=== PATIENT | male | born 1970 | race Caucasian/White ===

== ENCOUNTER 2021-01-27 06:00 | Emergency (ER) | payer BC, SELFPAY ==
[2021-01-27 06:00] VITALS: BP 197/136; PULSE 122; RESP 20; TEMP 36.8; O2SAT 100; BMI 34.3
--- NOTE | 2021-01-27 06:02 | EKG12_ITS ---
Test Reason : CP Blood Pressure : / mmHG Vent. Rate : 128 BPM Atrial Rate : 128 BPM P-R Int : 136 ms QRS Dur : 084 ms QT Int : 318 ms P-R-T Axes : 026 -06 -01 degrees QTc Int : 464 ms Sinus tachycardia Nonspecific ST abnormality Abnormal ECG Confirmed by JAVID LEAVITT, CHRISTINA ([id number]), editorial assistant CHELSEY LEON ([id number]) on 01/30/2021 8:49:41 AM Referred By: MR Confirmed By:CHRISTINA HUA MD
--- NOTE | 2021-01-27 06:07 | EKG12_ITS ---
Test Reason : Blood Pressure : / mmHG Vent. Rate : 076 BPM Atrial Rate : 076 BPM P-R Int : 142 ms QRS Dur : 088 ms QT Int : 392 ms P-R-T Axes : 036 -03 -10 degrees QTc Int : 441 ms Normal sinus rhythm Nonspecific T wave abnormality Abnormal ECG Confirmed by JAVID LEAVITT, CHRISTINA ([id number]), story editor CHELSEY LEON ([id number]) on 01/30/2021 8:47:27 AM Referred By: TOÑO Confirmed By:CHRISTINA HUA MD
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
[2021-01-27] MEDS: LORazepam 2 MG/ML Syringe 0.5 MG IV (06:13)
[2021-01-27 06:14] LABS: Absolute Lymphocyte Count 2.72 X10^3/uL (0.83-4.51); Absolute Neutrophil Count 3.5 X10^3/uL (2.0-7.7); Basophil# 0.01 X10^3/uL; Basophil% 0.1 % (0-1); Eosinophil# 0.14 X10^3/uL; Hemoglobin 15.4 g/dL (13.0-16.5); Lymphocyte # 2.72 X10^3/ul (0.83-4.51); Lymphocyte % 38.1 % (19-41); Mean Corp Hgb Conc 33.5 g/dL (32-36); Mean Corpuscular Hgb 27.6 pg (27.0-32.0); Mean Corpuscular Volume 82.6 fL (80-94); Mean Platelet Vol. 11.2 fl (6.2-12.0); Monocyte# 0.74 X10^3/uL; Monocyte% 10.4 % (0-10); NRBC Flagged by Analyzer 0 % (0-5); Platelet Count 246 K/mm3 (150-450); RBC Distribution Width CV 11.9 % (11.6-14.6); RBC Distribution Width SD 36.2 fl (35.1-43.9); Red Blood Count 5.57 M/mm3 (4.6-6.2); White Blood Count 7.1 K/mm3 (4.4-11.0)
[2021-01-27 06:24] LABS: D-Dimer Quantitative (DVT/PE) <= 0.27 FEU/ug/m (0.27-0.49)
[2021-01-27 06:29] LABS: Anion Gap 7 (5-15); BUN 11 mg/dL (7-18); BUN/Creat Ratio 12.1 RATIO (10-20); Calcium,Total 9.7 mg/dL (8.5-10.1); Chloride 104 mmol/L (98-107); Creatinine, Serum 0.91 mg/dL (0.70-1.30); EST Glomerular Filtration Rate 93 mL/min (>60); Est Glom Filt Rate - Afr Amer 112 mL/min (>60); Estimated Creatinine Clearance 85.69 ml/min; Glucose 109 mg/dL (74-106); Potassium 3.8 mmol/L (3.5-5.1); Sodium Level 140 mmol/L (136-145); Troponin-I HS 4 pg/mL (3.0-78.0)
[2021-01-27 06:32] VITALS: BP 174/109; PULSE 101
[2021-01-27] MEDS: Nitroglycerin SL (ED/IMG/CATH) 0.4 MG TABLET SL ×3 (06:32→06:42)
--- NOTE | 2021-01-27 06:34 | RAD_ITS ---
STUDY: X-RAY CHEST REASON FOR EXAM: Male, 50 years old. chest pain TECHNIQUE: PA and lateral views of the chest. COMPARISON: None. FINDINGS: The lungs are clear and expanded. There is no demonstrated pleural abnormality. Normal size heart. Normal mediastinum and waqas. Normal visualized pulmonary arteries. Normal visualized aortic arch and descending thoracic aorta. Normal visualized thoracic spine. Normal visualized ribs, clavicles, and shoulders. There is no demonstrated abnormality of the visualized soft tissue structures of the upper abdomen. RAD/Chest PA and Lateral IMPRESSION: Normal x-ray examination of the chest. Electronically Signed: Kel Tinoco MD at 6:47 EDT Tel , Service support ,
[2021-01-27 06:37] VITALS: BP 157/116; PULSE 122
[2021-01-27 06:41] LABS: Alcohol, Blood (Medical)-Serum < 3.0 mg/dL
[2021-01-27 06:42] VITALS: BP 137/103; PULSE 120
[2021-01-27 07:38] VITALS: BP 135/84; PULSE 79; RESP 11; O2SAT 98
[2021-01-27 08:32] LABS: Troponin-I HS 6 pg/mL (3.0-78.0)
[2021-01-27 08:58] VITALS: BP 131/77; PULSE 88; RESP 20; O2SAT 96
[2021-01-27] MEDS: Pantoprazole Sodium 40 MG Tablet PO (08:58)
== END 2021-01-27 09:02 | disposition home or self-care (01) ==
PROVIDERS: Emergency Provider Emergency Medicine; PCP Internal Medicine
DX: R07.9 Chest pain, unspecified (principal); I10 Essential (primary) hypertension; E78.5 Hyperlipidemia, unspecified; K21.9 Gastro-esophageal reflux disease without esophagitis; F41.9 Anxiety disorder, unspecified; Z79.82 Long term (current) use of aspirin; Z79.899 Other long term (current) drug therapy
CPT/HCPCS: 71046; 80048; 82077; 84484; 85025; 85379; 93005; 96374; 99284; A4216

== ENCOUNTER 2021-07-25 14:21 | Outpatient (CLI) | payer BC, SELFPAY ==
[2021-07-25 15:22] LABS: CRP 6.02 mg/L (0.0-3.0)
[2021-07-25 15:29] LABS: Erythrocyte Sedimentation Rate 3 mm/hr (0-20)
[2021-07-25 15:32] LABS: Absolute Lymphocyte Count 1.82 X10^3/uL (0.83-4.51); Absolute Neutrophil Count 4.4 X10^3/uL (2.0-7.7); Basophil# 0.03 X10^3/uL; Basophil% 0.4 % (0-1); Eosinophil# 0.16 X10^3/uL; Eosinophils% 2.2 % (0-5); Hematocrit 43.8 % (40-54); Hemoglobin 14.8 g/dL (13.0-16.5); Lymphocyte # 1.82 X10^3/ul (0.83-4.51); Lymphocyte % 25.4 % (19-41); Mean Corp Hgb Conc 33.8 g/dL (32-36); Monocyte# 0.71 X10^3/uL; Monocyte% 9.9 % (0-10); NRBC Flagged by Analyzer 0 % (0-5); Neutrophil # 4.42 X10^3/uL (2.7-7.7); Neutrophil % 61.8 % (47-70); Platelet Count 249 K/mm3 (150-450); RBC Distribution Width CV 12.1 % (11.6-14.6); RBC Distribution Width SD 36.6 fl (35.1-43.9); Red Blood Count 5.28 M/mm3 (4.6-6.2); White Blood Count 7.2 K/mm3 (4.4-11.0)
== END 2021-07-25 23:59 | disposition home or self-care (01) ==
LOC: LAB 14:22
PROVIDERS: PCP Internal Medicine; Referring Provider Physician Assistant; Visit Provider Physician Assistant
DX: M25.561 Pain in right knee (principal); Z96.651 Presence of right artificial knee joint
CPT/HCPCS: 36415; 85025; 85652; 86140

== ENCOUNTER → 2021-08-02 | Outpatient (CLI) | payer BC, SELFPAY ==
--- NOTE | 2021-08-02 13:06 | CT_ITS ---
INDICATION: PRESENTS OF RT ARTIFICAL KNEE JOINT, increased pain EXAMINATION: CT BONE - CT Lower Extremity W/O Contrast Injection TECHNIQUE: Helically acquired images were obtained of the right knee. 2-D reformats were performed by the technologist. A radiation dose optimization technique was used for this scan. IV Contrast dosage and agent: None. COMPARISON: None. FINDINGS: SOFT TISSUES: No soft tissue swelling or gas. No radiopaque foreign body. BONES/JOINTS: No acute fracture or subluxation. Total knee arthroplasty and patellar resurfacing in anatomic alignment without lucency to suggest loosening. No sclerotic or destructive changes. CT/Extremity Lower without Contra IMPRESSION: No finding of arthroplasty complication. No acute abnormal finding. Electronically Signed: Francisco Oliver MD at 6:47 EDT ,
== END | disposition home or self-care (01) ==
LOC: CT 13:03
PROVIDERS: PCP Internal Medicine; Referring Provider Physician Assistant; Visit Provider Physician Assistant
DX: Z96.651 Presence of right artificial knee joint (principal)
CPT/HCPCS: 73700

== ENCOUNTER 2022-07-25 15:26 | Emergency (ER) | payer BC, SELFPAY ==
[2022-07-25 15:26] VITALS: BP 163/134; PULSE 104; RESP 19; TEMP 36.6; O2SAT 99
[2022-07-25 15:39] VITALS: BMI 32.8
--- NOTE | 2022-07-25 15:53 | EDS_ITS ---
HPI History of Present Illness Chief Complaint: Bite Narrative Narrative: 51-year-old male presenting with dog bite. He states he was at his friend's house and his dogs mastiff bit the tip of his penis. He states he does not know any of the dog's immunization status or information because he did not stick around to find out. Last tetanus unknown. Patient states the bleeding is well controlled. He does not have any testicular injury. [facility] Medical History Anxiety Hypertension Substance abuse Home Medications Ropinirole Hcl [Requip] 1 mg PO DAILY 01/04/13 [History Last Taken Unknown] ascorbic acid (vitamin C) 500 mg tablet (Vitamin C) 500 mg PO DAILY@0800 01/04/13 [History Last Taken Unknown] atorvastatin 20 mg tablet 20 mg PO QHS 01/04/13 [History Last Taken Unknown] fluoxetine 20 mg capsule 40 mg PO DAILY 01/04/13 [History Last Taken Unknown] cyclobenzaprine 10 mg tablet 10 mg PO TID PRN PRN Pain ##30 01/07/13 [Rx Last Taken Unknown] bisoprolol 2.5 mg-hydrochlorothiazide 6.25 mg tablet 1 tab PO DAILY 08/14/15 [History Last Taken Unknown] gabapentin 300 mg capsule 300 mg PO TIDCM 08/14/15 [History Last Taken Unknown] trazodone 150 mg tablet 150 mg PO 08/14/15 [History Last Taken Unknown] aspirin 325 mg tablet 325 mg PO BIDCM ##28 08/24/15 [Rx Last Taken Unknown] buspirone 15 mg tablet 15 mg PO BID 08/24/15 [History Last Taken Unknown] celecoxib 200 mg capsule 200 mg PO BID ##6 08/24/15 [Rx Last Taken Unknown] amoxicillin 875 mg-potassium clavulanate 125 mg tablet 1 tab PO BID #20 tabs 07/25/22 [Rx Last Taken Unknown] Allergy/AdvReac Type Severity Reaction Status Date / Time No Known Allergies Allergy Verified 07/25/22 15:29 Surgical History H/O knee surgery H/O wisdom tooth extraction History of knee replacement Hx of appendectomy Social History Smoking Status: Never smoker ROS ROS ED Constitutional Constitutional ED: Denies chills, fever(s) or sweats Eyes Eyes: Denies blurry vision or change in vision ENT ENT ED: Denies ear pain or sore throat Cardiovascular Cardiovascular: Denies chest pain, palpitations or racing heartbeat Respiratory/Chest Respiratory/Chest: Denies cough, dyspnea or sputum Gastrointestinal Gastrointestinal: Denies abdominal pain, constipation, diarrhea, nausea or vomiting Genitourinary Genitourinary ED: Denies dysuria, hematuria or urinary frequency Musculoskeletal Musculoskeletal: Denies arthralgias, myalgias or neck pain Integumentary Reports Abrasions; Denies abscess Neurologic Neurologic: Denies headache(s), paresthesias or weakness Psychiatric Psychiatric: Denies anxiety, depression, suicidal ideation or suicidal thoughts Endocrine Endocrinology: Denies polydipsia or polyuria EXAM Physical Exam Const Vital Signs: 07/25/22 15:26 07/25/22 16:35 Temperature 98 F Temperature Source Temporal Pulse Rate 104 H Respiratory Rate 19 H 18 Blood Pressure 163/134 H Blood Pressure Mean 143 Pulse Ox 99 Oxygen Delivery Method Room Air Positive well nourished General Appearance ED: NAD HEENT atraumatic Resp normal respiratory effort Cardio regular rhythm Neuro oriented x3 and CN's II-XII intact bilaterally Psych mental status grossly normal Skin Skin Narrative: Superficial abrasion to the dorsal aspect of the tip of the penis just proximal to the urethral opening. No active bleeding. No other noted injury. MDM MDM MDM Narrative Medical decision making narrative: Patient sustained dog bite to the tip of his penis. Is very superficial area of abrasion on the dorsal aspect of the penis. No active bleeding. Tetanus was updated today. Patient states he has addiction issues and does not want anything stronger than antiinflammatories. Patient was able to talk to his friend who is the health and fitness professor of the dog. His immunizations are up-to-date. He did have his rabies vaccine. He was given Toradol. Patient started on Augmentin. Wound care and return precautions were discussed. Impression: 1. Dog bite Discharge Plan Triage Chief Complaint: Bite ED Provider: Mathieu Reyes Dx/Rx/DC Orders Instructions: ED Dog Bite Prescriptions: New amoxicillin-pot clavulanate 875-125 mg tablet 1 tab PO BID Qty: 20 0RF No Action atorvastatin 20 MG tablet 20 mg PO QHS Label Comments: CHOLESTEROL ascorbic acid (vitamin C) [Vitamin C] 500 MG tablet 500 mg PO DAILY@0800 Label Comments: SUPPLEMENT fluoxetine 20 MG capsule 40 mg PO DAILY Label Comments: DEPRESSION Ropinirole Hcl [Requip] 1 MG tablet 1 mg PO DAILY Label Comments: RESTLESS LEGS cyclobenzaprine 10 MG tablet 10 mg PO TID PRN PRN (Reason: Pain) Qty: 30 0RF Label Comments: MUSCLE PAIN bisoprolol-hydrochlorothiazide 1 EACH tablet 1 tab PO DAILY Label Comments: blood pressure trazodone 150 MG tablet 150 mg PO Label Comments: antidepressant gabapentin 300 MG capsule 300 mg PO TIDCM Label Comments: neuropathy buspirone 15 MG tablet 15 mg PO BID Label Comments: TAKE 1 TABLET BY MOUTH TWICE DAILY. anxiety celecoxib 200 MG capsule 200 mg PO BID Qty: 6 0RF Label Comments: pain aspirin 325 MG tablet 325 mg PO BIDCM Qty: 28 0RF Label Comments: blood thinner Primary Care Provider: Lindsay Zhou Referrals: Lindsay Zhou MD [Primary Care Provider] - Disposition Disposition: Home, Self Care Discharge Date/Time: 07/25/22 16:43
[2022-07-25] MEDS: Ketorolac 15 MG/ML Vial IV (16:04)
[2022-07-25] MEDS: Amox/Clavulanate 875 MG Tablet PO (16:04)
[2022-07-25] MEDS: Diphth,Pertuss(Acell),Tet Vac 0.5 ML Vial IM (16:05)
[2022-07-25 16:35] VITALS: RESP 18
== END 2022-07-25 16:43 | disposition home or self-care (01) ==
PROVIDERS: Emergency Provider Student in an Organized Health Care Education/Training Program; PCP Internal Medicine; Visit Provider Student in an Organized Health Care Education/Training Program
DX: S30.812A Abrasion of penis, initial encounter (principal); W54.0XXA Bitten by dog, initial encounter
CPT/HCPCS: 90715; 96374; 99283; A4216

== ENCOUNTER 2023-02-09 23:49 | Emergency (ER) | payer BC, SELFPAY ==
[2023-02-09 23:50] VITALS: BP 134/88; PULSE 73; RESP 16; TEMP 36.2; O2SAT 98; BMI 35.7
--- NOTE | 2023-02-09 23:55 | EDS_ITS ---
HPI History of Present Illness Chief Complaint: Back [facility] Medical History Anxiety Hypertension Substance abuse Home Medications Ropinirole Hcl [Requip] 1 mg PO DAILY 01/04/13 [History Last Taken Unknown] ascorbic acid (vitamin C) 500 mg tablet (Vitamin C) 500 mg PO DAILY@0800 01/04/13 [History Last Taken Unknown] atorvastatin 20 mg tablet 20 mg PO QHS 01/04/13 [History Last Taken Unknown] fluoxetine 20 mg capsule 40 mg PO DAILY 01/04/13 [History Last Taken Unknown] cyclobenzaprine 10 mg tablet 10 mg PO TID PRN PRN Pain ##30 01/07/13 [Rx Last Taken Unknown] bisoprolol 2.5 mg-hydrochlorothiazide 6.25 mg tablet 1 tab PO DAILY 08/14/15 [History Last Taken Unknown] gabapentin 300 mg capsule 300 mg PO TIDCM 08/14/15 [History Last Taken Unknown] trazodone 150 mg tablet 150 mg PO 08/14/15 [History Last Taken Unknown] aspirin 325 mg tablet 325 mg PO BIDCM ##28 08/24/15 [Rx Last Taken Unknown] buspirone 15 mg tablet 15 mg PO BID 08/24/15 [History Last Taken Unknown] celecoxib 200 mg capsule 200 mg PO BID ##6 08/24/15 [Rx Last Taken Unknown] amoxicillin 875 mg-potassium clavulanate 125 mg tablet 1 tab PO BID #20 tabs 07/25/22 [Rx Last Taken Unknown] oxycodone 5 mg capsule 5 mg PO Q6H PRN pain 3 days #12 caps 02/10/23 [Rx Last Taken Unknown] prednisone 20 mg tablet 40 mg (2 x 20 mg) PO DAILY 5 days #10 tabs 02/10/23 [Rx Last Taken Unknown] Allergy/AdvReac Type Severity Reaction Status Date / Time No Known Allergies Allergy Verified 02/09/23 23:50 Surgical History H/O knee surgery H/O wisdom tooth extraction History of knee replacement Hx of appendectomy Social History Smoking Status: Never smoker EXAM Physical Exam Const Vital Signs: 02/09/23 23:50 Temperature 97.1 F L Temperature Source Temporal Pulse Rate 73 Respiratory Rate 16 Blood Pressure 134/88 H Blood Pressure Mean 103 Pulse Ox 98 Oxygen Delivery Method [place] [facility] [place] Medical decision making narrative: HISTORY OF PRESENT ILLNESS: 52-year-old male presents with back pain. The patient states he has a history of bulging disc at the L4/L5 level. Notes no new trauma. No falls. Notes tonight he laid down and noticed severe pain in his lower back that does not radiate. Patient denies any saddle anesthesia, urinary tension, bowel or bladder incontinence, lower extremity weakness, fever or IV drug use, no recent spinal manipulation or surgery, no recent urinary catheterization. REVIEW OF SYSTEMS: All other systems reviewed and are negative except as noted in the history of present illness. At least 10 review of systems reviewed and are negative except as noted in history of present illness. PHYSICAL EXAM: Nursing triage notes reviewed, Vital signs reviewed Constitutional: please see mdm HENT: MMM Eyes: Pupils equal round and reactive to light, Extraocular muscles intact Neck: No stridor, no JVD, full neck ROM Lungs: Clear to auscultation, No wheezing or rales. No increased work of breathing, no conversational dyspnea, no accessory muscle use, no nasal flaring. No respiratory distress noted Heart: Regular rate and rhythm, No murmurs, No rubs and No gallops, 2+ distal pulses (radial, femoral, posterior tibial) in all extremities Abdomen: Soft, there is no tenderness, rigidity, rebound or guarding, no obvious peritoneal signs, no palpable pulsatile abdominal masses, no auscultated abdominal bruit : No CVAT Extremities: No edema Back: No midline step-offs or deformities Neuro: Intact sensation L1-S1 dermatomal distributions. Intact 5/5 strength in hip flexion (T12-L3). Knee extension (L2-L4). Ankle dorsiflexion (L4-L5). Ankle plantar flexion (S1). Great toe extension (L5). 2+ patellar and Achilles DTRs. Skin: No rash or lesions noted MEDICAL DECISION MAKING: Chief Complaint: Back pain External records reviewed: [No recent advanced imaging of the axial skeleton Factors affecting care: Hypertension, substance abuse Social determinants of health: No IV drug use History obtained from others: Patient's Consults: none [facility] Narrative: Patient was hemodynamically stable, afebrile. Exam without focal neurologic deficits. No midline step-offs or deformities. No obvious rashes. I considered the following differential diagnosis: Musculoskeletal back pain, space-occupying lesion of the spinal (epidural abscess, epidural hematoma), cauda equina, conus medullaris, fracture dislocation, AAA, nephrolithiasis, pyelonephritis, aortic dissection The patient presented complaining of back pain. There was no history of recent fall or trauma. There was no evidence to support genitourinary etiology. There is also no evidence to suggest vascular pathology such as AAA dissection. No fevers or other evidence to suspect infectious processes, abscess, osteomyelitis etc. The patient?s neurological exam is normal with normal motor and sensory. There is no saddle paresthesias reported and no bowel or bladder incontinence or retention. I suspect the pain is mechanical in nature. Clinical suspicion, plan of care and management was discussed with the patient. The patient was instructed to follow up with their health care provider. The patient was also instructed to return if the pain worsened, changed, or developed weakness or bowel or bladder trouble. The patient agreed with plan. I completed a structured, evidence-based clinical evaluation to screen for acute non-traumatic spinal emergencies. The patient has a normal detailed neurologic exam and red flag historical factors were negative. The evidence indicates that the patient is very low risk for an acute spinal emergency and this is consistent with my clinical intuition. The risk of further workup is higher than the likelihood of the patient having a spinal epidural abscess or other dangerous emergency spinal condition. It is, therefore, in the patient?s best interest not to do additional emergent testing at this time. Shared Decision-Making I have discussed with the patient my clinical impression and the result of an evidence-based clinical evaluation to screen for spinal epidural abscess and other spinal emergencies, as well as the risk of further testing and hospitalization. The evidence shows that the risk for an acute spinal emergency is less than 1%. Although the risk of an acute spinal emergency has not been completely eliminated, the risks of further testing likely exceed any potential benefit, and the patient agrees with not pursuing further emergent evaluation for causes of back pain at this time. The patient and/or family, caregivers express understanding. The patient and/or family, caregivers agrees with the plan. Total critical care time today provided was at least 0 minutes. This excludes separately billable procedures. Critical care time (if documented) is secondary to the patient having high probability of clinically significant/life threatening deterioration in the patient's condition which required my urgent intervention. Impression: 1. Acute on chronic low back pain 2. History of disc herniation Disposition: Discharge home Anoop Colorado DO Discharge Plan Triage Chief Complaint: Back ED Provider: Anoop Colorado Dx/Rx/DC Orders Clinical Impression: Acute exacerbation of chronic low back pain Instructions: ED Back Pain (Acute or Chronic) Prescriptions: New oxycodone 5 mg capsule 5 mg PO Q6H PRN (Reason: pain) 3 Days Qty: 12 0RF prednisone 20 mg tablet 40 mg PO DAILY 5 Days Qty: 10 0RF No Action atorvastatin 20 MG tablet 20 mg PO QHS Patient Comments: CHOLESTEROL ascorbic acid (vitamin C) [Vitamin C] 500 MG tablet 500 mg PO DAILY@0800 Patient Comments: SUPPLEMENT fluoxetine 20 MG capsule 40 mg PO DAILY Patient Comments: DEPRESSION Ropinirole Hcl [Requip] 1 MG tablet 1 mg PO DAILY Patient Comments: RESTLESS LEGS cyclobenzaprine 10 MG tablet 10 mg PO TID PRN PRN (Reason: Pain) Qty: 30 0RF Patient Comments: MUSCLE PAIN bisoprolol-hydrochlorothiazide 1 EACH tablet 1 tab PO DAILY Patient Comments: blood pressure trazodone 150 MG tablet 150 mg PO Patient Comments: antidepressant gabapentin 300 MG capsule 300 mg PO TIDCM Patient Comments: neuropathy buspirone 15 MG tablet 15 mg PO BID Patient Comments: TAKE 1 TABLET BY MOUTH TWICE DAILY. anxiety celecoxib 200 MG capsule 200 mg PO BID Qty: 6 0RF Patient Comments: pain aspirin 325 MG tablet 325 mg PO BIDCM Qty: 28 0RF Patient Comments: blood thinner amoxicillin-pot clavulanate 875-125 mg tablet 1 tab PO BID Qty: 20 0RF Stand Alone Forms: ED Work / School Excuse Primary Care Provider: Lindsay Zhou Referrals: Saleem Mendez MD [Non-Staff] - Lindsay Zhou MD [Primary Care Provider] - Activity Restrictions/Additional Instructions: Thank you for trusting us with your care today! Please take Tylenol (2 pills, 650 mg), ibuprofen (2 pills, 400 mg) every 6 hours as needed for pain and fever control. Please begin taking your short course of prednisone which last 5 days. If this regimen does not control your pain please take oxycodone as needed for breakthrough pain. Please return to the emergency department if your symptoms change or worsen. Specifically if you develop bowel or bladder trouble, urinary retention, loss of sensation around your private region, loss of movement or sensation in your legs. Please follow with your primary care physician for further outpatient evaluation and management. Disposition Disposition: Home, Self Care
[2023-02-10 00:41] VITALS: BP 134/88; PULSE 73; RESP 16; O2SAT 98
[2023-02-10] MEDS: predniSONE 20 MG Tablet 40 MG PO (00:42)
[2023-02-10] MEDS: Oxycodone/Apap 5/325 Tablet PO (00:42)
[2023-02-10] MEDS: Ibuprofen 200 MG Tablet 400 MG PO (00:42)
== END 2023-02-10 00:44 | disposition home or self-care (01) ==
LOC: ED 02-10 00:19
PROVIDERS: Emergency Provider Emergency Medicine; PCP Internal Medicine; Visit Provider Emergency Medicine
DX: G89.29 Other chronic pain (principal); I10 Essential (primary) hypertension; M54.50 Low back pain, unspecified; F41.9 Anxiety disorder, unspecified; Z79.899 Other long term (current) drug therapy; Z96.659 Presence of unspecified artificial knee joint; Z90.49 Acquired absence of other specified parts of digestive tract
CPT/HCPCS: 99283

== ENCOUNTER 2023-05-08 15:24 | Inpatient (IN) | payer BC, SELFPAY ==
[2023-05-08 15:26] VITALS: BP 143/89; PULSE 83; RESP 18; TEMP 36.6; O2SAT 98; BMI 38.0
[2023-05-08] MEDS: Oxycodone/Apap 5/325 Tablet PO (16:09)
--- NOTE | 2023-05-08 16:09 | EX.ED.DYSGE1 ---
HPI <DOLLY Rinaldi - Last Filed: 05/08/23 17:17> History of Present Illness Chief Complaint: Chest Pain Narrative Narrative: Patient is a 52-year-old male with history of hypertension, hyperlipidemia, neuropathy anxiety, depression who presents to the emergency department for multiple complaints. Patient states that he has been having bilateral feet pain that have been ongoing for the last several weeks. He was supposed to see a zipper setter chainstitch today, however secondary to emergency surgery, the patient was then told to come back and rescheduled for 22 May. Patient states that he also has chest pain and shortness of breath. This is also been going on for several weeks. Since he was here, he thought he come to the emergency department to have it evaluated. He also would like something for pain for his feet [facility] <DOLLY Rinaldi - Last Filed: 05/08/23 17:17> [facility] Medical History (Updated 05/08/23 @ 17:[address] Reema Mcconnell MD) Anxiety Hypertension Substance abuse Home Medications ascorbic acid (vitamin C) 500 mg tablet (Vitamin C) 500 mg PO DAILY@0800 SUPPLEMENT 01/04/13 [History Last Taken Unknown] atorvastatin 20 mg tablet 20 mg PO QHS CHOLESTEROL 01/04/13 [History Last Taken 05/08/23] fluoxetine 20 mg capsule 20 mg PO DAILY DEPRESSION 01/04/13 [History Last Taken Unknown] bisoprolol 2.5 mg-hydrochlorothiazide 6.25 mg tablet 1 tab PO DAILY blood pressure 08/14/15 [History Last Taken 05/08/23] gabapentin 300 mg capsule 300 mg PO TIDCM 08/14/15 [History Last Taken 05/08/23] buspirone 15 mg tablet 15 mg PO BID anxiety 08/24/15 [History Last Taken 05/08/23] cyclobenzaprine 10 mg tablet 10 mg PO TID PRN muscle pain 05/08/23 [History Last Taken Unknown] fluoxetine 40 mg capsule 40 mg PO DAILY DEPRESSION 05/08/23 [History Last Taken 05/08/23] meloxicam 15 mg tablet 15 mg PO DAILY 05/08/23 [History Last Taken 05/08/23] ropinirole 1 mg tablet 1.5 mg PO DAILY RESTLESS LEG SYNDROME 05/08/23 [History Last Taken 05/07/23] Allergy/AdvReac Type Severity Reaction Status Date / Time No Known Allergies Allergy Verified 05/08/23 15:26 Surgical History H/O knee surgery H/O wisdom tooth extraction History of knee replacement Hx of appendectomy Social History Smoking Status: Never smoker ROS <DOLLY Rinaldi - Last Filed: 05/08/23 17:17> ROS ED ROS Narrative Constitutional: Negative for fever, chills, weight loss, weakness Eyes: Negative for vision loss, vision change, double vision ENT: Negative for any sore throat, ear pain, congestion Cardiovascular: Negative for any tightness, palpitations. Positive for chest pain Respiratory: Negative for any cough, sputum production, hemoptysis,dyspnea on exertion, orthopnea. Positive for dyspnea Gastrointestinal: Negative for any abdominal pain, nausea, vomiting, diarrhea, constipation, blood in stool, blood in vomit : Negative for any urinary frequency, dysuria, retention, blood in urine Muscle skeletal: Negative for any myalgias, arthralgias, neck pain, back pain. Positive bilateral leg. Neurological: Negative for any headache, syncope, paresthesias, dizziness Skin: Negative for any rashes, lumps, itching, abrasions, lacerations Psychiatric: Negative for any depression, anxiety, stress, suicidal ideation, homicidal ideation Hematologic: Negative for any easy bruising, excessive bruising, easy bleeding Allergies: Negative for any eczema, hives, rash EXAM <DOLLY Rinaldi - Last Filed: 05/08/23 17:17> Physical Exam Narrative Exam Narrative: Vital signs reviewed. HEET: Head normocephalic atraumatic, TMs clear bilaterally. Posterior pharynx is clear, moist mucous membranes. Nares clear bilaterally. Neck: Supple with no lymphadenopathy or tenderness. No signs of meningismus. Cardiac: Regular rate and rhythm no murmurs gallops or rubs, equal peripheral pulses bilaterally. Respiratory: Lungs clear to auscultation bilaterally. No chest tenderness. Abdomen: Soft, nontender, nondistended. No abdominal bruit or pulsatile masses. No hepatosplenomegaly Extremities: No peripheral edema, no signs of gross trauma or deformity. Active full range of motion of all extremities. Patient has tenderness throughout his feet however there is no color change, no ecchymosis, no edema. +2 pedal pulse. Neuro: Cranial nerves II through XII intact, no focal neurological deficits. Skin: Clean dry and intact with no rash, purpura, petechiae, vesicles or pustules. Backs/flank: No CVA tenderness, no midline spinal tenderness, no deformity. Psych: Normal mood and affect. No SI, HI or acute psychosis. Const Vital Signs: 05/08/23 15:26 05/08/23 15:54 05/08/23 17:24 Temperature 97.8 F Temperature Source Temporal Pulse Rate 83 79 Respiratory Rate 18 27 H Respiratory Effort Normal Non-Labored Blood Pressure 143/89 H 142/82 H Blood Pressure Mean 107 102 Pulse Ox 98 97 Oxygen Delivery Method Room Air Positive well nourished and well developed General Appearance ED: well developed <Dr. Jose Marrero MD - Last Filed: 05/08/23 23:55> Physical Exam Const Vital Signs: 05/08/23 15:26 05/08/23 15:54 05/08/23 17:24 Temperature 97.8 F Temperature Source Temporal Pulse Rate 83 79 Respiratory Rate 18 27 H Respiratory Effort Normal Non-Labored Blood Pressure 143/89 H 142/82 H Blood Pressure Mean 107 102 Pulse Ox 98 97 Oxygen Delivery Method Room Air MDM <DOLLY Rinaldi - Last Filed: 05/08/23 17:17> MDM Lab Data Labs: Laboratory Results - last 24 hr 05/08/23 15:50 WBC 6.2 RBC 4.57 L Hgb 12.6 L Hct 37.8 L MCV 82.7 MCH 27.6 MCHC 33.3 RDW Std Deviation 36.3 RDW Coeff of Zonia 12.1 Plt Count 183 MPV 12.3 H Immature Gran % (Auto) 0.300 Neut % (Auto) 58.3 Lymph % (Auto) 28.4 Gosper % (Auto) 9.6 Eos % (Auto) 2.9 Baso % (Auto) 0.5 Absolute Neuts (auto) 3.6 Absolute Lymphs (auto) 1.77 Nucleated RBC % 0 PT 12.6 INR 0.9 APTT 29.0 D-Dimer Quant (PE/DVT) < 0.27 L Sodium 141 Potassium 3.7 Chloride 110 H Carbon Dioxide 28.0 Anion Gap 3 L BUN 17 Creatinine 0.95 Estim Creat Clear Calc 105.28 Est GFR (MDRD) Af Amer 106 Est GFR (MDRD) Non-Af 88 BUN/Creatinine Ratio 17.9 Glucose 169 H Hemoglobin A1c 6.4 H Calcium 8.9 Troponin I High Sens 2430 H* Radiography Diagnostic Testing: Clinical Impression(s) from Imaging Studies Chest X-Ray 05/08/23 16:15 IMPRESSION: No radiographic evidence of acute cardiopulmonary disease. Electronically Signed: Joe Spann MD at 16:29 EST , EKG Initial EKG: Comments: Normal sinus rhythm, rate of 72 bpm, NJ interval 164 ms, QRS duration 94 ms, no acute ST elevation, no acute infarct noted. Treatment and Re-Evaluation :: Patient appears generally well, patient appears nontoxic, vital signs are stable. Patient is presenting to the emergency department with complaints of bilateral feet pain has been going on for several weeks, as well as chest pain has been going on for several weeks. Differential diagnosis include plantar fasciitis, worsening neuropathy, ACS, NC, muscle skeletal chest pain, pneumonia. Patient will receive basic laboratory values including 1 troponin secondary to this being ongoing for 2 weeks. Patient received a two-view chest x-ray. All radiologic examinations were read, reviewed by the emergency department attending. From these reads, a plan of care will be put in place. Patient be given Percocet for pain. Patient's patient's 2 view chest x-ray shows no radiographic evidence of acute cardiopulmonary process. This was interpreted by the ER physician. EKG shows normal sinus rhythm, some T wave abnormality, rate of [address] elevation. Patient's laboratory eval showed normal CBC, patient slightly anemic with a hemoglobin 12.6. However this appears baseline. Patient's D-dimer was negative. Patient's troponin was greatly elevated at 2430. Second to this I will reach out to cardiology, patient will be admitted as a NSTEMI. Patient be given oral aspirin here. Spoke with hospitalist, patient be admitted. Did speak with cardiology, we will be starting heparin. Patient stable for admission. <Dr. Jose Marrero MD - Last Filed: 05/08/23 23:55> [facility] Lab Data Attestation: I reviewed the patient's lab results. Labs: Laboratory Results - last 24 hr 05/08/23 15:50 WBC 6.2 RBC 4.57 L Hgb 12.6 L Hct 37.8 L MCV 82.7 MCH 27.6 MCHC 33.3 RDW Std Deviation 36.3 RDW Coeff of Zonia 12.1 Plt Count 183 MPV 12.3 H Immature Gran % (Auto) 0.300 Neut % (Auto) 58.3 Lymph % (Auto) 28.4 Gosper % (Auto) 9.6 Eos % (Auto) 2.9 Baso % (Auto) 0.5 Absolute Neuts (auto) 3.6 Absolute Lymphs (auto) 1.77 Nucleated RBC % 0 PT 12.6 INR 0.9 APTT 29.0 D-Dimer Quant (PE/DVT) < 0.27 L Sodium 141 Potassium 3.7 Chloride 110 H Carbon Dioxide 28.0 Anion Gap 3 L BUN 17 Creatinine 0.95 Estim Creat Clear Calc 105.28 Est GFR (MDRD) Af Amer 106 Est GFR (MDRD) Non-Af 88 BUN/Creatinine Ratio 17.9 Glucose 169 H Hemoglobin A1c 6.4 H Calcium 8.9 Troponin I High Sens 2430 H* Radiography Diagnostic Testing: Clinical Impression(s) from Imaging Studies Chest X-Ray 05/08/23 16:15 IMPRESSION: No radiographic evidence of acute cardiopulmonary disease. Electronically Signed: Joe Spann MD at 16:29 EST , Rhythm Strip Rhythm Strip: Sinus Rhythm Rate: 80 Ectopy: None EKG Initial EKG: Attestation: I personally reviewed and interpreted this EKG as follows: Interpretation: Sinus Rhythm and S-T Depression (inf 0.5-1mm w/ T wave inversions; no recip FRED) Prior EKG tracings: available for review Prior: Changed Management Discussion w/another healthcare provider: Hospitalist and Quality Assurance (cardiology Dr. Collado) Treatment and Re-Evaluation Comments:: I have personally performed a face to face assessment of the patient and have reviewed the SOPHIE Note. I performed a substantive portion of the visit including all aspects of the following. My cai findings include: History is ongoing left-sided chest discomfort for 2.5 weeks or more. Denies any acute sudden onset. It was gradual. Mostly nonpleuritic but when the pain is severe it hurts a little more to take deep breaths and has made him short of breath when the pain is severe but otherwise no respiratory symptoms. No leg pain or swelling. No syncopal episodes or near syncope or palpitations. 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 [id number]. Exam is heart regular, no tachycardia, lungs clear to auscultation throughout, no splinting on deep inspiration. The left lateral chest up toward the axilla and pectoralis major tendon are all tender, reproducing his pain to some degree but it is relatively mild and he is in no distress. Equal bilateral radial pulses, no calf tenderness or pedal edema. Medical Decison Making likely musculoskeletal. Given symptoms, and age since we are not able to apply PERC rule, we will obtain a D-dimer given his low Wells score, as well as a chest x-ray to rule out pulmonary etiology, an EKG and troponin to rule out cardiac etiology. EKG shows inferior ischemic abnormalities, and his troponin is elevated, suggesting an atypical presentation of acute coronary syndrome. His D-dimer is within normal limits, this rules out pulmonary embolus as cause for these abnormalities, so we suspect it is coronary thrombosis. There is no STEMI. Discussed with cardiology, desire heparin drip in addition to aspirin which we gave, since inferior process I am given morphine instead of nitroglycerin and we will discuss with hospitalist for admission. Other additions or changes: [None] <Dr. Jose Marrero MD - Last Filed: 05/08/23 23:55> Critical Care Time Critical Care Time: Yes Critical care time (excluding procedures): 30-74 minutes (36 min), Including time spent:, Discussing w/Patient &/or Family/[employer], Discussing w/Consultants, Arranging Admission or Transfer and Performing Direct Patient Care at Bedside Discharge Plan Dx/Rx/DC Orders Clinical Impression: ACS (acute coronary syndrome), Acute dyspnea, Chest pain Disposition Disposition: Acute Care Hospital [facility] Discharge Date/Time: 05/08/23 18:27
[2023-05-08 16:15] LABS: Absolute Lymphocyte Count 1.77 X10^3/uL (0.83-4.51); Absolute Neutrophil Count 3.6 X10^3/uL (2.0-7.7); Basophil# 0.03 X10^3/uL; Basophil% 0.5 % (0-1); Eosinophil# 0.18 X10^3/uL; Eosinophils% 2.9 % (0-5); Hematocrit 37.8 % (40-54); Hemoglobin 12.6 g/dL (13.0-16.5); Lymphocyte # 1.77 X10^3/ul (0.83-4.51); Lymphocyte % 28.4 % (19-41); Mean Corp Hgb Conc 33.3 g/dL (32-36); Mean Corpuscular Hgb 27.6 pg (27.0-32.0); Mean Corpuscular Volume 82.7 fL (80-94); Mean Platelet Vol. 12.3 fl (6.2-12.0); Monocyte% 9.6 % (0-10); NRBC Flagged by Analyzer 0 % (0-5); Neutrophil # 3.64 X10^3/uL (2.7-7.7); Neutrophil % 58.3 % (47-70); Platelet Count 183 K/mm3 (150-450); RBC Distribution Width CV 12.1 % (11.6-14.6); RBC Distribution Width SD 36.3 fl (35.1-43.9); Red Blood Count 4.57 M/mm3 (4.6-6.2); White Blood Count 6.2 K/mm3 (4.4-11.0)
--- NOTE | 2023-05-08 16:15 | RAD_ITS ---
EXAM: XR CHEST, 2 VIEWS CLINICAL INDICATION: Shortness of breath TECHNIQUE: Frontal and lateral views of the chest. COMPARISON: 01/27/2021 FINDINGS: LUNGS AND PLEURAL SPACES: Unremarkable. No consolidation or edema. No pneumothorax. No effusion. HEART: Unremarkable. Cardiac silhouette not enlarged. MEDIASTINUM: Central airways and mediastinal contour are unremarkable. BONES/JOINTS: Unremarkable. No acute fracture. SOFT TISSUES: Unremarkable. RAD/Chest PA and Lateral IMPRESSION: No radiographic evidence of acute cardiopulmonary disease. Electronically Signed: Joe Spann MD at 16:29 EST ,
[2023-05-08 16:41] LABS: Anion Gap 3 (5-15); BUN 17 mg/dL (7-18); BUN/Creat Ratio 17.9 RATIO (10-20); Calcium,Total 8.9 mg/dL (8.5-10.1); Chloride 110 mmol/L (98-107); Creatinine, Serum 0.95 mg/dL (0.70-1.30); EST Glomerular Filtration Rate 88 mL/min (>60); Est Glom Filt Rate - Afr Amer 106 mL/min (>60); Estimated Creatinine Clearance 105.28 ml/min; Glucose 169 mg/dL (74-106); Potassium 3.7 mmol/L (3.5-5.1); Sodium Level 141 mmol/L (136-145); Troponin-I HS 2430 pg/mL (3.0-78.0)
[2023-05-08 16:53] LABS: D-Dimer Quantitative (DVT/PE) < 0.27 FEU/ug/m (0.27-0.49)
[2023-05-08] MEDS: Aspirin 325 MG Tablet PO (17:09)
[2023-05-08] MEDS: Morphine 4 MG/ML Syringe IV (17:11)
[2023-05-08] MEDS: Heparin Injection (Vial) 5,000 UNIT/ML VIAL 4000 UNIT IV (17:16)
[2023-05-08] MEDS: HEPARIN/D5w 25,000 UNITS 25,000 UNITS/250 ML IV.SOLN. 10 UNITS CONT INF (17:20)
[2023-05-08 17:24] VITALS: BP 142/82; PULSE 79; RESP 27; O2SAT 97
[2023-05-08 17:24] LABS: International Normalized Ratio 0.9; Prothrombin Time (Protime)PT. 12.6 SECONDS (11.7-14.9)
--- NOTE | 2023-05-08 17:42 | PCM.HP.STD ---
HPI - General General Date of Admission: 05/08/23 Date of Service: 05/08/23 Chief Complaint: Chest pain HPI Narrative RITU COBOS, is a 52-year-old male with history of hypertension, hyperlipidemia, neuropathy, anxiety, depression who presents to the emergency department for multiple complaints. He endorsed bilateral feet pain for several weeks and was supposed to see podiatry today however secondary to emergency surgery he was rescheduled for May 22. Also endorsing chest pain and shortness of breath for several weeks and he said since he was already here he thought he would come to the emergency department to be evaluated. In the ED blood pressure 143/89 with a heart rate of 83. Lab workup fairly benign, ddimer negative, however patient found to have troponin of 2430 so cardiology contacted who recommended heparin drip. Hospitalist contacted for admission. Patient evaluated with family member at bedside, he reports that he has been having pain in his feet and was diagnosed with plantars fasciitis which is why he was going to see podiatry. In regards to chest pain he reports for 2 to 3 weeks he has been having chest pressure and shortness of breath that are worse on exertion and better when resting but do not really completely go away, also feels some heartburn sensation and will feel some sweats or chills. Possibly some upper abdominal discomfort as well. Denies any swelling, no other focal complaints. [facility] Medical History (Updated 05/08/23 @ 17:[address] Reema Mcconnell MD) Anxiety Hypertension Substance abuse Home Medications ascorbic acid (vitamin C) 500 mg tablet (Vitamin C) 500 mg PO DAILY@0800 SUPPLEMENT 01/04/13 [History Last Taken Unknown] atorvastatin 20 mg tablet 20 mg PO QHS CHOLESTEROL 01/04/13 [History Last Taken 05/08/23] fluoxetine 20 mg capsule 20 mg PO DAILY DEPRESSION 01/04/13 [History Last Taken Unknown] bisoprolol 2.5 mg-hydrochlorothiazide 6.25 mg tablet 1 tab PO DAILY blood pressure 08/14/15 [History Last Taken 05/08/23] gabapentin 300 mg capsule 300 mg PO TIDCM 08/14/15 [History Last Taken 05/08/23] buspirone 15 mg tablet 15 mg PO BID anxiety 08/24/15 [History Last Taken 05/08/23] cyclobenzaprine 10 mg tablet 10 mg PO TID PRN muscle pain 05/08/23 [History Last Taken Unknown] fluoxetine 40 mg capsule 40 mg PO DAILY DEPRESSION 05/08/23 [History Last Taken 05/08/23] meloxicam 15 mg tablet 15 mg PO DAILY 05/08/23 [History Last Taken 05/08/23] ropinirole 1 mg tablet 1.5 mg PO DAILY RESTLESS LEG SYNDROME 05/08/23 [History Last Taken 05/07/23] Allergy/AdvReac Type Severity Reaction Status Date / Time No Known Allergies Allergy Verified 05/08/23 15:26 Surgical History H/O knee surgery H/O wisdom tooth extraction History of knee replacement Hx of appendectomy Social History Smoking Status: Never smoker ROS ROS Narrative General: Feels some sweats or chills occasionally HENT: Denies headache, denies stuffy nose, denies sore throat EYES: Denies changes in vision Resp: Denies cough, has had increased shortness of breath on exertion for 3 weeks Cardiac: Chest pain and burning for 3 weeks GI: Some possible upper abdominal discomfort, denies changes in bowel, denies nausea/vomiting : Denies changes in urination Extremity: Denies swelling MSK: Denies weakness, pain in bilateral feet Neuro: Denies any numbness/tingling Heme: Denies any bleeding or bruising Skin: Denies rashes Psychiatric: No complaints voiced Vital Signs Vital Signs Vital Signs: 05/08/23 15:26 05/08/23 15:54 05/08/23 17:24 Temperature 97.8 F Temperature Source Temporal Pulse Rate 83 79 Respiratory Rate 18 27 H Respiratory Effort Normal Non-Labored Blood Pressure 143/89 H 142/82 H Blood Pressure Mean 107 102 Pulse Ox 98 97 Oxygen Delivery Method Room Air Weight Weight: 110.178 kg Body Mass Index (BMI) 38.0 Physical Exam Narrative General: Alert, oriented, no apparent distress HEENT: Atraumatic, normocephalic Eyes: Anicteric, normal conjunctiva, extraocular movements grossly intact Neck: Supple Respiratory: No significant rhonchi or wheezes, normal respiratory effort Cardiovascular: Regular rate and rhythm GI: Soft, nontender, nondistended Extremities: No edema Musculoskeletal: Moving all extremities Neuro: No overt focal neurological deficits Skin: No rashes appreciated Psych: Cooperative Results Lab / Micro Data 05/08/23 15:50 05/08/23 15:50 Labs: Laboratory Results - last 24 hr 05/08/23 15:50: WBC 6.2, RBC 4.57 L, Hgb 12.6 L, Hct 37.8 L, MCV 82.7, MCH 27.6, MCHC 33.3, RDW Std Deviation 36.3, RDW Coeff of [place] 12.1, Plt Count 183, MPV 12.3 H, Immature Gran % (Auto) 0.300, Neut % (Auto) 58.3, Lymph % (Auto) 28.4, [place] % (Auto) 9.6, Eos % (Auto) 2.9, Baso % (Auto) 0.5, Absolute Neuts (auto) 3.6, Absolute Lymphs (auto) 1.77, Nucleated RBC % 0, PT 12.6, INR 0.9, APTT 29.0, D-Dimer Quant (PE/DVT) < 0.27 L, Sodium 141, Potassium 3.7, Chloride 110 H, Carbon Dioxide 28.0, Anion Gap 3 L, BUN 17, Creatinine 0.95, Estim Creat Clear Calc 105.28, Est GFR (MDRD) Af Amer 106, Est GFR (MDRD) Non-Af 88, BUN/Creatinine Ratio 17.9, Glucose 169 H, Calcium 8.9, Troponin I High Sens 2430 H* Rhythm Strip Rhythm Strip: Sinus Rhythm Rate: 80 Ectopy: None Imaging Radiology Impression Chest X-Ray 05/08/23 16:15 IMPRESSION: No radiographic evidence of acute cardiopulmonary disease. Electronically Signed: Joe Spann MD at 16:29 EST , Assessment & Plan Assessment/Plan (1) Chest pain: (2) Elevated troponin: (3) Hypertension: (4) Anxiety: (5) Leg pain: PLAN: Plan # Elevated troponin -concern for NSTEMI -Initial troponin 2430, trend -Chest x-ray unremarkable -EKG with some ST depressions -Admit to telemetry -Echocardiogram -Cardiology consult -Heparin drip -Loaded w/ aspirin -Cont Aspirin and statin -Check lipid panel in a.m., check TSH -Heart healthy diet with n.p.o. at midnight -On bisoprolol/hctz combo at home for BP, NF, will change to metoprolol # Bilateral foot pain, reports dx of plantar fasciitis -Pain control as needed -Scheduled to follow-up with podiatry in 2 weeks -May need vascular studies in the future if concern for vascular component moving forward -Hold mobic -Continue gabapentin #RLS -Continue ropinirole # Depression and anxiety -Continue home medications # Hyperglycemia -Glucose 167 in ED -Will check A1c -Glucose checks, sliding scale insulin in the interim #DVT ppx: Heparin drip Reema Mcconnell MD Time spent in the patient's overall evaluation,decision-making process, review of diagnostic data, adjustment of management, discussion with other providers, nursing nursing and ancillary staff involved in patient's care documentation, 57 minutes Charges/Coding Visit Charges Inpatient E&M: 91280 Init Hosp L2
--- NOTE | 2023-05-08 17:48 | NURSING ---
PCU ZAMORA ACS, CP, SOB, ELEVATED TROP
[2023-05-08 18:26] LABS: Troponin-I HS 2494 pg/mL (3.0-78.0)
[2023-05-08 18:28] LABS: Hemoglobin A1c 6.4 % (3.8-5.6)
--- NOTE | 2023-05-08 18:39 | ECHOCS_ITS ---
Reason For Study: Chest Pain Procedure This was a 2D Doppler, Color Flow transthoracic echocardiogram. The study was technically difficult. Contrast injection was performed. Exam performed portable in patient room. Left Ventricle Normal LV size. Mild concentric left ventricular hypertrophy. Left ventricular systolic function is normal. The estimated ejection fraction is 60 %. No evidence for diastolic dysfunction. Right Ventricle Normal RV size. Normal systolic function. Atria Normal left atrium. Normal right atrium. Mitral Valve The mitral valve is structurally normal. No prolapse or stenosis seen. Mild (1+) mitral valve insufficiency. Tricuspid Valve Normal tricuspid valve. Trivial tricuspid valve insufficiency. Right ventricular systolic pressure estimated to be 29 mmHg. Aortic Valve Trisinus/trileaflet aortic valve. Mild focal aortic valve thickening. Aortic sclerosis, no stenosis. Trivial aortic valve insufficiency. Pulmonic Valve The pulmonic valve is not well visualized. Pericardium/Pleural No pericardial effusion. Medication Diluted definity 2ml given slow IV push to enhance endocardial definition. MMode/2D Measurements & Calculations LVIDd: 5.1 cm IVSd: 1.2 cm Ao root diam: 3.4 cm LVIDs: 3.7 cm LVPWd: 1.1 cm LA dimension: 3.9 cm RVDd: 3.4 cm FS: 28.5 % LAV(MOD-bp): 59.2 ml LVAd ap4: 41.3 cm2 SV(MOD-sp4): 87.7 ml LAV(MOD-bp) Indexed: 27.0 ml/m2 LVLd ap4: 9.2 cm LAV(MOD-sp2): 64.4 ml EDV(MOD-sp4): 156.4 ml LAV(MOD-sp4): 50.6 ml EDV(sp4-el): 158.2 ml LVAs ap4: 24.9 cm2 LVLs ap4: 7.6 cm ESV(MOD-sp4): 68.6 ml ESV(sp4-el): 69.8 ml EF(MOD-sp4): 56.1 % EF(sp4-el): 55.9 % SV(sp4-el): 88.4 ml LA A4 area: 17.5 cm2 RA A4 area: 15.4 cm2 TAPSE: 1.8 cm Time Measurements MV dec time: 0.16 sec Doppler Measurements & Calculations MV E max dl: 79.0 cm/sec Lat Peak E' Dl: 6.7 cm/sec Med Peak E' Dl: 8.5 cm/sec MV A max dl: 90.1 cm/sec E/E' lat: 11.8 E/E' med: 9.3 MV E/A: 0.88 MV V2 max: 104.1 cm/sec MV P1/2t max dl: 93.9 cm/sec Ao V2 max: 100.2 cm/sec MV max P.3 mmHg MV P1/2t: 51.5 msec Ao max P.0 mmHg MV V2 mean: 55.5 cm/sec MV dec slope: 533.9 cm/sec2 MV mean P.5 mmHg MV V2 VTI: 21.0 cm MVA(P1/2t): 4.3 cm2 LV V1 max: 88.7 cm/sec MR max dl: 467.8 cm/sec PA V2 max: 92.8 cm/sec LV V1 max P.2 mmHg MR max P.5 mmHg PA V2 mean: 68.1 cm/sec TR max dl: 253.1 cm/sec TR max P.6 mmHg ECHO/Echo Complete W/ Contrast Interpretation Summary The estimated ejection fraction is 60 %. No evidence for diastolic dysfunction. Mild concentric left ventricular hypertrophy. Mild (1+) mitral valve insufficiency. Mild inferior hypokinesia Aortic sclerosis, no stenosis. Contrast echo used/Definity No prior study to compare Contrast injection was performed. Ordering Physician: Reema Mcconnell Performed By: Wander Torrez RCS
[2023-05-08 18:50] VITALS: BP 145/75; PULSE 73; RESP 18; TEMP 36.4; O2SAT 100
[2023-05-08 18:52] VITALS: BMI 37.0
[2023-05-08 18:53] VITALS: O2SAT 98
--- OUTSIDE RECORDS SUMMARY | 2023-05-08 19:30 | XMS RPT_ITS | CCD ---
Author Name Unknown Address [address] [place] [address] Organization [facility] Care Team Providers Care Study Manager Name Role Phone Mita Zhou MD Primary Care Provider JEANNE LEAVITT, DR FAN Primary Care Physician DEBO LEAVITT, SHERRILL Mcintosh Attending Unavailable JEANNE CANNON, DR. FAN Primary Care Unavailab NATHAN Sanchez Consulting Unavailable DEBO LEAVITT, SHERRILL Mcintosh Attending Unavailable DEBO LEAVITT, SHERRILL Mcintosh Admitting Unavailable JEANNE CANNON, DR. FAN Primary Care UnavailMita Pringle MD Primary Care Provider TAMANNA VICTOR Referring Unavailable MITA ZHOU Primary Care Unavailable JEANNE MITA Candelaria Primary Care Unavailable GRADY MORTON Attending Unavailable DAVID ZHOUA Candelaria Primary Care Unavailable INDIGO BERNARD Attending Unavailable JEANNE MITA Candelaria Primary Care Unavailable GRADY MORTON Referring Unavailable JEANNE MITA Candelaria Primary Care Unavailable GRADY MORTON Attending Unavailable JEANNE MITA Candelaria Primary Care Unavailable INDIGO BERNARD Referring Unavailable JEANNE MITA Candelaria Primary Care Unavailable INDIGO BERNARD Attending Unavailable DAVID ZHOUA Candelaria Primary Care Unavailable Allergies Allergy Classification Reported Allergen(s) Allergy Type Date of Onset Reaction(s) Facility (5 sources) traZODone; Translations: [TRAZODONE] Drug Allergy 07-01-2022 Intolerance [facility] Work Phone: Medications Current Medications Medication Drug Class(es) Dates Sig (Normalized) Sig (Original) acetaminophen 500 mg oral tablet (1 source) Start: 11-14-2021 End: 11-28-2021 take 1 tablet by mouth once daily acetaminophen 500 mg oral tablet Dose : 1,000 mg = 2 tab(s), Oral, TID, PRN as needed for pain, not to exceed 3000 mg/day, # 100 tab(s), 0 Refill(s), 11/28/21 8:32:00 EDT, Pharmacy: [facility]/pharmacy #[id number], 170.2, cm, 11/13/21 13:54:00 EDT, Height Start Date: 11/14/21 Stop Date: 11/28/21 Status: Ordered aspirin 81 mg delayed release oral tablet (1 source) Platelet Aggregation Inhibitor, Nonsteroidal Anti-inflammatory Drug Start: 11-14-2021 End: 12-14-2021 take 1 tablet by mouth twice daily aspirin 81 mg oral delayed release tablet Dose : 81 mg = 1 tab(s), Oral, BID, Take 81 mg aspirin twice daily with food for 4 weeks postoperatively for DVT prophylaxis, # 60 tab(s), 0 Refill(s), Pharmacy: [facility]/pharmacy #[id number], 170.2, cm, 11/13/21 13:54:00 EDT, Height Start Date: 11/14/21 Stop Date: 12/14/21 Status: Ordered Chondroitin Sulfates / Glucosamine (1 source) Start: 10-26-2021 take 1 capsule by mouth once daily Glucosamine Chondroitin oral capsule 1 cap, Oral, qDay Start Date: 10/26/21 Status: Ordered CoQ10 100 mg oral capsule (1 source) Start: 11-13-2021 CoQ10 100 mg oral capsule Dose : 100 mg = 1 cap(s), Oral, qDay Start Date: 11/13/21 Status: Ordered docusate sodium 50 mg / sennosides, snf 8.6 mg oral tablet (1 source) Start: 11-14-2021 End: 11-16-2021 take 1 tablet by mouth twice daily Senokot S 50 mg-8.6 mg oral tablet Dose = 2 tab(s), Oral, BID, Take until first bowel movement, then as needed, # 30 tab(s), 0 Refill(s), Pharmacy: [facility]/pharmacy #[id number], 170.2, cm, 11/13/21 13:54:00 EDT, Height Start Date: 11/14/21 Stop Date: 11/16/21 Status: Ordered doxycycline hyclate 100 mg oral capsule (1 source) Tetracycline-class Drug Start: 11-14-2021 End: 11-28-2021 doxycycline hyclate 100 mg oral capsule Dose : 100 mg = 1 cap(s), Oral, q12h, X 14 day(s), # 28 cap(s), 0 Refill(s), 11/28/21 8:34:00 EDT, Pharmacy: [facility]/pharmacy #[id number], 170.2, cm, 11/13/21 13:54:00 EDT, Height, 98 Start Date: 11/14/21 Stop Date: 11/28/21 Status: Ordered gabapentin 300 mg oral capsule (11 sources) Anti-epileptic Agent Start: 08-26-2022 End: 02-22-2023 take 1 capsule by mouth three times daily gabapentin (NEURONTIN) 300 mg capsule Take 1 capsule by mouth three times daily for 180 days. 270 capsule 1 08/26/2022 02/22/2023 Active Completed/Discontinued Medications Medication Drug Class(es) Dates Sig (Normalized) Sig (Original) atorvastatin 20 mg oral tablet (11 sources) HMG-CoA Reductase Inhibitor Start: 08-26-2022 take 1 tablet by mouth once daily atorvastatin (LIPITOR) 20 mg tablet Take 1 tablet by mouth once daily. 90 tablet 3 08/26/2022 Active Problems Active Problems Problem Classification Problem Date Documented Da te Episodic/Chronic Adjustment disorders (14 sources) Adjustment disorder with mixed anxiety and depressed mood; Translations: [Adjustment disorder with mixed anxiety and depressed mood] Onset: 1 02-12-2021 Chronic Anxiety disorders (1 source) Anxiety disorder; Translations: [Anxiety disorder, unspecified] Onset: 2 Chronic Disorders of lipid metabolism (11 sources) Mixed hyperlipidemia; Translations: [Mixed hyperlipidemia] Onset: 9 06-10-2008 Chronic Esophageal disorders (1 source) Gastroesophageal reflux disease without esophagitis; Translations: [Gastro-esophageal reflux disease without esophagitis] Onset: 2 Chronic Essential hypertension (15 sources) Hypertensive disorder; Translations: [Essential (primary) hypertension] Onset: 5 05-31-2014 Chronic Miscellaneous mental health disorders (9 sources) Abnormal sexual function; Translations: [Sexual dysfunction, unspecified] 01-11-2009 Episodic Mood disorders (9 sources) Depressive disorder; Translations: [Depression] 01-11-2009 Chronic Nausea and vomiting (1 source) Diarrhea and vomiting; Translations: [Vomiting, unspecified] Episodic Other aftercare (1 source) Encounter for therapeutic drug level monitoring; Translations: [Encounter for therapeutic drug monitoring] Onset: 4 Episodic Other connective tissue disease (1 source) Artificial knee joint present; Translations: [Presence of unspecified artificial knee joint] Onset: 2 Chronic Other gastrointestinal disorders (9 sources) Disorder of gastrointestinal tract; Translations: [Angiodysplasia of colon without hemorrhage] 01-11-2009 Episodic Other hereditary and degenerative nervous system conditions (11 sources) Restless legs; Translations: [Restless legs syndrome] Onset: 9 04-02-2021 Chronic Other inflammatory condition of skin (9 sources) Disorder of integument; Translations: [Other psoriasis] 01-11-2009 Chronic Other male genital disorders (3 sources) Male erectile dysfunction, unspecified; Translations: [Impotence of organic origin] Chronic Other nutritional; endocrine; and metabolic disorders (1 source) Obesity, unspecified; Translations: [Obesity, Class II, BMI 35-39.9] Onset: 4 Chronic Other screening for suspected conditions (not mental disorders or infectious disease) (1 source) Encounter for screening for lipoid disorders; Translations: [Screening for lipid disorders] Onset: 4 Episodic Other skin disorders (1 source) Eruption; Translations: [Rash and other nonspecific skin eruption] 11-30-2022 Episodic Residual codes; unclassified (1 source) Initial insomnia; Translations: [Other insomnia] Chronic Residual codes; unclassified (1 source) Other insomnia; Translations: [Sleep initiation disorder] Onset: 3 Chronic Spondylosis; intervertebral disc disorders; other back problems (20 sources) Lumbosacral spondylosis without myelopathy; Translations: [Spondylosis without myelopathy or radiculopathy, lumbosacral region] Onset: 0 04-02-2021 Chronic Sprains and strains (1 source) Strain of knee; Translations: [Strain of unspecified muscle(s) and tendon(s) at lower leg level, right leg, sequela] Episodic Past or Other Problems Problem Classification Problem Date Documented Da te Episodic/Chronic Conditions associated with dizziness or vertigo (1 source) Dizziness and giddiness; Translations: [Dizziness] Onset: 01-02-2023 Episodic Diabetes mellitus without complication (10 sources) Impaired fasting glycemia; Translations: [Impaired fasting glucose] Onset: 09-30-2014 09-30-2014 Episodic Other skin disorders (1 source) Rash and other nonspecific skin eruption; Translations: [Rash] Onset: 11-30-2022 Episodic Residual codes; unclassified (10 sources) Persistent insomnia; Translations: [Insomnia, unspecified] Onset: 05-31-2014 05-31-2014 Episodic Residual codes; unclassified (1 source) Insomnia, unspecified; Translations: [Persistent insomnia] Onset: 05-31-2014 Episodic Spondylosis; intervertebral disc disorders; other back problems (9 sources) Thoracic and lumbosacral neuritis; Translations: [Thoracic or lumbosacral neuritis or radiculitis, unspecified] Onset: 03-26-2010 03-26-2010 Episodic Results Test Name Value Interpretation Reference Range Facil it Vital Signs Date Time Vital Sign Value Performing Clinician Facility 11-30-2022 10:39-0400 Body temperature 99.61 [degF] Tamanna Victor APRN.[facility]ITH Work Phone: [facility] 11-30-2022 10:39-0400 Body weight 100.7 kg Tamanna Victor APRN.[facility]ITH Work Phone: [facility] 11-30-2022 10:39-0400 Diastolic blood pressure 100 mm[Hg] Tamanna Victor APRN.HEEL MOLDER Work Phone: [facility] 11-30-2022 10:39-0400 Heart rate 90 /min Tamanna Victor APRN.HEEL MOLDER Work Phone: [facility] 11-30-2022 10:39-0400 Respiratory rate 20 /min Tamanna Victor APRN.HEEL MOLDER Work Phone: [facility] 11-30-2022 10:39-0400 SaO2% (BldA) [Mass fraction] 98 % Tamanna Victor APRN.HEEL MOLDER Work Phone: [facility] 11-30-2022 10:39-0400 Systolic blood pressure 160 mm[Hg] Tamanna Victor MANAGER CUSTOMS.HEEL MOLDER Work Phone: [facility] 07-01-2022 10:17-0400 Body weight 97.98 kg Indigo Bernard MANAGER [employer]UST[employer]S.DR[employer] WALL PLASTERER Work Phone: [facility] 07-01-2022 10:17-0400 Diastolic blood pressure 82 mm[Hg] Indigo Bernard MANAGER [employer]S.[employer] P[employer]ERER Work Phone: [facility] 07-01-2022 10:17-0400 Heart rate 97 /min Indigo Bernard MANAGER [employer] P[employer] Work Phone: [facility] 07-01-2022 10:17-0400 Respiratory rate 16 /min Indigo Bernard MANAGER [employer]UST[employer]S.[employer] WALL PLASTERER Work Phone: [facility] 07-01-2022 10:17-0400 SaO2% (BldA) [Mass fraction] 97 % Indigo Bernard MANAGER [employer]UST[employer] W[employer] P[employer]ERER Work Phone: [facility] 07-01-2022 10:17-0400 Systolic blood pressure 138 mm[Hg] Indigo Bernard MANAGER [employer]UST[employer] P[employer] Work Phone: [facility] 11-14-2021 07:36-0400 Diastolic Blood Pressure NBP [address] SHERRILL EDMONDSON MD [facility] 11-14-2021 07:36-0400 Heart rate 82 /min DR SHERRILL EDMONDSON MD [facility] 11-14-2021 07:36-0400 Reason For Taking VItal Signs DR SHERRILL EDMONDSON MD [facility] 11-14-2021 07:36-0400 Respiratory rate 18 /min DR SHERRILL EDMONDSON MD [facility] 11-14-2021 07:36-0400 Systolic Blood Pressure NBP [address] SHERRILL EDMONDSON MD [facility] 11-14-2021 05:49-0400 Body temperature 98.06 [degF] DR SHERRILL EDMONDSON MD [facility] 11-14-2021 05:49-0400 Diastolic Blood Pressure NBP [address] SHERRILL EDMONDSON MD [facility] 11-14-2021 05:49-0400 Heart rate 86 /min DR SHERRILL EDMONDSON MD [facility] 11-14-2021 05:49-0400 Respiratory rate 18 /min DR SHERRILL EDMONDSON MD [facility] 11-14-2021 05:49-0400 Systolic Blood Pressure NBP [address] SHERRILL EDMONDSON MD [facility] 11-14-2021 02:23-0400 Body temperature 97.88 [degF] DR SHERRILL EDMONDSON MD [facility] 11-14-2021 02:23-0400 Diastolic Blood Pressure NBP [address] SHERRILL EDMONDSON MD [facility] 11-14-2021 02:23-0400 Heart rate 85 /min DR SHERRILL EDMONDSON MD [facility] 11-14-2021 02:23-0400 Respiratory rate 18 /min DR SHERRILL EDMONDSON MD [facility] 11-14-2021 02:23-0400 Systolic Blood Pressure NBP [address] SHERRILL EDMONDSON MD [facility] 11-13-2021 22:49-0400 Body temperature 98.06 [degF] DR SHERRILL EDMONDSON MD [facility] 11-13-2021 18:42-0400 Reason For Taking VItal Signs DR SHERRILL EDMONDSON MD [facility] 11-13-2021 17:55-0400 Reason For Taking VItal Signs DR SHERRILL EDMONDSON MD [facility] 11-13-2021 13:54-0400 Body height 170.[address] SHERRILL EDMONDSON MD [facility] 11-13-2021 13:54-0400 Body weight [address] SHERRILL EDMONDSON MD [facility] 11-13-2021 13:54-0400 Body weight 33.83 kg/m2 DR SHERRILL EDMONDSON MD [facility] 11-13-2021 11:35-0400 Body temperature 97.52 [degF] DR SHERRILL EDMONDSON MD [facility] 11-13-2021 09:11-0400 Body height 170.[address] SHERRILL EDMONDSON MD [facility] 11-13-2021 09:11-0400 Body temperature 98.06 [degF] DR SHERRILL EDMONDSON MD [facility] 11-13-2021 09:11-0400 Body weight [address] SHERRILL EDMONDSON MD [facility] 11-13-2021 09:11-0400 Heart rate 106 /min DR SHERRILL EDMONDSON MD [facility] 10-17-2021 16:48-0400 Diastolic blood pressure 78 mm[Hg] Mita Zhou MD Work Phone: [facility] 10-17-2021 16:48-0400 Systolic blood pressure 136 mm[Hg] Mita Zhou MD Work Phone: [facility] 10-17-2021 15:55-0400 Body weight 99.79 kg Mita Zhou MD Work Phone: [facility] 10-17-2021 15:55-0400 Heart rate 73 /min Mita Zhou MD Work Phone: [facility] 10-17-2021 15:55-0400 SaO2% (BldA) [Mass fraction] 98 % Mita Zhou MD Work Phone: [facility] 09-25-2021 17:02-0400 Diastolic blood pressure 100 mm[Hg] Mita Zhou MD Work Phone: [facility] 09-25-2021 17:02-0400 Systolic blood pressure 160 mm[Hg] Mita Zhou MD Work Phone: [facility] 09-25-2021 16:00-0400 Body weight 98.88 kg Mita Zhou MD Work Phone: [facility] 09-25-2021 16:00-0400 Heart rate 94 /min Mita Zhou MD Work Phone: [facility] 09-25-2021 16:00-0400 SaO2% (BldA) [Mass fraction] 100 % Mita Zhou MD Work Phone: [facility] 07-06-2021 15:54-0400 Body height 168.9 cm Carly Greene MD Work Phone: [facility] 07-06-2021 15:54-0400 Body temperature 98.01 [degF] Carly Greene MD Work Phone: [facility] 07-06-2021 15:54-0400 Body weight 102.06 kg Carly Greene MD Work Phone: [facility] 07-06-2021 15:54-0400 Diastolic blood pressure 70 mm[Hg] Carly Greene MD Work Phone: [facility] 07-06-2021 15:54-0400 Heart rate 77 /min Carly Greene MD Work Phone: [facility] 07-06-2021 15:54-0400 Respiratory rate 12 /min Carly Greene MD Work Phone: [facility] 07-06-2021 15:54-0400 SaO2% (BldA) [Mass fraction] 95 % Carly Greene MD Work Phone: [facility] 07-06-2021 15:54-0400 Systolic blood pressure 124 mm[Hg] Carly Greene MD Work Phone: [facility] Encounters Encounter Date Encounter Type Care Provider Facility Start: 04-18-2023 End: 04-19-2023 ambulatory [facility] Facility:[facility] Start: 01-02-2023 End: 01-03-2023 ambulatory INDIGO BERNARD Facility:[facility] Start: 12-01-2022 Telephone encounter Sabrina Becker APRN.[facility] Work Phone: [facility] Care Procedures Date Procedure Procedure Detail Performing Clinician Start: 10-17-2021 Ecg routine ecg w/le ast 12 lds w/i&r [facility] Provider Start: 05-08-2008 Colonoscopy Carly callejas MD Work Phone: Appendectomy DR SHERRILL Hernandez MD Bilateral replacemen t of knee joints DR SHERRILL EDMONDSON MD Decompression of med neeraj nerve DR SHERRILL EDMONDSON MD Plan of Treatment Date Care Activity Detail Author Start: 07-25-2032 Urine microalbumin profile DTA P,TDAP,TD (3 - Td or Tdap) [facility] Start: 01-30-2026 LIPID SCREEN LIPID SCREEN [facility] Start: 11-30-2025 DIABETES SCREEN DIABETES SCREEN [facility] Start: 01-31-2024 DIABETES SCREEN DIABETES SCREEN [facility] Start: 12-29-2023 Urine microalbumin profile DTA P,TDAP,TD (2 - Td or Tdap) [facility] Start: 08-27-2023 ANNUAL PCP TEAM CLIENT SERVICES ACCOUNT MANAGER AMADO DISEASE VISIT ANNUAL PCP TEAM CHRONIC DISEASE VISIT [facility] Start: 08-27-2023 BP CONTROLLED (<130/80) BP CONTROLLE D (<130/80) [facility] Start: 07-02-2023 COVID-19 VACCINE (3 - Booster for Pfizer series) COVID-19 VACCINE (3 - Booster for Pfizer series) [facility] Immunizations Immunization Date Immunization Notes Care Provider Fa cility 07-25-2022 tetanus toxoid, redu oma diphtheria toxoid, and acellular pertussis vaccine, adsorbed Grady Selene MANAGER CUST[employer]S.HEEL MOLDER Work Phone: [facility] Work Phone: 01-30-2021 influenza virus vaccine, unspecified formulation DR SHERRILL EDMONDSON MD [facility] 01-30-2021 influenza, injectabl e, quadrivalent, contains preservative Carly Greene MD Work Phone: [facility] Work Phone: 09-08-2020 SARS-CoV-2 mRNA (tozinameran) vaccine DR SHERRILL EDMONDSON MD [facility] Payers Date Payer Category Payer Unknown [employer] PPO [id number] 2013-Present [phone] [address] [place] [address] PPO [id number] 2013 Unknown [id number] 2013 Unknown [employer] PPO [id number] 2013-Present [phone] [address] [place] [address] PPO [id number] 1968 Unknown [id number] 1970 Unknown [id number] Social History Date Type Detail Facility Start: 05-31-2014 End: 07-01-2022 Tobacco smoking status NHIS Never smoked tobacco [facility] Work Phone: Start: 05-31-2014 End: 07-01-2022 Tobacco use and exposure Former smokeless tobacco user [facility] Work Phone: End: 06-05-2012 History of tobacco use Snuff User [facility] Work Phone: End: 06-05-2012 History of tobacco use Chews Tobacco [facility] Work Phone: Start: 07-06-2021 End: 11-30-2022 Alcohol intake Current non-drinker of alcohol (finding) [facility] Start: 05-31-2014 End: 07-01-2022 Tobacco Comment quit chewing after 10 years. [facility] Start: 1970 Sex Assigned At Not on file C [facility] Start: 06-26-2021 End: 10-17-2021 Exposure to SARS-CoV-2 (event) Not sure [facility] Work Phone: Start: 07-27-2021 End: 08-06-2021 Exposure to SARS-CoV-2 (event) Unable to assess [facility] Work Phone: Sex Assigned At Male [facility] Start: 05-01-2022 End: 08-26-2022 History of Social function [facility] Start: 05-01-2022 End: 08-26-2022 Tobacco use panel [facility] Adult Depression Screening Assessment 2 [facility] Functional Status Date Assessment Result Facility 11-14-2021 Functional Status Room check performed [facility] 11-14-2021 Functional Status [facility] 11-14-2021 Functional Status flight [facility] 11-14-2021 Functional Status Single level home [facility] 11-14-2021 Functional Status Walker [facility] 11-14-2021 Functional Status [facility] 11-13-2021 Functional Status [facility] 11-13-2021 Functional Status ice on [facility] 11-13-2021 [facility] 11-13-[facility]21 [facility] 11-13-2021 Functional Status NPO Status Lucero ntained, More than 8 hours [facility] Mental Status Date Assessment Result Facility 11-14-2021 Mental Status Oriented x 4 [facility] 11-14-2021 Mental Status [facility] 11-13-2021 Mental Status [facility] Clinical Notes 01-16-2015 to 04-18-2023 Telephone Encounter - Alla Mcallister LPN - 12/01/2022 9:44 AM EDTTelephone Encounter - Sabrina Becker APRN.HEEL MOLDER - 12/01/2022 8:58 AM EDTFTamanna aguirre APRN.HEEL MOLDER - 11/30/2022 10:58 AM EDT Note Date & Type Note Facility 04-18-2023 Note HNO ID: [id number] Author: GRADY MORTON APRN.[facility]ITH Service: ? Author Type: Nurse Practitioner Type: Progress Notes Filed: 04/18/2023 09:09 Note Text: SUBJECTIVE Mazin Naidu is a 52 year old male here today for a check up on his medical problems. Chief Complaint Patient presents with: Pain: right knee TK and both feet HPI Mazin Naidu is a 52 year old male. Established patient of Mita Zhou MD. Her today with a few concerns. Issues with bilateral foot pain, feels cramping, worse after work. TO bottom of feet. Also with some right knee pain. Year and a half had a knee replacement replacement. More soreness. Has gained weight recently, trying to get to the gym to lose weight but hard with the pain he is having. Also would like labs done, fasting today, notes that if diabetic he would like to try Mounjaro. Blood pressure up today. His medications were reviewed today and his list is now up to date. Medications Current Outpatient Medications Medication Sig zolpidem (AMBIEN) 5 mg tablet Take 1 tablet by mouth at bedtime as needed for sedation for up to 90 days. meclizine (ANTIVERT) 25 mg tab Take 1 tablet by mouth every 6 hours as needed (dizziness). busPIRone HCl 30 mg tablet Take 1 tablet by mouth twice daily. gabapentin (NEURONTIN) 300 mg capsule Take 1 capsule by mouth three times daily for 180 days. cyclobenzaprine (FLEXERIL) 10 mg tablet Take 1 tablet by mouth at bedtime as needed for muscle spasm. meloxicam (MOBIC) 15 mg tablet Take 1 tablet by mouth once daily. Take with food. rOPINIRole (REQUIP) 1 mg tablet Take 1 tablet by mouth daily at bedtime. rOPINIRole (REQUIP) 0.5 mg tablet Take 1 tablet by mouth daily at bedtime. take in addition to 1 mg ropinirole for a total of 1.5 mg atorvastatin (LIPITOR) 20 mg tablet Take 1 tablet by mouth once daily. omeprazole (PRILOSEC) 40 mg capsule Take 1 capsule by mouth once daily. sildenafil (VIAGRA) 100 mg tablet Take one hour before sex bisoprolol-hydroCHLOROthiazide (ZIAC) 10-6.25 mg per tablet Take 2 tablets by mouth once daily. FLUoxetine (PROZAC) 40 mg capsule Take 1 capsule by mouth once daily. FLUoxetine (PROZAC) 20 mg capsule Take 1 capsule by mouth once daily. Take with 40 mg fluoxetine capsule predniSONE (DELTASONE) 20 mg tablet 1 tablet three times a day for 3 days, then 2 times a day for 3 days, the one daily for 3 days. losartan (COZAAR) 100 mg tablet Take 1 tablet by mouth once daily. triamcinolone acetonide (KENALOG) 0.1 % cream Apply 1 application to affected area three times daily. Apply sparingly to area for rash/itching. (Patient not taking: Reported on 04/18/2023) CPAP Initiate Auto PAP @ 5-20 cm of water with humidification. Mask (per patient preference) optional chin strap (if indicated) , filters, tubing, humidifier and lifetime supplies. No current facility-administered medications for this visit. ALLERGIES Allergen Reactions Trazodone Intolerance Increased weird dreams ACTIVE PROBLEM LIST Obesity, Class II, Bmi 35-39.9 - 04/18/2023 Adjustment Disorder With Mixed Anxiety and Depressed Mood - 02/12/2021 Ifg (Impaired Fasting Glucose) - 09/30/2014 Persistent Insomnia - 05/31/2014 Htn (Hypertension) - 05/31/2014 Lumbosacral Spondylosis Without Myelopathy - 03/26/2010 Comment: OARRS report reviewed June 07, 2011 Lico Boudreaux MD Degeneration of Lumbar Or Lumbosacral Intervertebral Disc - 03/26/2010 Thoracic Or Lumbosacral Neuritis Or Radiculitis, Unspecified - 03/26/2010 Restless Leg Syndrome - 01/11/2009 Comment: PLMS too Sexual Dysfunction Depression Other Psoriasis and Similar Disorders Comment: Psoriasis GI Avm (Gastrointestinal Arteriovenous Vascular Malformation) Mixed Hyperlipidemia - 06/10/2008 Social History Tobacco Use Smoking status: Never Smokeless tobacco: Former Types: Snuff, Chew Quit date: 06/05/2012 Tobacco comments: quit chewing after 10 years. Substance Use Topics Alcohol use: No Drug use: No Review of Systems Respiratory: Negative. Cardiovascular: Negative. Musculoskeletal: Positive for arthralgias and myalgias. OBJECTIVE BP 162/109[BP Andrew average[ Pulse 82 Wt 237 lb (107.5kg) SpO2 98% Physical Exam Vitals and nursing note reviewed. Constitutional: General: He is awake. He is not in acute distress. Appearance: Normal appearance. He is well-developed and well-groomed. He is not ill-appearing, toxic-appearing or diaphoretic. HENT: Head: Normocephalic. Right Ear: External ear normal. Left Ear: External ear normal. Nose: Nose normal. Eyes: General: Vision grossly intact. Conjunctiva/sclera: Conjunctivae normal. Pupils: Pupils are equal, round, and reactive to light. Neck: Vascular: No JVD. Trachea: Trachea normal. Cardiovascular: Rate and Rhythm: Normal rate and regular rhythm. Pulses: Normal pulses. Dorsalis pedis pulses are 2+ on the right side and 2+ on the left side. Posteri (more content not included)... [facility] 01-02-2023 Note HNO ID: [id number] Author: Indigo Bernard APRN.DRY WALL PLASTERER Service: ? Author Type: Nurse Specialist Type: Progress Notes Filed: 01/02/2023 11:30 AM Note Text: SUBJECTIVE: Hepatitis B Vaccine(1 of 3 - 3-dose series) Never done Colorectal Cancer Screening due on 05/08/2018 Shingrix Vaccine(1 of 2) Never done Influenza Vaccine(1) due on 12/06/2022 HPI Mazin Naidu is a 51 year old male. PMH significant for ACTIVE PROBLEM LIST Mixed Hyperlipidemia Sexual Dysfunction Depression Other Psoriasis and Similar Disorders GI Avm (Gastrointestinal Arteriovenous Vascular Malformation) Restless Leg Syndrome Lumbosacral Spondylosis Without Myelopathy Degeneration of Lumbar Or Lumbosacral Intervertebral Disc Thoracic Or Lumbosacral Neuritis Or Radiculitis, Unspecified Persistent Insomnia Htn (Hypertension) Ifg (Impaired Fasting Glucose) Adjustment Disorder With Mixed Anxiety and Depressed Mood HPI excerpted from previous visit: He was seen by PCP October 17, 2021. At that visit his dose of BuSpar was increased from 15 mg twice daily to 30 mg twice daily. Presents today for routine follow-up visit reporting increased stress and anxiety for the last few months. He reports family issues with his that he states has not been responding and he has not been able to see his children recently. He reports trouble falling asleep and staying asleep. Reports awakening at 430 a.m. routinely. Reports currently getting about 4 hours of sleep per day. He notes anxiety is causing him to have increased difficulty with insomnia. Reports increased weird dreams on trazodone. Reports taking all previously prescribed medications BuSpar fluoxetine gabapentin. Takes ropinirole at bedtime. Notes that melatonin has not helped with his sleep. Reports he has called 180 and is awaiting a call back to schedule a counseling appointment. He was seen at the end of November in urgent care for shingles. Treated with valacyclovir. Today he notes some lingering rash on his right side chest wall. Some continued itching in this area, not needing medication for this. He notes for the last 2 days feeling dizzy and lightheaded mostly with turning of his hand or going around a corner when walking. Not typically with rising from a chair. He has been noting fatigue. No reported ear pain. Notes some tinnitus. No decrease in hearing. No facial pain. No neck pain. No change in facial or neck function. No change in taste. No watery eyes. He notes feeling mentally a little foggy. Review of Systems HENT: Positive for tinnitus. Skin: Positive for rash. Neurological: Positive for dizziness and light-headedness. Psychiatric/Behavioral: Positive for sleep disturbance. Objective BP 137/81 Pulse 76 Resp 16 Wt 102.1 kg (225 lb) BMI 35.77 kg/m? Physical Exam Vitals and nursing note reviewed. Constitutional: Appearance: Normal appearance. HENT: Head: Normocephalic and atraumatic. Right Ear: Tympanic membrane and ear canal normal. Left Ear: Tympanic membrane and ear canal normal. Eyes: Conjunctiva/sclera: Conjunctivae normal. Cardiovascular: Rate and Rhythm: Normal rate and regular rhythm. Heart sounds: Normal heart sounds. Pulmonary: Effort: Pulmonary effort is normal. Breath sounds: Normal breath sounds. Abdominal: General: Bowel sounds are normal. Palpations: Abdomen is soft. Musculoskeletal: Right lower leg: No edema. Left lower leg: No edema. Skin: General: Skin is warm and dry. Comments: Resolving erythematous rash right chest wall Neurological: General: No focal deficit present. Mental Status: He is alert. ALLERGIES Allergen Reactions Trazodone Intolerance Increased weird dreams Medicatoin triamcinolone acetonide (KENALOG) 0.1 % cream Apply 1 application to affected area three times daily. Apply sparingly to area for rash/itching. busPIRone HCl 30 mg tablet Take 1 tablet by mouth twice daily. gabapentin (NEURONTIN) 300 mg capsule Take 1 capsule by mouth three times daily for 180 days. cyclobenzaprine (FLEXERIL) 10 mg tablet Take 1 tablet by mouth at bedtime as needed for muscle spasm. meloxicam (MOBIC) 15 mg tablet Take 1 tablet by mouth once daily. Take with food. rOPINIRole (REQUIP) 1 mg tablet Take 1 tablet by mouth daily at bedtime. rOPINIRole (REQUIP) 0.5 mg tablet Take 1 tablet by mouth daily at bedtime. take in addition to 1 mg ropinirole for a total of 1.5 mg atorvastatin (LIPITOR) 20 mg tablet Take 1 tablet by mouth once daily. losartan (COZAAR) 50 mg tablet Take 1 tablet by mouth once daily. omeprazole (PRILOSEC) 40 mg capsule Take 1 capsule by mouth once daily. sildenafil (VIAGRA) 100 mg tablet Take one hour before sex bisoprolol-hydroCHLOROthiazide (ZIAC) 10-6.25 mg per tablet Take 2 tablets by mouth once daily. FLUoxetine (PROZAC) 40 mg capsule Take 1 capsule by mouth once daily. FLUoxetine (PROZAC) 20 mg capsule Take 1 capsule by mo (more content not included)... [facility] 12-01-2022 Miscellaneous Notes Left detailed message on identifiable voicemail. Lab work came back normal. Patient can continue his medication. If symptoms are worsening please follow-up with primary care. documented in this encounter [facility] 11-30-2022 Note HNO ID: [id number] Author: Tamanna Victor APRN.FAITH Service: ? Author Type: Nurse Practitioner Type: Progress Notes Filed: 11/30/2022 11:09 AM Note Text: Subjective The history is provided by the patient. No language arts teacher was used. HPI Mazin Naidu is a 52 year old male who presents today for CC of rash on chest, back, only on right side. Rash is tingling, itchy slightly painful BP 160/100 Pulse 90 Temp 37.6 ?C (99.6 ?F) Resp 20 Wt 100.7 kg (222 lb) SpO2 98% BMI 35.29 kg/m? Social History Tobacco Use Smoking status: Never Smokeless tobacco: Former Types: Snuff, Chew Quit date: 06/05/2012 Tobacco comments: quit chewing after 10 years. Substance Use Topics Alcohol use: No Drug use: No PAST MEDICAL HISTORY Diagnosis Date Cutaneous abscess of neck 01/16/2015 Depression GI AVM (gastrointestinal arteriovenous vascular malformation) Lumbago 11/18/2005 Mixed hyperlipidemia Hyperlipidemia Nonspecific (abnormal) findings on radiological and other examination of gastrointestinal tract CAROL ANN (obstructive sleep apnea) [facility] fx. 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 Musculoskeletal: Negative for joint pain and myalgias. Skin: Positive for rash. Negative for itching. All other systems reviewed and are negative. Objective Physical Exam Vitals and nursing note reviewed. Pulmonary: Effort: Pulmonary effort is normal. Skin: General: Skin is warm and dry. Findings: Rash present. Rash is papular and vesicular. Comments: vesicles on an erythematous base clustered in a dermatomal distribution Neurological: Mental Status: He is alert and oriented to person, place, and time. Psychiatric: Mood and Affect: Affect normal. ASSESSMENT/PLAN: 1. Rash - ICD9: 782.1, ICD10: R21 Appears to be shingles Cultures done Last CMP was in 2020, repeated today, if altered kidney function will need dose adjusted. - HSV1,2/VZV NAAT LESION - COMP METABOLIC PANEL Diagnosis and treatment plan were discussed and questions were answered to the patient's satisfaction. Pt acknowledged understanding of concepts and follow up plan. Specific signs and symptoms that would indicate the need for higher level of care were discussed in detail warranting prompt ER evaluation. Tamanna Victor APRN.[facility] 11-30-2022 History of Presen t illness Narrative Images from the original note were not included. Subjective The history is provided by the patient. No language arts teacher was used. HPI Mazin Naidu is a 52 year old male who presents today for CC of rash on chest, back, only on right side. Rash is tingling, itchy slightly painful BP 160/100 Pulse 90 Temp 37.6 C (99.6 F) Resp 20 Wt 100.7 kg (222 lb) SpO2 98% BMI 35.29 kg/m Social History Tobacco Use Smoking status: Never Smokeless tobacco: Former Types: Snuff, Chew Quit date: 06/05/2012 Tobacco comments: quit chewing after 10 years. Substance Use Topics Alcohol use: No Drug use: No PAST MEDICAL HISTORY Diagnosis Date Cutaneous abscess of neck 01/16/2015 Depression GI AVM (gastrointestinal arteriovenous vascular malformation) Lumbago 11/18/2005 Mixed hyperlipidemia Hyperlipidemia Nonspecific (abnormal) findings on radiological and other examination of gastrointestinal tract CAROL ANN (obstructive sleep apnea) [facility] fx. 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 Musculoskeletal: Negative for joint pain and myalgias. Skin: Positive for rash. Negative for itching. All other systems reviewed and are negative. Objective Physical Exam Vitals and nursing note reviewed. Pulmonary: Effort: Pulmonary effort is normal. Skin: General: Skin is warm and dry. Findings: Rash present. Rash is papular and vesicular. Comments: vesicles on an erythematous base clustered in a dermatomal distribution Neurological: Mental Status: He is alert and oriented to person, place, and time. Psychiatric: Mood and Affect: Affect normal. ASSESSMENT/PLAN: 1. Rash - ICD9: 782.1, ICD10: R21 Appears to be shingles Cultures done Last CMP was in 2020, repeated today, if altered kidney function will need dose adjusted. - HSV1,2/VZV NAAT LESION - COMP METABOLIC PANEL Diagnosis and treatment plan were discussed and questions were answered to the patient's satisfaction. Pt acknowledged understanding of concepts and follow up plan. Specific signs and symptoms that would indicate the need for higher level of care were discussed in detail warranting prompt ER evaluation. Tamanna Victor APRN.FAITH documented in this encounter [facility] 11-30-2022 Instructions Tamanna Victor APRN.CNP - 11/30/2022 10:58 AM EDT [facility] PATIENT INFO SHINGLES Shingles (Herpes Zoster) What is shingles? Shingles is an infection caused by the same virus that causes chickenpox. This virus is called varicella zoster. You cannot develop shingles unless you have had a previous infection of chickenpox (usually as a child). Shingles is also called herpes zoster. This infection is most common in people over 60 years of age, but young people can have it as well. How does it occur? After you recover from chickenpox, the chickenpox virus is not destroyed. It moves back to the roots of your nerve cells (near the spinal cord) and becomes inactive (dormant). Later, if the virus is reactivated, the symptoms are called shingles. What exactly causes the reactivation of the virus is not known. A weakened immune system seems to allow reactivation of the virus. Advancing age and chronic use of cortisone-type drugs may trigger shingles. The virus may also become active again after the skin is injured or sunburned. Emotional stress seems to be a common trigger as well. What are the symptoms? The first sign of shingles is often burning, sharp pain, tingling, or numbness in or under your skin on one side of your body or face. The most common site is the back or upper abdomen. You may have severe itching or aching. You also may feel tired and ill with fever, chills, headache, and upset stomach. After several days, you will notice a rash of small, clear, fluid-filled blisters on reddened skin. Within 3 days after they appear, the blisters will turn yellow, then dry and crust over. Over the next 2 weeks the crusts will drop off, sometimes leaving small, pitted scars. Because they tend to follow nerve paths, the blisters are usually found in a line, often extending from the back or flank around to the abdomen, just on one side. Shingles usually doesn't cross the midline of the body. (The word shingles comes from the Latin word for belt or girdle.) The rash also may appear on one side of your face. Some people have painful eye inflammations and infections. Is shingles contagious? You can't get shingles from someone else, but you may get chickenpox from contact with shingles blisters if you have not had chickenpox before. The shingles virus is in the blister fluid. The virus can spread by direct contact with a blister. It can also be spread by indirect contact, for example, if you use a washcloth that has blister fluid on it. If you have shingles, avoid contact with infants, children, women, and adults who have never had chickenpox or the chickenpox shot until your blisters are completely dry. How is shingles diagnosed? Your health care provider will ask about your symptoms and examine you. Your provider may order lab tests to look for the virus in fluid from a blister. How is it treated? It is best to start treatment within 24 to 48 hours after symptoms start. Your health care provider may prescribe: -an antiviral drug, such as acyclovir, to speed recovery and lessen the chance of prolonged symptoms from nerve inflammation -painkillers for more serious discomfort if nonprescription painkillers are not helping enough -antibacterial salves or lotions to help prevent bacterial infection of the blisters -capsaicin cream for pain How long will the effects last? The rash from shingles will heal in 1 to 2 weeks and the pain or irritation will usually disappear within 3 to 5 weeks. If the virus damages a nerve, you may have pain, numbness, or tingling for months or even years after the rash is healed. This is a condition called postherpetic neuralgia. It is most likely to occur after a shingles outbreaks in people over 50 years old. Antiviral medicine prescribed at the time the shingles is diagnosed and taken for 7 days can help prevent this problem. How can I take care of myself? -Take a pain relief medicine such as acetaminophen. Take other medicine as prescribed by your health care provider. -Put a cool compress on the rash (such as a cool, moist washcloth). -Rest in bed during the early stages if you have fever and other symptoms. -Try to avoid having clothing or bed linens rubbing against the rash, which might irritate it. Call your health care provider if: -You develop worsening pain or fever. -The blisters show signs of bacterial infection, such as increasing pain or redness, or milky yellow drainage from the blister sites. -The blisters are close to the eyes. How can I help prevent shingles? -If you have never had chickenpox, you can get a shot to help prevent infection with the chickenpox virus. -You can protect your immune system and lessen your chances of getting shingles by trying to keep your stress under control documented in this encounter [facility] 08-26-2022 Note HNO ID: [id number] Author: Grady Morton APRN.HEEL MOLDER Service: ? Author Type: Nurse Practitioner Type: Progress Notes Filed: 08/26/2022 3:14 PM Note Text: SUBJECTIVE Mazin Naidu is a 52 year old male here today for acute concern. Chief Complaint Patient presents with: Recheck Knee Pain: right knee history of knee replacement and flared due to activity Refill Request: for sleep medication HPI Mazin Naidu is an 52 year old male presents today for knee pain. Issues with right knee, prior replacement, recent surgery. Onset was over the weekend. It is localized to right knee. It does not radiate. It has been improved with steroid use in the past. He is icing the knee. Doing a lot of work outside right now so this aggravates his pain. Flexeril as needed Jas is working well for sleep. Needs a refill. His medications were reviewed today and his list is now up to date. Medications Current Outpatient Medications Medication Sig losartan (COZAAR) 50 mg tablet Take 1 tablet by mouth once daily. omeprazole (PRILOSEC) 40 mg capsule Take 1 capsule by mouth once daily. sildenafil (VIAGRA) 100 mg tablet Take one hour before sex bisoprolol-hydroCHLOROthiazide (ZIAC) 10-6.25 mg per tablet Take 2 tablets by mouth once daily. FLUoxetine (PROZAC) 40 mg capsule Take 1 capsule by mouth once daily. FLUoxetine (PROZAC) 20 mg capsule Take 1 capsule by mouth once daily. Take with 40 mg fluoxetine capsule predniSONE (DELTASONE) 10 mg tablet Take 2 tabs po BID for 2 days then 1 tab po BID for 2 days then 1/2 tab po BID for 2 days then 1/2 tab daily for 2 days then stop zolpidem (AMBIEN) 5 mg tablet Take 1 tablet by mouth at bedtime as needed for sedation for up to 90 days. busPIRone HCl 30 mg tablet Take 1 tablet by mouth twice daily. gabapentin (NEURONTIN) 300 mg capsule Take 1 capsule by mouth three times daily for 180 days. cyclobenzaprine (FLEXERIL) 10 mg tablet Take 1 tablet by mouth at bedtime as needed for muscle spasm. meloxicam (MOBIC) 15 mg tablet Take 1 tablet by mouth once daily. Take with food. rOPINIRole (REQUIP) 1 mg tablet Take 1 tablet by mouth daily at bedtime. rOPINIRole (REQUIP) 0.5 mg tablet Take 1 tablet by mouth daily at bedtime. take in addition to 1 mg ropinirole for a total of 1.5 mg atorvastatin (LIPITOR) 20 mg tablet Take 1 tablet by mouth once daily. CPAP Initiate Auto PAP @ 5-20 cm of water with humidification. Mask (per patient preference) optional chin strap (if indicated) , filters, tubing, humidifier and lifetime supplies. No current facility-administered medications for this visit. ALLERGIES Allergen Reactions Trazodone Intolerance Increased weird dreams ACTIVE PROBLEM LIST Adjustment Disorder With Mixed Anxiety and Depressed Mood - 02/12/2021 Ifg (Impaired Fasting Glucose) - 09/30/2014 Persistent Insomnia - 05/31/2014 Htn (Hypertension) - 05/31/2014 Lumbosacral Spondylosis Without Myelopathy - 03/26/2010 Comment: [facility] report reviewed June 07, 2011 Lico Boudreaux MD Degeneration of Lumbar Or Lumbosacral Intervertebral Disc - 03/26/2010 Thoracic Or Lumbosacral Neuritis Or Radiculitis, Unspecified - 03/26/2010 Restless Leg Syndrome - 01/11/2009 Comment: PLMS too Sexual Dysfunction Depression Other Psoriasis and Similar Disorders Comment: Psoriasis GI Avm (Gastrointestinal Arteriovenous Vascular Malformation) Mixed Hyperlipidemia - 06/10/2008 Social History Tobacco Use Smoking status: Never Smokeless tobacco: Former Types: Snuff, Chew Quit date: 06/05/2012 Tobacco comments: quit chewing after 10 years. Substance Use Topics Alcohol use: No Drug use: No Review of Systems Musculoskeletal: Positive for arthralgias and gait problem. Negative for joint swelling and myalgias. OBJECTIVE BP 126/74 Pulse 93 Wt 218 lb (98.9kg) SpO2 97% Physical Exam Vitals and nursing note reviewed. Constitutional: General: He is awake. He is not in acute distress. Appearance: Normal appearance. He is well-developed and well-groomed. He is not ill-appearing, toxic-appearing or diaphoretic. HENT: Head: Normocephalic. Right Ear: External ear normal. Left Ear: External ear normal. Nose: Nose normal. Eyes: General: Vision grossly intact. Conjunctiva/sclera: Conjunctivae normal. Pupils: Pupils are equal, round, and reactive to light. Neck: Vascular: No JVD. Trachea: Trachea normal. Cardiovascular: Pulses: Normal pulses. Pulmonary: Effort: Pulmonary effort is normal. No accessory muscle usage, prolonged expiration or respiratory distress. Musculoskeletal: Cervical back: Neck supple. Right knee: Bony tenderness (lateral joint line) present. No swelling, deformity, effusion, erythema or crepitus. Decreased range of motion. No LCL laxity, MCL laxity, ACL laxity or PCL laxity. Normal alignment, normal meniscus and normal patellar mobility. Normal pulse. Instability Tests: Anterior drawer te (more content not included)... [facility] 07-01-2022 Note HNO ID: [id number] Author: Indigo Bernard APRN.DRY WALL PLASTERER Service: ? Author Type: Nurse Specialist Type: Progress Notes Filed: 07/01/2022 10:51 AM Note Text: SUBJECTIVE: HEPATITIS B(1 of 3 - 3-dose series) Never done BP CONTROLLED (<130/80) Never done COLORECTAL CANCER SCREENING due on 05/08/2018 HPI Mazin Naidu is a 51 year old male. PMH significant for ACTIVE PROBLEM LIST Mixed Hyperlipidemia Sexual Dysfunction Depression Other Psoriasis and Similar Disorders GI Avm (Gastrointestinal Arteriovenous Vascular Malformation) Restless Leg Syndrome Lumbosacral Spondylosis Without Myelopathy Degeneration of Lumbar Or Lumbosacral Intervertebral Disc Thoracic Or Lumbosacral Neuritis Or Radiculitis, Unspecified Persistent Insomnia Htn (Hypertension) Ifg (Impaired Fasting Glucose) Adjustment Disorder With Mixed Anxiety and Depressed Mood HPI excerpted from previous visit: Presents today for emergency department follow-up visit. He presented to [facility] on January 27, 2021 with complaint of chest pain. He reported chest pain continuously for 3 days prior to arrival. No alleviating or exacerbating symptoms noted. No associated symptoms. No prior history of hypertension hyperlipidemia and no family history of premature CAD. No substance use reported. No prior testing completed. Exam showed anxiety and tearfulness otherwise unremarkable exam. EKG tachycardic without any ischemic changes noted. Noted to be hypertensive. Treated with aspirin Ativan and nitro glycerin in ED with relief of symptoms. Lab tests were negative, troponin and D-dimer. Chest x-ray negative. Today reports CP persists described as tightness or soreness in left side of chest. Exertional: not increased with exertion Constant discomfort. Associated symptoms: fatigue, short of breath on exertion; change in functional capacity x 2 months. Notes increased SOBOE with taking stairs. Alleviating: aspirin and Tums seems to help Aggravating: nothing identified Consistently taking blood pressure medications: missed doses prior to ER visit CPAP: using consistently HB/GERD symptoms: none currently Reports Dad ID age 56 years and Mother had ID 60s, stroke in 90s. Non smoker. Quit in his 20s; no recent. Taking statin. He was seen by PCP October 17, 2021. At that visit his dose of BuSpar was increased from 15 mg twice daily to 30 mg twice daily. Presents today for routine follow-up visit reporting increased stress and anxiety for the last few months. He reports family issues with his that he states has not been responding and he has not been able to see his children recently. He reports trouble falling asleep and staying asleep. Reports awakening at 430 a.m. routinely. Reports currently getting about 4 hours of sleep per day. He notes anxiety is causing him to have increased difficulty with insomnia. Reports increased weird dreams on trazodone. Reports taking all previously prescribed medications BuSpar fluoxetine gabapentin. Takes ropinirole at bedtime. Notes that melatonin has not helped with his sleep. Reports he has called 180 and is awaiting a call back to schedule a counseling appointment. Review of Systems Psychiatric/Behavioral: Positive for sleep disturbance. The patient is nervous/anxious. Objective BP 138/82 Pulse 97 Resp 16 Wt 98 kg (216 lb) SpO2 97% BMI 34.34 kg/m? Physical Exam Vitals and nursing note reviewed. Constitutional: Appearance: Normal appearance. HENT: Head: Normocephalic and atraumatic. Eyes: Conjunctiva/sclera: Conjunctivae normal. Cardiovascular: Rate and Rhythm: Normal rate and regular rhythm. Heart sounds: Normal heart sounds. Pulmonary: Effort: Pulmonary effort is normal. Breath sounds: Normal breath sounds. Abdominal: General: Bowel sounds are normal. Palpations: Abdomen is soft. Musculoskeletal: Right lower leg: No edema. Left lower leg: No edema. Skin: General: Skin is warm and dry. Neurological: General: No focal deficit present. Mental Status: He is alert. ALLERGIES Allergen Reactions Trazodone Intolerance Increased weird dreams Medicatoin sildenafil (VIAGRA) 100 mg tablet Take one hour before sex rOPINIRole (REQUIP) 1 mg tablet Take 1 tablet by mouth daily at bedtime. rOPINIRole (REQUIP) 0.5 mg tablet Take 1 tablet by mouth daily at bedtime. take in addition to 1 mg ropinirole for a total of 1.5 mg meloxicam (MOBIC) 15 mg tablet Take 1 tablet by mouth once daily. Take with food. cyclobenzaprine (FLEXERIL) 10 mg tablet Take 1 tablet by mouth at bedtime as needed for muscle spasm. busPIRone 30 mg tablet Take 1 tablet by mouth twice daily. atorvastatin (LIPITOR) 20 mg tablet Take 1 tablet by mouth once daily. bisoprolol-hydroCHLOROthiazide (ZIAC) 10-6.25 mg per tablet Take 2 tablets by mouth once daily. FLUoxetine (PROZAC) 40 mg capsule Take 1 capsule by mouth once d (more content not included)... [facility] 07-01-2022 Instructions Indigo Bernard APRN.CNS - 07/01/2022 10:40 AM EDT Stop taking trazodone Take Ambien 5 mg at bedtime If you are getting up at 4:30 AM take Ambien at 8 PM. Give yourself at least 8 hours of sleep time after taking. documented in this encounter [facility] 07-01-2022 History of Presen t illness Narrative SUBJECTIVE: HEPATITIS B(1 of 3 - 3-dose series) Never done BP CONTROLLED (<130/80) Never done COLORECTAL CANCER SCREENING due on 05/08/2018 HPI Mazin Naidu is a 51 year old male. PMH significant for ACTIVE PROBLEM LIST Mixed Hyperlipidemia Sexual Dysfunction Depression Other Psoriasis and Similar Disorders GI Avm (Gastrointestinal Arteriovenous Vascular Malformation) Restless Leg Syndrome Lumbosacral Spondylosis Without Myelopathy Degeneration of Lumbar Or Lumbosacral Intervertebral Disc Thoracic Or Lumbosacral Neuritis Or Radiculitis, Unspecified Persistent Insomnia Htn (Hypertension) Ifg (Impaired Fasting Glucose) Adjustment Disorder With Mixed Anxiety and Depressed Mood HPI excerpted from previous visit: Presents today for emergency department follow-up visit. He presented to [facility] on January 27, 2021 with complaint of chest pain. He reported chest pain continuously for 3 days prior to arrival. No alleviating or exacerbating symptoms noted. No associated symptoms. No prior history of hypertension hyperlipidemia and no family history of premature CAD. No substance use reported. No prior testing completed. Exam showed anxiety and tearfulness otherwise unremarkable exam. EKG tachycardic without any ischemic changes noted. Noted to be hypertensive. Treated with aspirin Ativan and nitro glycerin in ED with relief of symptoms. Lab tests were negative, troponin and D-dimer. Chest x-ray negative. Today reports CP persists described as tightness or soreness in left side of chest. Exertional: not increased with exertion Constant discomfort. Associated symptoms: fatigue, short of breath on exertion; change in functional capacity x 2 months. Notes increased SOBOE with taking stairs. Alleviating: aspirin and Tums seems to help Aggravating: nothing identified Consistently taking blood pressure medications: missed doses prior to ER visit CPAP: using consistently HB/GERD symptoms: none currently Reports Dad ID age 56 years and Mother had ID 60s, stroke in 90s. Non smoker. Quit in his 20s; no recent. Taking statin. He was seen by PCP October 17, 2021. At that visit his dose of BuSpar was increased from 15 mg twice daily to 30 mg twice daily. Presents today for routine follow-up visit reporting increased stress and anxiety for the last few months. He reports family issues with his that he states has not been responding and he has not been able to see his children recently. He reports trouble falling asleep and staying asleep. Reports awakening at 430 a.m. routinely. Reports currently getting about 4 hours of sleep per day. He notes anxiety is causing him to have increased difficulty with insomnia. Reports increased weird dreams on trazodone. Reports taking all previously prescribed medications BuSpar fluoxetine gabapentin. Takes ropinirole at bedtime. Notes that melatonin has not helped with his sleep. Reports he has called 180 and is awaiting a call back to schedule a counseling appointment. Review of Systems Psychiatric/Behavioral: Positive for sleep disturbance. The patient is nervous/anxious. Objective BP 138/82 Pulse 97 Resp 16 Wt 98 kg (216 lb) SpO2 97% BMI 34.34 kg/m Physical Exam Vitals and nursing note reviewed. Constitutional: Appearance: Normal appearance. HENT: Head: Normocephalic and atraumatic. Eyes: Conjunctiva/sclera: Conjunctivae normal. Cardiovascular: Rate and Rhythm: Normal rate and regular rhythm. Heart sounds: Normal heart sounds. Pulmonary: Effort: Pulmonary effort is normal. Breath sounds: Normal breath sounds. Abdominal: General: Bowel sounds are normal. Palpations: Abdomen is soft. Musculoskeletal: Right lower leg: No edema. Left lower leg: No edema. Skin: General: Skin is warm and dry. Neurological: General: No focal deficit present. Mental Status: He is alert. ALLERGIES Allergen Reactions Trazodone Intolerance Increased weird dreams Medicatoin sildenafil (VIAGRA) 100 mg tablet Take one hour before sex rOPINIRole (REQUIP) 1 mg tablet Take 1 tablet by mouth daily at bedtime. rOPINIRole (REQUIP) 0.5 mg tablet Take 1 tablet by mouth daily at bedtime. take in addition to 1 mg ropinirole for a total of 1.5 mg meloxicam (MOBIC) 15 mg tablet Take 1 tablet by mouth once daily. Take with food. cyclobenzaprine (FLEXERIL) 10 mg tablet Take 1 tablet by mouth at bedtime as needed for muscle spasm. busPIRone 30 mg tablet Take 1 tablet by mouth twice daily. atorvastatin (LIPITOR) 20 mg tablet Take 1 tablet by mouth once daily. bisoprolol-hydroCHLOROthiazide (ZIAC) 10-6.25 mg per tablet Take 2 tablets by mouth once daily. FLUoxetine (PROZAC) 40 mg capsule Take 1 capsule by mouth once daily. gabapentin (NEURONTIN) 300 mg capsule Take 1 capsule by mouth three times daily for 180 days. FLUoxetine (PROZAC) 20 mg capsule Take 1 capsule by mouth once daily. Take with 40 mg fluoxetine capsule CPAP Initiate Auto PAP @ 5-20 cm of water with humidification. Mask (per patient preference) optional chin strap (if indicated) , filters, tubing, humidifier and lifetime supplies. losartan (COZAAR) 50 mg tablet Take 1 tablet by mouth once daily. omeprazole (PRILOSEC) 40 mg capsule Take 1 capsule by mouth once daily. zolpidem (AMBIEN) 5 mg tablet Take 1 tablet by mouth at bedtime as needed for sedation for up to 90 days. PAST MEDICAL HISTORY Diagnosis Date Cutaneous abscess of neck 01/16/2015 Depression GI AVM (gastrointestinal arteriovenous vascular malformation) Lumbago 11/18/2005 Mixed hyperlipidemia Hyperlipidemia Nonspecific (abnormal) findings on radiological and other examination of gastrointestinal tract CAROL ANN (obstructive sleep apnea) [facility] fx. 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 Substance Use Topics Alcohol use: No Drug use: No ASSESSMENT/PLAN: 1. Persistent insomnia - ICD9: 307.42, ICD10: G47.00 (primary diagnosis) - ZOLPIDEM 5 MG TABLET 2. Hypertension, essential - ICD9: 401.9, ICD10: I10 - LOSARTAN 50 MG TABLET 3. Adjustment disorder with mixed anxiety and depressed mood - ICD9: 309.28, ICD10: F43.23 4. Sleep initiation disorder - ICD9: 780.52, ICD10: G47.09 Trouble falling and staying asleep due to increased anxiety with difficult family situation. Continue with current anxiety medicines unchanged. Trial of zolpidem at bedtime Endorse scheduling counseling appointment - ZOLPIDEM 5 MG TABLET Advised: Stop taking trazodone Take Ambien 5 mg at bedtime If you are getting up at 4:30 AM take Ambien at 8 PM. Give yourself at least 8 hours of sleep time after taking. Indigo Bernard APRN.CNS Medical Decision Making: Problems: Moderate: 1+ chronic illnesses with change Risk: Moderate: Moderate risk from testing/treatment Medical Decision Making Level: 4 - Moderate documented in this encounter [facility] 03-01-2022 Miscellaneous Notes Will give more refills at next appointment and see if that will get RXs to last till the following appointment The following approved medication requests have been transmitted electronically. Requested Prescriptions Signed Prescriptions Disp Refills sildenafil (VIAGRA) 100 mg tablet 12 tablet 5 Sig: Take one hour before sex Authorizing Provider: MITA ZHOU losartan (COZAAR) 50 mg tablet 90 tablet 0 Sig: Take 1 tablet by mouth once daily. Authorizing Provider: MITA ZHOU MD Patient has been identified by name and date of : Yes Patient phones for refill(s): Requested Prescriptions Pending Prescriptions Disp Refills sildenafil (VIAGRA) 100 mg tablet 12 tablet 5 Sig: Take one hour before sex losartan (COZAAR) 50 mg tablet 90 tablet 3 Sig: Take 1 tablet by mouth once daily. Date of last office visit in primary care: 10/17/21 Last 2 Encounter Wt Readings: Date: Wt: 10/17/2021 99.8 kg (220 lb) 09/25/2021 98.9 kg (218 lb) Previous labs/tests for medication: Blood Pressure: BUN (mg/dL) Date Value 01/30/2021 17 Sodium (mmol/L) Date Value 01/30/2021 138 Last 1 Encounter BP Readings: Date: BP: 10/17/2021 136/78 Please advise. Thank you. Noemy Morocho RN documented in this encounter [facility] 01-10-2022 Note . MICRO - Microbiology PROCEDURE: Acid Fast Bacilli Culture w Stain if Ind [*1] SOURCE: Tissue BODY SITE: Knee R COLLECTED DATE/TIME: 11/13/2021 10:30 EDT RECEIVED DATE/TIME: 11/13/2021 20:17 EDT START DATE/TIME: 11/13/2021 20:17 EDT FREE TEXT SOURCE: 2. TIBIAL MEMBRANE FINAL REPORTS Final Report [] Verified Date/Time/Personnel: 01/10/2022 12:43 EDT No growth of Acid Fast Bacilli PRELIMINARY REPORTS Preliminary Report [] Verified Date/Time/Personnel: 12/27/2021 09:50 EDT No growth of Acid Fast Bacilli to date. Final report to follow at 8 weeks. STAINS AFS [] Verified Date/Time/Personnel: 11/14/2021 13:24 EDT Acid Fast Smear from Concentrated Specimen: Negative Performing Locations *1: This test was performed at: [address], [address] , [facility] ([place]) 01-10-2022 Note . MICRO - Microbiology PROCEDURE: Acid Fast Bacilli Culture w Stain if Ind [*1] SOURCE: Tissue BODY SITE: Knee R COLLECTED DATE/TIME: 11/13/2021 10:36 EDT RECEIVED DATE/TIME: 11/13/2021 20:18 EDT START DATE/TIME: 11/13/2021 20:18 EDT FREE TEXT SOURCE: 3. FEMORAL MEMBRANE FINAL REPORTS Final Report [] Verified Date/Time/Personnel: 01/10/2022 12:43 EDT No growth of Acid Fast Bacilli PRELIMINARY REPORTS Preliminary Report [] Verified Date/Time/Personnel: 12/27/2021 09:50 EDT No growth of Acid Fast Bacilli to date. Final report to follow at 8 weeks. STAINS AFS [] Verified Date/Time/Personnel: 11/14/2021 13:24 EDT Acid Fast Smear from Concentrated Specimen: Negative Performing Locations *1: This test was performed at: [address], [id number] , [facility] ([place]) 01-10-2022 Note . MICRO - Microbiology PROCEDURE: Acid Fast Bacilli Culture w Stain if Ind [*1] SOURCE: Tissue BODY SITE: Knee R COLLECTED DATE/TIME: 11/13/2021 10:34 EDT RECEIVED DATE/TIME: 11/13/2021 20:17 EDT START DATE/TIME: 11/13/2021 20:17 EDT FREE TEXT SOURCE: 1. SUPRAPATELLAR POUCH FINAL REPORTS Final Report [] Verified Date/Time/Personnel: 01/10/2022 12:43 EDT No growth of Acid Fast Bacilli PRELIMINARY REPORTS Preliminary Report [] Verified Date/Time/Personnel: 12/27/2021 09:50 EDT No growth of Acid Fast Bacilli to date. Final report to follow at 8 weeks. STAINS AFS [] Verified Date/Time/Personnel: 11/14/2021 13:24 EDT Acid Fast Smear from Concentrated Specimen: Negative Performing Locations *1: This test was performed at: [address], [facility] , [facility] ([place]) 12-18-2021 Note . MICRO - Microbiology PROCEDURE: Fungal Culture with Stain if Ind [*1] SOURCE: Tissue BODY SITE: Knee R COLLECTED DATE/TIME: 11/13/2021 10:34 EDT RECEIVED DATE/TIME: 11/13/2021 20:17 EDT START DATE/TIME: 11/13/2021 20:17 EDT FREE TEXT SOURCE: 1. SUPRAPATELLAR POUCH FINAL REPORTS Final Report [] Verified Date/Time/Personnel: 12/18/2021 10:57 EDT No fungus isolated in 4 weeks. PRELIMINARY REPORTS Preliminary Report [] Verified Date/Time/Personnel: 11/16/2021 09:19 EDT No fungus isolated to date. Final report to follow. STAINS FUNSM [] Verified Date/Time/Personnel: 11/14/2021 13:25 EDT No fungal elements observed by calcofluor white stain. Performing Locations *1: This test was performed at: [address], [facility] , [facility] ([place]) 12-18-2021 Note . MICRO - Microbiology PROCEDURE: Fungal Culture with Stain if Ind [*1] SOURCE: Tissue BODY SITE: Knee R COLLECTED DATE/TIME: 11/13/2021 10:36 EDT RECEIVED DATE/TIME: 11/13/2021 20:17 EDT START DATE/TIME: 11/13/2021 20:17 EDT FREE TEXT SOURCE: 2. TIBIAL MEMBRANE FINAL REPORTS Final Report [] Verified Date/Time/Personnel: 12/18/2021 10:57 EDT No fungus isolated in 4 weeks. PRELIMINARY REPORTS Preliminary Report [] Verified Date/Time/Personnel: 11/16/2021 09:19 EDT No fungus isolated to date. Final report to follow. STAINS FUNSM [] Verified Date/Time/Personnel: 11/14/2021 13:25 EDT No fungal elements observed by calcofluor white stain. Performing Locations *1: This test was performed at: [address], [facility] , [facility] ([place]) 12-18-2021 Note . MICRO - Microbiology PROCEDURE: Fungal Culture with Stain if Ind [*1] SOURCE: Tissue BODY SITE: Knee R COLLECTED DATE/TIME: 11/13/2021 10:30 EDT RECEIVED DATE/TIME: 11/13/2021 20:18 EDT START DATE/TIME: 11/13/2021 20:18 EDT FREE TEXT SOURCE: 3. FEMORAL MEMBRANE FINAL REPORTS Final Report [] Verified Date/Time/Personnel: 12/18/2021 10:57 EDT No fungus isolated in 4 weeks. PRELIMINARY REPORTS Preliminary Report [] Verified Date/Time/Personnel: 11/16/2021 09:19 EDT No fungus isolated to date. Final report to follow. STAINS FUNSM [] Verified Date/Time/Personnel: 11/14/2021 13:26 EDT No fungal elements observed by calcofluor white stain. Performing Locations *1: This test was performed at: [address], [facility]- , [facility] ([place]) 11-20-2021 Note . MICRO - Microbiology PROCEDURE: Culture Tissue [*1] SOURCE: Tissue BODY SITE: Knee R COLLECTED DATE/TIME: 11/13/2021 10:34 EDT RECEIVED DATE/TIME: 11/13/2021 20:18 EDT START DATE/TIME: 11/13/2021 20:18 EDT FREE TEXT SOURCE: 3. FEMORAL MEMBRANE FINAL REPORTS Final Report [] Verified Date/Time/Personnel: 11/20/2021 07:26 EDT No growth at 7 days. PRELIMINARY REPORTS Preliminary Report [] Verified Date/Time/Personnel: 11/14/2021 10:54 EDT No growth to date STAINS GS [] Verified Date/Time/Personnel: 11/13/2021 22:40 EDT Rare Mononuclear cells No organisms seen. Performing Locations *1: This test was performed at: [address], [id number] , [facility] ([place]) 11-20-2021 Note . MICRO - Microbiology PROCEDURE: Culture Tissue [*1] SOURCE: Tissue BODY SITE: Knee R COLLECTED DATE/TIME: 11/13/2021 10:30 EDT RECEIVED DATE/TIME: 11/13/2021 20:17 EDT START DATE/TIME: 11/13/2021 20:17 EDT FREE TEXT SOURCE: 2. TIBIAL MEMBRANE FINAL REPORTS Final Report [] Verified Date/Time/Personnel: 11/20/2021 07:25 EDT No growth at 7 days. PRELIMINARY REPORTS Preliminary Report [] Verified Date/Time/Personnel: 11/14/2021 10:52 EDT No growth to date STAINS GS [] Verified Date/Time/Personnel: 11/13/2021 22:38 EDT Rare Mononuclear cells No organisms seen. Performing Locations *1: This test was performed at: [address], [address]- , [facility] ([facility] 11-20-2021 Note . MICRO - Microbiology PROCEDURE: Culture Tissue [*1] SOURCE: Tissue BODY SITE: Knee R COLLECTED DATE/TIME: 11/13/2021 10:36 EDT RECEIVED DATE/TIME: 11/13/2021 20:17 EDT START DATE/TIME: 11/13/2021 20:17 EDT FREE TEXT SOURCE: 1. SUPRAPATELLAR POUCH FINAL REPORTS Final Report [] Verified Date/Time/Personnel: 11/20/2021 07:23 EDT No growth at 7 days. PRELIMINARY REPORTS Preliminary Report [] Verified Date/Time/Personnel: 11/14/2021 10:50 EDT No growth to date STAINS GS [] Verified Date/Time/Personnel: 11/13/2021 22:34 EDT 3+ Mononuclear cells No organisms seen. Performing Locations *1: This test was performed at: [facility] [address] [place] [address], [id number] , [facility] ([place]) 11-14-2021 Note Discharge Instructions Thank you for allowing [facility] to assist you with your healthcare needs. The following is important discharge information regarding your hospital visit. Your Care Team DR. 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 Follow-up as scheduled. Where: [facility] [address] [place] [id number]- Follow Up with [facility] Physical [facility] When 11/16/2021 10:00 AM EDT Why: This is your first physical therapy appointment. Follow-up as scheduled. Where: [facility] [place] [address] [phone] The Following Activity and Diet Have Been Ordered for You FOLLOW POST OP INSTRUCTIONS Allergies NKA Medications Please ask your primary doctor or pharmacist before taking any other medication not listed, including over the counter drugs, herbal medications, vitamins and or supplements as they may interact with your home medications. What How Much When Why Instructions Last Dose New acetaminophen (acetaminophen 500 mg oral tablet) 2 tab(s) by mouth Three (3) times a day as needed for as needed for pain not to exceed 3000 mg/ day Pickup at [facility]/pharmacy #[id number] 11/14/21 @ 10AM New aspirin (aspirin 81 mg oral delayed release tablet) 1 tab(s) by mouth Two (2) times a day Duration: 30 Days Take 81 mg aspirin twice daily with food for 4 weeks postoperatively for DVT prophylaxis Pickup at [facility]/pharmacy #[id number] 11/14/21 @ 830 AM New docusate-senna (Senokot S 50 mg-8.6 mg oral tablet) 2 tab(s) by mouth Two (2) times a day Take until first bowel movement, then as needed Pickup at [facility]/pharmacy #[id number] 11/14/21 @ 830 AM New doxycycline (doxycycline hyclate 100 mg oral capsule) 1 cap by mouth Every 12 hours Duration: 14 Days Pickup at [facility]/pharmacy #[id number] 11/14/21 @ 830 AM New oxyCODONE (oxyCODONE 5 mg oral tablet ( IMMEDIATE release )) See instructions Status post revision of total replacement of right knee 1-2 tab(s) Oral q4h Pickup at [facility]/pharmacy #[id number] 11/14/21 @ 11AM Changed FLUoxetine (FLUoxetine 40 mg oral capsule) 1 cap by mouth Once a day May take additional 20 mg as needed 11/14/21 @ 830 AM Changed busPIRone (busPIRone 30 mg oral tablet) 1 tab(s) by mouth Two (2) times a day 11/14/21 @ 830 AM Changed cyclobenzaprine (cyclobenzaprine 10 mg oral tablet) 1 tab(s) by mouth Daily at bedtime as needed for for muscle spasm NOT GIVEN Changed meloxicam (meloxicam 15 mg oral tablet) 1 tab(s) by mouth Once a day (in the evening) Take with food/ milk NOT GIVEN Unchanged ascorbic acid/ chondroitin/ glucosa/ rosamaria (Glucosamine Chondroitin oral capsule) 1 cap by mouth Once a day NOT GIVEN Unchanged atorvastatin (atorvastatin 20 mg oral tablet) 1 tab(s) by mouth Every day 11/13/21 @ 930PM Unchanged bisoprolol-hydrochlorothiazide (bisoprolol-hydrochlorothiazide 10 - 6.25 mg oral tablet) 2 tab(s) by mouth Once a day NOT GIVEN Unchanged cholecalciferol (Vitamin D3) 25 Microgram by mouth Every day NOT GIVEN Unchanged gabapentin (gabapentin 300 mg oral capsule) 1 cap by mouth Three (3) times a day 11/14/21 @ 830 AM Unchanged losartan (losartan 50 mg oral tablet) 1 tab(s) by mouth Once a day 11/14/21 @ 830 AM Unchanged omeprazole (omeprazole 40 mg oral delayed release capsule) 1 cap by mouth Once a day 11/14/21 @ 6AM Unchanged rOPINIRole (rOPINIRole 1 mg oral tablet) 1.5 tab by mouth Daily at bedtime NOT GIVEN Unchanged sildenafil (sildenafil 50 mg oral tablet) 1 tab(s) by mouth Once a day as needed for as needed for erectile dysfunction NOT GIVEN Unchanged traZODone (traZODone 100 mg oral tablet) 1 tab(s) by mouth Daily at bedtime as needed for Sleep NOT GIVEN Unchanged ubiquinone (CoQ10 100 mg oral capsule) 1 cap by mouth Once a day NOT GIVEN Pharmacy Information [facility]/pharmacy #[id number]: [address] [place], [place] [id number] [phone] What How Much When Comments Stop Taking traMADol (traMADol 50 mg oral tablet) 1 tab(s) by mouth Every 6 hours as needed for for pain Please take this list to your next doctor s visit. Bring all medications you take, including over the counter medications, herbals and other supplements with you to your doctor s visit. Patients and families are reminded to discard old lists and to update any records with all medication providers or retail pharmacies. Education Materials [facility] Post-operative Instructions PLEASE FOLLOW [facility] POST-OP INSTRUCTIONS GIVEN WATCH FOR SIGNS OF INFECTION: call the office ([phone]) if experencing any of the following: (Usually appears 36-48 hours after surgery) Increased temperature (101 degrees Fahrenheit or higher) Redness or swelling Increased uncontrolled pain Foul odor or drainage Calf discomfort Significant swelling Or if having any chest pain, shortness of breath, or difficulty breathing or swallowing call the office or go the nearest Emergency Room. If you have any questions, please call your doctor at the number listed on your follow up instructions. Form: 338A ([id number]) R: 08/11 Additional Information VACCINATE! IT SAVES LIVES! Members of the community who have not yet received the COVID-19 vaccine and would like to receive it can visit one of [facility] vaccine clinics. There are many vaccine clinic locations within the [facility]. For locations and available times, please visit [email or web address] It is important to note that some COVID mobile vaccine clinics are held outdoors and may be canceled in rainy or stormy conditions. To learn more about pediatric vaccinations (ages 5-11), we invite you to visit the [facility] webpage. [email or web address] To learn more about the COVID-19 vaccine, we invite you to visit the [employer] website for a list of frequently asked questions. [email or web address] [facility] Patient Portal Access Instructions: Stay connected with your healthcare team and access your personal medical information anytime with the [facility] Patient Portal.If you would like a full copy of your medical records, please contact the [facility] Medical Records Department, Friday through Friday between 8a.m. and 4:30p.m. Please follow the directions below to access the portal: 1.Access the email account you provided upon registration to the [facility].2.Look for an invitation email from [facility].3.Open the email and access the invitation link: Accept Invitation to [facility].Fill in the required rodriguez to create your account. Sign into [email or web address] with your username and password that you created in the above steps to stay up to date. You can then view a summary of results, a summary of your visits, and the ability to download your summaries to your computer or send the information securely to a physician. Remember that your healthcare information is confidential, so carefully consider who you will allow to register on the [facility] Patient Portal for access to your information. You can also access the [facility] Patient Portal on the [employer] mikhail. Simply click on Health Records under Health Data and then click on the [employer] logo. HOW TO SAFELY DISPOSE OF PRESCRIPTION MEDICATIONS Please use one of the following methods to safely dispose of your unused medications. 1.Use a drug disposal kit: the drug disposal pouch allows you to safely discard your old and unused drugs. Ask your nurse to give you one when you are discharged.2.Visit a local take-back location: Many local pharmacies and police departments have programs that collect old and unwanted prescription drugs. Call your local pharmacy or go to http://bit.[employer]/8M1Zw5u to find one close to you.3.Make use of household items: Use cat litter or old coffee grounds to dispose medications if other options are not available. Mix your drugs with these household products, seal them in an airtight container and throw it into the garbage. Call [facility]: [phone] to be sure your drugs can be disposed of in this way. Some medicines may require a different approach.4.Never flush your medications down the toilet. IF YOU HAVE BEEN PRESCRIBED AN OPIOID FOR PAIN If you have been prescribed an opioid (such as hydrocodone, oxycodone or morphine), it is critical to understand the possible side effects and risks of opioid pain medications. Even when taken as directed, opioids can have several side effects including: Tolerance, meaning you might need to take more of a medication for the same pain relief. Nausea, vomiting and/or constipation. Sleepiness, dizziness, dry mouth, confusion, depression or itching. Physical dependence, meaning you have withdrawal symptoms when a medication is stopped, can develop within a few days. KNOW YOUR RESPONSIBILITIES It is important to know exactly how much and how often to take the opioid pain medications you are prescribed. Never take opioids in higher amounts or more often than prescribed. Do not combine opioids with alcohol or other drugs that cause drowsiness, such as benzodiazepines, also known as benzos, including diazepam and alprazolam, muscle relaxants or sleep aids. Never sell or share prescription opioids. This is illegal. Store opioids in a secure place and out of reach of others (including children, family, friends and visitors). The last page of this document has been signed and retained as a CHART COPY. Signatures Patient Education Materials [place] [facility] Post-op Instruction 11/2016 (61998) Medication Leaflets My discharge plan and instructions have been reviewed and explained to me and I,MAZIN NAIDU understand my current condition and have read and understand these discharge instructions. I have received a written copy of the plan/instructions. If I have questions, I am aware that I should contact my doctor. 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: Relationship to Patient: Witness Name/Signature: Date/Time: [facility] 11-14-2021 Hospital Discharg e instructions Patient Education 11/14/2021 08:31:30 5 - [facility] Post-op Instruction 11/2016 ([id number]) [facility] Post-operative Instructions PLEASE FOLLOW [facility] POST-OP INSTRUCTIONS GIVEN WATCH FOR SIGNS OF INFECTION: call the office ([phone]) if experencing any of the following: (Usually appears 36-48 hours after surgery) Increased temperature (101 degrees Fahrenheit or higher) Redness or swelling Increased uncontrolled pain Foul odor or drainage Calf discomfort Significant swelling Or if having any chest pain, shortness of breath, or difficulty breathing or swallowing call the office or go the nearest Emergency Room. If you have any questions, please call your doctor at the number listed on your follow up instructions. Form: 338A (98276) R: 08/11 Follow Up Care 09/12/2021 07:51:55 With:[facility] Address: [address] [place] [phone] When:11/16/2021 10:00:00 Comments:This is your first physical therapy appointment. Follow-up as scheduled. With:MEHRDAD PACKER PA-C, Orthopedic Address: [facility] [address] [place] [address] [phone] When:11/26/2021 13:15:00 Comments:This is your post-op appointment. Follow-up as scheduled. [facility] 11-14-2021 Note Date of Service November 14, 2021 Subjective The patient was sitting in bed upon examination. Patient denies any chest pain, shortness of breath, dizziness, lightheadedness, nausea or vomiting, or calf pain. No adverse overnight events. Pain has been controlled on medications. Patient overall is doing very well this morning. Pain is well controlled. He is asking about the polyethylene that he wanted to keep. I explained to him that if he did not receive this by now he will not most likely be able to take this home. I did discuss with him the infection risk. Objective Vitals and Measurements T: 36.7 C (Oral) TMIN: 36.4 C (Oral) TMAX: 36.8 C (Oral) HR: 82(Monitored) RR: 18 BP: 141/86 SpO2: 97% HT: 170.2 cm WT: 98 kg BMI: 33.83 Intake and Output 7AM Yesterday to 7AM Today Intake and Output (Last 24 hours) Intake Intra-Op Crystalloid 1500.00 Oral Intake 920.00 Administration Information 1100.00 Supplement Intake 200.00 Output Urine Voided 2450.00 Intra-Op EBL 25.00 Total Summary Total Intake 3720.00 Total Output 2475.00 Fluid Balance 1245.00 Physical Exam Vital signs stable, afebrile SCDs and RENATO hose are in place bilaterally Patient is able to plantarflex and dorsiflex actively Sensation is intact to saphenous, sural, superficial and deep peroneal, and tibial distribution Dressing is clean dry and intact Negative signs and symptoms of DVT, negative Homans bilaterally Weight Dosing Weight: 98 kg (11/13/21) Dosing Weight: 98 kg (11/13/21) Medications Medications (34) Active Scheduled: (17) acetaminophen 500 mg Tablet 1,000 mg 2 tab(s), Oral, q6h aspirin 81 mg Chewable 81 mg 1 tab(s), Oral, BIDM atorvastatin 10 mg tablet 20 mg 2 tab(s), Oral, Daily bisacodyl 5 mg EC tablet 10 mg 2 tab(s), Oral, Once busPIRone 5 mg Tablet 30 mg 6 tab(s), Oral, qDay docusate sodium 100 mg Capsule 100 mg 1 cap(s), Oral, BID docusate-senna (Senokot S) 50 mg-8.6 mg Tablet 2 tab(s), Oral, BID doxycycline hyclate 100 mg Capsule 100 mg 1 cap(s), Oral, q12h famotidine 20 mg tablet 20 mg 1 tab(s), Oral, qDay fluoxetine 20 mg Capsule 40 mg 2 cap(s), Oral, qDay gabapentin 300 mg Capsule 300 mg 1 cap(s), Oral, TID losartan 50 mg tablet 50 mg 1 tab(s), Oral, qDay magnesium hydroxide 8% Suspension 30 mL UD 30 mL, Oral, Daily meloxicam 7.5 mg tablet 7.5 mg 1 tab(s), Oral, BIDM multivitamin (Myadec) with minerals Therapeutic Multiple Vitamins with Minerals Tablet 1 tab(s), Oral, qDayM ondansetron 2 mg/ 1 mL 2 mL INJ 4 mg 2 mL, IV Push, q8h pantoprazole 20 mg EC tablet 40 mg 2 tab(s), Oral, qDayAC Continuous: (3) Lactated Ringers 1,000 mL 1,000 mL, Intravenous, 100 mL/hr Lactated Ringers 1,000 mL 1,000 mL, Intravenous, 20 mL/hr Lactated Ringers 1000 mL 1,000 mL, Intravenous, 20 mL/hr PRN: (14) acetaminophen 325 mg Tablet 650 mg 2 tab(s), Oral, q4h cyclobenzaprine 10 mg Tablet 10 mg 1 tab(s), Oral, TID diphenhydramine 25 mg tablet 25 mg 1 tab(s), Oral, q6h diphenhyDRAMINE 50 mg/mL (1 mL) INJ 25 mg 0.5 mL, IV Push, q6h meperidine 25 mg/mL 1 mL 25 mg 1 mL, IV Bolus, q3h morphine 4 mg/mL 1mL INJ 2 mg 0.5 mL, IV Push, q1h morphine 4 mg/mL 1mL INJ 2 mg 0.5 mL, IV Push, q5min ondansetron 2 mg/ 1 mL 2 mL INJ 4 mg 2 mL, IV Push, q8h ondansetron 2 mg/ 1 mL 2 mL INJ 4 mg 2 mL, IV Push, AsDirected oxycodone 5 mg tablet (immediate release) 5 mg 1 tab(s), Oral, q4h oxycodone 5 mg tablet (immediate release) 10 mg 2 tab(s), Oral, q4h prochlorperazine 10 mg/2 mL vial 5 mg 1 mL, IV Push, q6h sodium biphosphate-sodium phosphate 19 gm-7 gm Enema 133 mL, Rectal, qDay traZODONE 50 mg Tablet 100 mg 2 tab(s), Oral, qHS Lab Results 11/14 06:07 WBC: 11.1 H Hgb: 11.8 L Hct: 35.4 L Platelet: 145 Neutrophil %: 85.5 H Glucose Level: 139 H Sodium Level: 143 Potassium Level: 4.4 BUN: 18 Creatinine Lvl (s): 0.91 EKG No qualifying data available. Assessment/Plan 1. HTN (hypertension) 2. RLS (restless legs syndrome) 3. Anxiety and depression 4. GERD (gastroesophageal reflux disease) 5. S/P revision of total knee 1. Status post right revision total knee arthroplasty with polyethylene exchange postop day #1 2. Continue pain medications: Tylenol, meloxicam, oxycodone. Do not take any other nonsteroidal anti-inflammatories while on meloxicam/Mobic. I did discuss with the patient that if he has tramadol at home he should not take this medication with the oxycodone postoperatively. He did voice understanding and agreement. 3. DVT prophylaxis: Take 81 mg aspirin twice daily with food for 4 weeks postoperatively for DVT prophylaxis. Patient denies previous history of DVT or pulmonary embolism 4. Physical therapy: Weightbearing as tolerated with walker 5. H & H: 11.8/35.4, asymptomatic. Postoperative anemia secondary to acute blood loss from surgery without intraoperative complications. 6. Reactive leukocytosis: Currently 11.1, afebrile. Patient did receive Decadron intraoperatively 7. Encouraged incentive spirometry 8. Continue postoperative medical management per medicine 9. Continue antibiotics while following cultures: Currently on doxycycline. Cultures have been without any growth. Discussed with the patient while taking the antibiotic he should take probiotic for the 2 weeks. Also discussed side effect of doxycycline which is increase sensitivity to sunlight and should take appropriate precautions. 10. Disposition: Plan will be for discharge home today as long as patient's pain is well controlled, tolerates therapy, and medically cleared. Prescriptions he would like E scribed to Robert WILLIAMSON. Patient will follow-up per postop instructions. He has outpatient physical therapy established. Upon discharge he will contact her office with any concerns or questions. I have reviewed the [place] Automated Rx Reporting System (OARRS) report for this patient for refill pattern and other prescriber involvement as part of the appropriate surveillance for the provision of acute and chronic controlled medications. The report was requested and reviewed on the date of this entry, and was considered in the prescribing process This dictation was created using voice recognition software. Phonetic and/or grammatical errors may exist. Orders: Admit to Inpatient Digitally Signed by MEHRDAD PACKER PA-C on 11/14/2021 08:31 AM [facility] 11-14-2021 Note Date of Service 11/14/2021 Subjective Overnight patient remained afebrile and hemodynamically stable with adequate oxygen saturations on room air. White blood cell count this morning 11,000. H&H 11 and 35% respectively. This is a slight decrease from preoperative labs. Glucose on BMP was 139. Remainder of BMP within normal limits. GFR 87. On exam today, pt denies any fever or chills. No headache or dizziness. Denies chest pain, palpitations. No cough, dyspnea, sputum production. Denies N/V/D/C. No melena/hematochezia. No dysuria or hematuria. No new paresthesias. Pain well controlled. Objective Vitals and Measurements T: 36.7 C (Oral) TMIN: 36.4 C (Oral) TMAX: 36.8 C (Oral) HR: 82(Monitored) RR: 18 BP: 141/86 SpO2: 97% HT: 170.2 cm WT: 98 kg BMI: 33.83 Intake and Output 7AM Yesterday to 7AM Today Intake and Output (Last 24 hours) Intake Intra-Op Crystalloid 1500.00 Oral Intake 920.00 Administration Information 1100.00 Supplement Intake 200.00 Output Urine Voided 2450.00 Intra-Op EBL 25.00 Total Summary Total Intake 3720.00 Total Output 2475.00 Fluid Balance 1245.00 Physical Exam GEN: Appears chronically ill CHEST: Normal S1 and S2. Rhythm is regular. Clear to auscultation, without rales, rhonchi, wheezing. ABD: Hypoactive bowel sounds x 4 quads. Soft, nondistended, nontender. EXT: No significant deformity or joint abnormality. No edema. Peripheral pulses intact. NEURO: Sensation grossly intact SKIN: Surgical dressing in place PSYCH: The mental examination revealed the patient was alert and oriented x 4 Weight Dosing Weight: 98 kg (11/13/21) Dosing Weight: 98 kg (11/13/21) Medications Medications (34) Active Scheduled: (17) acetaminophen 500 mg Tablet 1,000 mg 2 tab(s), Oral, q6h aspirin 81 mg Chewable 81 mg 1 tab(s), Oral, BIDM atorvastatin 10 mg tablet 20 mg 2 tab(s), Oral, Daily bisacodyl 5 mg EC tablet 10 mg 2 tab(s), Oral, Once busPIRone 5 mg Tablet 30 mg 6 tab(s), Oral, qDay docusate sodium 100 mg Capsule 100 mg 1 cap(s), Oral, BID docusate-senna (Senokot S) 50 mg-8.6 mg Tablet 2 tab(s), Oral, BID doxycycline hyclate 100 mg Capsule 100 mg 1 cap(s), Oral, q12h famotidine 20 mg tablet 20 mg 1 tab(s), Oral, qDay fluoxetine 20 mg Capsule 40 mg 2 cap(s), Oral, qDay gabapentin 300 mg Capsule 300 mg 1 cap(s), Oral, TID losartan 50 mg tablet 50 mg 1 tab(s), Oral, qDay magnesium hydroxide 8% Suspension 30 mL UD 30 mL, Oral, Daily meloxicam 7.5 mg tablet 7.5 mg 1 tab(s), Oral, BIDM multivitamin (Myadec) with minerals Therapeutic Multiple Vitamins with Minerals Tablet 1 tab(s), Oral, qDayM ondansetron 2 mg/ 1 mL 2 mL INJ 4 mg 2 mL, IV Push, q8h pantoprazole 20 mg EC tablet 40 mg 2 tab(s), Oral, qDayAC Continuous: (3) Lactated Ringers 1,000 mL 1,000 mL, Intravenous, 100 mL/hr Lactated Ringers 1,000 mL 1,000 mL, Intravenous, 20 mL/hr Lactated Ringers 1000 mL 1,000 mL, Intravenous, 20 mL/hr PRN: (14) acetaminophen 325 mg Tablet 650 mg 2 tab(s), Oral, q4h cyclobenzaprine 10 mg Tablet 10 mg 1 tab(s), Oral, TID diphenhydramine 25 mg tablet 25 mg 1 tab(s), Oral, q6h diphenhyDRAMINE 50 mg/mL (1 mL) INJ 25 mg 0.5 mL, IV Push, q6h meperidine 25 mg/mL 1 mL 25 mg 1 mL, IV Bolus, q3h morphine 4 mg/mL 1mL INJ 2 mg 0.5 mL, IV Push, q1h morphine 4 mg/mL 1mL INJ 2 mg 0.5 mL, IV Push, q5min ondansetron 2 mg/ 1 mL 2 mL INJ 4 mg 2 mL, IV Push, q8h ondansetron 2 mg/ 1 mL 2 mL INJ 4 mg 2 mL, IV Push, AsDirected oxycodone 5 mg tablet (immediate release) 5 mg 1 tab(s), Oral, q4h oxycodone 5 mg tablet (immediate release) 10 mg 2 tab(s), Oral, q4h prochlorperazine 10 mg/2 mL vial 5 mg 1 mL, IV Push, q6h sodium biphosphate-sodium phosphate 19 gm-7 gm Enema 133 mL, Rectal, qDay traZODONE 50 mg Tablet 100 mg 2 tab(s), Oral, qHS Lab Results 11/14 06:07 WBC: 11.1 H Hgb: 11.8 L Hct: 35.4 L Platelet: 145 Neutrophil %: 85.5 H Glucose Level: 139 H Sodium Level: 143 Potassium Level: 4.4 BUN: 18 Creatinine Lvl (s): 0.91 Assessment/Plan 1. HTN (hypertension) 2. RLS (restless legs syndrome) 3. Anxiety and depression 4. GERD (gastroesophageal reflux disease) 5. S/P revision of total knee Hypertension SBP goal 140 or less. Blood pressure is adequately controlled. Anxiety/depression, GERD-continue home medications Status post revision of right total knee. Postoperative day #1. Management per primary team. Pain is well controlled. Patient is medically optimized for discharge. DVT prophylaxis: SCDs Labs, diagnostics, and progress notes reviewed as noted in HPI patient is medically optimized for discharge. Code Status: Full code Plan of care discussed with patient. All questions answered. Patient verbalizes understanding is agreeable to plan of care. Thank you for requesting our participation in the care of your patient. We will continue to follow during their hospitalization. This dictation was performed using voice recognition software and may include grammatical and/or spelling errors. Digitally Signed by NATHAN SPARKS on 11/14/2021 10:36 AM [facility] 11-13-2021 Note ORIGINAL EXAMINATION: TWO XRAY VIEWS OF THE RIGHT KNEE 11/13/2021 11:51 am COMPARISON: None. HISTORY: ORDERING SYSTEM PROVIDED HISTORY: Reason for Exam: Status Post Arthroplasty FINDINGS: Patient is status post right total knee arthroplasty. There is no evidence of hardware complication. Expected postoperative changes are noted of the soft tissues relating to soft tissue swelling, subcutaneous emphysema, air within the knee joint, and overlying skin naima. IMPRESSION: 1. Total knee arthroplasty without evidence of hardware complication. 2. Expected postoperative change of the soft tissues. Interpreted by: Hay Bertrand DO Preliminary Report By: Hay Bertrand DO Electronically signed By Hay Bertrand DO Dictated Date: 11/13/2021 11:57:59 AM Prelim Date: 11/13/2021 11:58:36 AM Sign Date: 11/13/2021 11:58:36 AM Ordering Provider: [facility] 11-13-2021 Note ORIGINAL EXAMINATION: TWO XRAY VIEWS OF THE RIGHT KNEE 11/13/2021 11:51 am COMPARISON: None. HISTORY: ORDERING SYSTEM PROVIDED HISTORY: Reason for Exam: Status Post Arthroplasty FINDINGS: Patient is status post right total knee arthroplasty. There is no evidence of hardware complication. Expected postoperative changes are noted of the soft tissues relating to soft tissue swelling, subcutaneous emphysema, air within the knee joint, and overlying skin naima. IMPRESSION: 1. Total knee arthroplasty without evidence of hardware complication. 2. Expected postoperative change of the soft tissues. Interpreted by: Hay Bertrand DO Preliminary Report By: Hay Bertrand DO Electronically signed By Hay Bertrand DO Dictated Date: 11/13/2021 11:57:59 AM Prelim Date: 11/13/2021 11:58:36 AM Sign Date: 11/13/2021 11:58:36 AM Ordering Provider: [facility] 11-13-2021 Anesthesiology Consult note Patient: MAZIN NAIDU Age: 51 years Sex: Male : 1970 Associated Diagnoses: None Author: BRANDON MEIER Preoperative Information Anesthesia history Patient's history: negative. Family's history: negative. Health Status Allergies: Allergic Reactions (Selected) NKA, Allergies (1) ActiveReaction NKANone Documented Current medications: (Selected) Inpatient Medications Ordered Betadine 10% topical solution: 17.5 mL, mL/hr, Topical (INT), PREOP pharm Bicitra: 30 mL, Oral, PREOP pharm Decadron: 10 mg, 1 mL, IV Push, AsDirected Kefzol: 2 gram(s), 200 mL/hr, IV Piggyback, PREOP pharm LR 1000 mL: 20 mL/hr, Intravenous, Stop: 11/14/21 17:59:00 EDT Naropin 25 mg + Toradol 15 mg + EPINEPHrine 1 mg/mL injectable solution 0.3 mg + morphine 2.5 mg...: 25 mg, 5 mL, mL/hr, Other, PREOP pharm Naropin 25 mg + Toradol 15 mg + EPINEPHrine 1 mg/mL injectable solution 0.3 mg + morphine 2.5 mg...: 25 mg, 5 mL, mL/hr, Other, PREOP pharm tranexamic acid 1 g / 100 mL 0.7% NaCl PMX: 1 gram(s), 100 mL, 300 mL/hr, IV Piggyback, AsDirected tranexamic acid 1 g / 100 mL 0.7% NaCl PMX: 1 gram(s), 100 mL, 300 mL/hr, IV Piggyback, AsDirected Documented Medications Documented FLUoxetine 40 mg oral capsule: 40 mg, 1 cap(s), Oral, qDay, 30 cap(s), 0 Refill(s) Glucosamine Chondroitin oral capsule: 1 cap, Oral, qDay Vitamin D3: 25 mcg, 1 tab(s), Oral, Daily, 0 Refill(s) atorvastatin 20 mg oral tablet: 20 mg, 1 tab(s), Oral, Daily, 0 Refill(s) bisoprolol-hydrochlorothiazide 10 - 6.25 mg oral tablet: 2 tab(s), Oral, qDay, 180 tab(s), 0 Refill(s) busPIRone 30 mg oral tablet: 30 mg, 1 tab(s), Oral, qDay, 0 Refill(s) cyclobenzaprine 10 mg oral tablet: 10 mg, 1 tab(s), Oral, TID, PRN: for muscle spasm, 0 Refill(s) gabapentin 300 mg oral capsule: 300 mg, 1 cap(s), Oral, TID, 90 cap(s), 0 Refill(s) losartan 50 mg oral tablet: 50 mg, 1 tab(s), Oral, qDay, 30 tab(s), 0 Refill(s) meloxicam 15 mg oral tablet: 15 mg, 1 tab(s), Oral, qDay, Take with food/milk, 30 tab(s), 0 Refill(s) omeprazole 40 mg oral delayed release capsule: 40 mg, 1 cap(s), Oral, qDay, 30 cap(s), 0 Refill(s) rOPINIRole 1 mg oral tablet: 1.5 tab, Oral, qHS sildenafil 50 mg oral tablet: 50 mg, 1 tab(s), Oral, qDay, PRN: as needed for erectile dysfunction, 0 Refill(s) traMADol 50 mg oral tablet: 50 mg, 1 tab(s), Oral, q6h, PRN: for pain, 12 tab(s), 0 Refill(s) traZODone 100 mg oral tablet: 100 mg, 1 tab(s), Oral, qHS, PRN: Sleep, 0 Refill(s), Medications (9) Active Scheduled: (8) ceFAZolin 2 gram(s), IV Piggyback, PREOP pharm citric acid-sodium citrate 334 mg-500 mg/5 mL (30 mL) Rissa UD 30 mL, Oral, PREOP pharm dexamethasone 10 mg/mL (1mL) SDV 10 mg 1 mL, IV Push, AsDirected povidone iodine topical 17.5 mL, Topical (INT), PREOP pharm ropivacaine 25 mg + ketorolac 15 mg + epinephrine 0.3 mg + morphine 2.5 mg 25 mg 5 mL, Other, PREOP pharm ropivacaine 25 mg + ketorolac 15 mg + epinephrine 0.3 mg + morphine 2.5 mg 25 mg 5 mL, Other, PREOP pharm tranexamic acid PMX 1 gram(s) 100 mL, IV Piggyback, AsDirected tranexamic acid PMX 1 gram(s) 100 mL, IV Piggyback, AsDirected Continuous: (1) Lactated Ringers 1000 mL 1,000 mL, Intravenous, 20 mL/hr PRN: (0) Problem list: Active Problems (8) Anxiety and depression GERD (gastroesophageal reflux disease) HTN (hypertension) Lumbar pain OA (osteoarthritis) Psoriasis RLS (restless legs syndrome) Sleep apnea Histories Past Medical History: No active or resolved past medical history items have been selected or recorded. Family History: No family history items have been selected or recorded. Procedure history: Bilateral prosthetic arthroplasty of knees ([id number]). Fracture of tibia AND fibula ([id number]). Comments: 10/26/2021 8:27 EDT - Ivonne Philip RN Left Appendectomy ([id number]). Ligation of varicose vein ([id number]). Comments: 10/26/2021 8:28 CAMILLET Ivonne Fuentes RN groin Tonsillectomy ([id number]). CTR - carpal tunnel release ([id number]). 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 Physical Examination Vital Signs 11/13/2021 9:11 EDT Temperature Temporal Artery 36.7 DegC Peripheral Pulse Rate 106 bpm HI Respiratory Rate 19 br/min Systolic Blood Pressure NBP 155 mmHg HI Diastolic Blood Pressure NBP 105 mmHg >HHI Vital Signs(last 24 hrs) Last Charted Resp Rate 19 br/min (NOV 13 09:11) SBPH 155mmHg (NOV 13 09:11) DBPC 105mmHg (NOV 13 09:11) Measurements from flowsheet : Measurements 11/13/2021 9:14 EDT Body Mass Index 33.83 kg/m2 Body Mass Index 33.83 kg/m2 11/13/2021 9:11 EDT Height 170.2 cm Admission Weight 98 kg [place] Body Weight 66.12 kg Admission Body Mass Index 33.83 m2 Pain assessment: Pain Assessment 11/13/2021 9:22 EDT Primary Pain Intensity 7 11/13/2021 9:11 EDT Primary Pain Location Knee Primary Pain Laterality Right Primary Pain Intensity 7 Pain Scale Type 0-10 Pain scale . General: Alert and oriented, Mild distress. Airway: Normal temporomandibular joint mobility. Mallampati classification: II (soft palate, fauces, uvula visible). Dentition Evaluation: Denies loose/chipped teeth. Respiratory: Lungs are clear to auscultation, Respirations are non-labored. Cardiovascular: Normal rate, Regular rhythm. Neurologic: Alert, Oriented. Review / Management Results review: No qualifying data available , Lab results 11/13/2021 9:22 EDT Primary Pain Intensity 7 celecoxib 400 mg mg famotidine 20 mg mg oxyCODONE 10 mg mg vancomycin 1,500 mg mg Lactated Ringers Injection 1,000 mL mL Sodium Chloride 0.9% 250 mL mL 11/13/2021 9:19 EDT Hand Left 11/13/2021 20 gauge Peripheral IV Activity: Insert new site Peripheral IV Dressing Condition: Clean, Dry, Intact Peripheral IV Dressing Activity: Applied, Transparent dressing Peripheral IV Line Status/Patency: Continuous infusion Peripheral IV Line Care: Secured with tape Peripheral IV Site Condition: No complications Peripheral IV Equipment: Extension set, PRN Adaptor Peripheral IV Number of Attempts: 1 Anesthesia Consent Signed Yes 11/13/2021 9:14 EDT Body Mass Index 33.83 kg/m2 Body Mass Index 33.83 kg/m2 Infectious Disease Symptoms Patient states no symptoms SN - Preprocedure Comments Spoke with patient, Verbalizes/Nonverbally indicates understanding (Modified) Safety Brochure Information [facility]ed [facility] No Teaching Evaluation Verbalizes/Nonverbally indicates understanding Admission Note-Nursing Same Day Patient History (Modified) 11/13/2021 9:11 EDT Height 170.2 cm Admission Weight 98 kg [place] Body Weight 66.12 kg Admission Body Mass Index 33.83 m2 Temperature Temporal Artery 36.7 DegC Peripheral Pulse Rate 106 bpm HI Respiratory Rate 19 br/min Systolic Blood Pressure NBP 155 mmHg HI Diastolic Blood Pressure NBP 105 mmHg >HHI Primary Pain Location Knee Primary Pain Laterality Right Primary Pain Intensity 7 Pain Scale Type 0-10 Pain scale Nail Bed Color [place] Capillary Refill < 2 seconds Dorsalis Pedis Pulse, Left 2+ Normal Dorsalis Pedis Pulse, Right 2+ Normal Radial Pulse, Left 2+ Normal Radial Pulse, Right 2+ Normal Edema Generalized None All Lobes Breath Sounds Clear Oxygen Therapy Room air Oxygen Saturation 97 % Abdomen Description Non-distended, Soft Abdomen Palpation Non-Tender Bowel Sounds All Quadrants Present Urinary Elimination Voiding, no difficulties Skin Temperature Warm Skin Description [place], Dry Skin Integrity Intact Neurological Symptoms Patient denies Extremity Movement Equal Characteristics of Speech Clear Level of Consciousness Alert Strength All Extremities Strong Tone All Extremities Normal Sensation All Extremities Intact Affect/Behavior Appropriate, Calm, Cooperative Orientation Oriented x 4 Allergies No Consent Form Signed Yes Patient Dressed In Hospital gown Pre-op Preparation Jewelry removed CHG Preoperative Wash/Wipe Night before procedure, Day of procedure Preop Nasal Swab Povidone-Iodine CHG Skin Prep Completed for Eligible Surgery History & Physical On Chart Yes Activity Status ADL Awake, Resting NPO Status Maintained, More than 8 hours Standard Safety ID band on, Call device within reach, Bed in low position, Wheels locked, Upper/Half-Length side-rails up Patient ID Band on and Verified Yes Implants Verified Yes Pacemaker/AICD Verified Yes Last Fluid Intake 11/12/2021 20:00 Last Food Intake 11/12/2021 20:00 Last Void 11/13/2021 8:30 Patient Cleared for Surgery By MITA ZHOU MD . Assessment and Plan [employer]hesi[employer] (ASA) physical status classification: Class III. Anesthetic Preoperative Plan Anesthetic technique: General. Maintenance airway: Oral endotracheal tube. Postoperative pain management: adductor canal block. Risks discussed: nausea, vomiting, sore throat, dental injury, hypotension, allergic reaction, serious complications. Informed consent: signed by patient. Digitally Signed by BRANDON MEIER on 11/13/2021 09:24 AM [facility] 10-17-2021 History of Presen t illness Narrative This note was created using Stuffleriter. Subjective Mazin Naidu is a 51 year old male. Patient presents with: Follow Up: BP check, EKG surgical clearance, anxiety SUBJECTIVE: Mazin Naidu is a 51 year old year old gentleman here today for follow up appointment for review of medical conditions. Noted at preop evaluation, BP was up off the BP med then. Doing okay back on BP meds. Does not have home cuff. Noted still ongoing issues with pain and sleep issues. Anxiety attacks Reviewed that taking meloxicam routinely. Will see Mehrdad Packer PA-C 10/22/2021 for ortho pre-op appointment. PAST MEDICAL HISTORY Diagnosis Date Cutaneous abscess of neck 01/16/2015 Depression GI AVM (gastrointestinal arteriovenous vascular malformation) Lumbago 11/18/2005 Mixed hyperlipidemia Hyperlipidemia Nonspecific (abnormal) findings on radiological and other examination of gastrointestinal tract CAROL ANN (obstructive sleep apnea) [facility] fx. 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 bisoprolol-hydroCHLOROthiazide (ZIAC) 10-6.25 mg per tablet Take 2 tablets by mouth once daily. busPIRone (BUSPAR) 15 mg tablet Take 1 tablet by mouth twice daily. FLUoxetine (PROZAC) 40 mg capsule Take 1 capsule by mouth once daily. ondansetron orally disintegrating (ZOFRAN ODT) 4 mg disintegrating tablet Take 1 tablet by mouth every 6 hours as needed for nausea/vomiting. sildenafil (VIAGRA) 100 mg tablet Take one hour before sex omeprazole (PRILOSEC) 40 mg capsule Take 1 capsule by mouth once daily. gabapentin (NEURONTIN) 300 mg capsule Take 1 capsule by mouth three times daily for 180 days. losartan (COZAAR) 50 mg tablet Take 1 tablet by mouth once daily. famotidine (PEPCID) 20 mg tablet Take 1 tablet by mouth at bedtime as needed. cyclobenzaprine (FLEXERIL) 10 mg tablet Take 1 tablet by mouth at bedtime as needed for muscle spasm. FLUoxetine (PROZAC) 20 mg capsule Take 1 capsule by mouth once daily. Take with 40 mg fluoxetine capsule meloxicam (MOBIC) 15 mg tablet Take 1 tablet by mouth once daily. Take with food. rOPINIRole (REQUIP) 1 mg tablet Take 1 tablet by mouth daily at bedtime. rOPINIRole (REQUIP) 0.5 mg tablet Take 1 tablet by mouth daily at bedtime. take in addition to 1 mg ropinirole for a total of 1.5 mg traZODone (DESYREL) 100 mg tablet Take 1 tablet by mouth at bedtime as needed. CPAP Initiate Auto PAP @ 5-20 cm of water with humidification. Mask (per patient preference) optional chin strap (if indicated) , filters, tubing, humidifier and lifetime supplies. No current facility-administered medications for this visit. Review of Systems Objective BP 132/84 Pulse 73 Wt 99.8 kg (220 lb) SpO2 98% BMI 34.98 kg/m Last 5 Encounter Wt Readings: Date: Wt: 10/17/2021 99.8 kg (220 lb) 09/25/2021 98.9 kg (218 lb) 07/06/2021 102.1 kg (225 lb) 05/23/2021 99.7 kg (219 lb 12.8 oz) 02/12/2021 95.7 kg (211 lb) No waist measurement recorded Estimated body mass index is 34.98 kg/m as calculated from the following: Height as of 07/06/21: 168.9 cm (5' 6.5 ). Weight as of this encounter: 99.8 kg (220 lb). Last 5 Encounter BP Readings: Date: BP: 10/17/2021 132/84 09/25/2021 160/100 07/06/2021 124/70 05/23/2021 128/80 02/12/2021 124/78 Physical Exam Vitals reviewed. Constitutional: Appearance: Normal appearance. Eyes: Conjunctiva/sclera: Conjunctivae normal. Cardiovascular: Rate and Rhythm: Normal rate and regular rhythm. Heart sounds: Normal heart sounds. Pulmonary: Effort: Pulmonary effort is normal. Breath sounds: Normal breath sounds. Musculoskeletal: Comments: Wearing knee brace Skin: General: Skin is warm and dry. Neurological: General: No focal deficit present. Mental Status: He is alert and oriented to person, place, and time. Psychiatric: Mood and Affect: Mood normal. Behavior: Behavior normal. Thought Content: Thought content normal. Judgment: Judgment normal. ECG--Normal Sinus Rhythm with rate 67. Will forward report and ECG after read by crown ceramist. Assessment and Plan ASSESSMENT/PLAN: 1. Essential hypertension - ICD9: 401.9, ICD10: I10 (primary diagnosis) - good control - Improved with resuming meds - Continue current medication(s) - Recommended regular aerobic exercise. - Recommend home blood pressure monitoring, to bring results in on next visit - Goal of BP <130/80 2. Restless leg syndrome - ICD9: 333.94, ICD10: G25.81 Continue present management. - ROPINIROLE 0.5 MG TABLET 3. Adjustment disorder with mixed anxiety and depressed mood - ICD9: 309.28, ICD10: F43.23 Increased dose given increased anxiety with anticipation of surgery plus financial concerns since will not be able to work for a while. Emotional support given. - BUSPIRONE 30 MG TABLET 4. Lumbosacral spondylosis without myelopathy - ICD9: 721.3, ICD10: M47.817 Continue present management.. Discussed that will be needing to hold med prior to surgery and can discuss with Mehrdad Packer PA-C at his pre-op ortho appointment as scheduled. - MELOXICAM 15 MG TABLET Will forward a copy of this progress note as well as the September Preop consult note that was done in September. He is medically optimized for planned surgical procedure. No new problems have developed. Discussed that if BP were to go up when is seen for pre-op ortho appointment because of patient's anxiety, I can add amlodipine 2.5 mg to take as needed for SBP over 150 or to add daily to keep BP lower before surgery then adjust as needed postop. Will also fax completed [facility]'s Request for Surgery Clearance. Note that I did not order labs since patient stated he will have PAT done. Also noted July CBC done at [facility] which was fine. Our last CMP and CBC done 01/30/21 were within normal limits. Mita Zhou MD documented in this encounter [facility] 09-25-2021 History of Presen t illness Narrative This note was created using Stuffleriter. Subjective Mazin Naidu is a 51 year old male. HISTORY Mazin Naidu is a 51 year old gentleman here for pre-op evaluation as requested by Dr. Edmondson. Mazin Naidu has surgery scheduled on 11/13/2021 for Revision right total knee arthroplasty at [facility]. Noted that still with bad pain--only on tramadol from [facility]. Working with them on this. Doing well clinically otherwise aside from knee pain. No signs of infection, heart or lung problems. PAST MEDICAL HISTORY Diagnosis Date Cutaneous abscess of neck 01/16/2015 Depression GI AVM (gastrointestinal arteriovenous vascular malformation) Lumbago 11/18/2005 Mixed hyperlipidemia Hyperlipidemia Nonspecific (abnormal) findings on radiological and other examination of gastrointestinal tract CAROL ANN (obstructive sleep apnea) [facility] fx. 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 PAST SURGICAL HISTORY OF January tib-fib fracture ORIF left leg (Feb 2015 will have hardwarde removed) PAST SURGICAL HISTORY OF September 2014 Dr. Felder RFA for lumbar radiculopathy left side PAST SURGICAL HISTORY OF 08/23/15 Left knee replacement (Dr. Edmondson) TONSILLECTOMY PRIMARY/SECONDARY <AGE 10 Tonsillectomy ALLERGIES No Known Allergies Current Outpatient Medications Medication Sig atorvastatin (LIPITOR) 20 mg tablet Take 1 tablet by mouth once daily. bisoprolol-hydroCHLOROthiazide (ZIAC) 10-6.25 mg per tablet Take 2 tablets by mouth once daily. busPIRone (BUSPAR) 15 mg tablet Take 1 tablet by mouth twice daily. FLUoxetine (PROZAC) 40 mg capsule Take 1 capsule by mouth once daily. ondansetron orally disintegrating (ZOFRAN ODT) 4 mg disintegrating tablet Take 1 tablet by mouth every 6 hours as needed for nausea/vomiting. sildenafil (VIAGRA) 100 mg tablet Take one hour before sex omeprazole (PRILOSEC) 40 mg capsule Take 1 capsule by mouth once daily. gabapentin (NEURONTIN) 300 mg capsule Take 1 capsule by mouth three times daily for 180 days. losartan (COZAAR) 50 mg tablet Take 1 tablet by mouth once daily. famotidine (PEPCID) 20 mg tablet Take 1 tablet by mouth at bedtime as needed. cyclobenzaprine (FLEXERIL) 10 mg tablet Take 1 tablet by mouth at bedtime as needed for muscle spasm. FLUoxetine (PROZAC) 20 mg capsule Take 1 capsule by mouth once daily. Take with 40 mg fluoxetine capsule meloxicam (MOBIC) 15 mg tablet Take 1 tablet by mouth once daily. Take with food. rOPINIRole (REQUIP) 1 mg tablet Take 1 tablet by mouth daily at bedtime. rOPINIRole (REQUIP) 0.5 mg tablet Take 1 tablet by mouth daily at bedtime. take in addition to 1 mg ropinirole for a total of 1.5 mg traZODone (DESYREL) 100 mg tablet Take 1 tablet by mouth at bedtime as needed. CPAP Initiate Auto PAP @ 5-20 cm of water with humidification. Mask (per patient preference) optional chin strap (if indicated) , filters, tubing, humidifier and lifetime supplies. No current facility-administered medications for this visit. FAMILY HISTORY Problem Relation Age of Onset Coronary Artery Disease Father Osteoporosis Mother Social History Tobacco Use Smoking status: Never Smoker Smokeless tobacco: Former User Types: Snuff, Chew Tobacco comment: quit chewing after 10 years. Substance Use Topics Alcohol use: No Drug use: No Review of Systems Constitutional: Negative. HENT: Negative. Eyes: Negative. Respiratory: Negative. Cardiovascular: Negative. Gastrointestinal: Negative. Reflux controlled with PPI Endocrine: Negative. Genitourinary: Negative. Musculoskeletal: Right knee pain--needs surgery as scheduled Skin: Negative. Allergic/Immunologic: Negative. Hematological: Negative. Psychiatric/Behavioral: Negative. Objective BP 150/100 Pulse 94 Wt 98.9 kg (218 lb) SpO2 100% BMI 34.66 kg/m Last 5 Encounter Wt Readings: Date: Wt: 09/25/2021 98.9 kg (218 lb) 07/06/2021 102.1 kg (225 lb) 05/23/2021 99.7 kg (219 lb 12.8 oz) 02/12/2021 95.7 kg (211 lb) 01/30/2021 94.3 kg (208 lb) No waist measurement recorded Estimated body mass index is 34.66 kg/m as calculated from the following: Height as of 07/06/21: 168.9 cm (5' 6.5 ). Weight as of this encounter: 98.9 kg (218 lb). Last 5 Encounter BP Readings: Date: BP: 09/25/2021 150/100 07/06/2021 124/70 05/23/2021 128/80 02/12/2021 124/78 01/30/2021 143/92[trubp average[ 09/25/21 1600 09/25/21 1702 BP: 150/100 160/100 Pulse: 94 SpO2: 100% Weight: 98.9 kg (218 lb) Physical Exam Vitals reviewed. Constitutional: Appearance: Normal appearance. HENT: Head: Normocephalic. Right Ear: Tympanic membrane, ear canal and external ear normal. Left Ear: Tympanic membrane, ear canal and external ear normal. Mouth/Throat: Mouth: Mucous membranes are moist. Pharynx: Oropharynx is clear. Eyes: Extraocular Movements: Extraocular movements intact. Conjunctiva/sclera: Conjunctivae normal. Cardiovascular: Rate and Rhythm: Normal rate and regular rhythm. Pulses: Normal pulses. Heart sounds: Normal heart sounds. Pulmonary: Effort: Pulmonary effort is normal. Breath sounds: Normal breath sounds. Abdominal: General: Abdomen is flat. There is no distension. Palpations: Abdomen is soft. There is no mass. Musculoskeletal: Cervical back: Normal range of motion. Comments: Right knee in brace. Skin: General: Skin is warm and dry. Neurological: General: No focal deficit present. Mental Status: He is alert and oriented to person, place, and time. Psychiatric: Attention and Perception: Attention normal. Mood and Affect: Mood normal. Speech: Speech normal. Behavior: Behavior normal. Thought Content: Thought content normal. Cognition and Memory: Cognition normal. Judgment: Judgment normal. Baseline labs from last year were fine aside from lipids. Component Latest Ref Rng & Units 01/30/2021 Protein, Total 6.3 - 8.0 g/dL 7.4 Albumin 3.9 - 4.9 g/dL 4.6 Calcium 8.5 - 10.2 mg/dL 9.9 Bilirubin, Total 0.2 - 1.3 mg/dL 0.3 Alkaline Phosphatase 38 - 113 U/L 87 AST 14 - 40 U/L 24 Glucose 74 - 99 mg/dL 89 BUN 9 - 24 mg/dL 17 Creatinine 0.73 - 1.22 mg/dL 0.77 Sodium 136 - 144 mmol/L 138 Potassium 3.7 - 5.1 mmol/L 4.3 Chloride 97 - 105 mmol/L 98 CO2 22 - 30 mmol/L 26 Anion Gap 9 - 18 mmol/L 14 ALT 10 - 54 U/L 38 eGFR- >60 eGFR-All Other Races . >60 WBC 3.70 - 11.00 k/uL 7.33 RBC 4.20 - 6.00 m/uL 5.36 Hemoglobin 13.0 - 17.0 g/dL 14.9 Hematocrit 39.0 - 51.0 % 46.1 MCV 80.0 - 100.0 fL 86.0 MCH 26.0 - 34.0 pG 27.8 MCHC 30.5 - 36.0 g/dL 32.3 RDW-CV 11.5 - 15.0 % 12.2 Platelet Count 150 - 400 k/uL 257 MPV 9.0 - 12.7 fL 12.5 Absolute nRBC <0.01 k/uL <0.01 Cholesterol, Total <200 mg/dL 267 (H) Triglyceride <150 mg/dL 380 (H) HDL Cholesterol >39 mg/dL 47 LDL Cholesterol <100 mg/dL 144 (H) Non HDL Cholesterol <130 mg/dL 220 (H) Fasting Time hrs 12 VLDL Cholesterol <30 mg/dL 76 (H) TC:HDL Ratio <5.10 5.68 (H) LDL:HDL Ratio <2.54 3.06 (H) Hemoglobin A1C 4.3 - 5.6 % 6.2 (H) Estimated Average Glucose mg/dL 131 Magnesium 1.7 - 2.3 mg/dL 2.2 The 10-year ASCVD risk score (Elaine AVERY Jr., et al., 2013) is: 10.8% Values used to calculate the score: Age: 51 years Sex: Male Is Non- : No Diabetic: No Tobacco smoker: No Systolic Blood Pressure: 150 mmHg Is BP treated: Yes HDL Cholesterol: 47 mg/dL Total Cholesterol: 267 mg/dL Assessment and Plan ASSESSMENT/PLAN: 1. Preop examination - ICD9: V72.84, ICD10: Z01.818 (primary diagnosis) Aside from BP, he is medically optimized for planned surgical procedure. Will have him return for BP check. Adjust meds for BP if not improving to be optimzed for surgery. Will communicate results of preop evaluation via fax of this H&P and forms from his orthopedic surgeon. 2. Essential hypertension - ICD9: 401.9, ICD10: I10 - factors affecting control of BP include white coat HTN, being overweight and lack of exercise and pain. - Continue current medication(s) - Recommended regular aerobic exercise. - Recommend home blood pressure monitoring, to bring results in on next visit - Discussed need and benefit for weight loss. - Goal of BP <130/80 - Recommended no refined sugar, low refined starch, healthy oil intake (olive oil), healthy protein (fish) along the lines of the Mediterranean diet. - BISOPROLOL 10 MG-HYDROCHLOROTHIAZIDE 6.25 MG TABLET 3. Mixed hyperlipidemia - ICD9: 272.2, ICD10: E78.2 - suboptimal control - Continue current medication. - Encouraged following a low fat, low cholesterol diet. - Discussed the benefits of regular aerobic exercise and weight loss. - Encouraged following a low carbohydrate, healthy oil intake diet. - ATORVASTATIN 20 MG TABLET 4. Adjustment disorder with mixed anxiety and depressed mood - ICD9: 309.28, ICD10: F43.23 Continue present management. - BUSPIRONE 15 MG TABLET - FLUOXETINE 40 MG CAPSULE 5. Vomiting and diarrhea - ICD9: 787.03, 787.91, ICD10: R11.10, R19.7 Further evaluation and treatment as indicated. - ONDANSETRON 4 MG DISINTEGRATING TABLET 6. Erectile dysfunction, unspecified erectile dysfunction type - ICD9: 607.84, ICD10: N52.9 - SILDENAFIL 100 MG TABLET Mita Zhou MD documented in this encounter [facility] 08-06-2021 Miscellaneous Notes Patient has been identified by name and date of : Yes Last office visit in this department: 07/06/2021 RX INSTRUCTIONS: Patient aware RX will be sent to pharmacy. No need to notify patient. Patient phones requesting refills as follows: Pending Prescriptions Disp Refills OMEPRAZOLE 40 MG CAPSULE,DELAYED RELEASE 90 capsule 1 Sig: Take 1 capsule by mouth once daily. DELANO: No GABAPENTIN 300 MG CAPSULE 270 capsule 1 Sig: Take 1 capsule by mouth three times daily for 180 days. DELANO: No SILDENAFIL 50 MG TABLET 12 tablet 5 Sig: Take one hour before sex DELANO: No Please review and advise. Lori Crowell documented in this encounter [facility] 07-06-2021 History of Presen t illness Narrative Reason for Visit Patient presents with: Same Day Appointment: patient- bilateral knee pain flared upx 3 weeks Mazin Naidu is a 50 year old male who presents here today for Above Complaints.. Health Maintenance BP CONTROLLED (<130/80) COLORECTAL CANCER SCREENING COVID-19 VACCINE(3 - Booster for Pfizer series) HPI Patient is a very pleasant 50-year-old with who has both his knees replaced the left one in 2015, right 1 in 2013. He has been having baseline knee pain for the past few years to 110 pain but every year at this time with weather change his knee started hurting 7 on 10. He is taking Mobic but it does not help usually. During this time only a steroid taper helps him get back to being normal. 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 It hurts for him to stand but there is pain in general No problem-specific Assessment & Plan notes found for this encounter. PAST MEDICAL HISTORY Diagnosis Date Cutaneous abscess of neck 01/16/2015 Depression GI AVM (gastrointestinal arteriovenous vascular malformation) Lumbago 11/18/2005 Mixed hyperlipidemia Hyperlipidemia Nonspecific (abnormal) findings on radiological and other examination of gastrointestinal tract CAROL ANN (obstructive sleep apnea) [facility] fx. 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 PAST SURGICAL HISTORY OF January tib-fib fracture ORIF left leg (Feb 2015 will have hardwarde removed) PAST SURGICAL HISTORY OF September 2014 Dr. Felder RFA for lumbar radiculopathy left side PAST SURGICAL HISTORY OF 08/23/15 Left knee replacement (Dr. Edmondson) TONSILLECTOMY PRIMARY/SECONDARY <AGE 10 Tonsillectomy FAMILY HISTORY Problem Relation Age of Onset Coronary Artery Disease Father Osteoporosis Mother Social History Tobacco Use Smoking status: Never Smoker Smokeless tobacco: Former User Types: Snuff, Chew Tobacco comment: quit chewing after 10 years. Substance Use Topics Alcohol use: No Drug use: No Past medical history, appointments, medications, allergies reviewed. Pertinent Lab/Diagnostic Studies are reviewed and discussed today Current Outpatient Medications: ondansetron orally disintegrating (ZOFRAN ODT) 4 mg disintegrating tablet gabapentin (NEURONTIN) 300 mg capsule busPIRone (BUSPAR) 15 mg tablet predniSONE (DELTASONE) 10 mg tablet losartan (COZAAR) 50 mg tablet famotidine (PEPCID) 20 mg tablet atorvastatin (LIPITOR) 20 mg tablet bisoprolol-hydroCHLOROthiazide (ZIAC) 10-6.25 mg per tablet cyclobenzaprine (FLEXERIL) 10 mg tablet FLUoxetine (PROZAC) 20 mg capsule FLUoxetine HCl (PROZAC) 40 mg capsule meloxicam (MOBIC) 15 mg tablet omeprazole (PRILOSEC) 40 mg capsule sildenafil (VIAGRA) 50 mg tablet rOPINIRole (REQUIP) 1 mg tablet rOPINIRole (REQUIP) 0.5 mg tablet traZODone (DESYREL) 100 mg tablet CPAP Review of Systems CONSTITUTIONAL: No fevers, chills night sweats, unintended weight loss CARDIOVASCULAR: No chest pain, dyspnea, palpitations, orthopnea, PND, ankle edema. PULM: No dyspnea, unexplained cough. GI: No dysphagia/odynophagia, problematic reflux, constipation, diarrhea, changes in stool habits, hematochezia, melena. : No new urinary complaints, including dysuria, gross hematuria or pyuria. NEURO: No new balance problems, peripheral weakness/paresthesias or numbness of concern. Physical Exam BP 124/70 (BP Site: Left Arm, BP Position: Sitting, BP Cuff Size: Large Adult) Pulse 77 Temp 36.7 C (98 F) Resp 12 Ht 168.9 cm (5' 6.5 ) Wt 102.1 kg (225 lb) SpO2 95% BMI 35.77 kg/m General appearance: Well appearing, alert, in no acute distress, well nourished. Skin: Skin color, texture, turgor normal, no suspicious rashes or lesions Head: Normocephalic, no masses, lesions, tenderness or abnormalities Eyes: Anicteric sclera. Pupils are equally round and reactive to light. Extraocular movements are intact. Lungs: Lungs clear to auscultation. No wheezing, rhonchi, rales Heart: RRR without murmur, gallop, or rubs. Knee exam: Along the joint lines of both knees there is pain. He also points to the right lateral next to the patella tendon having a little more pain. He also points to the alvarado on the left side, mid alvarado lateral aspect where he had the fibular fracture and currently states it has been hurting him. No signs of redness or inflammation in any of these areas. ASSESSMENT/PLAN: 1. Strain of both knees, sequela - ICD9: 905.7, ICD10: S86.911S, S86.912S (primary diagnosis) - PREDNISONE 10 MG TABLET - PREDNISONE 10 MG TABLET Went over the side effect profile for the drug with the patient, mentioned every one of it , discussed appropriate concerns , alternatives and benefits of the drug, Carly Greene MD documented in this encounter [facility] documented as of this encounter (statuses as of 07/06/2021) [facility]10-12[facility]2015 History of Past illness Narrative* Problem Noted Date Resolved Date Cutaneous abscess of neck 01/16/20152016 Sprain and strain of unspecified site of knee an d leg 08/21/2007 12/29/2018 Abdominal pain, other specified site 01/31/2005 05/31/2014 documented as of this encounter (statuses as of 08/08/2021) [facility] History of Past illness Narrative* Problem Noted Date Resolved Date Cutaneous abscess of neck 01/16/20152016 Sprain and strain of unspecified site of knee an d leg 08/21/2007 12/29/2018 Abdominal pain, other specified site 01/31/2005 05/31/2014 documented as of this encounter (statuses as of 10/17/2021) [address]12-2015 History of Past illness Narrative* Problem Noted Date Resolved Date Cutaneous abscess of neck 01/16/20152016 Sprain and strain of unspecified site of knee an d leg 08/21/2007 12/29/2018 Abdominal pain, other specified site 01/31/2005 05/31/2014 documented as of this encounter (statuses as of 10/18/2021) [address]12-2015 History of Past illness Narrative* Problem Noted Date Resolved Date Cutaneous abscess of neck 01/16/20152016 Sprain and strain of unspecified site of knee an d leg 08/21/2007 12/29/2018 Abdominal pain, other specified site 01/31/2005 05/31/2014 documented as of this encounter (statuses as of 03/04/2022) [facility] History of Past illness Narrative* Problem Noted Date Resolved Date Cutaneous abscess of neck 01/16/20152016 Sprain and strain of unspecified site of knee an d leg 08/21/2007 12/29/2018 Abdominal pain, other specified site 01/31/2005 05/31/2014 documented as of this encounter (statuses as of 07/01/2022) [facility] History of Past illness Narrative* Problem Noted Date Diagnosed Date Resolved Date Cutaneous abscess of neck 01/16/2015 Sprain and strain of unspeci fied site of knee and leg 08/21/2007 12/29/2018 Abdominal pain, other specified site 01/31/2005 05/31/2014 documented as of this encounter (statuses as of 11/22/2022) [facility] History of Past illness Narrative* Problem Noted Date Diagnosed Date Resolved Date Cutaneous abscess of neck 01/16/2015 Sprain and strain of unspeci fied site of knee and leg 08/21/2007 12/29/2018 Abdominal pain, other specified site 01/31/2005 05/31/2014 documented as of this encounter (statuses as of 11/30/2022) [facility] History of Past illness Narrative* Problem Noted Date Diagnosed Date Resolved Date Cutaneous abscess of neck 01/16/2015 Sprain and strain of unspeci fied site of knee and leg 08/21/2007 12/29/2018 Abdominal pain, other specified site 01/31/2005 05/31/2014 documented as of this encounter (statuses as of 12/01/2022) [facility] [place] + Plan note No data available for this section [facility] Evaluation note* Diagnosis Strain of both knees, sequela- Primary documented in this encounter [facility] note* Diagnosis Lumbosacral spondylosis without myelopathy Degeneration of lumbar or lumbosacral intervertebral disc Erectile dysfunction, unspecified erectile dysfunction type documented in this encounter [facility] note* Diagnosis Preop examination- Primary Preoperative examination, unspecified Essential hypertension Unspecified essential hypertension Mixed hyperlipidemia Adjustment disorder with mixed anxiety and depressed mood Vomiting and diarrhea Vomiting alone Erectile dysfunction, unspecified erectile dysfunction type documented in this encounter [facility] note* Diagnosis Essential hypertension- Primary Unspecified essential hypertension Restless leg syndrome Restless legs syndrome (RLS) Adjustment disorder with mixed anxiety and depressed mood Lumbosacral spondylosis without myelopathy documented in this encounter [facility] note* Diagnosis Adjustment disorder with mixed anxiety and depressed mood Erectile dysfunction, unspecified erectile dysfunction type Hypertension, essential Unspecified essential hypertension documented in this encounter [facility] note* Diagnosis Persistent insomnia- Primary Persistent disorder of initiating or maintaining sleep Hypertension, essential Unspecified essential hypertension Adjustment disorder with mixed anxiety and depressed mood Sleep initiation disorder Insomnia, unspecified documented in this encounter [facility] note* Diagnosis Mixed hyperlipidemia documented in this encounter [facility] note* Diagnosis Rash- Primary Rash and other nonspecific skin eruption documented in this encounter [facility] Summary Purpose Family History No Family History Records FoundNo Family History Records Found Advance Directives No Advanced Directives Records FoundNo Advanced Directives Records Found Additional Source Comments Source Comments (unrecognize d section and content) In the event this informatio n is protected by the Federal Confidentiality of Alcohol and Drug Abuse Patient Records regulations: The Federal rules restrict any use of the information to criminally investigate or prosecute any alcohol or drug abuse patient.[facility] the event this information is protected by the Federal Confidentiality of Alcohol and Drug Abuse Patient Records regulations: The Federal rules restrict any use of the information to criminally investigate or prosecute any alcohol or drug abuse patient.[facility] the event this information is protected by the Federal Confidentiality of Alcohol and Drug Abuse Patient Records regulations: The Federal rules restrict any use of the information to criminally investigate or prosecute any alcohol or drug abuse patient.[facility] the event this information is protected by the Federal Confidentiality of Alcohol and Drug Abuse Patient Records regulations: The Federal rules restrict any use of the information to criminally investigate or prosecute any alcohol or drug abuse patient.[facility] the event this information is protected by the Federal Confidentiality of Alcohol and Drug Abuse Patient Records regulations: The Federal rules restrict any use of the information to criminally investigate or prosecute any alcohol or drug abuse patient.[facility] the event this information is protected by the Federal Confidentiality of Alcohol and Drug Abuse Patient Records regulations: The Federal rules restrict any use of the information to criminally investigate or prosecute any alcohol or drug abuse patient.[facility] the event this information is protected by the Federal Confidentiality of Alcohol and Drug Abuse Patient Records regulations: The Federal rules restrict any use of the information to criminally investigate or prosecute any alcohol or drug abuse patient.[facility] the event this information is protected by the Federal Confidentiality of Alcohol and Drug Abuse Patient Records regulations: The Federal rules restrict any use of the information to criminally investigate or prosecute any alcohol or drug abuse patient.[facility] the event this information is protected by the Federal Confidentiality of Alcohol and Drug Abuse Patient Records regulations: The Federal rules restrict any use of the information to criminally investigate or prosecute any alcohol or drug abuse patient.[facility] Reason for Visit (unrecogniz ed section and content) Reason Comments Refill Request Reason Comments Medical Clearance Reason Comments Follow Up BP check, EKG surgic al clearance, anxiety Reason Onset Date Comments Refill Request 03/01/2022 Reason Comments Anxiety Reason Comments Med Change Request Reason Comments Rash Rash on right side o f chest ans armpit x 2 days Reason Comments Results Care Teams (unrecognized sec tion and content) Study Manager Relationship Specialty Start Date End Date Mita Zhou MD [facility] [place] [address] PCP - General Internal Medicine 10/19/14 Study Manager Relationship Specialty Start Date End Date Mita Zhou MD [address] [place] [id number] PCP - General Internal Medicine 10/19/14 Study Manager Relationship Specialty Start Date End Date Mita Zhou MD [address] [place] [id number] PCP - General Internal Medicine 10/19/14 Study Manager Relationship Specialty Start Date End Date Mita Zhou MD [address] [place] [id number] PCP - General Internal Medicine 10/19/14 Study Manager Relationship Specialty Start Date End Date Mita Zhou MD [address] [place] [id number] PCP - General Internal Medicine 10/19/14 Study Manager Relationship Specialty Start Date End Date Mita Zhou MD [address] [place] [address] PCP - General Internal Medicine 10/19/14 Study Manager Relationship Specialty Start Date End Date Mita Zhou MD [address] [place] [address] PCP - General Internal Medicine 10/19/14 Study Manager Relationship Specialty Start Date End Date Mita Zhou MD [address] [place] [address] PCP - General Internal Medicine 10/19/14 Care Team (unrecognized sect ion and content) Care Team Personnel Name: MITA ZHOU MD Member Role: Primary Care Physician Address: Address: [address] [place] [address]- Care Team Related Persons Name: NONE, PER PT (unrecognized sect ion and content) No Status Records FoundNo Status Records Found INFORMATION SOURCE (unrecogn ized section and content) DATE CREATED AUTHOR AUTHOR'S ORGANIZ ATION 04/19/2023 [facility] FOR RECORDS PERTAINING TO PATIENTS WHO ARE OR HAVE BEEN ENROLLED IN A CHEMICAL DEPENDENCY/SUBSTANCEABUSE PROGRAM, SOME INFORMATION MAY BE OMITTED. This clinical summary was aggregated from multiple sources. Caution should be exercised in using it in the provision of clinical care. This summary normalizes information from multiple sources, and as a consequence, information in this document may materially change the coding, format and clinical context of patient data. In addition, data may be omitted in some cases. CLINICAL DECISIONS SHOULD BE BASED ON THE PRIMARY CLINICAL RECORDS. [employer] provides no warranty or guarantee of the accuracy or completeness of information in this document.
--- OUTSIDE RECORDS SUMMARY | 2023-05-08 19:53 | XMS RPT_ITS | CCD ---
Author Name Unknown Address [address] [place] [address] Organization [facility] Care Team Providers Care Program Rep Name Role Phone Mita Zhou MD Primary [...] traZODone; Translations: [TRAZODONE] Drug Allergy 07-01-2022 [facility] Work Phone: Medications Current Medications [...] tab(s), 0 Refill(s), 11/28/21 8:32:00 EDT, Pharmacy: [facility]/pharmacy #[id number], 170.2, cm, 11/13/21 13:54:00 EDT, Height [...] prophylaxis, # 60 tab(s), 0 Refill(s), Pharmacy: [facility]/pharmacy #[id number], 170.2, cm, 11/13/21 13:54:00 EDT, Height [...] needed, # 30 tab(s), 0 Refill(s), Pharmacy: [facility]/pharmacy #[id number], 170.2, cm, 11/13/21 13:54:00 EDT, Height Start Date: 11/14/21 Stop Date: 11/16/21 Status: Ordered doxycycline hyclate 100 mg oral capsule (1 source) Tetracycline-class Drug Start: 11-14-2021 End: 11-28-2021 doxycycline hyclate 100 mg oral capsule Dose : 100 mg = 1 cap(s), Oral, q12h, X 14 day(s), # 28 cap(s), 0 Refill(s), 11/28/21 8:34:00 EDT, Pharmacy: [facility]/pharmacy #[id number], 170.2, cm, 11/13/21 13:54:00 EDT, Height, [...] 99.61 [degF] Tamanna Victor APRN.FAITH Work Phone: [facility] 11-30-2022 10:39-0400 Body weight 100.7 kg Tamanna Victor APRN.FAITH Work Phone: [facility] 11-30-2022 10:39-0400 Diastolic blood pressure 100 mm[Hg] Tamanna Victor APRN.DIRECTOR MANUFACTURING ENGINEERING Work Phone: [facility] 11-30-2022 10:39-0400 Heart rate 90 /min Tamanna Victor APRN.DIRECTOR MANUFACTURING ENGINEERING Work Phone: [facility] 11-30-2022 10:39-0400 Respiratory rate 20 /min Tamanna Victor APRN.DIRECTOR MANUFACTURING ENGINEERING Work Phone: [facility] 11-30-2022 10:39-0400 SaO2% (BldA) [Mass fraction] 98 % Tamanna Victor APRN.DIRECTOR MANUFACTURING ENGINEERING Work Phone: [facility] 11-30-2022 10:39-0400 Systolic blood pressure 160 mm[Hg] Tamanna Victor GENERAL OPERATIONS MANAGER.DIRECTOR MANUFACTURING ENGINEERING Work Phone: [facility] 07-01-2022 10:17-0400 Body weight 97.98 kg Indigo Bernard GENERAL OPERATIONS MANAGER.SPRING TACKER Work Phone: [facility] 07-01-2022 10:17-0400 Diastolic blood pressure 82 mm[Hg] Indigo Bernard GENERAL OPERATIONS MANAGER.SPRING TACKER Work Phone: [facility] 07-01-2022 10:17-0400 Heart rate 97 /min Indigo Bernard GENERAL OPERATIONS MANAGER.SPRING TACKER Work Phone: [facility] 07-01-2022 10:17-0400 Respiratory rate 16 /min Indigo Bernard GENERAL OPERATIONS MANAGER.SPRING TACKER Work Phone: [facility] 07-01-2022 10:17-0400 SaO2% (BldA) [Mass fraction] 97 % Indigo Bernard GENERAL OPERATIONS MANAGER.SPRING TACKER Work Phone: [facility] 07-01-2022 10:17-0400 Systolic blood pressure 138 mm[Hg] Indigo Bernard GENERAL OPERATIONS MANAGER.SPRING TACKER Work Phone: [facility] 11-14-2021 07:36-0400 Diastolic Blood Pressure NBP [address] SHERRILL EDMONDSON MD [facility] 11-14-2021 07:36-0400 Heart rate 82 /min DR SHERRILL EDMONDSON MD [facility] 11-14-2021 07:36-0400 Reason For Taking VItal Signs DR SHERRILL EDMONDSON MD [facility] 11-14-2021 07:36-0400 Respiratory rate 18 /min DR SHERRILL EDMONDSON MD [facility] 11-14-2021 07:36-0400 Systolic Blood Pressure NBP [address] SHERRILL EDMONDSON MD [facility] 11-14-2021 05:49-0400 Body temperature 98.06 [degF] DR SHERRILL EDMONDSON MD [facility] 11-14-2021 05:49-0400 Diastolic Blood Pressure NBP [address] SHERRILL EDMONDSON MD [facility] 11-14-2021 05:49-0400 Heart rate 86 /min DR SHERRILL EDMONDSON MD [facility] 11-14-2021 05:49-0400 Respiratory rate 18 /min DR SHERRILL EDMONDSON MD [facility] 11-14-2021 05:49-0400 Systolic Blood Pressure NBP [address] SHERRILL EDMONDSON MD [facility] 11-14-2021 02:23-0400 Body temperature 97.88 [degF] DR SHERRILL EDMONDSON MD [facility] 11-14-2021 02:23-0400 Diastolic Blood Pressure NBP [address] SHERRILL EDMONDSON MD [facility] 11-14-2021 02:23-0400 Heart rate 85 /min DR SHERRILL EDMONDSON MD [facility] 11-14-2021 02:23-0400 Respiratory rate 18 /min DR SHERRILL EDMONDSON MD [facility] 11-14-2021 02:23-0400 Systolic Blood Pressure NBP [address] SHERRILL EDMONDSON MD [facility] 11-13-2021 22:49-0400 Body temperature 98.06 [degF] DR SHERRILL EDMONDSON MD [facility] 11-13-2021 18:42-0400 Reason For Taking VItal Signs DR SHERRILL EDMONDSON MD [facility] 11-13-2021 17:55-0400 Reason For Taking VItal Signs DR SHERRILL EDMONDSON MD [facility] 11-13-2021 13:54-0400 Body height 170.[address] SHERRILL EDMONDSON MD [facility] 11-13-2021 13:54-0400 Body weight [address] SHERRILL EDMONDSON MD [facility] 11-13-2021 13:54-0400 Body weight 33.83 kg/m2 DR SHERRILL EDMONDSON MD [facility] 11-13-2021 11:35-0400 Body temperature 97.52 [degF] DR SHERRILL EDMONDSON MD [facility] 11-13-2021 09:11-0400 Body height 170.[address] SHERRILL EDMONDSON MD [facility] 11-13-2021 09:11-0400 Body temperature 98.06 [degF] DR SHERRILL EDMONDSON MD [facility] 11-13-2021 09:11-0400 Body weight [address] SHERRILL EDMONDSON MD [facility] 11-13-2021 09:11-0400 Heart rate 106 /min DR SHERRILL EDMONDSON MD [facility] 10-17-2021 16:48-0400 Diastolic blood pressure 78 mm[Hg] Mita Zhou MD Work Phone: [facility] 10-17-2021 16:48-0400 Systolic blood pressure 136 mm[Hg] Mita Zhou MD Work Phone: [facility] 10-17-2021 15:55-0400 Body weight 99.79 kg Mita Zhou MD Work Phone: [facility] 10-17-2021 15:55-0400 Heart rate 73 /min Mita Zhou MD Work Phone: [facility] 10-17-2021 15:55-0400 SaO2% (BldA) [Mass fraction] 98 % Mita Zhou MD Work Phone: [facility] 09-25-2021 17:02-0400 Diastolic blood pressure 100 mm[Hg] Mita Zhou MD Work Phone: [facility] 09-25-2021 17:02-0400 Systolic blood pressure 160 mm[Hg] Mita Zhou MD Work Phone: [facility] 09-25-2021 16:00-0400 Body weight 98.88 kg Mita Zhou MD Work Phone: [facility] 09-25-2021 16:00-0400 Heart rate 94 /min Mita Zhou MD Work Phone: [facility] 09-25-2021 16:00-0400 SaO2% (BldA) [Mass fraction] 100 % Mita Zhou MD Work Phone: [facility] 07-06-2021 15:54-0400 Body height 168.9 cm Carly Greene MD Work Phone: [facility] 07-06-2021 15:54-0400 Body temperature 98.01 [degF] Carly Greene MD Work Phone: [facility] 07-06-2021 15:54-0400 Body weight 102.06 kg Carly Greene MD Work Phone: [facility] 07-06-2021 15:54-0400 Diastolic blood pressure 70 mm[Hg] Carly Greene MD Work Phone: [facility] 07-06-2021 15:54-0400 Heart rate 77 /min Carly Greene MD Work Phone: [facility] 07-06-2021 15:54-0400 Respiratory rate 12 /min Carly Greene MD Work Phone: [facility] 07-06-2021 15:54-0400 SaO2% (BldA) [Mass fraction] 95 % Carly Greene MD Work Phone: [facility] 07-06-2021 15:54-0400 Systolic blood pressure 124 mm[Hg] Carly Greene MD Work Phone: [facility] Encounters Encounter Date Encounter Type Care Provider Facility Start: 04-18-2023 End: 04-19-2023 ambulatory [facility] Facility:[facility] Start: 01-02-2023 End: 01-03-2023 ambulatory INDIGO BERNARD Facility:[facility] Start: 12-01-2022 Telephone encounter Sabrina Becker APRN.[facility] Work Phone: [facility] Care Procedures Date Procedure Procedure Detail Performing [...] DTA P,TDAP,TD (3 - Td or Tdap) [facility] Start: 01-30-2026 LIPID SCREEN LIPID SCREEN [facility] Start: 11-30-2025 DIABETES SCREEN DIABETES SCREEN [facility] Start: 01-31-2024 DIABETES SCREEN DIABETES SCREEN [facility] Start: 12-29-2023 Urine microalbumin profile DTA P,TDAP,TD (2 - Td or Tdap) [facility] Start: 08-27-2023 ANNUAL PCP TEAM HELMET HAT PUNCHER AMADO DISEASE VISIT ANNUAL PCP TEAM CHRONIC DISEASE VISIT [facility] Start: 08-27-2023 BP CONTROLLED (<130/80) BP CONTROLLE D (<130/80) [facility] Start: 07-02-2023 COVID-19 VACCINE (3 - Booster for Pfizer series) COVID-19 VACCINE (3 - Booster for Pfizer series) [facility] Immunizations Immunization Date Immunization Notes Care Provider Fa cility 07-25-2022 tetanus toxoid, redu oma diphtheria toxoid, and acellular pertussis vaccine, adsorbed Grady Selene GENERAL OPERATIONS MANAGER.DIRECTOR MANUFACTURING ENGINEERING Work Phone: [facility] Work Phone: 01-30-2021 influenza virus vaccine, unspecified formulation DR SHERRILL EDMONDSON MD [facility] 01-30-2021 influenza, injectabl e, quadrivalent, contains preservative Carly Greene MD Work Phone: [facility] Work Phone: 09-08-2020 SARS-CoV-2 mRNA (tozinameran) vaccine DR SHERRILL EDMONDSON MD [facility] Payers Date Payer Category Payer Unknown [employer] PPO [id number] 2013-Present [phone] [address] [place] [address] PPO [id number] 2013 Unknown [id number] 2013 Unknown [employer] PPO [id number] 2013-Present [phone] [address] [place] [address] PPO [id number] 1968 Unknown [id number] 1970 Unknown [id number] Social History Date Type Detail Facility Start: 05-31-2014 End: 07-01-2022 Tobacco smoking status NHIS Never smoked tobacco [facility] Work Phone: Start: 05-31-2014 End: 07-01-2022 Tobacco use and exposure Former smokeless tobacco user [facility] Work Phone: End: 06-05-2012 History of tobacco use Snuff User [facility] Work Phone: End: 06-05-2012 History of tobacco use Chews Tobacco [facility] Work Phone: Start: 07-06-2021 End: 11-30-2022 Alcohol intake Current non-drinker of alcohol (finding) [facility] Start: 05-31-2014 End: 07-01-2022 Tobacco Comment quit chewing after 10 years. [facility] Start: 1970 Sex Assigned At Not on file [facility] Start: 06-26-2021 End: 10-17-2021 Exposure to SARS-CoV-2 (event) Not sure [facility] Work Phone: Start: 07-27-2021 End: 08-06-2021 Exposure to SARS-CoV-2 (event) Unable to assess [facility] Work Phone: Sex Assigned At Male [facility] Start: 05-01-2022 End: 08-26-2022 History of Social function [facility] Start: 05-01-2022 End: 08-26-2022 Tobacco use panel [facility] Adult Depression Screening Assessment 2 [facility] Functional Status Date Assessment Result Facility 11-14-2021 Functional Status Room check performed [facility] 11-14-2021 Functional Status [facility] 11-14-2021 Functional Status flight [facility] 11-14-2021 Functional Status Single level home [facility] 11-14-2021 Functional Status Walker [facility] 11-14-2021 Functional Status [facility] 11-13-2021 Functional Status [facility] 11-13-2021 Functional Status ice on Chirag [facility]13-2021 [facility]-13-[facility]21 Functional Status NPO Status Lucero ntained, More than 8 hours [facility] Mental Status Date Assessment Result Facility 11-14-2021 Mental Status Oriented x 4 [facility] 11-14-2021 Mental Status [facility] 11-13-2021 Mental Status [facility] Clinical Notes 01-16-2015 to 04-18-2023 Telephone Encounter - Alla Mcallister LPN - 12/01/2022 9:44 AM EDTTelephone Encounter - Sabrina Becker APRN.DIRECTOR MANUFACTURING ENGINEERING - 12/01/2022 8:58 AM EDTFTamanna aguirre APRN.DIRECTOR MANUFACTURING ENGINEERING - 11/30/2022 10:58 AM EDT Note Date & Type Note Facility 04-18-2023 Note HNO ID: [id number] Author: GRADY MORTON APRN.FAITH Service: ? Author [...] left side. Posteri (more content not included)... [facility] 01-02-2023 Note HNO ID: [id number] Author: Indigo Bernard APRN.SPRING TACKER Service: ? Author Type: Nurse Specialist Type: [...] capsule by mo (more content not included)... [facility] 12-01-2022 Miscellaneous Notes Left detailed message on identifiable voicemail. Lab work came back normal. Patient can continue his medication. If symptoms are worsening please follow-up with primary care. documented in this encounter [facility] 11-30-2022 Note HNO ID: [id number] Author: Tamanna Victor APRN.FAITH Service: ? Author Type: Nurse Practitioner Type: Progress Notes Filed: 11/30/2022 11:09 AM Note Text: Subjective The history is provided by the patient. No languages and literature instructor was used. HPI Mazin Naidu is a [...] gastrointestinal tract CAROL ANN (obstructive sleep apnea) [facility] [place]. 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 Tamanna Victor APRN.[facility] 11-30-2022 History of Presen t illness Narrative Images from the original note were not included. Subjective The history is provided by the patient. No languages and literature instructor was used. HPI Mazin Naidu is a [...] gastrointestinal tract CAROL ANN (obstructive sleep apnea) [facility] [place]. 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 Author Type: Nurse Practitioner Type: [...] Anterior drawer te (more content not included)... [facility] 07-01-2022 Note HNO ID: [id number] Author: Indigo Bernard APRN.SPRING TACKER Service: ? Author Type: Nurse Specialist Type: [...] emergency department follow-up visit. He presented to [facility] on January 27, 2021 with complaint of [...] consistently HB/GERD symptoms: none currently Reports Dad [place] age 56 years and Mother had [place] 60s, stroke in 90s. Non smoker. Quit [...] mouth once d (more content not included)... [facility] 07-01-2022 Instructions Indigo Bernard APRN.CNS - 07/01/2022 10:40 AM EDT Stop taking trazodone Take Ambien 5 mg at bedtime If you are getting up at 4:30 AM take Ambien at 8 PM. Give yourself at least 8 hours of sleep time after taking. documented in this encounter [facility] 07-01-2022 History of Presen t [...] emergency department follow-up visit. He presented to [facility] on January 27, 2021 with complaint of [...] consistently HB/GERD symptoms: none currently Reports Dad [place] age 56 years and Mother had [place] 60s, stroke in 90s. Non smoker. Quit [...] gastrointestinal tract CAROL ANN (obstructive sleep apnea) [facility] [place]. [phone] Other psoriasis and similar disorders Psoriasis Persistent [...] 4 - Moderate documented in this encounter [facility] 03-01-2022 Miscellaneous Notes Will give more refills at next appointment and see if that will get RXs to last till the following appointment The following approved medication requests have been transmitted electronically. Requested Prescriptions Signed Prescriptions Disp Refills sildenafil (VIAGRA) 100 mg tablet 12 tablet 5 Sig: Take one hour before sex Authorizing Provider: MIAT ZHOU losartan (COZAAR) 50 mg tablet 90 [...] Noemy Morocho RN documented in this encounter [facility] 01-10-2022 Note . MICRO - [...] Locations *1: This test was performed at: [address], [address] , [facility] ([place]) 01-10-2022 Note . MICRO - Microbiology PROCEDURE: [...] Locations *1: This test was performed at: [address], [address] , [facility] ([place]) 01-10-2022 Note . MICRO - Microbiology PROCEDURE: [...] Locations *1: This test was performed at: [address], [facility] , [facility] ([place]) 12-18-2021 Note . MICRO - Microbiology PROCEDURE: [...] Locations *1: This test was performed at: [address], [facility] , [facility] ([place]) 12-18-2021 Note . MICRO - Microbiology PROCEDURE: [...] Locations *1: This test was performed at: [address], [facility] , [facility] ([place]) 12-18-2021 Note . MICRO - Microbiology PROCEDURE: [...] Locations *1: This test was performed at: [address], [facility]- , [facility] ([place]) 11-20-2021 Note . MICRO - Microbiology PROCEDURE: [...] Locations *1: This test was performed at: [address], [address] , [facility] ([place]) 11-20-2021 Note . MICRO - Microbiology PROCEDURE: [...] Locations *1: This test was performed at: [address], [address]- , [facility] ([facility] 11-20-2021 Note . MICRO - Microbiology PROCEDURE: [...] Locations *1: This test was performed at: [facility] [address] [place] [address], [address] , [facility] ([place]) 11-14-2021 Note Discharge Instructions Thank you for allowing [facility] to assist you with your healthcare needs. [...] your post-op appointment. Follow-up as scheduled. Where: [facility] [address] [place] [id number]- Follow Up with [facility] When 11/16/2021 10:00 AM EDT Why: This is your first physical therapy appointment. Follow-up as scheduled. Where: [facility] [place] [address]- [phone] The Following Activity and Diet Have Been [...] to exceed 3000 mg/ day Pickup at [facility] #3321 11/14/21 @ 10AM New aspirin (aspirin 81 mg oral delayed release tablet) 1 tab(s) by mouth Two (2) times a day Duration: 30 Days Take 81 mg aspirin twice daily with food for 4 weeks postoperatively for DVT prophylaxis Pickup at [facility] #3321 11/14/21 @ 830 AM New docusate-senna (Senokot S 50 mg-8.6 mg oral tablet) 2 tab(s) by mouth Two (2) times a day Take until first bowel movement, then as needed Pickup at [facility]3321 11/14/21 @ 830 AM New doxycycline (doxycycline hyclate 100 mg oral capsule) 1 cap by mouth Every 12 hours Duration: 14 Days Pickup at [facility]/pharmacy #[id number] 11/14/21 @ 830 AM New oxyCODONE (oxyCODONE 5 mg oral tablet ( IMMEDIATE release )) See instructions Status post revision of total replacement of right knee 1-2 tab(s) Oral q4h Pickup at [facility]/pharmacy #3321 11/14/21 @ 11AM Changed FLUoxetine (FLUoxetine [...] Once a day NOT GIVEN Pharmacy Information [facility]/pharmacy #[id number]: [id number] [place], [place] [phone] What How Much When Comments Stop Taking [...] medication providers or retail pharmacies. Education Materials [facility] Post-operative Instructions PLEASE FOLLOW [facility] POST-OP INSTRUCTIONS GIVEN WATCH FOR SIGNS OF INFECTION: call the office ([phone]) if experencing any of the following: (Usually [...] on your follow up instructions. Form: 338A (07037) R: 08/11 Additional Information VACCINATE! IT SAVES LIVES! Members of the community who have not yet received the COVID-19 vaccine and would like to receive it can visit one of [facility] vaccine clinics. There are many vaccine clinic locations within the [facility]. For locations and available times, please visit [email or web address] It is important to note that some COVID mobile vaccine clinics are held outdoors and may be canceled in rainy or stormy conditions. To learn more about pediatric vaccinations (ages 5-11), we invite you to visit the [facility] webpage. [email or web address] To learn more about the COVID-19 vaccine, we invite you to visit the [employer] website for a list of frequently asked questions. [email or web address] requently_[email or web address] [facility] Patient Portal Access Instructions: Stay connected with your healthcare team and access your personal medical information anytime with the [employer] Patient Portal.If you would like a full copy of your medical records, please contact the [facility] Medical Records Department, Friday through Friday between 8a.m. and 4:30p.m. Please follow the directions below to access the portal: 1.Access the email account you provided upon registration to the [facility].2.Look for an invitation email from [facility].3.Open the email and access the invitation link: Accept Invitation to [facility].Fill in the required rodriguez to create your account. Sign into [email or web address] with your username and password that you [...] you will allow to register on the [employer] Patient Portal for access to your information. You can also access the [employer] Patient Portal on the [employer] mikhail. Simply click on Health Records under Health Data and then click on the [employer] logo. HOW TO SAFELY DISPOSE OF PRESCRIPTION [...] Call your local pharmacy or go to http://bit.Victor/2W5Ig1f to find one close to you.3.Make use of household items: Use cat litter or old coffee grounds to dispose medications if other options are not available. Mix your drugs with these household products, seal them in an airtight container and throw it into the garbage. Call [facility]: [phone] to be sure your drugs can be [...] [place] - Robert Martínez Post-op Instruction 11/2016 (29120) Medication Leaflets My discharge plan and instructions have been reviewed and explained to me and I,MAZIN NAIDU understand my current condition and have read and understand these discharge instructions. I have received a written copy of the plan/instructions. If I have questions, I am aware that I should contact my doctor. Patient/[place] Consultant Signature: Date/Time: Relationship to Patient: Witness Name/Signature: Date/Time: [facility] 11-14-2021 Hospital Discharg e instructions Patient Education 11/14/2021 08:31:30 5 - [facility] Post-op Instruction 11/2016 (09397) [facility] Post-operative Instructions PLEASE FOLLOW [facility] POST-OP INSTRUCTIONS GIVEN WATCH FOR SIGNS OF INFECTION: call the office ([phone]) if experencing any of the following: (Usually [...] on your follow up instructions. Form: 338A (58652) R: 08/11 Follow Up Care 09/12/2021 07:51:55 With:[facility] Address: [address] [place] [phone] When:11/16/2021 10:00:00 Comments:This is your first physical therapy appointment. Follow-up as scheduled. With:MEHRDAD PACKER PA-C, Orthopedic Address: [facility] [address] [place] [id number]- When:11/26/2021 13:15:00 Comments:This is your post-op appointment. Follow-up as scheduled. [facility] 11-14-2021 Note Date of Service November 14, [...] concerns or questions. I have reviewed the [place] Automated Rx Reporting System (OARRS) report for [...] MEHRDAD PACKER PA-C on 11/14/2021 08:31 AM [facility] 11-14-2021 Note Date of Service 11/14/2021 Subjective [...] by NATHAN SPARKS on 11/14/2021 10:36 AM [facility] 11-13-2021 Note ORIGINAL EXAMINATION: TWO XRAY VIEWS [...] Sign Date: 11/13/2021 11:58:36 AM Ordering Provider: [facility] 11-13-2021 Note ORIGINAL EXAMINATION: TWO XRAY VIEWS [...] Sign Date: 11/13/2021 11:58:36 AM Ordering Provider: [facility] 11-13-2021 Anesthesiology Consult note Patient: MAZIN NAIDU [...] Procedure history: Bilateral prosthetic arthroplasty of knees ([id number]). Fracture of tibia AND fibula ([id number]). Comments: 10/26/2021 8:27 EDT - Ivonne Philip RN Left Appendectomy ([id number]). Ligation of varicose vein ([id number]). Comments: 10/26/2021 8:28 CAMILLET Ivonne Fuentes RN groin Tonsillectomy ([id number]). CTR - carpal tunnel release ([id number]). 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 Mixer: Self Lives In 1st floor bathroom, 1st [...] Height 170.2 cm Admission Weight 98 kg Andrews Body Weight 66.12 kg Admission Body Mass [...] (Modified) Safety Brochure Information Reviewed [facility] View[facility] No Teaching Evaluation Verbalizes/Nonverbally indicates understanding Admission Note-Nursing Same Day Patient History (Modified) 11/13/2021 9:11 EDT Height 170.2 cm Admission Weight 98 kg Andrews Body Weight 66.12 kg Admission Body Mass Index 33.83 m2 Temperature Temporal Artery 36.7 DegC Peripheral Pulse Rate 106 bpm HI Respiratory Rate 19 br/min Systolic Blood Pressure NBP 155 mmHg HI Diastolic Blood Pressure NBP 105 mmHg >HHI Primary Pain Location Knee Primary Pain Laterality Right Primary Pain Intensity 7 Pain Scale Type 0-10 Pain scale Nail Bed Color [place] Capillary Refill < 2 seconds Dorsalis Pedis [...] no difficulties Skin Temperature Warm Skin Description [place], Dry Skin Integrity Intact Neurological Symptoms Patient [...] MITA ZHOU MD . Assessment and Plan [place] [employer] Anesthesiologists (ASA) physical status classification: Class III. Anesthetic Preoperative Plan Anesthetic technique: General. Maintenance airway: Oral endotracheal tube. Postoperative pain management: adductor canal block. Risks discussed: nausea, vomiting, sore throat, dental injury, hypotension, allergic reaction, serious complications. Informed consent: signed by patient. Digitally Signed by BRANDON MEIER on 11/13/2021 09:24 AM [facility] 10-17-2021 History of Presen t illness Narrative This note was created using Cognotionriter. Subjective Mazin Naidu is a 51 year [...] ANN (obstructive sleep apnea) [facility] fx. [phone] Other psoriasis and similar disorders Psoriasis Persistent [...] forward report and ECG after read by patternmaker bench. Assessment and Plan ASSESSMENT/PLAN: 1. Essential hypertension [...] needed postop. Will also fax completed [facility]'s Request for Surgery Clearance. Note that I did not order labs since patient stated he will have PAT done. Also noted July CBC done at [facility] which was fine. Our last CMP and CBC done 01/30/21 were within normal limits. Mita Zhou MD documented in this encounter [facility] 09-25-2021 History of Presen t illness Narrative This note was created using Cognotionriter. Subjective Mazin Naidu is a 51 year old male. HISTORY Mazin Naidu is a 51 year old gentleman here for pre-op evaluation as requested by Dr. Edmondson. Mazin Naidu has surgery scheduled on 11/13/2021 for Revision right total knee arthroplasty at [facility]. Noted that still with bad pain--only on tramadol from [facility]. Working with them on this. Doing well clinically otherwise aside from knee pain. No signs of infection, heart or lung problems. PAST MEDICAL HISTORY Diagnosis Date Cutaneous abscess of neck 01/16/2015 Depression GI AVM (gastrointestinal arteriovenous vascular malformation) Lumbago 11/18/2005 Mixed hyperlipidemia Hyperlipidemia Nonspecific (abnormal) findings on radiological and other examination of gastrointestinal tract CAROL ANN (obstructive sleep apnea) [facility] fx. [phone] Other psoriasis and similar disorders Psoriasis Persistent [...] Mita Zhou MD documented in this encounter [facility] 08-06-2021 Miscellaneous Notes Patient has [...] advise. Lori Crowell documented in this encounter [facility] 07-06-2021 History of Presen t [...] to being normal. 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 [phone] Other psoriasis and similar disorders Psoriasis Persistent [...] Carly Greene MD documented in this encounter [facility] documented as of this encounter (statuses as of 07/06/2021) [facility] History of Past illness Narrative* Problem Noted Date Resolved Date Cutaneous abscess of neck 01/16/20152016 Sprain and strain of unspecified site of knee an d leg 08/21/2007 12/29/2018 Abdominal pain, other specified site 01/31/2005 05/31/2014 documented as of this encounter (statuses as of 08/08/2021) [facility] History of Past illness Narrative* Problem Noted Date Resolved Date Cutaneous abscess of neck 01/16/20152016 Sprain and strain of unspecified site of knee an d leg 08/21/2007 12/29/2018 Abdominal pain, other specified site 01/31/2005 05/31/2014 documented as of this encounter (statuses as of 10/17/2021) [address]12-2015 History of Past illness Narrative* Problem Noted Date Resolved Date Cutaneous abscess of neck 01/16/20152016 Sprain and strain of unspecified site of knee an d leg 08/21/2007 12/29/2018 Abdominal pain, other specified site 01/31/2005 05/31/2014 documented as of this encounter (statuses as of 10/18/2021) [address]12[address]2015 History of Past illness Narrative* Problem Noted Date Resolved Date Cutaneous abscess of neck 01/16/20152016 Sprain and strain of unspecified site of knee an d leg 08/21/2007 12/29/2018 Abdominal pain, other specified site 01/31/2005 05/31/2014 documented as of this encounter (statuses as of 03/04/2022) [facility] History of Past illness Narrative* Problem Noted Date Resolved Date Cutaneous abscess of neck 01/16/20152016 Sprain and strain of unspecified site of knee an d leg 08/21/2007 12/29/2018 Abdominal pain, other specified site 01/31/2005 05/31/2014 documented as of this encounter (statuses as of 07/01/2022) [facility] History of Past illness Narrative* Problem Noted Date Diagnosed Date Resolved Date Cutaneous abscess of neck 01/16/2015 Sprain and strain of unspeci fied site of knee and leg 08/21/2007 12/29/2018 Abdominal pain, other specified site 01/31/2005 05/31/2014 documented as of this encounter (statuses as of 11/22/2022) [facility] History of Past illness Narrative* Problem Noted Date Diagnosed Date Resolved Date Cutaneous abscess of neck 01/16/2015 Sprain and strain of unspeci fied site of knee and leg 08/21/2007 12/29/2018 Abdominal pain, other specified site 01/31/2005 05/31/2014 documented as of this encounter (statuses as of 11/30/2022) [facility] History of Past illness Narrative* Problem Noted Date Diagnosed Date Resolved Date Cutaneous abscess of neck 01/16/2015 Sprain and strain of unspeci fied site of knee and leg 08/21/2007 12/29/2018 Abdominal pain, other specified site 01/31/2005 05/31/2014 documented as of this encounter (statuses as of 12/01/2022) [facility] + Plan note No data available for this section [facility] Karla Evaluation note* Diagnosis Strain of both knees, sequela- Primary documented in this encounter [facility] note* Diagnosis Lumbosacral spondylosis without myelopathy Degeneration of lumbar or lumbosacral intervertebral disc Erectile dysfunction, unspecified erectile dysfunction type documented in this encounter [facility] note* Diagnosis Preop examination- Primary Preoperative examination, unspecified Essential hypertension Unspecified essential hypertension Mixed hyperlipidemia Adjustment disorder with mixed anxiety and depressed mood Vomiting and diarrhea Vomiting alone Erectile dysfunction, unspecified erectile dysfunction type documented in this encounter [facility] note* Diagnosis Essential hypertension- Primary Unspecified essential hypertension Restless leg syndrome Restless legs syndrome (RLS) Adjustment disorder with mixed anxiety and depressed mood Lumbosacral spondylosis without myelopathy documented in this encounter [facility] note* Diagnosis Adjustment disorder with mixed anxiety and depressed mood Erectile dysfunction, unspecified erectile dysfunction type Hypertension, essential Unspecified essential hypertension documented in this encounter [facility] note* Diagnosis Persistent insomnia- Primary Persistent disorder of initiating or maintaining sleep Hypertension, essential Unspecified essential hypertension Adjustment disorder with mixed anxiety and depressed mood Sleep initiation disorder Insomnia, unspecified documented in this encounter [facility] note* Diagnosis Mixed hyperlipidemia documented in this encounter [facility] note* Diagnosis Rash- Primary Rash and other nonspecific skin eruption documented in this encounter [facility] Summary Purpose Family History No [...] or prosecute any alcohol or drug abuse patient.[facility] the event this information is protected by the Federal Confidentiality of Alcohol and Drug Abuse Patient Records regulations: The Federal rules restrict any use of the information to criminally investigate or prosecute any alcohol or drug abuse patient.[facility] the event this information is protected by the Federal Confidentiality of Alcohol and Drug Abuse Patient Records regulations: The Federal rules restrict any use of the information to criminally investigate or prosecute any alcohol or drug abuse patient.[facility] the event this information is protected by the Federal Confidentiality of Alcohol and Drug Abuse Patient Records regulations: The Federal rules restrict any use of the information to criminally investigate or prosecute any alcohol or drug abuse patient.[facility] the event this information is protected by the Federal Confidentiality of Alcohol and Drug Abuse Patient Records regulations: The Federal rules restrict any use of the information to criminally investigate or prosecute any alcohol or drug abuse patient.[facility] the event this information is protected by the Federal Confidentiality of Alcohol and Drug Abuse Patient Records regulations: The Federal rules restrict any use of the information to criminally investigate or prosecute any alcohol or drug abuse patient.[facility] the event this information is protected by the Federal Confidentiality of Alcohol and Drug Abuse Patient Records regulations: The Federal rules restrict any use of the information to criminally investigate or prosecute any alcohol or drug abuse patient.[facility] the event this information is protected by the Federal Confidentiality of Alcohol and Drug Abuse Patient Records regulations: The Federal rules restrict any use of the information to criminally investigate or prosecute any alcohol or drug abuse patient.[facility] the event this information is protected by the Federal Confidentiality of Alcohol and Drug Abuse Patient Records regulations: The Federal rules restrict any use of the information to criminally investigate or prosecute any alcohol or drug abuse patient.[facility] Reason for Visit (unrecogniz ed [...] Care Teams (unrecognized sec tion and content) Program Rep Relationship Specialty Start Date End Date Mita Zhou MD [facility] [place] [address] PCP - General Internal Medicine 10/19/14 Program Rep Relationship Specialty Start Date End Date Mita Zhou MD [address] [place] [id number] PCP - General Internal Medicine 10/19/14 Program Rep Relationship Specialty Start Date End Date Mita Zhou MD [address] [place] [id number] PCP - General Internal Medicine 10/19/14 Program Rep Relationship Specialty Start Date End Date Mita Zhou MD [address] [place] [id number] PCP - General Internal Medicine 10/19/14 Program Rep Relationship Specialty Start Date End Date Mita Zhou MD [address] [place] [id number] PCP - General Internal Medicine 10/19/14 Program Rep Relationship Specialty Start Date End Date Mita Zhou MD [address] [place] [address] PCP - General Internal Medicine 10/19/14 Program Rep Relationship Specialty Start Date End Date Mita Zhou MD [address] [place] [address] PCP - General Internal Medicine 10/19/14 Program Rep Relationship Specialty Start Date End Date Mita Zhou MD [address] [place] [address] PCP - General Internal Medicine 10/19/14 Care Team (unrecognized sect ion and content) Care Team Personnel Name: MITA ZHOU MD Member Role: Primary Care Physician Address: Address: [address] [place] [address]- Care Team Related Persons Name: NONE, PER PT (unrecognized sect ion and content) No Status Records FoundNo Status Records Found INFORMATION SOURCE (unrecogn ized section and content) DATE CREATED AUTHOR AUTHOR'S ORGANIZ ATION 04/19/2023 [facility] FOR RECORDS PERTAINING TO PATIENTS WHO [...] BE BASED ON THE PRIMARY CLINICAL RECORDS. [employer] provides no warranty or guarantee of the accuracy or completeness of information in this document.
[2023-05-08] MEDS: Atorvastatin Calcium 80 MG Tablet PO (21:09)
[2023-05-08] MEDS: Pramipexole Di-HCl 0.25 MG Tablet 0.75 MG PO (21:09)
[2023-05-08] MEDS: busPIRone 15 MG TABLET PO (21:09)
[2023-05-08 21:10] VITALS: PULSE 70
[2023-05-08] MEDS: Metoprolol Tartrate 25 MG Tablet 12.5 MG PO (21:10)
[2023-05-08] MEDS: 0.9% Normal Saline (1000mL) 1,000 ML 75 ML IV (21:16)
[2023-05-08 21:35] LABS: Bedside Glucose 142 mg/dL (74-106)
[2023-05-08 21:43] VITALS: BP 109/61; PULSE 70; RESP 16; TEMP 36.1; O2SAT 99
[2023-05-08 22:36] LABS: Troponin-I HS 2303 pg/mL (3.0-78.0)
[2023-05-08] MEDS: cycloBENZAPRine HCl 10 MG Tablet PO (22:50)
[2023-05-09] VITALS (16 sets, daily range): BP systolic 105–171; BP diastolic 60–95; PULSE 65–81; RESP 16–18; TEMP 36–36.6; O2SAT 95–100; BMI 36.7
[2023-05-09 06:33] LABS: Absolute Lymphocyte Count 1.91 X10^3/uL (0.83-4.51); Absolute Neutrophil Count 2.7 X10^3/uL (2.0-7.7); Basophil# 0.02 X10^3/uL; Basophil% 0.4 % (0-1); Eosinophil# 0.23 X10^3/uL; Eosinophils% 4.3 % (0-5); Hematocrit 36.8 % (40-54); Hemoglobin 12.3 g/dL (13.0-16.5); Lymphocyte # 1.91 X10^3/ul (0.83-4.51); Lymphocyte % 35.9 % (19-41); Mean Corp Hgb Conc 33.4 g/dL (32-36); Mean Corpuscular Volume 83.8 fL (80-94); Mean Platelet Vol. 12.5 fl (6.2-12.0); Monocyte# 0.49 X10^3/uL; Monocyte% 9.2 % (0-10); NRBC Flagged by Analyzer 0 % (0-5); Neutrophil # 2.65 X10^3/uL (2.7-7.7); Neutrophil % 49.8 % (47-70); Platelet Count 164 K/mm3 (150-450); RBC Distribution Width CV 12.1 % (11.6-14.6); RBC Distribution Width SD 36.8 fl (35.1-43.9); Red Blood Count 4.39 M/mm3 (4.6-6.2); White Blood Count 5.3 K/mm3 (4.4-11.0)
[2023-05-09 06:49] LABS: International Normalized Ratio 1.2; Prothrombin Time (Protime)PT. 15.7 SECONDS (11.7-14.9)
[2023-05-09 07:12] LABS: AST(SGOT) 30 U/L (15-37); Alanine Aminotransfer ALT/SGPT 64 U/L (16-61); Albumin, Serum 3.2 g/dL (3.2-5.0); Alkaline Phosphatase 65 U/L (45-117); Anion Gap 4 (5-15); BUN 16 mg/dL (7-18); BUN/Creat Ratio 20.4 RATIO (10-20); Calcium,Total 9.1 mg/dL (8.5-10.1); Chloride 110 mmol/L (98-107); Cholesterol 172 mg/dL (200); Creatinine, Serum 0.78 mg/dL (0.70-1.30); EST Glomerular Filtration Rate 110 mL/min (>60); Est Glom Filt Rate - Afr Amer 132 mL/min (>60); Estimated Creatinine Clearance 125.85 ml/min; Globulin 3.3 g/dL (2.2-4.2); Glucose 132 mg/dL (74-106); High Density Lipoprotein 46 mg/dL; Magnesium 2.4 mg/dL (1.6-2.6); Potassium 4.1 mmol/L (3.5-5.1); Protein, Total 6.5 g/dL (6.4-8.2); Sodium Level 141 mmol/L (136-145); Thyroid Stim Hormone (TSH) 1.02 uIU/mL (0.358-3.74); Triglycerides 283 mg/dL; Very Low Density Lipoprotein 57 mg/dL (5-40)
[2023-05-09 07:47] LABS: BNP,B-Type NATRIURETIC PEPTIDE 28.6 pg/mL (0-100)
--- NOTE | 2023-05-09 07:57 | PCM.CONS.C ---
Documented by User: Shirley JOYCE, MARIA DEL CARMEN 05/09/23 15:01 Assessment & Plan Assessment/Plan (1) Elevated troponin: (2) Chest pain: (3) Hypertension: PLAN: Plan Pt underwent heart cath today 1. Left main is normal angiographically bifurcating into LAD and left circumflex. 2. Left anterior descending is moderate in size and in the mid LAD there is nonobstructive sclerosis of around 20 to 30% involving the diagonal branch which is a pheresed diagonal branch The mid LAD itself had a lesion which is nonobstructive diffuse around 20-30%. 3. Left circumflex large vessel normal angiographically 4. RCA is the culprit which is a large dominant vessel with the ostium of the RCA had nonobstructive sclerosis of around 30% The mid RCA had the culprit lesion which 80% stenosis with a ruptured plaque and successful PCI at the next rated Pt will need to be on ASA lifelong, Brilinta for at least one year, Atorvastatin, Metoprolol. Will start low dose lisinopril. Will refer to cardiac rehab Will f/u with pt in office HPI Consult Data Date of Consult: 05/09/23 HPI Narrative HPI Narrative: RITU COBOS, is a 52 M who presented to [facility] ER on 05/08/23 with CP and SOB. He noted that this was going on for a few weeks. EKG shows normal sinus rhythm, some T wave abnormality, rate of [address] elevation. Troponins trended 2303/2494/2430. Pt was admitted to PCU with a NSTEMI with plans from a heart cath today. He does have a hx of HTN/HL/Neuropathy.. Pt notes that this past weekend he was hunting, had nausea, SOB that was concerning but resolved with rest. COUNT INCLUDES THE [facility] Medical History (Updated 05/09/23 @ 13:41 by Claudia Henriquez) Anxiety CAD (coronary artery disease) Hypertension Substance abuse Home Medications ascorbic acid (vitamin C) 500 mg tablet (Vitamin C) 500 mg PO DAILY@0800 SUPPLEMENT 01/04/13 [History Last Taken Unknown] atorvastatin 20 mg tablet 20 mg PO QHS CHOLESTEROL 01/04/13 [History Last Taken 05/08/23] fluoxetine 20 mg capsule 20 mg PO DAILY DEPRESSION 01/04/13 [History Last Taken Unknown] bisoprolol 2.5 mg-hydrochlorothiazide 6.25 mg tablet 1 tab PO DAILY blood pressure 08/14/15 [History Last Taken 05/08/23] gabapentin 300 mg capsule 300 mg PO TIDCM 08/14/15 [History Last Taken 05/08/23] buspirone 15 mg tablet 15 mg PO BID anxiety 08/24/15 [History Last Taken 05/08/23] cyclobenzaprine 10 mg tablet 10 mg PO TID PRN muscle pain 05/08/23 [History Last Taken Unknown] fluoxetine 40 mg capsule 40 mg PO DAILY DEPRESSION 05/08/23 [History Last Taken 05/08/23] meloxicam 15 mg tablet 15 mg PO DAILY 05/08/23 [History Last Taken 05/08/23] ropinirole 1 mg tablet 1.5 mg PO DAILY RESTLESS LEG SYNDROME 05/08/23 [History Last Taken 05/07/23] Allergy/AdvReac Type Severity Reaction Status Date / Time No Known Allergies Allergy Verified 05/08/23 15:26 Surgical History (Updated 05/09/23 @ 13:41 by Claudia Henriquez) H/O knee surgery H/O wisdom tooth extraction History of knee replacement Hx of appendectomy Hx of cardiac catheterization (~05/09/23) Stented coronary artery (~05/09/23) Social History Smoking Status: Never smoker ROS Constitutional Constitutional: Denies fatigue, frequent falls, headache(s) or lethargy Eyes Eyes: Denies acute decrease in peripheral vision, blurry vision or change in vision ENT HEENT: Denies dizziness, dry mouth, epistaxis, headache(s), tinnitus or vertigo Cardiovascular Cardiovascular: Reports as per HPI Respiratory/Chest Respiratory/Chest: Denies cough, dyspnea, dyspnea on exertion, tachypnea or wheezing Gastrointestinal Gastrointestinal: Reports nausea; Denies abdominal pain, diarrhea or heartburn Musculoskeletal Musculoskeletal: Denies myalgias, numbness or tingling Neurologic Neurologic: Denies abnormal gait, abnormal speech, memory loss, paresthesias or weakness Physical Exam Const alert, oriented x3, no apparent distress and healthy appearing Nutritional Appearance: obese HEENT normocephalic, head/scalp atraumatic, hearing grossly normal bilaterally, external ears normal, external nose normal and moist oral mucous membranes Eyes PERRL, EOMs intact bilaterally, conjunctivae normal and no scleral icterus Neck no lymphadenopathy, supple and no JVD Resp clear to auscultation bilaterally Cardio regular rate, regular rhythm, S1 normal heart sound, S2 normal heart sound, no murmurs, no rub, no gallops, no clicks, no JVD and peripheral pulses 2+ throughout GI normal to inspection, nondistended, normoactive bowel sounds, soft to palpation, non-tender and non-distended Extremity normal to inspection, normal capillary refill, no clubbing, cyanosis or edema and no pedal edema Neuro oriented x3, CN's II-XII intact bilaterally, moves all extremities and no focal motor deficits Psych cooperative and affect normal Risk Stratification Risk Stratification Applicable: Yes Age >/= 65: No >/= 3 CAD Risk Factors (HTN, HLD, DM, family hx of CAD, or current smoker): Yes Aspirin Use in the Past 7 Days: No Severe Angina (>/= episodes in 24 hours): Yes EKG ST Changes >/= 0.5mm: No Positive Cardiac Marker: Yes MARCIE Risk Stratification Score: 3 MARCIE % Risk: 13% Risk Objective Data Vital Signs: Vital Signs Temp Pulse Resp BP Pulse Ox O2 Del Method O2 Flow Rate 96.9 F L 68 16 105/60 98 Nasal Cannula 2 05/09/23 03:00 05/09/23 03:00 05/09/23 03:00 05/09/23 03:00 05/09/23 03:00 05/09/23 07:40 05/09/23 07:40 Oxygen Flow Rate (L/min) 2 Oxygen Delivery Method Nasal Cannula Weight: 234 lb 5.622 oz Body Mass Index (BMI) 36.7 Intake & Output: Intake and Output for Last 24 Hours 05/07/23 05/08/23 05/09/23 23:59 23:59 23:59 Intake Total 300 / 300 87.83 / 87.83 Output Total 300 / 300 300 / 300 Balance 0 / 0 -212.17 / -212.17 Lab / Micro Data 05/09/23 05:30 05/09/23 05:30 Labs: Laboratory Results - last 24 hr 05/08/23 15:50: WBC 6.2, RBC 4.57 L, Hgb 12.6 L, Hct 37.8 L, MCV 82.7, MCH 27.6, MCHC 33.3, RDW Std Deviation 36.3, RDW Coeff of Zonia 12.1, Plt Count 183, MPV 12.3 H, Immature Gran % (Auto) 0.300, Neut % (Auto) 58.3, Lymph % (Auto) 28.4, [place] % (Auto) 9.6, Eos % (Auto) 2.9, Baso % (Auto) 0.5, Absolute Neuts (auto) 3.6, Absolute Lymphs (auto) 1.77, Nucleated RBC % 0, PT 12.6, INR 0.9, APTT 29.0, D-Dimer Quant (PE/DVT) < 0.27 L, Sodium 141, Potassium 3.7, Chloride 110 H, Carbon Dioxide 28.0, Anion Gap 3 L, BUN 17, Creatinine 0.95, Estim Creat Clear Calc 105.28, Est GFR (MDRD) Af Amer 106, Est GFR (MDRD) Non-Af 88, BUN/Creatinine Ratio 17.9, Glucose 169 H, Hemoglobin A1c 6.4 H, Calcium 8.9, Troponin I High Sens 2430 H* 05/08/23 17:55: Troponin I High Sens 2494 H* 05/08/23 21:14: POC Glucose 142 H 05/08/23 21:39: Troponin I High Sens 2303 H* 05/08/23 23:17: APTT 48.0 H 05/09/23 05:30: WBC 5.3, RBC 4.39 L, Hgb 12.3 L, Hct 36.8 L, MCV 83.8, MCH 28.0, MCHC 33.4, RDW Std Deviation 36.8, RDW Coeff of Zonia 12.1, Plt Count 164, MPV 12.5 H, Immature Gran % (Auto) 0.400, Neut % (Auto) 49.8, Lymph % (Auto) 35.9, [place] % (Auto) 9.2, Eos % (Auto) 4.3, Baso % (Auto) 0.4, Absolute Neuts (auto) 2.7, Absolute Lymphs (auto) 1.91, Nucleated RBC % 0, PT 15.7 H, INR 1.2, Sodium 141, Potassium 4.1, Chloride 110 H, Carbon Dioxide 27.0, Anion Gap 4 L, BUN 16, Creatinine 0.78, Estim Creat Clear Calc 125.85, Est GFR (MDRD) Af Amer 132, Est GFR (MDRD) Non-Af 110, BUN/Creatinine Ratio 20.4 H, Glucose 132 H, Calcium 9.1, Magnesium 2.4, Total Bilirubin 0.20, AST 30, ALT 64 H, Alkaline Phosphatase 65, B-Natriuretic Peptide 28.6, Total Protein 6.5, Albumin 3.2, Globulin 3.3, Albumin/Globulin Ratio 1.0, Triglycerides 283 H, Cholesterol 172, LDL Cholesterol 69, VLDL Cholesterol 57 H, HDL Cholesterol 46, TSH 1.02 Rhythm Strip Rhythm Strip: Sinus Rhythm Rate: 80 Ectopy: None Cardiology Labs/Tests 05/08/23 15:50: WBC 6.2, RBC 4.57 L, Hgb 12.6 L, Hct 37.8 L, MCV 82.7, MCH 27.6, MCHC 33.3, Plt Count 183, MPV 12.3 H, Immature Gran % (Auto) 0.300, Neut % (Auto) 58.3, Lymph % (Auto) 28.4, [place] % (Auto) 9.6, Eos % (Auto) 2.9, Baso % (Auto) 0.5, Absolute Neuts (auto) 3.6, Nucleated RBC % 0, PT 12.6, INR 0.9, APTT 29.0, D-Dimer Quant (PE/DVT) < 0.27 L, Sodium 141, Potassium 3.7, Chloride 110 H, Carbon Dioxide 28.0, Anion Gap 3 L, BUN 17, Creatinine 0.95, Est GFR (MDRD) Af Amer 106, Est GFR (MDRD) Non-Af 88, BUN/Creatinine Ratio 17.9, Glucose 169 H, Hemoglobin A1c 6.4 H, Calcium 8.9 05/08/23 23:17: APTT 48.0 H 05/09/23 05:30: WBC 5.3, RBC 4.39 L, Hgb 12.3 L, Hct 36.8 L, MCV 83.8, MCH 28.0, MCHC 33.4, Plt Count 164, MPV 12.5 H, Immature Gran % (Auto) 0.400, Neut % (Auto) 49.8, Lymph % (Auto) 35.9, [place] % (Auto) 9.2, Eos % (Auto) 4.3, Baso % (Auto) 0.4, Absolute Neuts (auto) 2.7, Nucleated RBC % 0, PT 15.7 H, INR 1.2, Sodium 141, Potassium 4.1, Chloride 110 H, Carbon Dioxide 27.0, Anion Gap 4 L, BUN 16, Creatinine 0.78, Est GFR (MDRD) Af Amer 132, Est GFR (MDRD) Non-Af 110, BUN/Creatinine Ratio 20.4 H, Glucose 132 H, Calcium 9.1, Magnesium 2.4, Total Bilirubin 0.20, B-Natriuretic Peptide 28.6, Triglycerides 283 H, Cholesterol 172, LDL Cholesterol 69, VLDL Cholesterol 57 H, HDL Cholesterol 46 Rhythm: NSR Radiography Diagnostic Testing: Radiology Impression Chest X-Ray 05/08/23 16:15 IMPRESSION: No radiographic evidence of acute cardiopulmonary disease. Electronically Signed: Joe Spann MD at 16:29 EST Reading Location ID and State: [address] [place] [address] Tel , Service support , Documented by User: Dr. Roberto Collado MD 05/09/23 17:23 Assessment & Plan Assessment/Plan (1) Elevated troponin: (2) Chest pain: (3) Hypertension: HPI Consult Data Date of Consult: 05/09/23 HPI Narrative HPI Narrative: RITU COBOS, is a 52 M who presented to [facility] ER on 05/08/23 with CP and SOB. He noted that this was going on for a few weeks. EKG shows normal sinus rhythm, some T wave abnormality, rate of [address] elevation. Troponins trended 2303/2494/2430. Pt was admitted to PCU with a NSTEMI with plans from a heart cath today. He does have a hx of HTN/HL/Neuropathy.. Pt notes that this past weekend he was hunting, had nausea, SOB that was concerning but resolved with rest. Patient underwent cardiac catheterization today which revealed ruptured plaque with high-grade stenosis of around 80% in the mid RCA Underwent successful PCI using drug-eluting stent 4 x 26 mm postdilated with 4.5 x 20 mm NC balloon and achieve an excellent result Patient remained stable clinical From cardiac standpoint would recommend to continue on dual antiplatelet therapy with Brilinta 90 mg twice daily in addition to low-dose aspirin In addition to high-dose statin beta-caitlin TIFFANY inhibitor If he remained stable clinically patient can be discharged from cardiac standpoint With a plan to follow-up as an outpatient for continuation of cardiac care. COUNT INCLUDES THE [facility] Medical History (Updated 05/09/23 @ 13:41 by Claudia Henriquez) Anxiety CAD (coronary artery disease) Hypertension Substance abuse Home Medications ascorbic acid (vitamin C) 500 mg tablet (Vitamin C) 500 mg PO DAILY@0800 SUPPLEMENT 01/04/13 [History Last Taken Unknown] atorvastatin 20 mg tablet 20 mg PO QHS CHOLESTEROL 01/04/13 [History Last Taken 05/08/23] fluoxetine 20 mg capsule 20 mg PO DAILY DEPRESSION 01/04/13 [History Last Taken Unknown] bisoprolol 2.5 mg-hydrochlorothiazide 6.25 mg tablet 1 tab PO DAILY blood pressure 08/14/15 [History Last Taken 05/08/23] gabapentin 300 mg capsule 300 mg PO TIDCM 08/14/15 [History Last Taken 05/08/23] buspirone 15 mg tablet 15 mg PO BID anxiety 08/24/15 [History Last Taken 05/08/23] cyclobenzaprine 10 mg tablet 10 mg PO TID PRN muscle pain 05/08/23 [History Last Taken Unknown] fluoxetine 40 mg capsule 40 mg PO DAILY DEPRESSION 05/08/23 [History Last Taken 05/08/23] meloxicam 15 mg tablet 15 mg PO DAILY 05/08/23 [History Last Taken 05/08/23] ropinirole 1 mg tablet 1.5 mg PO DAILY RESTLESS LEG SYNDROME 05/08/23 [History Last Taken 05/07/23] Allergy/AdvReac Type Severity Reaction Status Date / Time No Known Allergies Allergy Verified 05/08/23 15:26 Surgical History (Updated 05/09/23 @ 13:41 by Claudia Henriquez) H/O knee surgery H/O wisdom tooth extraction History of knee replacement Hx of appendectomy Hx of cardiac catheterization (~05/09/23) Stented coronary artery (~05/09/23) Social History Smoking Status: Never smoker Risk Stratification Age >/= 65: No MARCIE Risk Stratification Score: 3 MARCIE % Risk: 13% Risk Lab / Micro Data 05/09/23 05:30 05/09/23 05:30
--- NOTE | 2023-05-09 08:06 | PN.HOSP_ITS ---
Subjective Subjective Feeling well. Objective Data Objective Data Vital Signs: Vital Signs Temp Pulse Resp BP Pulse Ox O2 Del Method O2 Flow Rate 36.1 C L 68 16 105/60 98 Nasal Cannula 2 05/09/23 03:00 05/09/23 03:00 05/09/23 03:00 05/09/23 03:00 05/09/23 03:00 05/09/23 07:40 05/09/23 07:40 Oxygen Flow Rate (L/min) 2 Oxygen Delivery Method Nasal Cannula Weight: 106.3 kg Body Mass Index (BMI) 36.7 Intake & Output: Intake and Output for Last 24 Hours 05/07/23 05/08/23 05/09/23 23:59 23:59 23:59 Intake Total 300 / 300 87.83 / 87.83 Output Total 300 / 300 300 / 300 Balance 0 / 0 -212.17 / -212.17 Lab / Micro Data 05/09/23 05:30 05/09/23 05:30 Labs: Laboratory Results - last 24 hr 05/08/23 15:50: WBC 6.2, RBC 4.57 L, Hgb 12.6 L, Hct 37.8 L, MCV 82.7, MCH 27.6, MCHC 33.3, RDW Std Deviation 36.3, RDW Coeff of Zonia 12.1, Plt Count 183, MPV 12 .3 H, Immature Gran % (Auto) 0.300, Neut % (Auto) 58.3, Lymph % (Auto) 28.4, [place] % (Auto) 9.6, Eos % (Auto) 2.9, Baso % (Auto) 0.5, Absolute Neuts (auto) 3.6, Absolute Lymphs (auto) 1.77, Nucleated RBC % 0, PT 12.6, INR 0.9, APTT 29.0, D-Dimer Quant (PE/DVT) < 0.27 L, Sodium 141, Potassium 3.7, Chloride 110 H , Carbon Dioxide 28.0, Anion Gap 3 L, BUN 17, Creatinine 0.95, Estim Creat Clear Calc 105.28, Est GFR (MDRD) Af Amer 106, Est GFR (MDRD) Non-Af 88, BUN/Creatinine Ratio 17.9, Glucose 169 H, Hemoglobin A1c 6.4 H, Calcium 8.9, Troponin I High Sens 2430 H* 05/08/23 17:55: Troponin I High Sens 2494 H* 05/08/23 21:14: POC Glucose 142 H 05/08/23 21:39: Troponin I High Sens 2303 H* 05/08/23 23:17: APTT 48.0 H 05/09/23 05:30: WBC 5.3, RBC 4.39 L, Hgb 12.3 L, Hct 36.8 L, MCV 83.8, MCH 28.0, MCHC 33.4, RDW Std Deviation 36.8, RDW Coeff of Zonia 12.1, Plt Count 164, MPV 12.5 H, Immature Gran % (Auto) 0.400, Neut % (Auto) 49.8, Lymph % (Auto) 35.9, [place] % (Auto) 9.2, Eos % (Auto) 4.3, Baso % (Auto) 0.4, Absolute Neuts (auto) 2.7, Absolute Lymphs (auto) 1.91, Nucleated RBC % 0, PT 15.7 H, INR 1.2, Sodium 141, Potassium 4.1, Chloride 110 H, Carbon Dioxide 27.0, Anion Gap 4 L, BUN 16, Creatinine 0.78, Estim Creat Clear Calc 125.85, Est GFR (MDRD) Af Amer 132, Est GFR (MDRD) Non-Af 110, BUN/Creatinine Ratio 20.4 H, Glucose 132 H, Calcium 9.1, Magnesium 2.4, Total Bilirubin 0.20, AST 30, ALT 64 H, Alkaline Phosphatase 65, B-Natriuretic Peptide 28.6, Total Protein 6.5, Albumin 3.2, Globulin 3.3, Albumin/Globulin Ratio 1.0, Triglycerides 283 H, Cholesterol 172, LDL Cholesterol 69, VLDL Cholesterol 57 H, HDL Cholesterol 46, TSH 1.02 Radiography Diagnostic Testing: Radiology Impression Chest X-Ray 05/08/23 16:15 IMPRESSION: No radiographic evidence of acute cardiopulmonary disease. Electronically Signed: Joe Spann MD at 16:29 EST , Rhythm Strip Rhythm Strip: Sinus Rhythm Rate: 80 Ectopy: None Physical Exam Const alert and no apparent distress Resp normal respiratory effort, no retractions and no use of accessory muscles Cardio regular rate, regular rhythm, S1 normal heart sound and S2 normal heart sound GI normal to inspection, nondistended, normoactive bowel sounds and soft to palpation Assessment & Plan Assessment/Plan (1) Chest pain: (2) Elevated troponin: PLAN: Plan NSTEMI * Troponins 2430, 2494, 2303 * Echocardiogram * Loaded w/ aspirin. Cont Aspirin and statin. On ticagrelor * PCI to RCA. Bilateral foot pain, reports dx of plantar fasciitis * Pain control as needed * Scheduled to follow-up with podiatry in 2 weeks * May need vascular studies in the future if concern for vascular component moving forward Chronic conditions: * RLS: Continue ropinirole * Depression and anxiety-Continue home medications * Hyperglycemia: Glucose 167 in ED-A1c 6.4-Glucose checks, sliding scale insulin in the interim VTE prophylaxis: not indicated as pt already on anticoagulation. Charges/Coding Visit Charges Inpatient E&M: 43653 Subs Hosp L2
[2023-05-09] MEDS: Acetaminophen 325 MG Tablet 650 MG PO (08:33)
[2023-05-09] MEDS: Aspirin E.C. 81 MG Tablet PO (08:33)
[2023-05-09 08:42] LABS: Partial Thromboplast Time 42.7 Seconds (24.1-36.2)
[2023-05-09] MEDS: Metoprolol Tartrate 25 MG Tablet 12.5 MG PO ×2 (10:33→19:35)
--- NOTE | 2023-05-09 12:48 | PCIREPORT_ITS ---
PCI Cardiac Cath Report PCI Report: PCI cardiac cath report; 1. Moderate sedation 2. Selective left coronary angiography 3. Selective right coronary angiography 4. Measurement of LVEDP/pullback pressure 5. IVUS/intravascular ultrasound of RCA/pre and post PCI 6. Successful PCI of the culprit which is ruptured plaque at the mid with predilatationRCA, large vessel 80% stenosis using 2.5 x 15 mm balloon Followed by placement of drug-eluting stent 4 x 26 [place] frontier JOLIE Followed by postdilatation using 4.5 x 20 mm NC Emerge MR balloon. With reduction of stenosis to 0% preprocedure and postprocedure MARCIE-3 flow maintained 7. Placement of TR band to close the right radial artery arteriotomy site. Consent; Risk and benefit of procedure explained detail patient agreed to proceed informed consent for Preprocedure diagnosis; 52-year-old patient with history of hypertension, hyperlipidemia history of anxiety depression presented to the ER department for multiple complaints evidently patient has bilateral feet pain for several weeks and he was scheduled to see a warp tier however secondary to emergency surgery he was rescheduled He had symptoms of shortness of breath and chest pain for several weeks and symptoms got worse and he came to the ER where he been evaluated by EKG and not ed he had elevated high sensitive troponin Started on treatment for non-ST elevation VA. Based on his clinical presentation and diagnosis of non-ST elevation VA he underwent cardiac catheterization. Diagnostic and interventional equipment used 1. 6 Greek sheath placed in the right radial artery 2. 5 Greek JL 3.5 diagnostic catheter 3. 5 Greek JR4 diagnostic catheter 4. 6 Greek JR4 guide catheter 5. 0.014 180 cm run-through extra floppy straight guidewire 6. 2.5 x 15 mm Euphora balloon 7. Intravascular ultrasound 8. 4 x 26 [place] frontier drug-eluting stent 9. 4.5 x 20 mm NC Emerge balloon. Medication used in the [employer]; 1. Heparin IV with acceptable ACT 2. Brilinta Total of 180 mg was given in the [employer] 3. Patient was given aspirin 81 mg in the PCU. Procedure in detail; Patient brought to [employer] in fasting state Right radial artery area prepped and draped in the usual sterile fashion. We proceed with 6 Greek sheaths placed in the right radial artery then we will proceed with a diagnostic catheter multiple views of the left and right coronary system were obtained Identified the lesion as the high-grade lesion involving the mid RCA And we proceeded with the guide catheter across the lesion with a run-through wire predilated lesion 2.5 x 15 mm Euphora balloon followed by intravascular ultrasound. Procedure followed by placement of drug-eluting stent 4 x 26 mm [place] frontier JOLIE And followed by postdilatation using 4.5 x 20 mm NC Emerge balloon And post procedure used intravascular ultrasound Excellent result of the PCI of the mid RCA which is the culprit for his non-ST elevation VA is a large patent dominant. Postprocedure well-expanded stent with no evidence of dissection proximally or distally and no evidence of underexpansion. Hemodynamics; LVEDP measuring 40 mmHg No systolic gradient across aortic valve. Coronary angiography; 1. Left main is normal angiographically bifurcating into LAD and left circumflex. 2. Left anterior descending is moderate in size and in the mid LAD there is nonobstructive sclerosis of around 20 to 30% involving the diagonal branch which is a pheresed diagonal branch The mid LAD itself had a lesion which is nonobstructive diffuse around 20-30%. 3. Left circumflex large vessel normal angiographically 4. RCA is the culprit which is a large dominant vessel with the ostium of the RCA had nonobstructive sclerosis of around 30% The mid RCA had the culprit lesion which 80% stenosis with a ruptured plaque and successful PCI at the next rated Conclusion recommendation this patient underwent successful PCI of the culprit lesion which is the mid LAD using drug-eluting stent Tolerated the procedure well no complication in the [employer] Patient will continue on Brilinta 90 mg twice daily in addition to low-dose aspirin Other medication will include high-dose statin, low-dose beta-caitlin as tolerated and TIFFANY inhibitor. Patient will be scheduled for cardiac rehab program at the [facility] and to follow-up with the life trainer for continuation of cardiac care. Roberto Collado MD,FACC,[facility]
--- NOTE | 2023-05-09 13:09 | CRPHASE1_ITS ---
Patient Communication Patient Information PHII Cardiac Rehab Discussed with Patient:: Yes Guide to Cardiac Rehab Given to Patient:: Yes Cardiac Rehab Facility Choice List Given to Patient:: Yes Communication to Cardiac Rehab Choice Program [facility] CR PHII:: Communication Given to CR Color Depositing Machine Tender:: Roberto Collado Phase II Cardiac Rehab:: Yes Sessions:: 36 sessions - 3 days/wk, 12 weeks Cardiac Rehabilitation Info Program Information Cardiac Rehabilitation Program Information: Cardiac Rehab The cardiac rehab team at [facility] consists of highly skilled exercise physiologists, nurses, respiratory therapists and physicians working together with you. Our purpose is to help you have a full recovery and achieve the goals you set for yourself. Over the years many of our patients have returned to activities they assumed they would never do again! We can help restore your confidence and motivation to make lifestyle changes that can have a significant impact on your health and quality of life! We can help answer questions and concerns you may have about exercise, lifestyle, medications, diet, stress and anxiety which are common following a hospitalization. WE monitor ECG and vital signs during exercise and discuss your progress with you and report to your physician(s). Cardiac Rehab is proven to help reduce readmissions, improve functional capacity and lower recurrence of problems with your heart. Our Cardiac Rehab program is Certified by the [employer]monary [employer] (AACVPR) and Accredited by the [employer] through our [facility]. You can contact us at . We invite you to call us with your questions or to get started in our program. If you have other questions or concerns be sure to ask your physician/provider during your follow-up visit. WE look forward to seeing you!
--- NOTE | 2023-05-09 13:09 | CRPH1.INSTRU ---
General Education Discussed with Patient CAD and cardiac anatomy and function:: Patient communicates acknowledgment Explanation of diagnoses and procedures:: Patient communicates acknowledgment Sign/Symptoms of MA:: Patient communicates acknowledgment Antiplatelet therapy: Patient communicates acknowledgment Proper use of NTG-SL: Patient communicates acknowledgment Emergency procedures and activation of EMS: Patient communicates acknowledgment Compliance of all prescribed medications: Patient communicates acknowledgment Smoking Risk Factors Patient Nicotine/Smoking Risk Factors Are:: Never smoked Dyslipidemia Risk Factors Patient Dyslipidemia Risk Factors Are:: Total Cholesterol, Triglycerides, HDL and LDL Recommendations Recommendations Include:: Lipid profile provided, Reviewed NCEP/ATP guidelines and Therapeutic Lifestyle Change dietary guidelines Response Code Dyslipidemia Response Code:: Patient communicates acknowledgment Overweight/Obesity Risk Factors Patient Overweight/Obesity Risk Factors Are:: Obesity - > or = 30 Recommendations Recommendations Include:: Weight loss of 5-10%, Reduced calorie diet and Exercise 5-7 times/week Response Code Overweight/Obesity:: Patient communicates acknowledgment Hypertension Recommendations Recommendations Include:: Maintain BP <130/85, DASH dietary guidelines, Decrease/maintain normal body weight and Moderation of ETOH Response Code Hypertension:: Patient communicates acknowledgment Diabetes Risk Factors Patient Diabetes Risk Factors Are:: No documented hx of diabetes Metabolic Syndrome Risk Factors Patient Metabolic Syndrome Risk Factors Are [3 of 5]:: Fasting blood sugar > 100 mg/dL, Waist circumference > 35 [female] or 40 [male], High triglyceride >150, Hypertension and Low HDL <40 [male] or < 50 [female] Recommendations Recommendations Include:: Reinforce compliance to risk factor modifications and Encouraged follow-up with Primary Care Physician Response Code Metabolic Syndrome Response Code:: Patient communicates acknowledgment Sedentary Risk Factors Patient Sedentary Risk Factors Are:: Lack of regular exercise Recommendations Recommendations Include:: Aerobic exercise 5-7 times/week for 20-30 minutes continuously, Benefits of regular exercise, Discussed home walking program and Monitored Outpatient Cardiac Rehab Response Code Sedentary Response Code:: Patient communicates acknowledgment Stress Risk Factors Patient Stress Risk Factors Are:: Patient denies stress as a risk factor Recommendations Recommendations Include:: Identification of stressors, and assessment of coping skills and Stress management techniques Response Code Stress Response Code:: Patient communicates acknowledgment
[2023-05-09] MEDS: 0.9% Normal Saline (1000mL) 1,000 ML 150 ML IV (13:23)
[2023-05-09] MEDS: busPIRone 15 MG TABLET PO ×2 (13:23→19:35)
[2023-05-09] MEDS: Fluoxetine HCl 40 MG CAPSULE PO (13:23)
[2023-05-09] MEDS: Gabapentin 300 MG Capsule PO ×2 (13:23→16:29)
[2023-05-09] MEDS: FLUoxetine 20 MG Capsule PO (13:23)
--- NOTE | 2023-05-09 14:00 | CASEMGMT ---
RN CM Face to Face with patient for initial transition planning/care coordination assessment. RN CM introduced self and role at [facility]. Patient lying in bed, alert and oriented, GF at bedside. Patient willing to participate in assessment and is able to answer all questions appropriately. Care providers, pharmacy, and demographics verified. Patient wishes to discharge home, denies need for home health at this time. Patient states he has no further needs or concerns at this time. CM to follow for discharge planning needs that may arise. PCP: Winnie Specialists: Charlee cushion gum applicator Preferred Pharmacy: [facility] Insurance: [employer] Prescription Benefit: yes Living Will/HPOA: none LNOK: significant other Living Arrangements: Patient lives with significant other in 2 story home with bed and bath on first floor, 2 steps to enter the home. Patient is independent Transportation: self, SO DME/HHC: Patient has shower chair, raised toilet, cane, walker, grab bars, cpap, and pulse ox at home. No previous HHC or SNF Disposition Plan: Patient to discharge home with family support and follow-up plans in place. Inge FARMER, RN, CM
[2023-05-09 16:52] LABS: Bedside Glucose 132 mg/dL (74-106)
[2023-05-09] MEDS: oxyCODONE 5 MG Tablet PO (17:31)
[2023-05-09] MEDS: Pramipexole Di-HCl 0.25 MG Tablet 0.75 MG PO (19:35)
[2023-05-09] MEDS: Atorvastatin Calcium 80 MG Tablet PO (19:35)
[2023-05-09 20:05] LABS: ACT Activated Clotting Time 136 sec (74-137)
[2023-05-09 20:06] LABS: ACT Activated Clotting Time 239 sec (74-137)
--- NOTE | 2023-05-09 23:37 | CPS ---
PIPE TESTER placed patient on Auto Pap 5-20 per patient, he states this is what he wears at home
[2023-05-10] MEDS: oxyCODONE 5 MG Tablet PO ×2 (02:00→08:35)
[2023-05-10 04:18] VITALS: BP 140/87; PULSE 80; RESP 18; TEMP 36.6; O2SAT 97
[2023-05-10 05:56] VITALS: BMI 36.6
[2023-05-10 06:18] LABS: Hematocrit 36.1 % (40-54); Hemoglobin 12.1 g/dL (13.0-16.5); Mean Corp Hgb Conc 33.5 g/dL (32-36); Mean Corpuscular Hgb 27.3 pg (27.0-32.0); Mean Corpuscular Volume 81.5 fL (80-94); Mean Platelet Vol. 11.9 fl (6.2-12.0); Platelet Count 185 K/mm3 (150-450); RBC Distribution Width SD 35.8 fl (35.1-43.9); Red Blood Count 4.43 M/mm3 (4.6-6.2); White Blood Count 6.8 K/mm3 (4.4-11.0)
[2023-05-10 06:45] LABS: AST(SGOT) 29 U/L (15-37); Alanine Aminotransfer ALT/SGPT 71 U/L (16-61); Albumin, Serum 3.4 g/dL (3.2-5.0); Alkaline Phosphatase 72 U/L (45-117); Anion Gap 6 (5-15); BUN 14 mg/dL (7-18); BUN/Creat Ratio 17.7 RATIO (10-20); Calcium,Total 9.5 mg/dL (8.5-10.1); Chloride 109 mmol/L (98-107); Creatinine, Serum 0.79 mg/dL (0.70-1.30); EST Glomerular Filtration Rate 108 mL/min (>60); Est Glom Filt Rate - Afr Amer 131 mL/min (>60); Estimated Creatinine Clearance 124.13 ml/min; Globulin 3.5 g/dL (2.2-4.2); Glucose 125 mg/dL (74-106); Potassium 3.7 mmol/L (3.5-5.1); Protein, Total 6.9 g/dL (6.4-8.2); Sodium Level 139 mmol/L (136-145)
[2023-05-10 07:45] VITALS: O2SAT 98
--- NOTE | 2023-05-10 08:09 | PN.HOSP_ITS ---
Subjective Subjective Feels well. No further chest pain. Objective Data Objective Data Vital Signs: Vital Signs Temp Pulse Resp BP Pulse Ox O2 Del Method O2 Flow Rate 36.6 C 80 18 140/87 H 97 CPAP 2 05/10/23 04:18 05/10/23 04:18 05/10/23 04:18 05/10/23 04:18 05/10/23 04:18 05/10/23 04:18 05/09/23 08:31 Oxygen Flow Rate (L/min) 2 Oxygen Delivery Method CPAP Weight: 106.1 kg Body Mass Index (BMI) 36.6 Intake & Output: Intake and Output for Last 24 Hours 05/08/23 05/09/23 05/10/23 23:59 23:59 23:59 Intake Total 300 / 300 2676.69 / 2916.69 720 / 720 Output Total 300 / 300 300 / 300 400 / 400 Balance 0 / 0 2376.69 / 2616.69 320 / 320 Lab / Micro Data 05/10/23 06:00 05/10/23 06:00 Labs: Laboratory Results - last 24 hr 05/09/23 08:07: APTT 42.7 H 05/09/23 11:35: Activated Clotting Time 136 05/09/23 12:05: Activated Clotting Time 239 H 05/09/23 16:26: POC Glucose 132 H 05/10/23 06:00: WBC 6.8, RBC 4.43 L, Hgb 12.1 L, Hct 36.1 L, MCV 81.5, MCH 27.3, MCHC 33.5, RDW Std Deviation 35.8, RDW Coeff of Zonia 12.0, Plt Count 185, MPV 11.9, Sodium 139, Potassium 3.7, Chloride 109 H, Carbon Dioxide 24.0, Anion Gap 6, BUN 14, Creatinine 0.79, Estim Creat Clear Calc 124.13, Est GFR (MDRD) Af Amer 131, Est GFR (MDRD) Non-Af 108, BUN/Creatinine Ratio 17.7, Glucose 125 H, Calcium 9.5, Total Bilirubin 0.30, AST 29, ALT 71 H, Alkaline Phosphatase 72, Total Protein 6.9, Albumin 3.4, Globulin 3.5, Albumin/Globulin Ratio 1.0 Radiography Diagnostic Testing: Radiology Impression Echocardiogram 05/08/23 18:39 Interpretation Summary The estimated ejection fraction is 60 %. No evidence for diastolic dysfunction. Mild concentric left ventricular hypertrophy. Mild (1+) mitral valve insufficiency. Mild inferior hypokinesia Aortic sclerosis, no stenosis. Contrast echo used/Definity No prior study to compare Contrast injection was performed. Ordering Physician: Reema Mcconnell Performed By: Wander Torrez RCS Rhythm Strip Rhythm Strip: Sinus Rhythm Rate: 80 Ectopy: None Physical Exam Const alert and no apparent distress Resp normal respiratory effort, no retractions, no use of accessory muscles and clear to auscultation bilaterally Cardio regular rate, regular rhythm, S1 normal heart sound and S2 normal heart sound GI normal to inspection, nondistended, normoactive bowel sounds and soft to palpation Extremity Extremity Narrative: right wrist site bandaged, but w/o erythema or bleed through of badage. Assessment & Plan Assessment/Plan (1) Chest pain: (2) Elevated troponin: PLAN: Plan NSTEMI * Troponins 2430, 2494, 2303 * Echocardiogram shows an EF 60%. Mild inferior hypokinesis. * Loaded w/ aspirin. Cont Aspirin and statin. On ticagrelor * PCI to RCA. * Follow up with cardiology. Bilateral foot pain, reports dx of plantar fasciitis * Pain control as needed * Scheduled to follow-up with podiatry in 2 weeks * May need vascular studies in the future if concern for vascular component moving forward Chronic conditions: * RLS: Continue ropinirole * Depression and anxiety-Continue home medications * Hyperglycemia: Glucose 167 in ED-A1c 6.4-Glucose checks, sliding scale insulin in the interim VTE prophylaxis: not indicated as pt already on anticoagulation.
[2023-05-10 08:26] VITALS: BP 140/79; PULSE 77; RESP 16; TEMP 37.1; O2SAT 98
[2023-05-10 08:28] VITALS: BP 140/79; PULSE 77
[2023-05-10] MEDS: Metoprolol Tartrate 25 MG Tablet 12.5 MG PO (08:28)
[2023-05-10] MEDS: Aspirin E.C. 81 MG Tablet PO (08:28)
[2023-05-10] MEDS: TICAGRELOR 90 MG TABLET PO (08:29)
[2023-05-10] MEDS: busPIRone 15 MG TABLET PO (08:29)
[2023-05-10] MEDS: FLUoxetine 20 MG Capsule PO (08:29)
[2023-05-10] MEDS: Fluoxetine HCl 40 MG CAPSULE PO (08:29)
[2023-05-10] MEDS: Gabapentin 300 MG Capsule PO (08:35)
[2023-05-10] MEDS: SimETHICONE 80 MG Chewable Tablet PO (08:35)
[2023-05-10] MEDS: Lisinopril 2.5 MG Tablet PO (09:46)
--- NOTE | 2023-05-10 09:47 | DS.PCM_ITS ---
Providers Date of Admission: 05/08/23 Primary Care Physician: Dr. Lindsay Zhou MD Consultations 05/08/23 18:39 Consult: Cardiology Routine Consulting Provider: Roberto Collado Reason for Consult: Chest Pain, elevated trop EMERGENT Consult: No MD Notified: Yes Date Notified: 05/08/23 Time Notified: 17:48 Method of Notification: ED Physician Initiated Reason For Visit: CHEST PAIN, ELEVATED TROPONIN Diagnosis Discharge Diagnosis (1) Chest pain: Status: Acute Code(s): R07.9 - Chest pain, unspecified (2) Elevated troponin: Status: Acute Code(s): R79.89 - Other specified abnormal findings of blood chemistry Plan NSTEMI * Troponins 2430, 2494, 2303 * Echocardiogram shows an EF 60%. Mild inferior hypokinesis. * Loaded w/ aspirin. Cont Aspirin and statin. On ticagrelor * PCI to RCA. * Follow up with cardiology. Bilateral foot pain, reports dx of plantar fasciitis * Pain control as needed * Scheduled to follow-up with podiatry in 2 weeks * May need vascular studies in the future if concern for vascular component moving forward Chronic conditions: * RLS: Continue ropinirole * Depression and anxiety-Continue home medications * Hyperglycemia: Glucose 167 in ED-A1c 6.4-Glucose checks, sliding scale insulin in the interim VTE prophylaxis: not indicated as pt already on anticoagulation. Medications at Discharge Home Medications ascorbic acid (vitamin C) 500 mg tablet (Vitamin C) 500 mg PO DAILY@0800 SUPPLEMENT 01/04/13 fluoxetine 20 mg capsule 20 mg PO DAILY DEPRESSION 01/04/13 gabapentin 300 mg capsule 300 mg PO TIDCM 08/14/15 buspirone 15 mg tablet 15 mg PO BID anxiety 08/24/15 cyclobenzaprine 10 mg tablet 10 mg PO TID PRN muscle pain 05/08/23 fluoxetine 40 mg capsule 40 mg PO DAILY DEPRESSION 05/08/23 ropinirole 1 mg tablet 1.5 mg PO DAILY RESTLESS LEG SYNDROME 05/08/23 aspirin 81 mg tablet,delayed release 81 mg PO DAILY@0800 #0 tabs 05/10/23 atorvastatin 80 mg tablet 80 mg PO QHS #30 tabs 05/10/23 lisinopril 2.5 mg tablet 2.5 mg PO DAILY #30 tabs 05/10/23 metoprolol tartrate 25 mg tablet 12.5 mg (1/2 x 25 mg) PO BID #60 tabs 05/10/23 nitroglycerin 0.4 mg sublingual tablet 0.4 mg sublingual Q5M PRN Cardiac/Chest Pain #9 tabs 05/10/23 ticagrelor 90 mg tablet (Brilinta) 90 mg PO BID #60 tabs 05/10/23 Hospital Course Operations None Procedures 2-D Echocardiogram and Cardiac catheterization Summary of Care Provided Minutes Spent on Discharge: 32 Hospital Course: Patient presents with a non-STEMI. Patient underwent PCI to the RCA. Patient continue with aspirin, ticagrelor, atorvastatin. Patient follow-up cardiology next month and eventual cardiac rehab. Weight / BMI Weight Weight: 106.1 kg Body Mass Index (BMI) 36.6 ABG / Lab / Microbiology Data 05/10/23 06:00 05/10/23 06:00 Laboratory: Laboratory Results - last 24 hr 05/09/23 11:35: Activated Clotting Time 136 05/09/23 12:05: Activated Clotting Time 239 H 05/09/23 16:26: POC Glucose 132 H 05/10/23 06:00: WBC 6.8, RBC 4.43 L, Hgb 12.1 L, Hct 36.1 L, MCV 81.5, MCH 27.3, MCHC 33.5, RDW Std Deviation 35.8, RDW Coeff of Zonia 12.0, Plt Count 185, MPV 11.9, Sodium 139, Potassium 3.7, Chloride 109 H, Carbon Dioxide 24.0, Anion Gap 6, BUN 14, Creatinine 0.79, Estim Creat Clear Calc 124.13, Est GFR (MDRD) Af Amer 131, Est GFR (MDRD) Non-Af 108, BUN/Creatinine Ratio 17.7, Glucose 125 H, Calcium 9.5, Total Bilirubin 0.30, AST 29, ALT 71 H, Alkaline Phosphatase 72, Total Protein 6.9, Albumin 3.4, Globulin 3.5, Albumin/Globulin Ratio 1.0 Radiography Diagnostic Testing: Radiology Impression Echocardiogram 05/08/23 18:39 Interpretation Summary The estimated ejection fraction is 60 %. No evidence for diastolic dysfunction. Mild concentric left ventricular hypertrophy. Mild (1+) mitral valve insufficiency. Mild inferior hypokinesia Aortic sclerosis, no stenosis. Contrast echo used/Definity No prior study to compare Contrast injection was performed. Ordering Physician: Reema Mcconnell Performed By: Wander Torrez RCS D/C Instructions Discharge Diet: Low fat / Low cholesterol Return to work on: 05/16/23 Meaningful Use Info Meaningful Use Diagnoses (Choose all that apply): AMI AMI/Post PCI/Angioplasty Aspirin given w/in 24hrs of arrival?: Yes ASA at discharge?: Yes Antiplatelet Therapy at Discharge:: Yes Statins at discharge?: Yes Sarwat/ARB at discharge?: Yes Beta Sagrario at discharge?: Yes Done w/ Acute IL measure.: Yes Documented LVEF (%): 65 Discharge Plan Admission Admit Date/Time: 05/08/23 17:42 Primary Reason for Your Visit: Myocardial infarction Attending Provider: Saleem Sylvester Primary Care Provider: Lindsay Zhou Consulting Providers: Roberto Collado; Reema Mcconnell Discharge Orders/Prescriptions Prescriptions: New atorvastatin 80 mg Tablet 80 mg PO QHS Qty: 30 0RF aspirin 81 mg Tablet,Delayed Release (Dr/Ec) 81 mg PO DAILY@0800 Qty: 0 0RF nitroglycerin 0.4 mg Tablet, Sublingual 0.4 mg sublingual Q5M PRN (Reason: Cardiac/Chest Pain) Qty: 9 0RF lisinopril 2.5 mg Tablet 2.5 mg PO DAILY Qty: 30 0RF metoprolol tartrate 25 mg Tablet 12.5 mg PO BID Qty: 60 0RF Brilinta 90 mg Tablet 90 mg PO BID Qty: 60 0RF Continued ascorbic acid (vitamin C) [Vitamin C] 500 MG tablet 500 mg PO DAILY@0800 fluoxetine 20 MG capsule 20 mg PO DAILY Patient Comments: PT STATES HE TAKES 20 MG NEEDED ALONG WITH THE SCHEDULED 40MG CAPSULES DAILY gabapentin 300 MG capsule 300 mg PO TIDCM Patient Comments: PT STATES HE NORMALLY TAKES TWICE DAILY buspirone 15 MG tablet 15 mg PO BID cyclobenzaprine 10 MG tablet 10 mg PO TID PRN (Reason: muscle pain) fluoxetine 40 mg capsule 40 mg PO DAILY Patient Comments: PT STATES HE TAKES 40MG DAILY, AND 20MG CAPSULE NEEDED. ropinirole 1 mg tablet 1.5 mg PO DAILY Discontinued atorvastatin 20 MG tablet 20 mg PO QHS bisoprolol-hydrochlorothiazide 1 EACH tablet 1 tab PO DAILY meloxicam 15 mg tablet 15 mg PO DAILY Patient Comments: PT STATES HE TAKES 1-2 TIMES DAILY Rx Instructions: TAKE WITH FOOD. Referrals / Follow Up: [facility] [Provider Group] - Within 1 Month Lindsay Zhou MD [Primary Care Provider] - Within 2 Weeks Disposition Disposition (needs filled in before D/C Order can be placed): Home, Self Care Charges/Coding Visit Charges Inpatient E&M: 04867 Disch Hosp >30min
[2023-05-10 09:53] VITALS: BP 125/78; PULSE 78; RESP 14; TEMP 36.9; O2SAT 99
--- NOTE | 2023-05-10 10:33 | NURSING ---
PIV removed. Discharge instructions given and reviewed with pt and family. All questions answered. allowing pt to shower before pt leaves.
--- NOTE | 2023-05-10 12:02 | CASEMGMT ---
TC to [facility] pharmacy, pt cost of Brillinta is $25.
== END 2023-05-10 10:44 | disposition home or self-care (01) | DRG 322 ==
LOC: ED 17:17 → PCU 18:07
PROVIDERS: Internal Medicine Interventional Cardiology; Nurse Practitioner; Admitting Provider Internal Medicine; Emergency Provider Emergency Medicine; PCP Internal Medicine
DX: I21.4 Non-ST elevation (NSTEMI) myocardial infarction (principal); E66.9 Obesity, unspecified; I10 Essential (primary) hypertension; G25.81 Restless legs syndrome; F32.A Depression, unspecified; E78.5 Hyperlipidemia, unspecified; I25.10 Atherosclerotic heart disease of native coronary artery without angina pectoris; M72.2 Plantar fascial fibromatosis; F41.9 Anxiety disorder, unspecified; R73.9 Hyperglycemia, unspecified; Z68.36 Body mass index [BMI] 36.0-36.9, adult; Z79.899 Other long term (current) drug therapy
CPT/HCPCS: 36415; 71046; 80048; 80053; 80061; 82962; 83036; 83735; 83880; 84443; 84484; 85025; 85027; 85347; 85379; 85610; 85730; 92928; 92978; 93005; 93306; 93454; 94002; 94660; 99152; 99153; 99285; J7030; J7040; Q9957; Q9967; A4216; C1725; C1753; C1769; C1874; C1887; C1894; C8929; C9600

== ENCOUNTER → 2023-06-04 | Outpatient (CLI) | payer BC, SELFPAY ==
--- NOTE | 2023-06-04 13:40 | RAD_ITS ---
STUDY: X-RAY - LUMBAR SPINE REASON FOR EXAM: Male, 52 years old. Radiculopathy. TECHNIQUE: 2 view(s) of the lumbar spine were obtained. COMPARISON: None FINDINGS: Normal lumbar lordosis. Minimal levoscoliosis. 2 mm of anterolisthesis of L4 on L5. Diffuse lower thoracic and lumbosacral facet sclerosis. Intervertebral disc space narrowing at T10-11, T11-T12 and L5-S1 with small osteophytes. Normal soft tissues. RAD/Lumbar Spine 2 or 3 Views IMPRESSION: Mild lower thoracic and lumbosacral spondylosis as described. Electronically Signed: Levi Cho MD at 15:50 EST ,
== END | disposition home or self-care (01) ==
LOC: RAD 13:38
PROVIDERS: PCP Internal Medicine; Referring Provider Anesthesiology Pain Medicine; Visit Provider Anesthesiology Pain Medicine
DX: M47.816 Spondylosis without myelopathy or radiculopathy, lumbar region (principal); M47.817 Spondylosis without myelopathy or radiculopathy, lumbosacral region
CPT/HCPCS: 72100

== ENCOUNTER → 2023-06-17 | Outpatient (CLI) | payer BC, SELFPAY ==
--- OUTSIDE RECORDS SUMMARY | 2023-06-17 06:22 | XMS RPT_ITS | CCD ---
Author Name Unknown Address [address] [place] [address] Organization [facility] Care Team Providers Care Flight 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 Name Role Phone Mita Zhou MD Primary Care Provider JEANNE LEAVITT, DR FAN Primary Care Physician [phone] DEBO LEAVITT, SHERRILL Mcintosh Attending Unavailable JEANNE CANNON, DR. FAN Primary Care Unavailab NATHAN Sanchez Consulting Unavailable DEBO LEAVITT, SHERRILL Mcintosh Attending Unavailable DEBO LEAVITT, SHERRILL Mcintosh Admitting Unavailable JEANNE CANNON, DR. FAN Primary Care Unavailab Mita Flores MD Primary Care Provider GRADY MORTON Attending Unavailable TALAMPAS, MITA D Primary Care Unavailable BERNARD, FORREST Attending Unavailable TALAMPAS, MITA D Primary Care Unavailable TALAMPAS, MITA D Primary Care Unavailable BERNARD FORREST Attending Unavailable TALAMPAS, MITA D Primary Care Unavailable TALAMPAS, MITA D Primary Care Unavailable HEATHER MURPHY Attending Unavailable TALAMPAS, MITA D Primary Care Unavailable BERNARDOMAI Referring Unavailable ROBERTO CARLOSGRADY Attending Unavailable TALAMPAS, MITA D Primary Care Unavailable ROBERTO CARLOS GRADY Referring Unavailable TALAMPAS, MITA D Primary Care Unavailable ROBERTO CARLOS, GRADY Referring Unavailable TALAMPAS, MITA D Primary Care Unavailable TALAMPAS, MITA D Primary Care Unavailable CASTRO CHEN Attending Unavailable TESTCASTRO HANSON Referring Unavailable TALAMPAS, MITA D Primary Care Unavailable TESTCASTRO HANSON Referring Unavailable ROBERTO CARLOSGRADY Attending Unavailable TALAMPAS, MITA D Primary Care Unavailable BERNARD, FORREST Attending Unavailable TALAMPAS, MITA D Primary Care Unavailable BERNARDFORREST Attending Unavailable TALAMPAS, MITA D Primary Care Unavailable KAYLEIGH, TAMANNA Referring Unavailable MITA ZHOU Primary Care Unavailable Allergies Allergy Classification Reported Allergen(s) Allergy Type Date of Onset Reaction(s) Facility (16 sources) traZODone; Translations: [TRAZODONE] Drug Allergy 07-01-2022 Intolerance [facility] Work Phone: Medications Current Medications [...] tab(s), 0 Refill(s), 11/28/21 8:32:00 EDT, Pharmacy: [facility]/pharmacy #[id number], 170.2, cm, 11/13/21 13:54:00 EDT, Height Start Date: 11/14/21 Stop Date: 11/28/21 Status: Ordered acetaminophen 325 mg / HYDROcodone bitartrate 5 mg oral tablet (2 sources) Opioid Agonist Start: 05-30-2023 End: 06-06-2023 take 1 tablet by mouth every six hours as needed for pain HYDROcodone-acetamin ophen (NORCO) 5-325 mg per tablet Indications: Lumbar pain , Lumbosacral spondylosis without myelopathy , Degeneration of lumbar or lumbosacral intervertebral disc Take 1 tablet by mouth every 6 hours as needed for pain for up to 7 days. 28 tablet 0 05/30/2023 06/06/2023 Active Completed/Discontinued Medications Medication Drug Class(es) Dates Sig (Normalized) Sig (Original) aspirin 81 mg delayed release oral tablet (10 sources) Platelet Aggregation Inhibitor, Nonsteroidal Anti-inflammatory Drug Start: 05-14-2023 take 1 tablet by mouth once daily aspirin, enteric coated (ASPIRIN, ENTERIC COATED) 81 mg EC tablet Take 1 tablet by mouth once daily. 0 05/14/2023 Active Problems Active Problems Problem Classification Problem Date Documented Da te Episodic/Chronic Acute myocardial infarction (11 sources) Myocardial infarction; Translations: [Non-ST elevation (NSTEMI) myocardial infarction] Onset: 4 05-14-2023 Chronic Adjustment disorders (20 sources) Adjustment disorder with mixed anxiety and depressed mood; Translations: [Adjustment disorder with mixed anxiety and depressed mood] Onset: 1 02-12-2021 Chronic Anxiety disorders (1 source) Anxiety disorder; Translations: [Anxiety disorder, unspecified] Onset: 2 Chronic Coronary atherosclerosis and other heart disease (11 sources) Coronary arteriosclerosis; Translations: [Atherosclerotic heart disease of [place] coronary artery without angina pectoris] Onset: 4 05-14-2023 Chronic Disorders of lipid metabolism (20 sources) Mixed hyperlipidemia; Translations: [Mixed hyperlipidemia] Onset: 9 06-10-2008 Chronic Esophageal disorders (1 source) Gastroesophageal reflux disease without esophagitis; Translations: [Gastro-esophageal reflux disease without esophagitis] Onset: 2 Chronic Essential hypertension (20 sources) Hypertensive disorder; Translations: [Essential (primary) hypertension] Onset: 5 05-31-2014 Chronic Miscellaneous mental health disorders (20 sources) Abnormal sexual function; Translations: [Sexual dysfunction, unspecified] 01-11-2009 Episodic Mood disorders (20 sources) Depressive disorder; Translations: [Depression] 01-11-2009 Chronic Nausea and vomiting (1 source) Diarrhea and vomiting; Translations: [Vomiting, unspecified] Episodic Other aftercare (1 source) Encounter for therapeutic drug level monitoring; Translations: [Encounter for therapeutic drug monitoring] Onset: 4 Episodic Other connective tissue disease (1 source) Artificial knee joint present; Translations: [Presence of unspecified artificial knee joint] Onset: 2 Chronic Other connective tissue disease (1 source) Pain in both feet; Translations: [Pain in right foot] 05-22-2023 Episodic Other connective tissue disease (1 source) Plantar fasciitis; Translations: [Plantar fascial fibromatosis] 05-22-2023 Episodic Other connective tissue disease (1 source) Pain in right foot; Translations: [Bilateral foot pain] Onset: 4 Episodic Other connective tissue disease (1 source) Pain in left foot; Translations: [Bilateral foot pain] Onset: 4 Episodic Other gastrointestinal disorders (20 sources) Disorder of gastrointestinal tract; Translations: [Angiodysplasia of colon without hemorrhage] 01-11-2009 Episodic Other hereditary and degenerative nervous system conditions (20 sources) Restless legs; Translations: [Restless legs syndrome] Onset: 9 04-02-2021 Chronic Other inflammatory condition of skin (20 sources) Disorder of integument; Translations: [Other psoriasis] 01-11-2009 Chronic Other male genital disorders (3 sources) Male erectile dysfunction, unspecified; Translations: [Impotence of organic origin] Chronic Other nutritional; endocrine; and metabolic disorders (11 sources) Obese class II; Translations: [Obesity, unspecified] Onset: 4 04-18-2023 Chronic Other nutritional; endocrine; and metabolic disorders [...] Onset: 0 04-02-2021 Chronic Sprains and strains (3 sources) Strain of knee; Translations: [Strain of unspecified muscle(s) and tendon(s) at lower leg level, right leg, sequela] Onset: 4 Episodic Unclassified (1 source) Lumbar pain; Translations: [Lumbar pain] Onset: 4 Past or Other Problems Problem Classification Problem Date Documented Da te Episodic/Chronic Conditions associated with dizziness or vertigo (1 source) Dizziness and giddiness; Translations: [Dizziness] Onset: 01-02-2023 Episodic Diabetes mellitus without complication (20 sources) Impaired fasting glycemia; Translations: [Impaired fasting glucose] Onset: 09-30-2014 09-30-2014 Episodic Other skin disorders (1 source) Rash and other nonspecific skin eruption; Translations: [Rash] Onset: 11-30-2022 Episodic Residual codes; unclassified (20 sources) Persistent insomnia; Translations: [Insomnia, unspecified] Onset: 05-31-2014 05-31-2014 Episodic Residual codes; unclassified (1 source) Insomnia, unspecified; Translations: [Persistent insomnia] Onset: 05-31-2014 Episodic Spondylosis; intervertebral disc disorders; other back problems (20 sources) Thoracic and lumbosacral neuritis; Translations: [Thoracic or lumbosacral neuritis or radiculitis, unspecified] Onset: 03-26-2010 03-26-2010 Episodic Results Test Name Value Interpretation Reference Range Facil ity Vital Signs Date Time Vital Sign Value Performing Clinician Facboris lity 05-30-2023 10:29-0500 Body weight 107.96 kg Grady Roberto Carlos INDUSTRIAL SEWER.ACCOUNTING RECRUITER Work Phone: [facility] 05-30-2023 10:29-0500 Diastolic blood pressure 78 mm[Hg] Grady Roberto Carlos INDUSTRIAL SEWER.ACCOUNTING RECRUITER Work Phone: [facility] 05-30-2023 10:29-0500 Heart rate 96 /min Grady Roberto Carlos INDUSTRIAL SEWER.ACCOUNTING RECRUITER Work Phone: [facility] 05-30-2023 10:29-0500 Respiratory rate 18 /min Grady Roberto Carlos INDUSTRIAL SEWER.ACCOUNTING RECRUITER Work Phone: [facility] 05-30-2023 10:29-0500 Systolic blood pressure 138 mm[Hg] Grady Roberto Carlos INDUSTRIAL SEWER.ACCOUNTING RECRUITER Work Phone: [facility] 05-14-2023 16:35-0500 Body temperature 96.21 [degF] Heather TaoKatherine INDUSTRIAL SEWER.ACCOUNTING RECRUITER Work Phone: [facility] 05-14-2023 16:35-0500 Body weight 105.69 kg Heather Murphy INDUSTRIAL SEWER.ACCOUNTING RECRUITER Work Phone: [facility] 05-14-2023 16:35-0500 Diastolic blood pressure 82 mm[Hg] Heather Katherine INDUSTRIAL SEWER.ACCOUNTING RECRUITER Work Phone: [facility] 05-14-2023 16:35-0500 Heart rate 80 /min Heather TaoKatherine INDUSTRIAL SEWER.ACCOUNTING RECRUITER Work Phone: [facility] 05-14-2023 16:35-0500 Respiratory rate 16 /min Heather Murphy INDUSTRIAL SEWER.ACCOUNTING RECRUITER Work Phone: [facility] 05-14-2023 16:35-0500 Systolic blood pressure 138 mm[Hg] Heather TaoKatherine INDUSTRIAL SEWER.ACCOUNTING RECRUITER Work Phone: [facility] 11-30-2022 10:39-0400 Body temperature 99.61 [degF] Tamanna Kayleigh INDUSTRIAL SEWER.ACCOUNTING RECRUITER Work Phone: [facility] 11-30-2022 10:39-0400 Body weight 100.7 kg Tamanna Jeffriesk INDUSTRIAL SEWER.ACCOUNTING RECRUITER Work Phone: [facility] 11-30-2022 10:39-0400 Diastolic blood pressure 100 mm[Hg] Tamanna Kayleigh INDUSTRIAL SEWER.ACCOUNTING RECRUITER Work Phone: [facility] 11-30-2022 10:39-0400 Heart rate 90 /min Tamanna Kayleigh INDUSTRIAL SEWER.ACCOUNTING RECRUITER Work Phone: [facility] 11-30-2022 10:39-0400 Respiratory rate 20 /min Tamanna Kayleigh INDUSTRIAL SEWER.ACCOUNTING RECRUITER Work Phone: [facility] 11-30-2022 10:39-0400 SaO2% (BldA) [Mass fraction] 98 % Tamanna Kayleigh INDUSTRIAL SEWER.ACCOUNTING RECRUITER Work Phone: [facility] 11-30-2022 10:39-0400 Systolic blood pressure 160 mm[Hg] Tamanna Kayleigh INDUSTRIAL SEWER.ACCOUNTING RECRUITER Work Phone: [facility] 07-01-2022 10:17-0400 Body weight 97.98 kg Forrest Bernard INDUSTRIAL SEWER.FLEXO FOLDER GLUER OPERATOR Work Phone: [facility] 07-01-2022 10:17-0400 Diastolic blood pressure 82 mm[Hg] Forrest Bernard INDUSTRIAL SEWER.FLEXO FOLDER GLUER OPERATOR Work Phone: [facility] 07-01-2022 10:17-0400 Heart rate 97 /min Forrest Bernard INDUSTRIAL SEWER.FLEXO FOLDER GLUER OPERATOR Work Phone: [facility] 07-01-2022 10:17-0400 Respiratory rate 16 /min Forrest Garcias INDUSTRIAL SEWER.FLEXO FOLDER GLUER OPERATOR Work Phone: [facility] 07-01-2022 10:17-0400 SaO2% (BldA) [Mass fraction] 97 % Forrest Garcias INDUSTRIAL SEWER.FLEXO FOLDER GLUER OPERATOR Work Phone: [facility] 07-01-2022 10:17-0400 Systolic blood pressure 138 mm[Hg] Forrest Bernard INDUSTRIAL SEWER.FLEXO FOLDER GLUER OPERATOR Work Phone: [facility] 11-14-2021 07:36-0400 Diastolic Blood Pressure NBP [address] SHERRILL EDMONDSON MD [facility] 11-14-2021 07:36-0400 Heart rate 82 /min DR SHERRILL EDMONDSON MD [facility] 11-14-2021 07:36-0400 Reason For Taking VItal Signs DR SHERRILL EDMONDSON MD [facility] 11-14-2021 07:36-0400 Respiratory rate 18 /min DR SHERRILL EDMONDSON MD [facility] 11-14-2021 07:36-0400 Systolic Blood Pressure NBP [address] SHERRILL EDMONDSON MD [facility] 11-14-2021 05:49-0400 Body temperature 98.06 [degF] DR SHERRILL EDMONDSON MD [facility] 11-14-2021 05:49-0400 Diastolic Blood Pressure NBP [address] SHERRILL EDMONDSON MD [facility] 11-14-2021 05:49-0400 Heart rate 86 /min DR SHERRILL EDMONDSON MD [facility] 11-14-2021 05:49-0400 Respiratory rate 18 /min DR SHERRILL EDMONDSON MD [facility] 11-14-2021 05:49-0400 Systolic Blood Pressure NBP [address] SHERRILL EDMONDSON MD [facility] 11-14-2021 02:23-0400 Body temperature 97.88 [degF] DR SHERRILL EDMONDSON MD [facility] 11-14-2021 02:23-0400 Diastolic Blood Pressure NBP [address] SHERRILL EDMONDSON MD [facility] 11-14-2021 02:23-0400 Heart rate 85 /min DR SHERRILL EDMONDSON MD [facility] 11-14-2021 02:23-0400 Respiratory rate 18 /min DR SHERRILL EDMONDSON MD [facility] 11-14-2021 02:23-0400 Systolic Blood Pressure NBP [address] SHERRILL EDMONDSON MD [facility] 11-13-2021 22:49-0400 Body temperature 98.06 [degF] DR SHERRILL EDMONDSON MD [facility] 11-13-2021 18:42-0400 Reason For Taking VItal Signs DR SHERRILL EDMONDSON MD [facility] 11-13-2021 17:55-0400 Reason For Taking VItal Signs DR SHERRILL EDMONDSON MD [facility] 11-13-2021 13:54-0400 Body height 170.[address] SHERRILL EDMONDSON MD [facility] 11-13-2021 13:54-0400 Body weight [address] SHERRILL EDMONDSON MD [facility] 11-13-2021 13:54-0400 Body weight 33.83 kg/m2 DR SHERRILL EDMONDSON MD [facility] 11-13-2021 11:35-0400 Body temperature 97.52 [degF] DR SHERRILL EDMONDSON MD [facility] 11-13-2021 09:11-0400 Body height 170.[address] SHERRILL EDMONDSON MD [facility] 11-13-2021 09:11-0400 Body temperature 98.06 [degF] DR SHERRILL EDMONDSON MD [facility] 11-13-2021 09:11-0400 Body weight [address] SHERRILL EDMONDSON MD [facility] 11-13-2021 09:11-0400 Heart rate 106 /min DR SHERRILL EDMONDSON MD [facility] 10-17-2021 16:48-0400 Diastolic blood pressure 78 mm[Hg] Mita Zhou MD Work Phone: [facility] 10-17-2021 16:48-0400 Systolic blood pressure 136 mm[Hg] Mita Zhou MD Work Phone: [facility] 10-17-2021 15:55-0400 Body weight 99.79 kg Mita Zhou MD Work Phone: [facility] 10-17-2021 15:55-0400 Heart rate 73 /min Mita Zhou MD Work Phone: [facility] 10-17-2021 15:55-0400 SaO2% (BldA) [Mass fraction] 98 % Mita Zhou MD Work Phone: [facility] 09-25-2021 17:02-0400 Diastolic blood pressure 100 mm[Hg] Mita Zhou MD Work Phone: [facility] 09-25-2021 17:02-0400 Systolic blood pressure 160 mm[Hg] Mita Zhou MD Work Phone: [facility] 09-25-2021 16:00-0400 Body weight 98.88 kg Mita Zhou MD Work Phone: [facility] 09-25-2021 16:00-0400 Heart rate 94 /min Mita Zhou MD Work Phone: [facility] 09-25-2021 16:00-0400 SaO2% (BldA) [Mass fraction] 100 % Mita Zhou MD Work Phone: [facility] 07-06-2021 15:54-0400 Body height 168.9 cm Carly Greene MD Work Phone: [facility] 07-06-2021 15:54-0400 Body temperature 98.01 [degF] Carly Greene MD Work Phone: [facility] 07-06-2021 15:54-0400 Body weight 102.06 kg Carly Greene MD Work Phone: [facility] 07-06-2021 15:54-0400 Diastolic blood pressure 70 mm[Hg] Carly Greene MD Work Phone: [facility] 07-06-2021 15:54-0400 Heart rate 77 /min Carly Greene MD Work Phone: [facility] 07-06-2021 15:54-0400 Respiratory rate 12 /min Carly Greene MD Work Phone: [facility] 07-06-2021 15:54-0400 SaO2% (BldA) [Mass fraction] 95 % Carly Greene MD Work Phone: [facility] 07-06-2021 15:54-0400 Systolic blood pressure 124 mm[Hg] Carly Greene MD Work Phone: [facility] Encounters Encounter Date Encounter Type Care Provider Facility Start: 06-16-2023 [facility]ly [facility] Facility:[facility] Start: 06-12-2023 E-mail encounter fro m caregiver [facility] Provider [facility] Start: 06-12-2023 Patient encounter procedure [facility] Prov ider [facility] [place] Procedures Date Procedure Procedure Detail Performing Clinician Start: 04-18-2023 Lipid 1996 panel - S gerry or Plasma No Pcp INDUSTRIAL SEWER Start: 10-17-2021 Ecg routine ecg w/le ast 12 lds w/i&r [facility] Provider Start: 05-08-2008 Colonoscopy Carly callejas MD Work Phone: Appendectomy DR SHERRILL Hernandez MD Bilateral replacemen t of knee joints DR SHERRILL EDMONDSON MD Decompression of med neeraj nerve DR SHERRILL EDMONDSON MD Plan of Treatment Date Care Activity Detail Author Start: 07-25-2032 Urine microalbumin profile [facility] Start: 04-18-2028 Lipid panel Lipid Screening [facility] Start: 04-18-2026 Diabetes Screening Diabetes Screenin g [facility] Start: 01-30-2026 LIPID SCREEN LIPID SCREEN [facility] Start: 11-30-2025 DIABETES SCREEN DIABETES SCREEN [facility] Start: 05-30-2024 Annual PCP Team [facility] Disease Visit Annual PCP Team Chronic Disease Visit [facility] Start: 05-14-2024 Annual PCP Team [facility] Disease Visit Annual PCP Team Chronic Disease Visit [facility] Start: 05-14-2024 Covid-19 Vaccine ( season) Covid-19 Vaccine ( season) [facility] Immunizations Immunization Date Immunization Notes Care Provider Fa demetriusty 07-25-2022 tetanus toxoid, redu oma diphtheria toxoid, and acellular pertussis vaccine, adsorbed Grady Roberto Carlos INDUSTRIAL SEWER.ACCOUNTING RECRUITER Work Phone: [facility] Work Phone: 01-30-2021 influenza virus vaccine, unspecified formulation DR SHERRILL EDMONDSON MD [facility] 01-30-2021 influenza, injectabl e, quadrivalent, contains preservative Carly Greene MD Work Phone: [facility] Work Phone: 09-08-2020 SARS-CoV-2 mRNA (tozinameran) vaccine DR SHERRILL EDMONDSON MD [facility] Payers Date Payer Category Payer Unknown MAYELA OCASIO PPO [id number] 2013-Present [phone] [id number] [place] [address] PPO [id number] 2013 Unknown [id number] 2013 Unknown [id number] 1968 Unknown [id number] 1970 Unknown [id number] Social History Date Type Detail Facility Start: 05-31-2014 End: 07-01-2022 Tobacco smoking status NHIS Never smoked tobacco [facility] Work Phone: Start: 05-31-2014 End: 07-01-2022 Tobacco use and exposure Former smokeless tobacco user [facility] Work Phone: End: 06-05-2012 History of tobacco use Snuff User [facility] Work Phone: End: 06-05-2012 History of tobacco use Chews Tobacco [facility] Work Phone: Start: 07-06-2021 End: 06-10-2023 Alcohol intake Current non-drinker of alcohol (finding) [facility] Start: 05-31-2014 End: 07-01-2022 Tobacco Comment quit chewing after 10 years. [facility] Start: 1970 Sex Assigned At Not on file [facility] Start: 06-26-2021 End: 10-17-2021 Exposure to SARS-CoV-2 (event) Not sure [facility] Work Phone: Start: 07-27-2021 End: 08-06-2021 Exposure to SARS-CoV-2 (event) Unable to assess [facility] Work Phone: Sex Assigned At Male [facility] Start: 08-26-2022 End: 05-14-2023 History of Social function [facility] Start: 08-26-2022 End: 05-14-2023 Tobacco use panel [facility] Adult Depression Screening Assessment 2 [facility] Functional Status Date Assessment Result Facility 11-14-2021 Functional Status Room check performed [facility] 11-14-2021 Functional Status Miki [facility] 11-14-2021 Functional Status flight Miki [facility] 11-14-2021 Functional Status Single level home [facility] 11-14-2021 Functional Status Walker Miki [facility] 11-14-2021 Functional Status Miki [facility] 11-13-2021 Functional Status Miki [facility] 11-13-2021 Functional Status ice on Miki [facility] 11-13-2021 Functional Status Miki [facility] 11-13-2021 Functional Status Miki [facility] 11-13-2021 Functional Status NPO Status Lucero ntained, More than 8 hours [facility] Mental Status Date Assessment Result Facility 11-14-2021 Mental Status Oriented x 4 [facility] 11-14-2021 Mental Status [facility]-13-2021 [facility] Notes 01-16-2015 to 06-13-2023 Telephone Encounter - Kristie Luciano RN - 06/13/2023 9:31 AM ESTTelephone Encounter - Siomara Valdez LPN - 06/12/2023 9:10 AM ESTPatient InstructionsPatient Instructions Note Date & Type Note [facility] 06-13-2023 Miscellaneous Notes Patient calls in to request an appointment for FMLA paperwork. 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 Patient reports that Dr. George told him that PCP should be filling out FMLA paperwork since his leave is cardiac related. Scheduled per request. Kristie Luciano RN documented in this encounter [facility] 06-12-2023 Miscellaneous Notes Called pt back and reports Dr. George now has agreed to fill out FMLA. Siomara Valdez LPN Received the fax from Dr. George. I can complete FMLA since Dr. George will not complete it, but will need more info from patient for completing FMLA. Can he do a Virtual Visit or come in? If he has the FMLA forms, he will see that we need info like diagnoses, dates when problem started and how long the problem will last. Need to know if this is just FMLA for the dates on the fax for time off ( through 06/09) plus what is meant by light duty if work needs specifics as well as how long light duty needed. Patient calls to ask if provider has got a chance to review request. Patient asking for provider to review and respond to request today as his job is on the line. Patient specifically asking for Dr. Zhou to review. Kristie Luciano RN Pt reports he saw Forrest Bernard in office 06-10-23. Pt needs the following: Pt asking if you can fill out FMLA papers for him. He can not get light duty thru employer so he has to be off work. He has been off work since 06-06-23. Please advise if you will do FMLA papers for him. Dr. George's office not willing to do FMLA papes. Please advise pt dae. Concerned with losing job because he needs paperwork completed. Siomara Valdez LPN documented in this encounter [facility] 06-11-2023 Miscellaneous Notes Pt was notified earlier. Siomara Valdez LPN LM for patient to contact office regarding below. Nathan Villalobos MA I wrote the work note for time off due to hospital admission for [place]. He needs to discuss further work restrictions with his lithographic plate maker apprentice Heather Murphy APRN.ACCOUNTING RECRUITER Patient calling to say he returned to work last week and his company is currently working overtime with 10-12 hour shifts. He says he is unable to do this many hours at this time. He is requesting a letter stating he should limit his work hours to 8 hours a day/6 days a week. He says he saw Heather Murphy NP on 05/14/23 and discussed return to work. Mirta Hills RN documented in this encounter [facility] 06-10-2023 Note HNO ID: [id number] Author: FORREST BERNARD APRN.FLEXO FOLDER GLUER OPERATOR Service: ? Author Type: Nurse Specialist Type: Progress Notes Filed: 06/10/2023 12:20 Note Text: SUBJECTIVE: Hepatitis B Vaccine(1 of 3 - 3-dose series) Never done Colorectal Cancer Screening due on 05/08/2018 Shingrix Vaccine(1 of 2) Never done HPI Ritu Naidu is a 52 year old male. PMH significant for ACTIVE PROBLEM LIST Mixed Hyperlipidemia Sexual Dysfunction Depression Other Psoriasis and Similar Disorders GI Avm (Gastrointestinal Arteriovenous Vascular Malformation) Restless Leg Syndrome Lumbosacral Spondylosis Without Myelopathy Degeneration of Lumbar Or Lumbosacral Intervertebral Disc Thoracic Or Lumbosacral Neuritis Or Radiculitis, Unspecified Persistent Insomnia Htn (Hypertension) Ifg (Impaired Fasting Glucose) Adjustment Disorder With Mixed Anxiety and Depressed Mood Obesity, Class II, Bmi 35-39.9 Coronary artery disease with PCI to RCA 05/09/23 Nstemi (Non-St Elevated Myocardial Infarction) (Hcc) Presents today regarding concern for return to work. He was seen in office May 30, 2023 by Grady Morton CNP for back pain. He reports he was seen by Dr. George pain management earlier today for an injection of his spine. He reports back pain is already better following the injection. States he was advised to return to work light duty by the pain management doctor. Ritu Naidu then called our office stating he needed to be seen for return to work, states there is no light duty at work. States that the pain management doctor does not want to release him for work related to his recent NSTEMI. States that he therefore was written for light duty. Ritu Naidu was previously seen for NSTEMI and released back to work. He reports he worked for period of time and did well with this without chest pain or shortness of breath. He has a cardiology appointment upcoming this week on Friday. Has not yet started cardiac rehab. States he is without chest pain shortness of breath dizziness lightheadedness palpitations or edema. Review of Systems Constitutional: Negative. Respiratory: Negative. Cardiovascular: Negative. Musculoskeletal: Negative for back pain. Objective BP 144/88 Pulse 93 Resp 16 Wt 107 kg (236 lb) SpO2 96% BMI 37.52 kg/m? Physical Exam Vitals and nursing note [...] Reactions Trazodone Intolerance Increased weird dreams Medicatoin ticagrelor (BRILINTA) 90 mg tablet Take 1 tablet by mouth two times a day. lisinopril 2.5 mg tablet Take 1 tablet by mouth every afternoon. gabapentin (NEURONTIN) 300 mg capsule Take 1 capsule by mouth four times daily for 90 days. FLUoxetine (PROZAC) 40 mg capsule Take 1 capsule by mouth once daily. FLUoxetine (PROZAC) 20 mg capsule Take 1 capsule by mouth once daily. Take with 40 mg fluoxetine capsule metoprolol tartrate, short acting, (LOPRESSOR) 25 mg tablet Take 12.5 mg by mouth two times a day. nitroglycerin sublingual (NITROQUICK) 0.4 mg SL tablet 0.4 MG SUBLINGUALLY EVERY 5 MINUTES NEEDED FOR CARDIAC/CHEST PAIN atorvastatin (LIPITOR) 80 mg tablet Take 1 tablet by mouth once daily. aspirin, enteric coated (ASPIRIN, ENTERIC COATED) 81 mg EC tablet Take 1 tablet by mouth once daily. zolpidem (AMBIEN) 5 mg tablet Take 1 tablet by mouth at bedtime as needed for sedation for up to 90 days. busPIRone HCl 30 mg tablet Take 1 tablet by mouth twice daily. cyclobenzaprine (FLEXERIL) 10 mg tablet Take 1 tablet by mouth at bedtime as needed for muscle spasm. rOPINIRole (REQUIP) 1 mg tablet Take 1 tablet by mouth daily at bedtime. rOPINIRole (REQUIP) 0.5 mg tablet Take 1 tablet by mouth daily at bedtime. take in addition to 1 mg ropinirole for a total of 1.5 mg omeprazole (PRILOSEC) 40 mg capsule Take 1 capsule by mouth once daily. sildenafil (VIAGRA) 100 mg tablet Take one hour before sex CPAP Initiate Auto PAP @ 5-20 cm of water with humidification. Mask (per patient preference) optional chin strap (if indicated) , filters, tubing, humidifier and lifetime supplies. meloxicam (MOBIC) 15 mg tablet TAKE 1 TABLET BY MOUTH ONCE DAILY. TAKE WITH FOOD. (Patient not taking: Reported on 05/22/2023) los (more content not included)... [facility] 06-06-2023 Miscellaneous Notes Patient has been identified by name and date of : Patient phones for refill(s): Requested Prescriptions Pending Prescriptions Disp Refills ticagrelor (BRILINTA) 90 mg tablet 180 tablet 1 Sig: Take 1 tablet by mouth two times a day. lisinopril 2.5 mg tablet 90 tablet 1 Sig: Take 1 tablet by mouth every afternoon. Date of last office visit in primary care: 05/30/2023 Date of next office visit in primary care: None Please advise. Thank you. Melanie Taylor RN. documented in this encounter [facility] 05-30-2023 Note HNO ID: [id number] Author: LANI MCCANN RT(R) Service: Radiology Author Type: Technologist Type: Progress Notes Filed: 05/30/2023 11:10 Note Text: Radiology Service Progress Note PATIENT NAME: Ritu Naidu DATE OF SERVICE: May 30, 2023 TIME: 11:00 AM PATIENT IDENTITY VERIFICATION COMPLETED USING TWO (2) IDENTIFIERS: Name and Date of confirmed by patient verbally. FALL SCREENING: Has the patient had 2 falls in the last year or 1 fall with injury or currently using an Ambulatory Assistive Device (Walker, Cane, Wheelchair, Crutches, etc.)? No PATIENT GENDER DATA: Male PATIENT RELEVANT IMPLANT DATA REVIEWED: Yes PATIENT PRESENTS WITH AN IMPLANTABLE OR ATTACHED AIR DUCT MECHANIC: No RADIOLOGY DEPARTMENT: General X-ray: Exam(s) Completed: Spine X-Ray(s): Lumbar AP / LAT / L5-S1 PERIPHERAL IV DATA: Not applicable SIGNED BY: RT Bandar(R) May 30, 2023 11:00 AM [facility] 05-30-2023 Note HNO ID: [id number] Author: GRADY MORTON APRN.ACCOUNTING RECRUITER Service: ? Author Type: Nurse Practitioner Type: Progress Notes Filed: 05/30/2023 12:12 Note Text: SUBJECTIVE Ritu Naidu is a 52 year old male here today for acute concern. Chief Complaint Patient presents with: severe back pain HPI Ritu Naidu is an 52 year old male presents today for back pain. Onset was years ago but worse lately. It is localized to lower back, previously had nerve blocks done with Dr. Webster. It does not radiate. He has tried the chiropractor, helping minimally. It is constant. It is described as aching. It has been alleviated by nothing, tried electric stim, bath soaks, stretches, ice/heat, OTC meds and aggravated by movement. Severity is 8/10. No significant trauma that patient is aware of. Denies numbness, tingling, weakness, saddle paresthesia and bowel or bladder difficulties/leaking/loss of control. Muscle relaxers not super helpful, wants to avoid steroids. His medications were reviewed today and his list is now up to date. Medications Current Outpatient Medications Medication Sig gabapentin (NEURONTIN) 300 mg capsule Take 1 capsule by mouth four times daily for 90 days. HYDROcodone-acetaminophen (NORCO) 5-325 mg per tablet Take 1 tablet by mouth every 6 hours as needed for pain for up to 7 days. FLUoxetine (PROZAC) 40 mg capsule Take 1 capsule by mouth once daily. FLUoxetine (PROZAC) 20 mg capsule Take 1 capsule by mouth once daily. Take with 40 mg fluoxetine capsule metoprolol tartrate, short acting, (LOPRESSOR) 25 mg tablet Take 12.5 mg by mouth two times a day. nitroglycerin sublingual (NITROQUICK) 0.4 mg SL tablet 0.4 MG SUBLINGUALLY EVERY 5 MINUTES NEEDED FOR CARDIAC/CHEST PAIN lisinopril 2.5 mg tablet Take 1 tablet by mouth every afternoon. ticagrelor (BRILINTA) 90 mg tablet Take 1 tablet by mouth two times a day. atorvastatin (LIPITOR) 80 mg tablet Take 1 tablet by mouth once daily. aspirin, enteric coated (ASPIRIN, ENTERIC COATED) 81 mg EC tablet Take 1 tablet by mouth once daily. meloxicam (MOBIC) 15 mg tablet TAKE 1 TABLET BY MOUTH ONCE DAILY. TAKE WITH FOOD. (Patient not taking: Reported on 05/22/2023) losartan (COZAAR) 100 mg tablet Take 1 tablet by mouth once daily. (Patient not taking: Reported on 05/22/2023) zolpidem (AMBIEN) 5 mg tablet Take 1 tablet by mouth at bedtime as needed for sedation for up to 90 days. triamcinolone acetonide (KENALOG) 0.1 % cream Apply 1 application to affected area three times daily. Apply sparingly to area for rash/itching. busPIRone HCl 30 mg tablet Take 1 tablet by mouth twice daily. cyclobenzaprine (FLEXERIL) 10 mg tablet Take 1 tablet by mouth at bedtime as needed for muscle spasm. rOPINIRole (REQUIP) 1 mg tablet Take 1 tablet by mouth daily at bedtime. rOPINIRole (REQUIP) 0.5 mg tablet Take 1 tablet by mouth daily at bedtime. take in addition to 1 mg ropinirole for a total of 1.5 mg omeprazole (PRILOSEC) 40 mg capsule Take 1 capsule by mouth once daily. sildenafil (VIAGRA) 100 mg tablet Take one hour before sex bisoprolol-hydroCHLOROthiazide (ZIAC) 10-6.25 mg per tablet Take 2 tablets by mouth once daily. (Patient not taking: Reported on 05/22/2023) CPAP Initiate Auto PAP @ 5-20 cm of water with humidification. Mask (per patient preference) optional chin strap (if indicated) , filters, tubing, humidifier and lifetime supplies. No current facility-administered medications for this visit. ALLERGIES Allergen Reactions Trazodone Intolerance Increased weird dreams ACTIVE PROBLEM LIST Coronary artery disease with PCI to RCA 05/09/23 - 05/14/2023 Nstemi (Non-St Elevated Myocardial Infarction) (Hcc) - 05/14/2023 Obesity, Class II, Bmi 35-39.9 - 04/18/2023 [...] Respiratory: Negative. Cardiovascular: Negative. Musculoskeletal: Positive for back pain. OBJECTIVE BP 138/78 Pulse 96 Resp 18 Wt 238 lb (108.0kg) Physical Exam Vitals and nursing note reviewed. Constitutional: Gene (more content not included)... [facility] 05-30-2023 Instructions Grady Morton APRN.FAITH - 05/30/2023 10:43 AM EST Pain Management [facility] Address: [address] [place] [address], [address] [place] [address] Specialty: Pain Management documented in this encounter [facility] 05-30-2023 History of Presen t illness Narrative SUBJECTIVE Ritu Naidu is a 52 year old male here today for acute concern. Chief Complaint Patient presents with: severe back pain HPI Ritu Naidu is an 52 year old male presents today for back pain. Onset was years ago but worse lately. It is localized to lower back, previously had nerve blocks done with Dr. Webster. It does not radiate. He has tried the chiropractor, helping minimally. It is constant. It is described as aching. It has been alleviated by nothing, tried electric stim, bath soaks, stretches, ice/heat, OTC meds and aggravated by movement. Severity is 8/10. No significant trauma that patient is aware of. Denies numbness, tingling, weakness, saddle paresthesia and bowel or bladder difficulties/leaking/loss of control. Muscle relaxers not super helpful, wants to avoid steroids. His medications were reviewed today and his list is now up to date. Medications Current Outpatient Medications Medication Sig gabapentin (NEURONTIN) 300 mg capsule Take 1 capsule by mouth four times daily for 90 days. HYDROcodone-acetaminophen (NORCO) 5-325 mg per tablet Take 1 tablet by mouth every 6 hours as needed for pain for up to 7 days. FLUoxetine (PROZAC) 40 mg capsule Take 1 capsule by mouth once daily. FLUoxetine (PROZAC) 20 mg capsule Take 1 capsule by mouth once daily. Take with 40 mg fluoxetine capsule metoprolol tartrate, short acting, (LOPRESSOR) 25 mg tablet Take 12.5 mg by mouth two times a day. nitroglycerin sublingual (NITROQUICK) 0.4 mg SL tablet 0.4 MG SUBLINGUALLY EVERY 5 MINUTES NEEDED FOR CARDIAC/CHEST PAIN lisinopril 2.5 mg tablet Take 1 tablet by mouth every afternoon. ticagrelor (BRILINTA) 90 mg tablet Take 1 tablet by mouth two times a day. atorvastatin (LIPITOR) 80 mg tablet Take 1 tablet by mouth once daily. aspirin, enteric coated (ASPIRIN, ENTERIC COATED) 81 mg EC tablet Take 1 tablet by mouth once daily. meloxicam (MOBIC) 15 mg tablet TAKE 1 TABLET BY MOUTH ONCE DAILY. TAKE WITH FOOD. (Patient not taking: Reported on 05/22/2023) losartan (COZAAR) 100 mg tablet Take 1 tablet by mouth once daily. (Patient not taking: Reported on 05/22/2023) zolpidem (AMBIEN) 5 mg tablet Take 1 tablet by mouth at bedtime as needed for sedation for up to 90 days. triamcinolone acetonide (KENALOG) 0.1 % cream Apply 1 application to affected area three times daily. Apply sparingly to area for rash/itching. busPIRone HCl 30 mg tablet Take 1 tablet by mouth twice daily. cyclobenzaprine (FLEXERIL) 10 mg tablet Take 1 tablet by mouth at bedtime as needed for muscle spasm. rOPINIRole (REQUIP) 1 mg tablet Take 1 tablet by mouth daily at bedtime. rOPINIRole (REQUIP) 0.5 mg tablet Take 1 tablet by mouth daily at bedtime. take in addition to 1 mg ropinirole for a total of 1.5 mg omeprazole (PRILOSEC) 40 mg capsule Take 1 capsule by mouth once daily. sildenafil (VIAGRA) 100 mg tablet Take one hour before sex bisoprolol-hydroCHLOROthiazide (ZIAC) 10-6.25 mg per tablet Take 2 tablets by mouth once daily. (Patient not taking: Reported on 05/22/2023) CPAP Initiate Auto PAP @ 5-20 cm of water with humidification. Mask (per patient preference) optional chin strap (if indicated) , filters, tubing, humidifier and lifetime supplies. No current facility-administered medications for this visit. ALLERGIES Allergen Reactions Trazodone Intolerance Increased weird dreams ACTIVE PROBLEM LIST Coronary artery disease with PCI to RCA 05/09/23 - 05/14/2023 Nstemi (Non-St Elevated Myocardial Infarction) (Hcc) - 05/14/2023 Obesity, Class II, Bmi 35-39.9 - 04/18/2023 [...] Respiratory: Negative. Cardiovascular: Negative. Musculoskeletal: Positive for back pain. OBJECTIVE BP 138/78 Pulse 96 Resp 18 Wt 238 lb (108.0kg) Physical Exam Vitals and nursing note reviewed. [...] Neck: Vascular: No JVD. Trachea: Trachea normal. Pulmonary: Effort: Pulmonary effort is normal. No accessory muscle usage, prolonged expiration or respiratory distress. Musculoskeletal: Cervical back: Normal and neck supple. Thoracic back: Normal. Lumbar back: Tenderness (paraspinal) present. No swelling, edema, deformity, signs of trauma, lacerations, spasms or bony tenderness. Decreased range of motion. Negative right straight leg raise test and negative left straight leg raise test. No scoliosis. Skin: General: Skin is warm and dry. Capillary Refill: Capillary refill takes less than 2 seconds. Neurological: General: No focal deficit present. Mental Status: He is alert and oriented to person, place, and time. Mental status is at baseline. Psychiatric: Attention and Perception: Attention and perception normal. Mood and Affect: Mood and affect normal. Speech: Speech normal. Behavior: Behavior normal. Behavior is cooperative. Thought Content: Thought content normal. Cognition and Memory: Cognition and memory normal. Judgment: Judgment normal. ASSESSMENT/PLAN: 1. Lumbar pain - ICD9: 724.2, ICD10: M54.50 (primary diagnosis) No recent xray, prior injections needed, refer to pain management. May also need spine referral. - XR LUMBAR GENERAL 3V AP/LAT/L5-S1 - GABAPENTIN 300 MG CAPSULE - HYDROCODONE 5 MG-ACETAMINOPHEN 325 MG TABLET - CONSULT TO PAIN MGT 2. Lumbosacral spondylosis without myelopathy - ICD9: 721.3, ICD10: M47.817 - XR LUMBAR GENERAL 3V AP/LAT/L5-S1 - GABAPENTIN 300 MG CAPSULE - HYDROCODONE 5 MG-ACETAMINOPHEN 325 MG TABLET - CONSULT TO PAIN MGT 3. Degeneration of lumbar or lumbosacral intervertebral disc - ICD9: 722.52, ICD10: M51.37 - XR LUMBAR GENERAL 3V AP/LAT/L5-S1 - GABAPENTIN 300 MG CAPSULE - HYDROCODONE 5 MG-ACETAMINOPHEN 325 MG TABLET - CONSULT TO PAIN MGT OARRS reviewed and script is appropriate, non-opioids considered. Patient is aware of risks and benefits of opioid medications and their use, including but not limited to risk for addiction. Advised to take medication as prescribed and adhere to the dosing regimen and to use the least amount necessary for the shortest period of time. Discussed possible side effects including constipation. Advised to use caution when operating heavy machinery and driving and to never share or sell medication. Portions of this note have been entered by ancillary staff. I have reviewed and when necessary edited, so that they are an adequate record of my encounter with this patient Please note that parts of this document were created using voice recognition software and therefore may contain grammatical errors. Patient verbalizes understanding of instructions from today's visit and in agreement with treatment plan. Questions answered. Agrees to call the office if questions, concerns of issues with acute symptoms not improving or if they worsen. See diagnoses and orders for additional plan(s). Allergies and medications were reviewed, list was updated, and refills given if needed. Past medical, surgical, social, and family history reviewed and updated as appropriate. Encouraged proper diet & exercise as well as compliance with taking medications. Age-appropriate health preventative measures were discussed. Return if symptoms worsen or fail to improve, for Keep next scheduled appointment.. Grady Morton APRN-FAITH documented in this encounter [facility] 05-22-2023 Miscellaneous Notes Patient phones for refill(s): Requested Prescriptions Pending Prescriptions Disp Refills FLUoxetine (PROZAC) 40 mg capsule 90 capsule 3 Sig: Take 1 capsule by mouth once daily. FLUoxetine (PROZAC) 20 mg capsule 90 capsule 3 Sig: Take 1 capsule by mouth once daily. Take with 40 mg fluoxetine capsule Date of last office visit in primary care: 05/14/2023 Date of next office visit in primary care: 05/30/2023 Noemy Morocho RN. documented in this encounter [facility] 05-22-2023 Note HNO ID: [id number] Author: CASTRO CHEN, ? Service: ? Author Type: Physician Type: Progress Notes Filed: 05/23/2023 16:08 Note Text: Initial Podiatric Office Visit: Chief Complaint: This 52 year old male who presents with chief complaint:b/l arch pain HPI Patient presents to clinic for evaluation of b/l feet Complains of b/l arch pain Worse being on his foot He states he was scheduled with me two weeks ago but had to cancel because of this office not having provider He ended up having a heart attack. PAIN EVALUATION 05/22/2023 1208 Pain Level: 8 Pain Location: Other: See Comment bilateral feet Description: Burning;Sharp;Dull Duration Amount of Time: 3 Duration Units: Months Frequency: Intermittent Intervention/Comfort measure: Reposition;Relaxation Hemoglobin A1C (%) Date Value 04/18/2023 5.9 01/02/2023 6.3 01/30/2021 6.2 09/20/2019 6.0 05/25/2018 5.5 09/27/2017 5.7 12/07/2016 5.7 PCP: Mita Zhou MD PAST MEDICAL HISTORY Diagnosis Date Cutaneous abscess of neck 01/16/2015 Depression GI AVM (gastrointestinal arteriovenous vascular malformation) Lumbago 11/18/2005 Mixed hyperlipidemia Hyperlipidemia Nonspecific (abnormal) findings on radiological and other examination of gastrointestinal tract CAROL ANN (obstructive sleep apnea) [facility] fx. 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 nitroglycerin sublingual (NITROQUICK) 0.4 mg SL tablet 0.4 MG SUBLINGUALLY EVERY 5 MINUTES NEEDED FOR CARDIAC/CHEST PAIN lisinopril 2.5 mg tablet Take 1 tablet by mouth every afternoon. ticagrelor (BRILINTA) 90 mg tablet Take 1 tablet by mouth two times a day. atorvastatin (LIPITOR) 80 mg tablet Take 1 tablet by mouth once daily. aspirin, enteric coated (ASPIRIN, ENTERIC COATED) 81 mg EC tablet Take 1 tablet by mouth once [...] at bedtime as needed for muscle spasm. rOPINIRole (REQUIP) 1 mg tablet Take 1 tablet by mouth daily at bedtime. rOPINIRole (REQUIP) 0.5 mg tablet Take 1 tablet by mouth daily at bedtime. take in addition to 1 mg ropinirole for a total of 1.5 mg omeprazole (PRILOSEC) 40 mg capsule Take 1 capsule by mouth once daily. sildenafil (VIAGRA) 100 mg tablet Take one hour before sex FLUoxetine (PROZAC) 20 mg capsule Take 1 capsule by mouth once daily. Take with 40 mg fluoxetine capsule CPAP Initiate Auto PAP @ 5-20 cm of water with humidification. Mask (per patient preference) optional chin strap (if indicated) , filters, tubing, humidifier and lifetime supplies. meloxicam (MOBIC) 15 mg tablet TAKE 1 TABLET BY MOUTH ONCE DAILY. TAKE WITH FOOD. (Patient not taking: Reported on 05/22/2023) losartan (COZAAR) 100 mg tablet Take 1 tablet by mouth once daily. (Patient not taking: Reported on 05/22/2023) zolpidem (AMBIEN) 5 mg tablet Take 1 tablet by mouth at bedtime as needed for sedation for up to 90 days. bisoprolol-hydroCHLOROthiazide (ZIAC) 10-6.25 mg per tablet Take 2 tablets by mouth once daily. (Patient not taking: Reported on 05/22/2023) FLUoxetine (PROZAC) 40 mg capsule Take 1 capsule by mouth once daily. (Patient not taking: Reported on 05/22/2023) No current facility-administered medications for this visit. ALLERGIES Allergen Reactions Trazodone Intolerance Increased weird dreams PAST SURGICAL HISTORY Procedure Laterality Date ARTHRP KNE CONDYLEANDPLATU MEDIALANDLAT COMPARTMENTS 2013 Right CARPAL TUNNEL 2010 L COLONOSCOPY FLX DX W/COLLJ SPEC WHEN PFRMD 12/26/08 EXC VARICOCELE/LIGATION SPERMATIC VEINS SPX 2009 PAST SURGICAL HISTORY OF appendectomy PAST SURGICAL HISTORY OF wisdom teeth PAST SURGICAL HISTORY OF meniscus of the right knee. PAST SURGICAL HISTORY OF January tib-fib fracture ORIF left leg (Feb 2015 will have hardwarde removed) PAST SURGICAL HISTORY OF September 2014 Dr. Felder RFA for lumbar radiculopathy left side PAST SURGICAL HISTORY OF 08/23/15 Left knee replacement (Dr. Edmondson) TONSILLECTOMY PRIMARY/SECONDARY Tonsillectomy FAMILY HISTORY Problem Relation Age of Onset Coronary Artery Disease Father Osteoporosis Mother Social History Tobacco Use Smoking status: Never Smokeless tobacco: Former Types: Snuff, Chew Quit date: 06/05/2012 (more content not included)... [facility] 05-22-2023 Note HNO ID: [id number] Author: TANESHA HALL LPN Service: ? Author Type: LICENSED NURSE Type: Progress Notes Filed: 05/23/2023 16:08 Note Text: AMB ROOMING INTAKE FLOWSHEET DATA Pain Pain Level: 8 Pain Location: Other: See Comment (bilateral feet) Description: Burning, Sharp, Dull Duration Amount of Time: 3 Duration Units: Months Frequency: Intermittent Intervention/Comfort measure: Reposition, Relaxation Patient presents with: Left Foot - New, Pain Right Foot - New, Pain Tanesha Hall LPN [facility] 05-22-2023 Note HNO ID: [id number] Author: KIMBERLY SALAS RT(R) Service: Radiology Author Type: Technologist Type: Progress Notes Filed: 05/22/2023 11:49 Note Text: Radiology Service Progress Note PATIENT NAME: Ritu Naidu DATE OF SERVICE: May 22, 2023 TIME: 11:38 AM PATIENT IDENTITY VERIFICATION COMPLETED USING TWO (2) IDENTIFIERS: Name and Date of confirmed by patient verbally. FALL SCREENING: Has the patient had 2 falls in the last year or 1 fall with injury or currently using an Ambulatory Assistive Device (Walker, Cane, Wheelchair, Crutches, etc.)? No PATIENT GENDER DATA: Male PATIENT RELEVANT IMPLANT DATA REVIEWED: Not Applicable PATIENT PRESENTS WITH AN IMPLANTABLE OR ATTACHED AIR DUCT MECHANIC: No RADIOLOGY DEPARTMENT: General X-ray: Exam(s) Completed: Lower Extremity X-Ray(s): Foot, Bilateral and Wt. Bearing PERIPHERAL IV DATA: Not applicable SIGNED BY: RT Juliane(R) May 22, 2023 11:38 AM [facility] 05-22-2023 Instructions Castro Chen - 05/22/2023 12:21 PM EST Images from the original note were not included. What is Plantar Fasciitis? Plantar fasciitis is the most common cause of heel pain. The pain is caused by inflammation of the plantar fascia. If you strain your plantar fascia, it becomes weak, swollen and irritated (inflamed). The resulting pain may be isolated in the heel or may appear at different points on the bottom of the foot, from time to time; it may occur in one foot or both. Some think that plantar fasciitis pain is caused by irritation of nerves from tissue swelling or inflammation, but it is debatable. Plantar fasciitis is common in middle-aged people; it also occurs in younger people who are on their feet a lot, such as athletes or soldiers. The plantar fascia is a strong band of connective tissue that extends from the base of the toes, along the bottom of the foot, to the bottom of the heel (calcaneous bone); it acts like a bowstring to maintain the arch of the foot. What are heel spurs? The inflammatory reaction of the heel bone may produce spike-like projections of new bone, called heel spurs. The spurs sometimes show on X-rays. They neither cause the initial pain nor do they cause the initial problem. However, later, having to walk on spurs may cause sharp pain. What causes plantar fasciitis? Plantar fasciitis is caused by straining the ligament that supports your arch. Repeated strain can cause tiny tears in the ligament. These lead to pain and swelling. During walking, the plantar fascia experiences tension up to twice the body weight with each step. While this is normal, those who spend much time on their feet, such as nurses, paint pourer/waiters, and mail carriers, often experience plantar fasciitis. Athletes involved in tennis or other racquet sports, race walking, jogging or running also show a higher incidence of plantar fasciitis than do those participating in other activities. Thus, it's clear that plantar fasciitis is predominantly an overuse injury. In fact, any activity that results in prolonged tension and stress on the plantar fascia may cause plantar fasciitis. It is possible that changes in footwear may play a role in causing plantar fasciitis, no matter what activity is occurring. Those who are overweight are prone to plantar fasciitis. This is true even for sedentary people who get little physical activity. Abnormalities of the foot and ankle joints may predispose some individuals to development of plantar fasciitis (specifically, over pronation of the subtalar joint). Contributing Factors * Flat feet * Toe running, hill running * Sudden weight increase * High-arched, rigid feet * Soft terrain, e.g. running on sand * Obesity * Pronated feet (rolled inward) * Sudden increase in activity * Family tendency * Poor shoe support * Worn out or poorly fitted shoes * Increasing age * Walking, standing or running for long periods of time, especially on hard surfaces. How is the Injury Treated? Rest Your Feet: Limit, or if possible, stop activities that are causing your heel pain. Try to avoid running or walking on hard surfaces, such as concrete. Use pain as your guide. If your foot is too painful, rest it. Ice: Ice the sore area for 30 to 60 minutes, several times a day, to reduce inflammation and relieve pain. Apply a plastic bag of crushed ice (or a bag of frozen peas) over a towel. Ice the sore area for 15 minutes after activity/exercise. Application of heat is not generally recommended, as heat expands the bone and connective tissue, perhaps exerting greater pressure on nerves and thereby increasing pain. If heat is used, follow it with ice. Medication: If your condition developed recently, anti-inflammatory/analgesic medication, combined with heel pads (see below) may be all that is necessary to relieve pain and to reduce inflammation. If no pain relief has occurred after 2-3 weeks, however, your doctor may inject either cortisone or local anesthetic directly into the tender area. Exercises: Do simple exercises, such as calf stretches and towel stretches (see below) several times a day, especially when you first get up in the morning. These can help your ligament become more flexible and strengthen the muscles that support your arch. Shoes: Poorly fitting shoes can cause plantar fasciitis. The best type of shoe to wear is a good walking or running shoe with good shock absorption and excellent arch support. You should choose the one that fits the best. [place] with your athletic shoes to find a pair that is comfortable and causes fewer symptoms. Put your shoes on as soon as you get out of bed; going barefoot or wearing slippers may make your pain worse. Good brands include (but are not limited to): New Balance, Asics, Saucony, SAS and Merrel s. Taping: Your doctor may tape your foot to maintain the arch. This takes some of the tension off the plantar fascia. Weight Loss: If your weight is putting extra stress on your feet, your doctor may encourage you to try a weight-loss program. Orthotics: An orthotic insole is a molded piece of rubber, plastic, or other material that you insert into your shoe. It corrects the alignment of your foot and cushions your foot from excessive pounding. These may be prescription or non-prescription. Prescription orthotics are custom-fitted and may fit better and control pain better, but are very expensive. Night Splints: A night splint holds the foot with the toes pointed up and the ankle at a 90-degree angle. This position applies a constant, gentle stretch to the plantar fascia. Corticosteroid Shots: Steroids may be injected into the tender area to reduce inflammation. REHAB Exercises to stretch the plantar fascia, the calf muscles, and the Achilles tendon. Tightness of the muscles of the calves may contribute to plantar fasciitis, so stretching the calf muscles is important to rehabilitation, as is stretching of the plantar fascia itself. Plantar fascial stretches Assisted Dorsiflexion/Plantar Fascia Stretch: Sit on the floor or ground, barefoot, with both legs outstretched. Use a towel or elastic band and wrap it around the ball (and not the toes) of the affected foot. Use the towel or elastic band to provide resistance to upward movement of the forefoot. Pull foot upward (toward your body) with the help of the elastic band or towel, and then return to the starting position. Ten repetitions are recommended. Perform the sequence at least three times a day. Alternate Plantar Fascia Stretch: Sit upright in a chair, barefoot. Place the ankle of the affected foot on your opposite knee. Using the same hand as the affected foot, reach across and grab the toes. Flex the ankle toward and pull the toes toward the alvarado. To test the stretch, place the thumb of your hand on the bottom of the foot. You should be able to feel the cord-like plantar fascia, running the length of the foot. Hold the stretch for a count of 10, then relax. Repeat 10 times. Do the sequence at least three times a day. Achilles/Calf Stretches Strengthening the muscles of the calves may contribute to successful rehabilitation of plantar fasciitis, as well as prevent reoccurrence. The exercises below will help strengthen the calf muscles. Calf and Achilles Tendon Stretch (Gastrocnemius Stretch): Face a wall, standing an arm's length away. Place one foot back. Place both hands on the wall. Bend the elbows and knee of your forward leg, keeping the heel of the backward foot on the floor and keeping your body straight (aligned), until your forehead nearly touches the wall, or until significant stretch is felt in the muscles of the calf of the backward leg. Hold this position for 10 to 15 seconds. Extend elbows (straighten your arms and stand upright again) and maintain this position for 10 seconds. Repeat this cycle 15 to 20 times. Switch legs and repeat the exercise. Powerstep Original Full length. Can purchase at [employer] and boots,shoes and more here in [place], [employer] in [place] or [place]. Also can find in [employer] in [facility]. Powersteps can also be purchased online, starting around $45.00 If you have a metatarsal or dancer pad for your feet apply the pad directly to the insole so you can interchange between your shoes. Find a shoe with a removable insole and take this out and replace with your powerstep insole. Always bring powersteps with you when shopping for shoes so that you can make sure that everything fits well together documented in this encounter [facility] 05-22-2023 History of Presen t illness Narrative Images from the original note were not included. Initial Podiatric Office Visit: Chief Complaint: This 52 year old male who presents with chief complaint:b/l arch pain HPI Patient presents to clinic for evaluation of b/l feet Complains of b/l arch pain Worse being on his foot He states he was scheduled with me two weeks ago but had to cancel because of this office not having provider He ended up having a heart attack. PAIN EVALUATION 05/22/2023 1208 Pain Level: 8 Pain Location: Other: See Comment bilateral feet Description: Burning;Sharp;Dull Duration Amount of Time: 3 Duration Units: Months Frequency: Intermittent Intervention/Comfort measure: Reposition;Relaxation Hemoglobin A1C (%) Date Value 04/18/2023 5.9 01/02/2023 6.3 01/30/2021 6.2 09/20/2019 6.0 05/25/2018 5.5 09/27/2017 5.7 12/07/2016 5.7 PCP: Mita Zhou MD PAST MEDICAL HISTORY Diagnosis Date Cutaneous abscess of neck 01/16/2015 Depression GI AVM (gastrointestinal arteriovenous vascular malformation) Lumbago 11/18/2005 Mixed hyperlipidemia Hyperlipidemia Nonspecific (abnormal) findings on radiological and other examination of gastrointestinal tract CAROL ANN (obstructive sleep apnea) [facility] fx. 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 nitroglycerin sublingual (NITROQUICK) 0.4 mg SL tablet 0.4 MG SUBLINGUALLY EVERY 5 MINUTES NEEDED FOR CARDIAC/CHEST PAIN lisinopril 2.5 mg tablet Take 1 tablet by mouth every afternoon. ticagrelor (BRILINTA) 90 mg tablet Take 1 tablet by mouth two times a day. atorvastatin (LIPITOR) 80 mg tablet Take 1 tablet by mouth once daily. aspirin, enteric coated (ASPIRIN, ENTERIC COATED) 81 mg EC tablet Take 1 tablet by mouth once [...] at bedtime as needed for muscle spasm. rOPINIRole (REQUIP) 1 mg tablet Take 1 tablet by mouth daily at bedtime. rOPINIRole (REQUIP) 0.5 mg tablet Take 1 tablet by mouth daily at bedtime. take in addition to 1 mg ropinirole for a total of 1.5 mg omeprazole (PRILOSEC) 40 mg capsule Take 1 capsule by mouth once daily. sildenafil (VIAGRA) 100 mg tablet Take one hour before sex FLUoxetine (PROZAC) 20 mg capsule Take 1 capsule by mouth once daily. Take with 40 mg fluoxetine capsule CPAP Initiate Auto PAP @ 5-20 cm of water with humidification. Mask (per patient preference) optional chin strap (if indicated) , filters, tubing, humidifier and lifetime supplies. meloxicam (MOBIC) 15 mg tablet TAKE 1 TABLET BY MOUTH ONCE DAILY. TAKE WITH FOOD. (Patient not taking: Reported on 05/22/2023) losartan (COZAAR) 100 mg tablet Take 1 tablet by mouth once daily. (Patient not taking: Reported on 05/22/2023) zolpidem (AMBIEN) 5 mg tablet Take 1 tablet by mouth at bedtime as needed for sedation for up to 90 days. bisoprolol-hydroCHLOROthiazide (ZIAC) 10-6.25 mg per tablet Take 2 tablets by mouth once daily. (Patient not taking: Reported on 05/22/2023) FLUoxetine (PROZAC) 40 mg capsule Take 1 capsule by mouth once daily. (Patient not taking: Reported on 05/22/2023) No current facility-administered medications for this visit. ALLERGIES Allergen Reactions Trazodone Intolerance Increased weird dreams PAST SURGICAL HISTORY Procedure Laterality Date ARTHRP KNE CONDYLE&PLATU MEDIAL&LAT COMPARTMENTS 2013 Right CARPAL TUNNEL 2011 L COLONOSCOPY FLX DX W/COLLJ SPEC WHEN PFRMD 12/26/08 EXC VARICOCELE/LIGATION SPERMATIC VEINS SPX 2009 PAST SURGICAL HISTORY OF appendectomy PAST SURGICAL [...] Topics Alcohol use: No Drug use: No REVIEW OF SYSTEMS GENERAL: Negative for Malaise, significant weight loss, fever RESPIRATORY: Negative for cough, wheezing and shortness of breath CARDIOVASCULAR: Negative for chest pain, leg swelling and palpitations GI: Negative for abdominal discomfort, blood in stools or black stools and change in bowel habits : Negative for dysuria, frequency and incontinence MUSCULOSKELETAL: Negative for joint pain or swelling, back pain, and muscle pain. SKIN: Negative for lesions, rash, and itching. HEMATOLOGY/LYMPHOLOGY Negative for prolonged bleeding, bruising easily, and swollen nodes. ENDOCRINE: Negative for cold or heat intolerance, polyuria, polydipsia and goiter. NEURO: negative Physical Exam: Constitutional: Pt is a well developed 52 year old male who is alert, oriented and cooperative Eyes: Following during examination. No redness or drainage. Respiratory: RR normal and nonlabored. Even breathing. No evidence of distress or shortness of breath. Psychology: Patient is engaged during conversation. Normal affect and mood. Does not appear depressed or anxious during encounter. Vascular: Dorsalis pedis and posterior tibial pulses palpable as b/l Capillary Fill time < 5 seconds to digits 1-5 b/l Skin temperature warm to warm proximal to distal b/l Hair growth present to digits Neurological: intact light touch/epicritic sensation - tinel b/l intact protective sensation no significant neurological deficits Dermatological: Nails 1-5 b/l appear normal. Webspaces clean and dry 1-4 b/l. Skin appears well hydrated and supple. good color, texture, turgor. No open lesions present. Callus of b/l hallux. Wart vs benign skin lesion, right forefoot Musculoskeletal/Orthopaedic: Patient has pain to palpation of b/l medial arch Foot type is pronated structurally AJ ROM is full with knee extended and flexed 1st MPJ is full when loaded and no pain or crepitus are noted with ROM. MTJ, STJ are full and free of pain and crepitus. +5/5 muscle strength dorsiflexion, plantarflexion, inversion, eversion b/l Radiographs: 3 views b/l foot ordered May 22, 2023: I have personally reviewed and interpreted these XR myself: no acute fracture ASSESSMENT: (M72.2) Plantar fasciitis (primary encounter diagnosis) PLAN: 1. Initial Office Visit - A thorough review of the patient's PMH and Podiatric physical exam was completed. 2. Patient advised to perform stretching excercises, icing, and to make appropriate shoe gear changes to include wearing athletic-type shoes with supportive insoles. No barefoot walking. Patient also given written instructions on how to correctly perform the stretching of the achilles tendon/calf stretches, and the heel spur/plantar fasciitis regimen. 3. Patient advised to seek wide, deep toe box, accomodative, comfortable, lace-up, athletic/walking type footwear that includes motion control characteristics for support and cushion that need to be worn at all times when weight-bearing. Shoes should be tested for torsional stability as well as proper bending at the toebox rather than at the midfoot. Good quality shoes such as, but not limited to, New Balance or Asics are examples of more proper foot gear. 4. Patient recommended to get powerstep insoles for proper support of the arch in order to alleviate the tension and stress on the plantar fascia associated with normal daily walking. Patient advised that these modalities used in conjunction with stretching and icing are able to alleviate most symptoms from this condition. 5. Discussed callus of b/l hallux. Offered reduction with dremmel. He chose to contineu with pummice stone 6. Discussed possible wart vs skin lesion of right foot. 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 FALL SCREENING: Has the patient had 2 falls in the last year or 1 fall with injury or currently using an Ambulatory Assistive Device (Walker, Cane, Wheelchair, Crutches, etc.)? No PATIENT GENDER DATA: Male PATIENT RELEVANT IMPLANT DATA REVIEWED: Not Applicable PATIENT PRESENTS WITH AN IMPLANTABLE OR ATTACHED AIR DUCT MECHANIC: No RADIOLOGY DEPARTMENT: General X-ray: Exam(s) Completed: Lower Extremity X-Ray(s): Foot, Bilateral and Wt. Bearing PERIPHERAL IV DATA: Not applicable SIGNED BY: RT Juliane(R) May 22, 2023 11:38 AM documented in this encounter [facility] 05-14-2023 Note HNO ID: [id number] Author: HEATHER MURPHY APRN.ACCOUNTING RECRUITER Service: ? Author Type: Nurse Practitioner Type: Progress Notes Filed: 05/14/2023 17:10 Note Text: CC: Patient presents with: Hospital F/U: 1 stent Heart HPI Ritu Naidu is a 52 year old male who presents today for above. Patient was admitted to [facility] 05/08-05/10 for NSTEMI. PCI to RCA on 05/09. Discharged home on Ticagrelor, ASA and statin continued. He has follow-up with cardiology at the end of this month and plan is for cardiac rehab as well. Today patient reports he is doing well. No further episodes of chest pain. Denies SOB, palpitations, PND, orthopnea, cough, wheezing. Taking all medications as prescribed. Denies unusual bleeding. He was released to go back to work this week but does not feel ready to go back, requesting off until the . 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 Pain is worse with lifting arm overhead. Review of Systems See HPI PAST MEDICAL HISTORY Diagnosis Date Cutaneous abscess of neck 01/16/2015 Depression GI AVM (gastrointestinal arteriovenous vascular malformation) Lumbago 11/18/2005 Mixed hyperlipidemia Hyperlipidemia Nonspecific (abnormal) findings on radiological and other examination of gastrointestinal tract CAROL ANN (obstructive sleep apnea) [facility] fx. 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 Edmondson) TONSILLECTOMY PRIMARY/SECONDARY Tonsillectomy ALLERGIES Trazodone MEDICATIONS zolpidem (AMBIEN) 5 mg tablet Take 1 tablet by mouth at bedtime as needed for sedation for up to 90 days. triamcinolone acetonide (KENALOG) 0.1 % cream Apply [...] at bedtime as needed for muscle spasm. rOPINIRole (REQUIP) 1 mg tablet Take 1 tablet by mouth daily at bedtime. rOPINIRole (REQUIP) 0.5 mg tablet Take 1 tablet by mouth daily at bedtime. take in addition to 1 mg ropinirole for a total of 1.5 mg atorvastatin (LIPITOR) 20 mg tablet Take 1 tablet by mouth once daily. omeprazole (PRILOSEC) 40 mg capsule Take 1 capsule by mouth once daily. bisoprolol-hydroCHLOROthiazide (ZIAC) 10-6.25 mg per tablet Take 2 tablets by mouth once daily. FLUoxetine (PROZAC) 40 mg capsule Take 1 capsule by mouth once daily. meloxicam (MOBIC) 15 mg tablet TAKE 1 TABLET BY MOUTH ONCE DAILY. TAKE WITH FOOD. predniSONE (DELTASONE) 20 mg tablet 1 tablet three times a day for 3 days, then 2 times a day for 3 days, the one daily for 3 days. losartan (COZAAR) 100 mg tablet Take 1 tablet by mouth once daily. meclizine (ANTIVERT) 25 mg tab Take 1 tablet by mouth every 6 hours as needed (dizziness). sildenafil (VIAGRA) 100 mg tablet Take one hour before sex FLUoxetine (PROZAC) 20 mg capsule Take 1 capsule by mouth once daily. Take with 40 mg fluoxetine capsule CPAP Initiate Auto PAP @ 5-20 cm of water with humidification. Mask (per patient preference) optional chin strap (if indicated) , filters, tubing, humidifier and lifetime supplies. FAMILY HISTORY Problem Relation Age of Onset Coronary Artery Disease Father Osteoporosis Mother Social History Tobacco Use Smoking status: Never Smokeless tobacco: Former Types: Snuff, Chew Quit date: 06/05/2012 Tobacco comments: quit chewing after 10 years. Substance Use Topics Alcohol use: No Drug use: No BP 138/82 Pulse 80 Temp (!) 35.7 ?C (96.2 ?F) (Left Tympanic) Resp 16 Wt 105.7 kg (233 lb) BMI 37.04 kg/m? Physical Exam Vitals reviewed. Constitutional: Appearance: Normal appearance. Cardiovascular: Rate and Rhythm: Normal rate and regular rhythm. Pulses: Normal pulses. Heart sounds: Normal heart sounds. No murmur heard. Pulmonary: Effort: Pulmonary effort is normal. Breath sounds: Normal breath sounds. (more content not included)... [facility] 05-14-2023 History of Presen t illness Narrative CC: Patient presents with: Hospital F/U: 1 stent Heart HPI Ritu Naidu is a 52 year old male who presents today for above. Patient was admitted to [facility] 05/08-05/10 for NSTEMI. PCI to RCA on 05/09. Discharged home on Ticagrelor, ASA and statin continued. He has follow-up with cardiology at the end of this month and plan is for cardiac rehab as well. Today patient reports he is doing well. No further episodes of chest pain. Denies SOB, palpitations, PND, orthopnea, cough, wheezing. Taking all medications as prescribed. Denies unusual bleeding. He was released to go back to work this week but does not feel ready to go back, requesting off until the . 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 Pain is worse with lifting arm overhead. Review of Systems See HPI PAST MEDICAL HISTORY Diagnosis Date Cutaneous abscess of neck 01/16/2015 Depression GI AVM (gastrointestinal arteriovenous vascular malformation) Lumbago 11/18/2005 Mixed hyperlipidemia Hyperlipidemia Nonspecific (abnormal) findings on radiological and other examination of gastrointestinal tract CAROL ANN (obstructive sleep apnea) [facility] fx. [phone] Other psoriasis and similar disorders Psoriasis Persistent [...] Edmondson) TONSILLECTOMY PRIMARY/SECONDARY <AGE 12 Tonsillectomy ALLERGIES Trazodone MEDICATIONS zolpidem (AMBIEN) 5 mg tablet Take 1 tablet by mouth at bedtime as needed for sedation for up to 90 days. triamcinolone acetonide (KENALOG) 0.1 % cream Apply [...] at bedtime as needed for muscle spasm. rOPINIRole (REQUIP) 1 mg tablet Take 1 tablet by mouth daily at bedtime. rOPINIRole (REQUIP) 0.5 mg tablet Take 1 tablet by mouth daily at bedtime. take in addition to 1 mg ropinirole for a total of 1.5 mg atorvastatin (LIPITOR) 20 mg tablet Take 1 tablet by mouth once daily. omeprazole (PRILOSEC) 40 mg capsule Take 1 capsule by mouth once daily. bisoprolol-hydroCHLOROthiazide (ZIAC) 10-6.25 mg per tablet Take 2 tablets by mouth once daily. FLUoxetine (PROZAC) 40 mg capsule Take 1 capsule by mouth once daily. meloxicam (MOBIC) 15 mg tablet TAKE 1 TABLET BY MOUTH ONCE DAILY. TAKE WITH FOOD. predniSONE (DELTASONE) 20 mg tablet 1 tablet three times a day for 3 days, then 2 times a day for 3 days, the one daily for 3 days. losartan (COZAAR) 100 mg tablet Take 1 tablet by mouth once daily. meclizine (ANTIVERT) 25 mg tab Take 1 tablet by mouth every 6 hours as needed (dizziness). sildenafil (VIAGRA) 100 mg tablet Take one hour before sex FLUoxetine (PROZAC) 20 mg capsule Take 1 capsule by mouth once daily. Take with 40 mg fluoxetine capsule CPAP Initiate Auto PAP @ 5-20 cm of water with humidification. Mask (per patient preference) optional chin strap (if indicated) , filters, tubing, humidifier and lifetime supplies. FAMILY HISTORY Problem Relation Age of Onset Coronary Artery Disease Father Osteoporosis Mother Social History Tobacco Use Smoking status: Never Smokeless tobacco: Former Types: Snuff, Chew Quit date: 06/05/2012 Tobacco comments: quit chewing after 10 years. Substance Use Topics Alcohol use: No Drug use: No BP 138/82 Pulse 80 Temp (!) 35.7 C (96.2 F) (Left Tympanic) Resp 16 Wt 105.7 kg (233 lb) BMI 37.04 kg/m Physical Exam Vitals reviewed. Constitutional: Appearance: Normal appearance. Cardiovascular: Rate and Rhythm: Normal rate and regular rhythm. Pulses: Normal pulses. Heart sounds: Normal heart sounds. No murmur heard. Pulmonary: Effort: Pulmonary effort is normal. Breath sounds: Normal breath sounds. No wheezing, rhonchi or rales. Musculoskeletal: Right lower leg: No edema. Left lower leg: No edema. Skin: General: Skin is warm and dry. Neurological: Mental Status: He is alert. Psychiatric: Mood and Affect: Mood normal. DATA REVIEWED: Outside chart from [facility] admission reviewed. ASSESSMENT/PLAN: 1. Coronary artery disease with PCI to RCA 05/09/23 - ICD9: 414.01, ICD10: I25.10 (primary diagnosis) Patient doing well since discharge. Continue with discharge medications as prescribed. Follow-up with cardiology this month. Will also be starting cardiac rehab 2. Muscle strain of chest wall, subsequent encounter - ICD9: V58.89, 848.8, ICD10: S29.011D Tylenol as needed. Can also try OTC topical medications such as Icy Hot. 3. NSTEMI (non-ST elevated myocardial infarction) (HCC) - ICD9: 410.70, ICD10: I21.4 See #1 Prescription instructions reviewed with patient as applicable. Potential red flag symptoms discussed with the patient. Reviewed appropriate action plan to take if red flag symptoms occur. Patient agreeable to treatment plan. Heather Murphy APRN.ACCOUNTING RECRUITER documented in this encounter [facility] 05-12-2023 Note Patient Outreach (ADRIANNA ECKERT) RITU NAIDU ([id number]) 1970 M Date Time Provider Department 05/12/23 NO PCP NET[facility]V During your visit today, we recorded the following information about you: Kenya Boland 05/12/2023 11:30 AM Signed POPULATION HEALTH NAVIGATION OUTREACH Action/CYRUS LVM Patient Identified by Name and : YES, via phone Outreach Outcome/Action Spoke to patient / parent / legal guardian: Patient scheduled Did you use a PCP flex slot to schedule this appointment? NO Reason for Outreach Care Gap or Scheduling/Wellness visits Payer: Payor: MAYELA / Plan: BLUE CARD PPO OOS / Product Type: PPO / Care Gap Reviewed:: NANCIE Reminder: Reminder note to check Health Maintenance for items below Health Maintenance items due: Hepatitis B Vaccine(1 of 3 - 3-dose series) Never done Colorectal Cancer Screening due on 05/08/2018 Shingrix Vaccine(1 of 2) Never done Covid-19 Vaccine() due on 12/06/2022 Navigation Signature: Kenya Alexander May 12, 2023 11:29 AM Allergies As of Date: 05/12/2023 Noted Allergy Reaction TRAZODONE 07/01/2022 5 - Intolerance Comments: Increased weird dreams Date Reviewed: 04/18/2023 Reviewed by: Amanda Gutiérrez LPN - Fully Assessed Prescriptions as of 05/12/2023 - predniSONE (DELTASONE) 20 mg tablet 1 tablet three times a day for 3 days, then 2 times a day for 3 days, the one daily for 3 days. - losartan (COZAAR) 100 mg tablet Take 1 tablet by mouth once daily. - zolpidem (AMBIEN) 5 mg tablet Take 1 tablet by mouth at bedtime as needed for sedation for up to 90 days. - meclizine (ANTIVERT) 25 mg tab Take 1 tablet by mouth every 6 hours as needed (dizziness). - triamcinolone acetonide (KENALOG) 0.1 % cream Apply 1 application to affected area three times daily. Apply sparingly to area for rash/itching. - busPIRone HCl 30 mg tablet Take 1 tablet by mouth twice daily. - gabapentin (NEURONTIN) 300 mg capsule Take 1 capsule by mouth three times daily for 180 days. - cyclobenzaprine (FLEXERIL) 10 mg tablet Take 1 tablet by mouth at bedtime as needed for muscle spasm. - meloxicam (MOBIC) 15 mg tablet Take 1 tablet by mouth once daily. Take with food. - rOPINIRole (REQUIP) 1 mg tablet Take 1 tablet by mouth daily at bedtime. - rOPINIRole (REQUIP) 0.5 mg tablet Take 1 tablet by mouth daily at bedtime. take in addition to 1 mg ropinirole for a total of 1.5 mg - atorvastatin (LIPITOR) 20 mg tablet Take 1 tablet by mouth once daily. - omeprazole (PRILOSEC) 40 mg capsule Take 1 capsule by mouth once daily. - sildenafil (VIAGRA) 100 mg tablet Take one hour before sex - bisoprolol-hydroCHLOROthiazide (ZIAC) 10-6.25 mg per tablet Take 2 tablets by mouth once daily. - FLUoxetine (PROZAC) 40 mg capsule Take 1 capsule by mouth once daily. - FLUoxetine (PROZAC) 20 mg capsule Take 1 capsule by mouth once daily. Take with 40 mg fluoxetine capsule - CPAP Initiate Auto PAP @ 5-20 cm of water with humidification. Mask (per patient preference) optional chin strap (if indicated) , filters, tubing, humidifier and lifetime supplies. Problem List As Of Date 05/12/2023 Noted Resolved Abdominal pain, other specified site [R10.9] 01/31/2005 05/31/2014 Sprain and strain of unspecified site of knee a*08/21/2007 12/29/2018 MIXED HYPERLIPIDEMIA [E78.2] 06/10/2008 Sexual Dysfunction [R37] Depression [F32.A] Other Psoriasis and Similar Disorders [L40.8] GI AVM (Gastrointestinal Arteriovenous Vascular* Restless leg syndrome [G25.81] 01/11/2009 Lumbosacral spondylosis without myelopathy [M47*03/26/2010 Degeneration of lumbar or lumbosacral intervert*03/26/2010 Thoracic or lumbosacral neuritis or radiculitis*03/26/2010 Persistent insomnia [G47.00] 05/31/2014 HTN (hypertension) [I10] 05/31/2014 IFG (impaired fasting glucose) [R73.01] 09/30/2014 Cutaneous abscess of neck [L02.11] 01/16/2015 11/10/2016 Adjustment disorder with mixed anxiety and depr*02/12/2021 Obesity, Class II, BMI 35-39.9 [E66.9] 04/18/2023 Encounter Status:Closed by KENYA BOLAND on 05/12/23 [facility] 05-12-2023 Note HNO ID: [id number] Author: ?, ?, ? Service: ? Author Type: ? Type: Progress Notes Filed: 05/12/2023 11:30 Note Text: POPULATION HEALTH NAVIGATION OUTREACH Action/FYI LVM Patient Identified by Name and : YES, via phone Outreach Outcome/Action Spoke to patient / parent / legal guardian: Patient scheduled Did you use a PCP flex slot to schedule this appointment? NO Reason for Outreach Care Gap or Scheduling/Wellness visits Payer: Payor: MAYELA / Plan: BLUE CARD PPO OOS / Product Type: PPO / Care Gap Reviewed:: NANCIE Reminder: Reminder note to check Health Maintenance for items below Health Maintenance items due: Hepatitis B Vaccine(1 of 3 - 3-dose series) Never done Colorectal Cancer Screening due on 05/08/2018 Shingrix Vaccine(1 of 2) Never done Covid-19 Vaccine( season) due on 12/06/2022 Navigation Signature: Kenya Alexander May 12, 2023 11:29 AM [facility] 05-12-2023 Miscellaneous Notes Patient has been identified by name and date of : No Patient phones for refill(s): Requested Prescriptions Pending Prescriptions Disp Refills meloxicam (MOBIC) 15 mg tablet [Pharmacy Med Name: MELOXICAM 15 MG TABLET] 30 tablet 5 Sig: TAKE 1 TABLET BY MOUTH ONCE DAILY. TAKE WITH FOOD. Date of last office visit in primary care: 04/18/2023 Date of next office visit in primary care: 05/14/2023 Please advise. Thank you. Angela Melvin LPN. documented in this encounter [facility] 05-12-2023 History of Presen t illness Narrative POPULATION HEALTH NAVIGATION OUTREACH Action/FYI LVM Patient Identified by Name and : YES, via phone Outreach Outcome/Action Spoke to patient / parent / legal guardian: Patient scheduled Did you use a PCP flex slot to schedule this appointment? NO Reason for Outreach Care Gap or Scheduling/Wellness visits Payer: Payor: MAYELA / Plan: BLUE CARD PPO OOS / Product Type: PPO / Care Gap Reviewed:: NANCIE Reminder: Reminder note to check Health Maintenance for items below Health Maintenance items due: Hepatitis B Vaccine(1 of 3 - 3-dose series) Never done Colorectal Cancer Screening due on 05/08/2018 Shingrix Vaccine(1 of 2) Never done Covid-19 Vaccine( season) due on 12/06/2022 Navigation Signature: Kenya Alexander May 12, 2023 11:29 AM documented in this encounter [facility] documented in this encounter [facility]01-12-2024 NoteHNO ID: [id number] Author: GRADY MORTON APRN.ACCOUNTING RECRUITER Service: ? Author Type: Nurse Practitioner Type: Progress Notes Filed: 04/18/2023 09:09 Note Text: SUBJECTIVE Ritu Naidu is a 52 year old male here today for a check up on his medical problems. Chief Complaint Patient presents with: Pain: right knee TK and both feet HPI Ritu Naidu is a 52 year old male. [...] the left side. Posteri (more content not included)...[facility]09-28-2023 Note HNO ID: [id number] Author: Forrest Bernard APRN.FLEXO FOLDER GLUER OPERATOR Service: ? Author Type: Nurse Specialist Type: Progress Notes Filed: 01/02/2023 11:30 AM Note Text: SUBJECTIVE: Hepatitis B Vaccine(1 of 3 - 3-dose series) Never done Colorectal Cancer Screening due on 05/08/2018 Shingrix Vaccine(1 of 2) Never done Influenza Vaccine(1) due on 12/06/2022 NISHANT Naidu is a 51 year old male. [...] 1 capsule by mo (more content not included)...[facility]08-27-2023 Miscellaneous Notes* Telephone Encounter - Alla Mcallister LPN - 12/01/2022 9:44 AM EDT Left detailed message on identifiable voicemail. * Telephone Encounter - Sabrina Becker APRN.CNP - 12/01/2022 8:58 AM EDT Lab work came back normal. Patient can continue his medication. If symptoms are worsening please follow-up with primary care. documented in this encounter[facility]2023 NoteHNO ID: [id number] Author: Tamanna Victor APRN.CNP Service: ? Author Type: Nurse Practitioner Type: Progress Notes Filed: 11/30/2022 11:09 AM Note Text: Subjective The history is provided by the patient. No world language teacher was used. HPI Ritu Naidu is a 52 year old male [...] gastrointestinal tract CAROL ANN (obstructive sleep apnea) [facility] fx. 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 Tamanna Victor APRN.[facility]08-26-2023 History of Present illness Narrative* Tamanna Victor APRN.[facility] - 11/30/2022 10:58 AM EDT Images from the original note were not included. Subjective The history is provided by the patient. No world language teacher was used. HPI Ritu Naidu is a 52 year old male who presents today for CC of rash on chest, back, only onright side. Rash is tingling, itchy slightly painful [...] gastrointestinal tract CAROL ANN (obstructive sleep apnea) [facility] fx. 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 Tamanna Victor APRN.FAITH documented in this encounterUniversity [facility]23 Instructions* Patient Instructions* Tamanna Victor APRN.ACCOUNTING RECRUITER - 11/30/2022 10:58 AM EDT [facility] [...] rash of small, clear, fluid-filled blisters on reddenedskin. Within 3 days after they appear, the blisters will turn yellow, then dry and crust over. Overthe next 2 weeks the crusts will drop off, sometimes leaving small, pitted scars. Because they tendto follow nerve paths, the blisters are usually [...] and examine you. Your provider may order labtests to look for the virus in fluid from a blister. How is it treated? It is best to start treatment within 24 to 48 hours after symptoms start. Your health care providermay prescribe: -an antiviral drug, such as acyclovir, [...] postherpetic neuralgia. It is most likely to occurafter a shingles outbreaks in people over 50 [...] shot to help prevent infection with the chickenpoxvirus. -You can protect your immune system and lessen your chances of getting shingles by trying to keep your stress under control documented in this encounterUniversity [facility]05-22-2023 NoteHNO ID: [id number] Author: Grady Morton APRN.FAITH Service: ? Author Type: Nurse Practitioner Type: Progress Notes Filed: 08/26/2022 3:14 PM Note Text: SUBJECTIVE Ritu Naidu is a 52 year old male here today for acute concern. Chief Complaint Patient presents with: Recheck Knee Pain: right knee history of knee replacement and flared due to activity Refill Request: for sleep medication HPI Ritu Naidu is an 52 year old male [...] Tests: Anterior drawer te (more content not included)...[facility]03-27-2023 NoteHNO ID: [id number] Author: Forrest Bernard APRN.FLEXO FOLDER GLUER OPERATOR Service: ? Author Type: Nurse Specialist Type: Progress Notes Filed: 07/01/2022 10:51 AM Note Text: SUBJECTIVE: HEPATITIS B(1 of 3 - 3-dose series) Never done BP CONTROLLED (<130/80) Never done COLORECTAL CANCER SCREENING due on 05/08/2018 HPI Ritu Naidu is a 51 year old male. [...] emergency department follow-up visit. He presented to [facility] on January 27, 2021 with complaint [...] consistently HB/GERD symptoms: none currently Reports Dad IL age 56 years and Mother had [place] 60s, stroke in 90s. Non smoker. Quit [...] by mouth once d (more content not included)...[facility]03-27-2023 Instructions* Patient Instructions* Forrest Bernard APRN.CNS - 07/01/2022 10:40 AM EDT Stop taking trazodone Take Ambien 5 mg at bedtime If you are getting up at 4:30 AM take Ambien at 8 PM. Give yourself at least 8 hours of sleep time after taking. documented in this encounterUniversity [facility]03-27-2023 History of Present illness Narrative* Forrest Bernard APRN.CNS - 07/01/2022 10:20 AM EDT SUBJECTIVE: HEPATITIS B(1 of 3 - 3-dose series) Never done BP CONTROLLED (<130/80) Never done COLORECTAL CANCER SCREENING due on 05/08/2018 HPI Ritu Naidu is a 51 year old male. [...] emergency department follow-up visit. He presented to [facility] January 27, 2021 with complaint of chest [...] Noted to be hypertensive. Treated with aspirin Ativanand nitro glycerin in ED with relief of symptoms. Lab tests were negative, troponin and D-dimer. Chest x- ray negative. Today reports CP persists described as [...] consistently HB/GERD symptoms: none currently Reports Dad IL age 56 years and Mother had [place] 60s, stroke in 90s. Non smoker. Quit [...] has not been responding and he has notbeen able to see his children recently. He reports trouble falling asleep and staying asleep. Reports awakening at 430 a.m. routinely. Reports currently getting about 4 hours of sleep per day. He notes anxiety is causing him to have increased difficulty with insomnia. Reports increased weird dreams on trazodone. Reports taking all previously prescribed medications BuSpar fluoxetine gabapentin. Takes ropiniroleat bedtime. Notes that melatonin has not helped [...] at bedtime. take in addition to 1 mgropinirole for a total of 1.5 mg meloxicam [...] as needed for sedation for up to 90days. PAST MEDICAL HISTORY Diagnosis Date Cutaneous abscess of neck 01/16/2015 Depression GI AVM (gastrointestinal arteriovenous vascular malformation) Lumbago 11/18/2005 Mixed hyperlipidemia Hyperlipidemia Nonspecific (abnormal) findings on radiological and other examination of gastrointestinal tract CAROL ANN (obstructive sleep apnea) [facility] [place]x. [phone] Other psoriasis and similar disorders Psoriasis Persistent [...] 8 hours of sleep time after taking. Forrest Bernard APRN.CNS Medical Decision Making: Problems: Moderate: 1+ chronic illnesses with change Risk: Moderate: Moderate risk from testing/treatment Medical Decision Making Level: 4 - Moderate documented in this encounterUniversity Hospitals [facility]11-25-2022 Miscellaneous Notes* Telephone Encounter - Mita Zhou MD - 03/01/2022 5:55 PM EST Will give more refills at next appointment [...] once daily. Authorizing Provider: MITA ZHOU MD * Telephone Encounter - Noemy Morocho RN - 03/01/2022 2:30 PM EST Patient has been identified by name and [...] you. Noemy Morocho RN documented in this encounterUniversity Hospitals [facility]10-06-2022 Note. MICRO - Microbiology PROCEDURE: Acid Fast Bacilli [...] Locations *1: This test was performed at: [address], [facility] , Count includes the [facility] ([place])01-10-2022 Note. MICRO - Microbiology PROCEDURE: Acid Fast Bacilli [...] Locations *1: This test was performed at: [address], [facility] , Count includes the [facility] ([place])01-10-2022 Note. MICRO - Microbiology PROCEDURE: Acid Fast Bacilli [...] Locations *1: This test was performed at: [address], [facility] , [facility]12-18-2021 Note. MICRO - Microbiology PROCEDURE: Fungal Culture with [...] Locations *1: This test was performed at: [address], [address] [place] [address] ([facility]12-18-2021 Note. MICRO - Microbiology PROCEDURE: Fungal Culture with [...] Locations *1: This test was performed at: [address], [facility] , Count includes the [facility] ([place])12-18-2021 Note. MICRO - Microbiology PROCEDURE: Fungal Culture with [...] Locations *1: This test was performed at: [address], [address] [place] [address] ([place])11-20-2021 Note. MICRO - Microbiology PROCEDURE: Culture Tissue [*1] [...] Locations *1: This test was performed at: [address], [address] [place], [place] [address]11-20-2021 Note. MICRO - Microbiology PROCEDURE: Culture Tissue [*1] [...] Locations *1: This test was performed at: [address], [address] [place], [place] [address]-20-2021 Note. MICRO - Microbiology PROCEDURE: Culture Tissue [*1] [...] Locations *1: This test was performed at: [facility], [address] [place] [address], [phone]- , Count includes the [facility] ([place])11-14-2021 Note Discharge Instructions Thank you for allowing [facility] to assist you with your healthcare needs. The following is importantdischarge information regarding your hospital visit. Your Care [...] your post-op appointment. Follow-up as scheduled. Where: [facility] [address] [place] [phone]- Follow Up with [facility] When 11/16/2021 10:00 AM EDT Why: This is your first physical therapy appointment. Follow-up as scheduled. Where: [address] [place] [phone] [phone] The Following Activity and Diet Have Been Ordered for You FOLLOW POST OP INSTRUCTIONS Allergies NKA Medications Please ask your primary doctor or pharmacist before taking any other medication not listed, including over the counter drugs, herbal medications, vitamins and or supplements as they may interact withyour home medications. What How Much When Why Instructions Last Dose New acetaminophen (acetaminophen 500 mg oral tablet) 2 tab(s) by mouth Three (3) times a day as needed for as needed for pain not to exceed 3000 mg/ day Pickup at [facility]/pharmacy #[id number] 11/14/21 @ 10AM New aspirin (aspirin 81 mg oral delayed release tablet) 1 tab(s) by mouth Two (2) times a day Duration: 30 Days Take 81 mg aspirin twice daily with food for 4 weeks postoperatively for DVT prophylaxis Pickup at [facility]/pharmacy #[id number] 11/14/21 @ 830 AM New docusate-senna (Senokot S 50 mg-8.6 mg oral tablet) 2 tab(s) by mouth Two (2) times a day Take until first bowel movement, then as needed Pickup at [facility]/pharmacy #[id number] 11/14/21 @ 830 AM New doxycycline (doxycycline hyclate 100 mg oral capsule) 1 cap by mouth Every 12 hours Duration: 14 Days Pickup at [facility]/pharmacy #[id number] 11/14/21 @ 830 AM New oxyCODONE (oxyCODONE 5 mg oral tablet ( IMMEDIATE release )) See instructions Status post revision of total replacement of right knee 1-2 tab(s) Oral q4h Pickup at [facility]/pharmacy #[id number] 11/14/21 @ 11AM Changed [...] Once a day NOT GIVEN Pharmacy Information [facility]/pharmacy #[id number]: [address] [place], [place] [phone] What How Much When Comments Stop Taking [...] medication providers or retail pharmacies. Education Materials [facility] Post-operative Instructions PLEASE FOLLOW [facility] POST-OP INSTRUCTIONS GIVEN WATCH FOR SIGNS OF INFECTION: call the office ([phone]) if experencing any of the following: (Usually [...] on your follow up instructions. Form: 338A ([id number]) R: 08/11 Additional Information VACCINATE! IT SAVES LIVES! Members of the community who have not yet received the COVID-19 vaccine and would like to receive it can visit one of [facility] vaccine clinics. There are many vaccine clinic locations within the [facility]. For locations and available times, please visit [email or web address] It is important to note that some COVID mobile vaccine clinics are held outdoors and may be canceled in rainy or stormy conditions. To learn more about pediatric vaccinations (ages 5-11), we invite you to visit the [facility] webpage. [email or web address] learn more about the COVID-19 vaccine, we invite you to visit the [facility] website for a list of frequently asked questions. [email or web address] [facility] Patient Portal Access Instructions: Stay connected with your healthcare team and access your personal medical information anytime with the [facility] Patient Portal.If you would like a full copy of your medical records, please contact the [facility] Medical Records Department, Friday through Friday between 8a.m. and 4:30p.m. Please follow the directions below to access the portal: 1.Access the email account you provided upon registration to the [facility].2.Look for an invitation email from [facility].3.Open the email and access the invitation link: Accept Invitation to [facility].Fill in the required rodriguez to create your account. Sign into [email or web address] with your username and password that you [...] you will allow to register on the [facility] Patient Portal for access to your information. You can also access the [facility] Patient Portal on the [employer] mikhail. Simply click on Health Records under [employer] and then click on the Miki logo. HOW TO SAFELY DISPOSE OF PRESCRIPTION MEDICATIONS Please use one of the following methods to safely dispose of your unused medications. 1.Use a drug disposal kit: the drug disposal pouch allows you to safely discard your old and unuseddrugs. Ask your nurse to give you one when you are discharged.2.Visit a local take-back location: Many local pharmacies and police departments have programs that collect old and unwanted prescriptiondrugs. Call your local pharmacy or go to http://bit.Collabera/3O7Ae9w to find one close to you.3.Make use of household items: Use cat litter or old coffee grounds to dispose medications if other options arenot available. Mix your drugs with these household products, seal them in an airtight container andthrow it into the garbage. Call [facility]: [phone] to be sure your drugs can be [...] COPY. Signatures Patient Education Materials [place] [facility] Post-op Instruction 11/2016 (28633) Medication Leaflets My discharge plan and instructions have been reviewed and explained to me and I,RITU NAIDU understand my current condition and have read and understand these discharge instructions. I have received a written copy of the plan/instructions. If I have questions, I am aware that I should contact my doctor. Patient/Jackscrew Man Signature: Date/Time: Relationship to Patient: Witness Name/Signature: Date/Time: [facility]08-10-2022 Hospital Discharge instructions Patient Education 11/14/2021 08:31:30 5 - [facility] Post-op Instruction 11/2016 ([id number]) [facility] Post-operative Instructions PLEASE FOLLOW [facility] POST-OP INSTRUCTIONS GIVEN WATCH FOR SIGNS OF INFECTION: call the office ([phone]) if experencing any of the following: (Usually [...] on your follow up instructions. Form: 338A (31592) R: 08/11 Follow Up Care 09/12/2021 07:51:55 With:[facility] Address: [address] [place] [phone] When:11/16/2021 10:00:00 Comments:This is your first physical therapy appointment. Follow-up as scheduled. With:MEHRDAD PACKER PA-C, Orthopedic Address: [facility] [address] [place] [address]- When:11/26/2021 13:15:00 Comments:This is your post-op appointment. Follow-up as scheduled. [facility] 08-10-2022 Note Date of Service November 14, 2021 [...] the patient that if he has tramadol athome he should not take this medication with [...] doxycycline which is increase sensitivity to sunlight andshould take appropriate precautions. 10. Disposition: Plan will be for discharge home today as long as patient's pain is well controlled, tolerates therapy, and medically cleared. [facility] Patient will follow-up per postop instructions. He has outpatient physical therapy established. Upon discharge he will contact her office with any concerns or questions. I have reviewed the [place] Automated Rx Reporting System (OARRS) report for this patient for refill pattern and other prescriber involvement as part of the appropriate surveillance for the provision ofacute and chronic controlled medications. The report was requested and reviewed on the date of thisentry, and was considered in the prescribing process This dictation was created using voice recognition software. Phonetic and/or grammatical errors mayexist. Orders: Admit to Inpatient Digitally Signed by MEHRDAD PACKER PA-C on 11/14/2021 08:31 AM [facility]08-10-2022 Note Date of Service 11/14/2021 Subjective Overnight [...] 10:36 AM [facility]08-09-2022 Note ORIGINAL EXAMINATION: TWO XRAY VIEWS OF [...] Sign Date: 11/13/2021 11:58:36 AM Ordering Provider: [facility]08-09-2022 Note ORIGINAL EXAMINATION: TWO XRAY VIEWS OF [...] Sign Date: 11/13/2021 11:58:36 AM Ordering Provider: [facility]08-09-2022 Anesthesiology Consult note Patient: RITU NAIDU Age: 51 years Sex: Male : [...] Oral, qDay, PRN: as needed for erectile dysfunction,0 Refill(s) traMADol 50 mg oral tablet: 50 [...] 2.5 mg 25 mg 5 mL, Other, [facility] ropivacaine 25 mg + ketorolac 15 mg + epinephrine 0.3 mg + morphine 2.5 mg 25 mg 5 mL, Other, [facility] tranexamic acid PMX 1 gram(s) 100 mL, [...] Procedure history: Bilateral prosthetic arthroplasty of knees ([id number]). Fracture of tibia AND fibula ([id number]). Comments: 10/26/2021 8:27 Ivonne Ohara RN Left Appendectomy ([id number]). Ligation of varicose vein ([id number]). Comments: 10/26/2021 8:28 Ivonne Ohara RN groin Tonsillectomy ([id number]). CTR - carpal tunnel release ([id number]). Comments: 10/26/2021 8:28 Ivonne Ohara RN Left Social History Social & Psychosocial Habits Alcohol 10/26/2021 Use: Current Frequency: 1-2 times per month Substance Abuse 10/26/2021 Use: Current Type: Marijuana Frequency: 3-5 times per week Tobacco 10/26/2021 Tobacco Use: Never (less than 100 in l Home/Environment 10/26/2021 Domestic Concerns None Living situation: Home/Independent Primary Surg Nurse: Self Lives In 1st floor bathroom, 1st [...] Height 170.2 cm Admission Weight 98 kg [place] Body Weight 66.12 kg Admission Body Mass [...] understanding (Modified) Safety Brochure Information Reviewed Yes [facility] Video Viewed No Teaching Evaluation Verbalizes/Nonverbally indicates understanding Admission Note-Nursing Same Day Patient History (Modified) 11/13/2021 9:11 EDT Height 170.2 cm Admission Weight 98 kg [place] Body Weight 66.12 kg Admission Body Mass Index 33.83 m2 Temperature Temporal Artery 36.7 DegC Peripheral Pulse Rate 106 bpm HI Respiratory Rate 19 br/min Systolic Blood Pressure NBP 155 mmHg HI Diastolic Blood Pressure NBP 105 mmHg >HHI Primary Pain Location Knee Primary Pain Laterality Right Primary Pain Intensity 7 Pain Scale Type 0-10 Pain scale Nail Bed Color Loring Capillary Refill < 2 seconds Dorsalis Pedis [...] no difficulties Skin Temperature Warm Skin Description Loring, Dry Skin Integrity Intact Neurological Symptoms Patient [...] MITA ZHOU MD . Assessment and Plan [place] Society of Anesthesiologists (ASA) physical status classification: Class III. Anesthetic Preoperative Plan Anesthetic technique: General. Maintenance airway: Oral endotracheal tube. Postoperative pain management: adductor canal block. Risks discussed: nausea, vomiting, sore throat, dental injury, hypotension, allergic reaction, serious complications. Informed consent: signed by patient. Digitally Signed by BRANDON MEIER on 11/13/2021 09:24 AM [facility]07-13-2022 History of Present illness Narrative * Mita Zhou MD - 10/17/2021 4:20 PM EDT This note was created using Medical Joyworksriter. Subjective Ritu Naidu is a 51 year old male. Patient presents with: Follow Up: BP check, EKG surgical clearance, anxiety SUBJECTIVE: Ritu Naidu is a 51 year old year old gentleman here today for follow up appointment for reviewof medical conditions. Noted at preop evaluation, BP [...] gastrointestinal tract CAROL ANN (obstructive sleep apnea) [facility] fx. [phone] Other psoriasis and similar disorders Psoriasis Persistent [...] at bedtime. take in addition to 1 mgropinirole for a total of 1.5 mg traZODone [...] forward report and ECG after read by lithographic plate maker apprentice. Assessment and Plan ASSESSMENT/PLAN: 1. Essential hypertension [...] prior to surgery and can discuss with MARIA DEL CARMEN Cody-Cat his pre-op ortho appointment as scheduled. - [...] as needed postop. Will also fax completed [facility]'s Request for Surgery Clearance. Note that I did not order labs since patient stated he will have PAT done. Also noted July CBC done at [facility] which was fine. Our last CMP and CBC done 01/30/21 were within normal limits. Mita Zhou MD documented in this encounterUniversity [facility]06-21-2022 History of Present illness Narrative* Mita Zhou MD - 09/25/2021 4:45 PM EDT This note was created using Medical Joyworksriter. Subjective Ritu Naidu is a 51 year old male. HISTORY Ritu Naidu is a 51 year old gentleman here for pre-op evaluation as requested by Dr. Edmondson. Ritu Naidu has surgery scheduled on 11/13/2021 for Revision right total knee arthroplasty at [facility]. Noted that still with bad pain--only on tramadol from [facility]. Working with them on this. Doing well clinically otherwise aside from knee pain. No signs of infection, heart or lung problems. PAST MEDICAL HISTORY Diagnosis Date Cutaneous abscess of neck 01/16/2015 Depression GI AVM (gastrointestinal arteriovenous vascular malformation) Lumbago 11/18/2005 Mixed hyperlipidemia Hyperlipidemia Nonspecific (abnormal) findings on radiological and other examination of gastrointestinal tract CAROL ANN (obstructive sleep apnea) [facility] fx. [phone] Other psoriasis and similar disorders Psoriasis Persistent [...] at bedtime. take in addition to 1 mgropinirole for a total of 1.5 mg traZODone [...] HTN, being overweight and lack of exercise andpain. - Continue current medication(s) - Recommended regular aerobic exercise. - Recommend home blood pressure monitoring, to bring results in on next visit - Discussed need and benefit for weight loss. - Goal of BP <130/80 - Recommended no refined sugar, low refined starch, healthy oil intake (olive oil), healthy protein(fish) along the lines of the Mediterranean diet. [...] TABLET Mita Zhou MD documented in this encounterUniversity Hospitals [facility]05-02-2022 Miscellaneous Notes* Telephone Encounter - Lori Crowell - 08/06/2021 3:47 PM EDT Patient has been identified by name and [...] and advise. Lori Crowell documented in this encounterUniversity Hospitals [facility]04-01-2022 History of Present illness Narrative* Calry Greene MD - 07/06/2021 4:16 PM EDT Reason for Visit Patient presents with: Same Day Appointment: patient- bilateral knee pain flared upx 3 weeks Ritu Naidu is a 50 year old male who presents here today for Above Complaints.. Health Maintenance BP CONTROLLED (<130/80) COLORECTAL CANCER SCREENING COVID-19 VACCINE(3 - Booster for Pfizer series) HPI Patient is a very pleasant 50-year-old with who has both his knees replaced the left one in 2016, right 1 in 2013. He has been having baseline knee pain for the past few years to 110 pain but every year at this time with weather change his knee started hurting 7 on 10. He is taking Mobic but it does not help usually. During this time only a steroid taper helps him get back to being normal. 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 Sexual dysfunction Sprain and strain of unspecified site of knee and leg 08/21/2007 Sterilization 05/28/2007 Varicocele 11/28/2008 PAST SURGICAL HISTORY Procedure Laterality Date ARTHRP KNE CONDYLE&PLATU MEDIAL&LAT COMPARTMENTS 2013 Right CARPAL TUNNEL 2011 L COLONOSCOPY FLX DX W/COLLJ SPEC WHEN PFRMD 12/26/08 EXC VARICOCELE/LIGATION SPERMATIC VEINS SPX 2009 PAST SURGICAL HISTORY OF appendectomy PAST SURGICAL [...] drug, Carly Greene MD documented in this encounterUniversity Hospitals [facility]10-12-2015 History of Past illness Narrative* Problem Noted Date Resolved Date Cutaneous abscess of neck 01/16/20152016 Sprain and strain of unspecified site of knee an d leg 08/21/2007 12/29/2018 Abdominal pain, other specified site 01/31/2005 05/31/2014 documented as of this encounter (statuses as of 07/06/2021) [address]12-2015 History of Past illness Narrative* Problem Noted Date Resolved Date Cutaneous abscess of neck 01/16/20152016 Sprain and strain of unspecified site of knee an d leg 08/21/2007 12/29/2018 Abdominal pain, other specified site 01/31/2005 05/31/2014 documented as of this encounter (statuses as of 08/08/2021) [address]12-2015 History of Past illness Narrative* Problem Noted Date Resolved Date Cutaneous abscess of neck 01/16/20152016 Sprain and strain of unspecified site of knee an d leg 08/21/2007 12/29/2018 Abdominal pain, other specified site 01/31/2005 05/31/2014 documented as of this encounter (statuses as of 10/17/2021) [facility] of [facility] illness Narrative* Problem Noted Date Resolved Date Cutaneous abscess of neck 01/16/20152016 Sprain and strain of unspecified site of knee an d leg 08/21/2007 12/29/2018 Abdominal pain, other specified site 01/31/2005 05/31/2014 documented as of this encounter (statuses as of 10/18/2021) [facility] of Past illness Narrative* Problem Noted Date Resolved Date Cutaneous abscess of neck 01/16/20152016 Sprain and strain of unspecified site of knee an d leg 08/21/2007 12/29/2018 Abdominal pain, other specified site 01/31/2005 05/31/2014 documented as of this encounter (statuses as of 03/04/2022) [facility] of Past illness Narrative* Problem Noted Date Resolved Date Cutaneous abscess of neck 01/16/20152016 Sprain and strain of unspecified site of knee an d leg 08/21/2007 12/29/2018 Abdominal pain, other specified site 01/31/2005 05/31/2014 documented as of this encounter (statuses as of 07/01/2022) [facility] of Past illness Narrative* Problem Noted Date Diagnosed Date Resolved Date Cutaneous abscess of neck 01/16/2015 Sprain and strain of unspeci fied site of knee and leg 08/21/2007 12/29/2018 Abdominal pain, other specified site 01/31/2005 05/31/2014 documented as of this encounter (statuses as of 11/22/2022) [address]12-2015 History of Past illness Narrative* Problem Noted Date Diagnosed Date Resolved Date Cutaneous abscess of neck 01/16/2015 Sprain and strain of unspeci fied site of knee and leg 08/21/2007 12/29/2018 Abdominal pain, other specified site 01/31/2005 05/31/2014 documented as of this encounter (statuses as of 11/30/2022) [facility] of [facility] illness Narrative* Problem Noted Date Diagnosed Date Resolved Date Cutaneous abscess of neck 01/16/2015 Sprain and strain of unspeci fied site of knee and leg 08/21/2007 12/29/2018 Abdominal pain, other specified site 01/31/2005 05/31/2014 documented as of this encounter (statuses as of 12/01/2022) [facility] of Past illness Narrative* Problem Noted Date Diagnosed Date Resolved Date Cutaneous abscess of neck 01/16/2015 Sprain and strain of unspeci fied site of knee and leg 08/21/2007 12/29/2018 Abdominal pain, other specified site 01/31/2005 05/31/2014 documented as of this encounter (statuses as of 05/12/2023) [facility] of [facility] illness Narrative* Problem Noted Date Diagnosed Date Resolved Date Cutaneous abscess of neck 01/16/2015 Sprain and strain of unspeci fied site of knee and leg 08/21/2007 12/29/2018 Abdominal pain, other specified site 01/31/2005 05/31/2014 documented as of this encounter (statuses as of 05/13/2023) [address]12-2015 History of Past illness Narrative* Problem Noted Date Diagnosed Date Resolved Date Cutaneous abscess of neck 01/16/2015 Sprain and strain of unspeci fied site of knee and leg 08/21/2007 12/29/2018 Abdominal pain, other specified site 01/31/2005 05/31/2014 documented as of this encounter (statuses as of 05/15/2023) [facility] Narrative* Problem Noted Date Diagnosed Date Resolved Date Cutaneous abscess of neck 01/16/2015 Sprain and strain of unspeci fied site of knee and leg 08/21/2007 12/29/2018 Abdominal pain, other specified site 01/31/2005 05/31/2014 documented as of this encounter (statuses as of 05/23/2023) [facility] Narrative* Problem Noted Date Diagnosed Date Resolved Date Cutaneous abscess of neck 01/16/2015 Sprain and strain of unspeci fied site of knee and leg 08/21/2007 12/29/2018 Abdominal pain, other specified site 01/31/2005 05/31/2014 documented as of this encounter (statuses as of 05/23/2023) [facility] Narrative* Problem Noted Date Diagnosed Date Resolved Date Cutaneous abscess of neck 01/16/2015 Sprain and strain of unspeci fied site of knee and leg 08/21/2007 12/29/2018 Abdominal pain, other specified site 01/31/2005 05/31/2014 documented as of this encounter (statuses as of 05/23/2023) [facility] Narrative* Problem Noted Date Diagnosed Date Resolved Date Cutaneous abscess of neck 01/16/2015 Sprain and strain of unspeci fied site of knee and leg 08/21/2007 12/29/2018 Abdominal pain, other specified site 01/31/2005 05/31/2014 documented as of this encounter (statuses as of 05/30/2023) [facility] Narrative* Problem Noted Date Diagnosed Date Resolved Date Cutaneous abscess of neck 01/16/2015 Sprain and strain of unspeci fied site of knee and leg 08/21/2007 12/29/2018 Abdominal pain, other specified site 01/31/2005 05/31/2014 documented as of this encounter (statuses as of 06/06/2023) [facility] Narrative* Problem Noted Date Diagnosed Date Resolved Date Cutaneous abscess of neck 01/16/2015 Sprain and strain of unspeci fied site of knee and leg 08/21/2007 12/29/2018 Abdominal pain, other specified site 01/31/2005 05/31/2014 documented as of this encounter (statuses as of 06/11/2023) [facility] Narrative* Problem Noted Date Diagnosed Date Resolved Date Cutaneous abscess of neck 01/16/2015 Sprain and strain of unspeci fied site of knee and leg 08/21/2007 12/29/2018 Abdominal pain, other specified site 01/31/2005 05/31/2014 documented as of this encounter (statuses as of 06/12/2023) [facility] illness Narrative* Problem Noted Date Diagnosed Date Resolved Date Cutaneous abscess of neck 01/16/2015 Sprain and strain of unspeci fied site of knee and leg 08/21/2007 12/29/2018 Abdominal pain, other specified site 01/31/2005 05/31/2014 documented as of this encounter (statuses as of 06/13/2023) [facility] No data available for this section [facility] Evaluation note* Diagnosis Strain of both knees, sequela- Primary documented in this encounter [facility]* Diagnosis Lumbosacral spondylosis without myelopathy Degeneration of lumbar or lumbosacral intervertebral disc Erectile dysfunction, unspecified erectile dysfunction type documented in this encounter [facility] note* Diagnosis Preop examination- Primary Preoperative examination, unspecified Essential hypertension Unspecified essential hypertension Mixed hyperlipidemia Adjustment disorder with mixed anxiety and depressed mood Vomiting and diarrhea Vomiting alone Erectile dysfunction, unspecified erectile dysfunction type documented in this encounter [facility]* Diagnosis Essential hypertension- Primary Unspecified essential hypertension Restless leg syndrome Restless legs syndrome (RLS) Adjustment disorder with mixed anxiety and depressed mood Lumbosacral spondylosis without myelopathy documented [facility] this encounter [facility]* Diagnosis Adjustment disorder with mixed anxiety and depressed mood Erectile dysfunction, unspecified erectile dysfunction type Hypertension, essential Unspecified essential hypertension documented [facility] this encounter [facility]* Diagnosis Persistent insomnia- Primary Persistent disorder of initiating or maintaining sleep Hypertension, essential Unspecified essential hypertension Adjustment disorder with mixed anxiety and depressed mood Sleep initiation disorder Insomnia, unspecified documented [facility] this encounter [facility] Diagnosis Mixed hyperlipidemia [facility]* Diagnosis Rash- Primary Rash and other nonspecific skin eruption documented [facility] this encounter [facility]* Diagnosis Spondylosis without myelopathy or radiculopathy, lumbosacral region documented in this [facility]* Diagnosis Bilateral foot pain Pain in limb [facility] this [facility]* Diagnosis Adjustment disorder with mixed anxiety and depressed mood documented [facility] this [facility]* Diagnosis Plantar fasciitis- Primary Plantar fascial fibromatosis documented [facility] this [facility]* Diagnosis Lumbar pain- Primary Lumbago Lumbosacral spondylosis without myelopathy Degeneration of lumbar or lumbosacral intervertebral disc documented in this encounter [facility] for visit Narrative* Diagnostic Procedure Only (Routine) - Closed Specialty Diagnoses / Procedures Referred By Donaldac t Referred To Contact XR IMAGING Diagnoses Bilateral foot pain Procedures XR FOOT GENERAL 3V AP/LAT/OBL BILATERAL RADEX FOOT COMPLETE MINIMUM 3 VIEWS Castro Chen [address] [place] [address] [place] [address] Referral ID Status Reason Start Date Expiration Date V isits Requested Visits Authorized [id number] Closed Auto-Generate d Referral 05/08/2023 06/06/2024 1 1 [facility] Summary Purpose Family History No Family History Records FoundNo Family History Records Found Advance Directives No Advanced Directives Records FoundNo Advanced Directives Records Found Reason for Referral Specialty Diagnoses / Procedures Referred By Contac t Referred To Contact Pain Management Diagnoses Lumbar pain Lumbosacral spondylosis without myelopathy Degeneration of lumbar or lumbosacral intervertebral disc Procedures CONSULT TO PAIN MGT OFFICE/OUTPATIENT [facility] MDM 60 MINUTES Grady Morton APRN.ACCOUNTING RECRUITER [address] [place] [address] Referral ID Status Reason Start Date Expiration Date Visits Requested Visits Authorized [id number] Authorized PCP Requested Referral 05/30/2023 05/29/2024 1 1 Specialty Diagnoses / Procedures Referred By Contac t Referred To Contact Diagnoses Lumbar pain Lumbosacral spondylosis without myelopathy Degeneration of lumbar or lumbosacral intervertebral disc Grady Morton APRN.ACCOUNTING RECRUITER [address] [place] [address] Referral ID Status Reason Start Date Expiration Date Visits Re quested Visits Authorized [id number] Closed 1 1 Specialty Diagnoses / Procedures Referred By Contac t Referred To Contact XR IMAGING Diagnoses Lumbar pain Lumbosacral spondylosis without myelopathy Degeneration of lumbar or lumbosacral intervertebral disc Procedures XR LUMBAR GENERAL 3V AP/LAT/L5-S1 RADEX SPINE LUMBOSACRAL 2/3 VIEWS Grady Morton APRN.ACCOUNTING RECRUITER [address] [place] [address] [place] [address] Referral ID Status Reason Start Date Expiration Date V isits Requested Visits Authorized [id number] Closed Auto-Generate d Referral 05/30/2023 06/28/2024 1 1 Additional Source Comments Source Comments (unrecognize d section and content) In the event this informatio n is protected by the Federal Confidentiality of Alcohol and Drug Abuse Patient Records regulations: The Federal rules restrict any use of the information to criminally investigate or prosecute any alcohol or drug abuse patient.[facility] Center[facility] the event this information is protected by the Federal Confidentiality of Alcohol and Drug Abuse Patient Records regulations: The Federal rules restrict any use of the information to criminally investigate or prosecute any alcohol or drug abuse patient.[facility] CenterIn the event this information is protected by the Federal Confidentiality of Alcohol and Drug Abuse Patient Records regulations: The Federal rules restrict any use of the information to criminally investigate or prosecute any alcohol or drug abuse patient.[facility] CenterIn the event this information is protected by the Federal Confidentiality of Alcohol and Drug Abuse Patient Records regulations: The Federal rules restrict any use of the information to criminally investigate or prosecute any alcohol or drug abuse patient.[facility] CenterIn the event this information is protected by the Federal Confidentiality of Alcohol and Drug Abuse Patient Records regulations: The Federal rules restrict any use of the information to criminally investigate or prosecute any alcohol or drug abuse patient.[facility] CenterIn the event this information is protected by the Federal Confidentiality of Alcohol and Drug Abuse Patient Records regulations: The Federal rules restrict any use of the information to criminally investigate or prosecute any alcohol or drug abuse patient.[facility] CenterIn the event this information is protected by the Federal Confidentiality of Alcohol and Drug Abuse Patient Records regulations: The Federal rules restrict any use of the information to criminally investigate or prosecute any alcohol or drug abuse patient.[facility] CenterIn the event this information is protected by the Federal Confidentiality of Alcohol and Drug Abuse Patient Records regulations: The Federal rules restrict any use of the information to criminally investigate or prosecute any alcohol or drug abuse patient.[facility] CenterIn the event this information is protected by the Federal Confidentiality of Alcohol and Drug Abuse Patient Records regulations: The Federal rules restrict any use of the information to criminally investigate or prosecute any alcohol or drug abuse patient.[facility] CenterIn the event this information is protected by the Federal Confidentiality of Alcohol and Drug Abuse Patient Records regulations: The Federal rules restrict any use of the information to criminally investigate or prosecute any alcohol or drug abuse patient.[facility] CenterIn the event this information is protected by the Federal Confidentiality of Alcohol and Drug Abuse Patient Records regulations: The Federal rules restrict any use of the information to criminally investigate or prosecute any alcohol or drug abuse patient.[facility] CenterIn the event this information is protected by the Federal Confidentiality of Alcohol and Drug Abuse Patient Records regulations: The Federal rules restrict any use of the information to criminally investigate or prosecute any alcohol or drug abuse patient.[facility] CenterIn the event this information is protected by the Federal Confidentiality of Alcohol and Drug Abuse Patient Records regulations: The Federal rules restrict any use of the information to criminally investigate or prosecute any alcohol or drug abuse patient.[facility] CenterIn the event this information is protected by the Federal Confidentiality of Alcohol and Drug Abuse Patient Records regulations: The Federal rules restrict any use of the information to criminally investigate or prosecute any alcohol or drug abuse patient.[facility] CenterIn the event this information is protected by the Federal Confidentiality of Alcohol and Drug Abuse Patient Records regulations: The Federal rules restrict any use of the information to criminally investigate or prosecute any alcohol or drug abuse patient.[facility] CenterIn the event this information is protected by the Federal Confidentiality of Alcohol and Drug Abuse Patient Records regulations: The Federal rules restrict any use of the information to criminally investigate or prosecute any alcohol or drug abuse patient.[facility] CenterIn the event this information is protected by the Federal Confidentiality of Alcohol and Drug Abuse Patient Records regulations: The Federal rules restrict any use of the information to criminally investigate or prosecute any alcohol or drug abuse patient.[facility] CenterIn the event this information is protected by the Federal Confidentiality of Alcohol and Drug Abuse Patient Records regulations: The Federal rules restrict any use of the information to criminally investigate or prosecute any alcohol or drug abuse patient.[facility] CenterIn the event this information is protected by the Federal Confidentiality of Alcohol and Drug Abuse Patient Records regulations: The Federal rules restrict any use of the information to criminally investigate or prosecute any alcohol or drug abuse patient.[facility] CenterIn the event this information is protected by the Federal Confidentiality of Alcohol and Drug Abuse Patient Records regulations: The Federal rules restrict any use of the information to criminally investigate or prosecute any alcohol or drug abuse patient.[facility] Reason for Visit (unrecogniz ed section and content) Reason Comments Refill Request Reason Comments Medical Clearance Reason Comments Follow Up BP check, EKG surgic al clearance, anxiety Reason Onset Date Comments Refill Request 03/01/2022 Reason Comments Anxiety Reason Comments Med Change Request Reason Comments Rash Rash on right side o f chest ans armpit x 2 days Reason Comments Results Reason Comments Hospital F/U 1 stent Heart Specialty Diagnoses / Procedures Referred By Carolina villegas Referred To Contact Podiatry Diagnoses Plantar fasciitis, bilateral Overgrown toenails Procedures CONSULT TO PODIATRY OFFICE/OUTPATIENT [facility] 60 MINUTES Grady Morton APRN.ACCOUNTING RECRUITER [address] [place] [address] Referral ID Status Reason Start Date Expiration Date V isits Requested Visits Authorized [id number] Closed PCP Requested Referral 04/18/2023 04/17/2024 1 1 Reason Onset Date Comments Refill Request 05/22/2023 Reason Comments New Pain Reason Comments severe back pain Reason Onset Date Comments Refill Request 06/06/2023 Reason Comments Letter Reason Comments FMLA Paperwork Care Teams (unrecognized sec tion and content) Flight 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 Relationship Specialty Start Date End Date Mita Zhou MD [address] [place] [address] PCP - General Internal Medicine 10/19/14 Flight 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 Relationship Specialty Start Date End Date Mita Zhou MD [address] [place] [address] PCP - General Internal Medicine 10/19/14 Flight 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 Relationship Specialty Start Date End Date Mita Zhou MD [address] [place] [address] PCP - General Internal Medicine 10/19/14 Flight 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 Relationship Specialty Start Date End Date Mita Zhou MD [address] [place] [address] PCP - General Internal Medicine 10/19/14 Flight 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 Relationship Specialty Start Date End Date Mita Zhou MD [address] [place] [address] PCP - General Internal Medicine 10/19/14 Flight 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 Relationship Specialty Start Date End Date Mita Zhou MD [address] [place] [address] PCP - General Internal Medicine 10/19/14 Flight 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 Relationship Specialty Start Date End Date Mita Zhou MD [address] [place] [address] PCP - General Internal Medicine 10/19/14 Flight 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 Relationship Specialty Start Date End Date Mita Zhou MD [address] [place] [address] PCP - General Internal Medicine 10/19/14 Flight 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 Relationship Specialty Start Date End Date Mita Zhou MD [address] [place] [address] PCP - General Internal Medicine 10/19/14 Flight 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 Relationship Specialty Start Date End Date Mita Zhou MD [address] [place] [address] PCP - General Internal Medicine 10/19/14 Flight 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 Relationship Specialty Start Date End Date Mita Zhou MD [address] [place] [address] PCP - General Internal Medicine 10/19/14 Flight 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 Relationship Specialty Start Date End Date Mita Zhou MD [address] [place] [address] PCP - General Internal Medicine 10/19/14 Flight 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 Relationship Specialty Start Date End Date Mita Zhou MD [address] [facility] [address] PCP - General Internal Medicine 10/19/14 Flight 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 Relationship Specialty Start Date End Date Mita Zhou MD [address] [place] [address] PCP - General Internal Medicine 10/19/14 Flight 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 Relationship Specialty Start Date End Date Mita Zhou MD [address] [place] [address] PCP - General Internal Medicine 10/19/14 Flight 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 Relationship Specialty Start Date End Date Mita Zhou MD [address] [place] [address] PCP - General Internal Medicine 10/19/14 Care Team (unrecognized sect ion and content) Care Team Personnel Name: MITA ZHOU MD Member Role: Primary Care Physician Address: Address: [address] [place] [address]- Care Team Related Persons Name: NONE, PER PT (unrecognized sect ion and content) No Status Records FoundNo Status Records Found INFORMATION SOURCE (unrecogn ized section and content) DATE CREATED AUTHOR AUTHOR'S ORGANIZ ATION 06/17/2023 [facility] FOR RECORDS PERTAINING TO PATIENTS WHO ARE [...] BE BASED ON THE PRIMARY CLINICAL RECORDS. [facility] [employer] [facility]. provides no warranty or guarantee of the accuracy or completeness of information in this document.
--- NOTE | 2023-06-17 06:32 | MRI_ITS ---
STUDY: MRI LUMBAR SPINE WITHOUT CONTRAST REASON FOR EXAM: Male, 52 years old. RADICULOPATHY TECHNIQUE: Standardized fat and water weighted pulse sequences were obtained in the sagittal and axial planes. COMPARISON: Lumbar spine x-rays June 04, 2023 FINDINGS: T12-L1: Normal endplates. Normal disc height, hydration and morphology. Normal bilateral facet joints. Normal central canal and bilateral lateral recesses. Normal bilateral intervertebral neural foramina. Normal lumbar lordosis. There is no substantial scoliosis. Normal conus medullaris that terminates at T12-L1 L1-2: Normal endplates. Normal disc height, hydration and morphology. Normal bilateral facet joints. Normal central canal and bilateral lateral recesses. Normal bilateral intervertebral neural foramina. L2-3: Normal endplates. Normal disc height, hydration and morphology. Normal bilateral facet joints. Normal central canal and bilateral lateral recesses. Normal bilateral intervertebral neural foramina. L3-4: Normal endplates. Normal disc height, hydration and morphology. Normal bilateral facet joints. Normal central canal and bilateral lateral recesses. Normal bilateral intervertebral neural foramina. L4-5: Normal endplates. Normal disc height, desiccation and minor annular bulge with tiny central disc protrusion. Facet arthropathy and thickening of ligamenta flava. There is also a small synovial cyst on the left measuring approximately 4 x 7 mm. Mild narrowing of the central canal. Moderate left lateral recess stenosis and neural foraminal stenosis. L5-S1: Normal endplates. Normal disc height, desiccation and minor annular bulge with small left paracentral/posterolateral disc protrusion. Mild facet arthropathy. Mild narrowing of central canal. Moderate left lateral recess and neural foraminal stenosis and mild narrowing on the right Normal visualized sacral ala. Fatty infiltrated left paraspinous muscles at the level of L5-S1 and to a lesser extent L4-5 MRI/Spine Lumbar (Routine) IMPRESSION: No evidence for acute fracture or other significant bony pathology.. Spinal stenosis at L4-5 secondary to disc disease and facet arthropathy more severe on the left exaggerated by synovial cyst Spinal stenosis at L5-S1 also more pronounced on the left secondary to disc disease and bony hypertrophy Electronically Signed: Elier Linda MD at 22:44 EDT Reading Location ID and State: [facility] / [place] Tel , Service support ,
== END | disposition home or self-care (01) ==
LOC: MRI 06:19
PROVIDERS: PCP Internal Medicine; Referring Provider Anesthesiology Pain Medicine; Visit Provider Anesthesiology Pain Medicine
DX: M54.16 Radiculopathy, lumbar region (principal)
CPT/HCPCS: 72148

== ENCOUNTER 2023-06-23 14:32 | Outpatient (RCR) | payer BC, SELFPAY ==
--- NOTE | 2023-06-27 08:20 | HP.OTFCE_ITS ---
Task Lift Floor (Occasional 1-33% of Day): 50 Floor (Frequent 34-66% of Day): 25# Floor (Constant 67-100% of Day): NA Floor PDL: Medium Knee (Occasional 1-33% of Day): 60# Knee (Frequent 34-66% of Day): 30# Knee (Constant 67-100% of Day): NA Knee PDL: Medium Waist (Occasional 1-33% of Day): 50# Waist (Frequent 34-66% of Day): 25# Waist (Constant 67-100% of Day): NA Waist PDL: Medium Shoulder (Occasional 1-33% of Day): 50# Shoulder (Frequent 34-66% of Day): 25# Shoulder (Constant 67-100% of Day): NA Shoulder PDL: Medium Overhead (Occasional 1-33% of Day): 35# Overhead (Frequent 34-66% of Day): 18# Overhead (Constant 67-100% of Day): NA Overhead PDL: Light Comments: Medium Physical Demand Level for lifting at floor, knee, waist and shoulder levels. Light Physical demand level for lifting overhead levels. Due to back pain 5/10 pt unable to lift on constant ability. Work Activity/Posture Bending: Frequent Ability (34-66% of day) Comments: with external support Squatting: Occasional Ability (1-33% of day) Comments: with external support Kneeling: No Ablility (0% of day) Comments: kneel x1 with use of external support and increase knee pain Reaching out: Frequent Ability (34-66% of day) Reaching up: Frequent Ability (34-66% of day) Sitting: Frequent Ability (34-66% of day) Walking: Occasional Ability (1-33% of day) Standing: Frequent Ability (34-66% of day) Comments: with shifting body weight Reference Reference: Duration Sedentary Sedentary Light Light Light Medium Medium Medium Heavy Very Heavy Heavy Occasional (0-33% of day) Frequent (34-66% of day) Constant (67-100% of day) 10 # Negligible Negligible 15 # 8 # Negligible 20 # 10# Negli. 35 # 18 # 7 # 50 # 25 # 10 # 75 # 100 # >100 # 38 # 50 # >50 # 15 # 20 # >20 # Patient Information Height: 1.7 m Weight:: 104.326 kg Hand Dominance: right Medical History Medical History Including Restrictions: This 52 year old male states he has always had some back issues. Pt states he had a heart attack in 2022. Pt states he was having foot pain. pt states he went to foot DrMary and he canceled and went to ER. and with blood work the ER took indicated a heart attack- pt states he was taken on his Mobic due to his heart attack. Pt states he is also on [place] (taking for 15 years or better) due to his back pain. pt states he was return to work but he could not perform his job. pt states he did have back injection on June 17, 2023. Pt states the injection has helped with performing his daily tasks but he has not been back to work to see if he can do his job. pt states he has seen pain mtg. and chiropractor to help figure out his back. Pt states he did have MRI completed last week pt states denies wearing back brace pt states he has not had Physical Therapy for his back a long time ago. pt states he was exercising on a regular basis 2x a week at [employer]. since heart attack and back issue he has not returned. Pt does not smoke will use smokeless tobaccos Diagnoses Diagnoses: Back Pain PMH Bilateral TKR Heart stents pre diabetic Symptoms Symptoms: Back pain bilateral hip weakness Pain in bilateral feet Pain Pain: Pt states he is currently pain level is 4/10 - Pt is taking Mobic 1x a day. Pts pain level ranged from 4/10 to 6/10 following assessment. Work History Work History: Pt works for [employer]. pt states he has worked there for 30 years. 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 Pt states his job duties does require him to be on his feet for his 8 hours or more hour shifts. pt states any mattress bigger than a twin bed has to be a two man lift. pt states he needs to lift 50# safety to perform his job duties. Behavioral Behavioral: pt was cooperative throughout assessment. ADLS ADLS: Pt lives in 2 story home with 3 entry steps no hand rails. pt states he stays on the first floor (due to his knee replacements) Pt lives with jamie?e who works from home and can assist pt as needed. Pt states he does have tub shower and has some difficulty getting in and out due to his knees. pt states he does have one safety rail. has shower extended bench and walker if needed. Pt states he will use can around big crowds. pt states his Fianc?e does the Laundry, cleaning, cooking and grocery shopping. Pt states he does drive. pt states he does little garden. pt does have children ages 17/16 lives with mom in [facility]. Pt states will see them on occasions. Pt states he can complete his bathing and dressing without assistance and can put small meal together. Physical Examination Physical Examination: resting heart rate 99 -100 during assessment pts heart rate reached 136 ROM: pt demo ROM WNL increase pain with lumbar extension Strength: Fet2 peak force testing shoulder flexion right 18# left 15# shoulder extension right 24.7# left 21.9# biceps right 25.5# left 25.5# triceps right 19# left 24.1# Hip flexion right 37.3# left 37.7# Quadriceps right 24.3# left 32.4# Hamstrings right 38.4# left 34.9# Right Biometric Fingerprinting Technician Strength Average: 76.66 Right Biometric Fingerprinting Technician Strength Percentile: 4% Left Biometric Fingerprinting Technician Strength Average: 68.33 Left Biometric Fingerprinting Technician Strength Percentile: 3.1% Right Lateral Pinch Average: 19.33 Right Lateral Pinch Percentile: 25% Left Lateral Pinch Average: 20.66 Left Lateral Pinch Percentile: 50% Right Tripod Pinch Average: 18.66 Right Tripod Pinch Percentile: 50% Left Tripod Pinch Average: 15.33 Left Tripod Pinch Percentile: 25% Sensation: monofilament testing right all digits 2.83 left 2.83 interpretation normal sensation Fine Motor: 9hole peg test right 25.47 seconds 10% for age group left 27.83 seconds 10% for age group Balance: pt demo functional reach of 8.5 no loss of balance was noted during assessment. Interpretation: A score of 6 or less indicates a significant increased risk for falls. A score between 6-10 inches indicates a moderate risk for falls. Age related norms for the functional reach test: Men Age (in inches) 20-40yrs 16.7 ? 1.9 41-69yrs 14.9 ? 2.2 70-87yrs 13.2 ? 1.6 References: 1. ARELI Aguilar, Laurent CARRILLO, Bernie Chin, Ruth S. Functional reach: A new clinical measure of balance. J Gerontol. 1990; 45:M192. 2. ARELI Aguilar et al: Functional reach: Predictive validity in a sample of elderly male veterans. J Gerontol. 1992; 47:M93. 3. JONAS Bright, et al: Functional reach and single leg stance in patients with peripheral vestibular disorders. J Vestib Res. 1996; 6:343. 4. GERARDO Mancilla, et al: Does functional reach improve with rehabilitation. Arch Phys Med Rehab. 1993; 74:796. Non Material Handling Activities Bending: pt demo the ability to bend forward 3/3x, 10/10x heart rate 105 and pt demo bending forward 10x heart rate 96 pt demo need external support for balance. pt can bend forward on frequent ability with external support Squatting: pt demo the ability to squat 3/3x in limited plane due to left knee pain 10/10x with external support. pt unable to perform squatting 10x rapidly pt use of external support pts heart rate 120 and dropped to 102 shortly after. pt SOB following Kneeling: pt demo the ability to kneel but due to knee replacements pt avoids kneeling pt use of external support Reaching out/up: pt demo the ability to reach out/up 3/3x, 10/10x and 10/10x rapidly heart rate 113 Walking: pt ambulated for 11 min and 30 sec. with an antalgic gait pattern. pts did c/o left knee pain at 9 min and we completed our distance following. Heart rate 136 with ambulation. pt did rest following. Standing: pt demo the ability to stand for 6 min shifting his body weight. pt can stand on occasional ability with shifting his body weight Sitting: pt demo the ability to sit for 50 min with expressed discomfort and shifting his body weight from side to side. pt states he is uncomfortable sitting for long periods of time Climbing Stairs: pt demo the ability to ascend and descend 10 steps with use of handrails and reciprocal step pattern. Pt did c/o left knee pain with task 6/10 pt does voice he avoids stairs at work and at home. Dynamic Occasional Lifting Capacity Floor Lift: pt demo the ability to lift 50# maximally from floor level with fair lifting mechanics Knee Lift: pt demo the ability to lift 60# maximally from knee level with fair lifting mechanics Waist Lift: pt demo the ability to lift 50# maximally from waist level with fair lifting mechanics Shoulder Lift: pt demo the ability to lift 50# maximally from shoulder level with fair lifting mecahinics Overhead Lift: pt demo the ability to lift 35# overhead with fair lifting mechanics. Carrying: pt demo the ability to carry 40# for 8 feet with fair ability. noted keeping weight against pt's body Comments: pts heart rate ranged from 99-136 based on activity
== END 2023-06-23 19:00 | disposition home or self-care (01) ==
LOC: OT 14:32
PROVIDERS: PCP Internal Medicine; Referring Provider Anesthesiology Pain Medicine; Visit Provider Anesthesiology Pain Medicine
DX: M54.9 Dorsalgia, unspecified (principal); M79.606 Pain in leg, unspecified
CPT/HCPCS: 97750

== ENCOUNTER 2023-06-26 21:46 | Emergency (ER) | payer BC, SELFPAY ==
[2023-06-26 21:46] VITALS: BP 168/105; PULSE 103; RESP 16; TEMP 36.8; O2SAT 97; BMI 36.3
--- NOTE | 2023-06-26 22:48 | RAD_ITS ---
INDICATION: CAD EXAMINATION/TECHNIQUE: X-RAY - XR Chest 1 View COMPARISON: Prior study dated: 05/08/2023 FINDINGS: LINES/DEVICES: None. LUNGS: The lungs are well expanded. No consolidation, edema or effusion. No pneumothorax. MEDIASTINUM AND CARDIOVASCULAR STRUCTURES: Cardiac silhouette not enlarged. Central airways and mediastinal contour are unremarkable. BONES AND SOFT TISSUES: No acute abnormality. RAD/Chest 1 View (Portable) IMPRESSION: No acute pulmonary finding. Electronically Signed: Raji Wagner MD at 0:14 EDT ,
--- NOTE | 2023-06-26 22:48 | EKG12_ITS ---
Test Reason : DYSRHYTHMIA Blood Pressure : / mmHG Vent. Rate : 093 BPM Atrial Rate : 093 BPM P-R Int : 146 ms QRS Dur : 090 ms QT Int : 370 ms P-R-T Axes : 033 -18 -15 degrees QTc Int : 460 ms Normal sinus rhythm Normal ECG Confirmed by Jostin Nolen ([id number]), web editor CARLOS GHOTRA ([id number]) on 06/27/2023 8:31:27 AM Referred By: Confirmed By:Jostin Nolen
--- NOTE | 2023-06-26 22:49 | ED.VIS.BACK ---
HPI History of Present Illness Chief Complaint: Back Informant: patient and spouse/S.O. Narrative Narrative: 52-year-old male presenting to the emergency room with chief complaint of back pain. Patient states he has a history of chronic back pain and has recently been seeing Dr. Richter from pain management. He was receiving back injections which was helping but then it stopped helping his pain. He underwent an MRI 2 weeks ago. The following are the impressions from the radiologist of that MRI: No evidence for acute fracture or other significant bony pathology.. Spinal stenosis at L4-5 secondary to disc disease and facet arthropathy more severe on the left exaggerated by synovial cyst Spinal stenosis at L5-S1 also more pronounced on the left secondary to disc disease and bony hypertrophy He was supposed to see a back surgeon upcoming. The patient states that he was feeling better in the past 2 days not including today he went to the gym wrote a few miles on the bike and did some leg exercises including leg extension and leg press. He states he took today off to rest this evening while laying in bed had increased pain. He states is the same location and type of pain just more intense. He also noted a numbness/tingling sensation on the plantar surface of both feet which is improved. He denies any bowel or bladder dysfunction. He denies any known trauma. 6 weeks ago the patient had a MT and received coronary artery stents. He started several new medications including aspirin and Brilinta. He also started an TIFFANY inhibitor and atorvastatin. Patient denies any current fever or rashes. Because the pain seemed more intense and his recent cardiac issues he wanted to be evaluated tonight. He specifically denies any chest pain upper back pain or shortness of breath. [facility] Medical History Anxiety CAD (coronary artery disease) Hypertension Substance abuse Home Medications gabapentin 300 mg capsule 300 mg PO TIDCM 08/14/15 [History Last Taken 05/08/23] buspirone 15 mg tablet 15 mg PO BID anxiety 08/24/15 [History Last Taken 05/08/23] cyclobenzaprine 10 mg tablet 10 mg PO TID PRN muscle pain 05/08/23 [History Last Taken Unknown] fluoxetine 40 mg capsule 40 mg PO DAILY DEPRESSION 05/08/23 [History Last Taken 05/08/23] ropinirole 1 mg tablet 1.5 mg PO DAILY RESTLESS LEG SYNDROME 05/08/23 [History Last Taken 05/07/23] aspirin 81 mg tablet,delayed release 81 mg PO DAILY@0800 #0 tabs 05/10/23 [Rx Last Taken Unknown] atorvastatin 80 mg tablet 80 mg PO QHS #90 tabs 06/13/23 [Rx Last Taken Unknown] blood pressure test kit-medium #1 ea 06/13/23 [Rx Last Taken Unknown] lisinopril 5 mg tablet 5 mg PO DAILY #90 tabs 06/13/23 [Rx Last Taken Unknown] meloxicam 15 mg tablet 15 mg PO DAILY 06/13/23 [History Last Taken Unknown] metoprolol tartrate 25 mg tablet 25 mg PO BID #180 tabs 06/13/23 [Rx Last Taken Unknown] nitroglycerin 0.4 mg sublingual tablet 0.4 mg sublingual Q5M PRN Cardiac/Chest Pain #25 tabs 06/13/23 [Rx Last Taken Unknown] ticagrelor 90 mg tablet (Brilinta) 90 mg PO BID #180 tabs 06/13/23 [Rx Last Taken Unknown] oxycodone-acetaminophen 5 mg-325 mg tablet 1 tab PO Q6H PRN PRN Pain 3 days #12 TABLETS 06/27/23 [Rx Last Taken Unknown] Allergy/AdvReac Type Severity Reaction Status Date / Time No Known Allergies Allergy Verified 06/13/23 14:48 Surgical History H/O knee surgery H/O wisdom tooth extraction History of knee replacement Hx of appendectomy Hx of cardiac catheterization (~05/09/23) Stented coronary artery (~05/09/23) Social History Smoking Status: Never smoker ROS ROS ED Constitutional Constitutional ED: Denies chills, fever(s) or weight loss Eyes Eyes: Denies change in vision or diplopia ENT ENT ED: Denies ear pain, rhinorrhea or sore throat Cardiovascular Cardiovascular: Denies chest pain, orthopnea, palpitations or racing heartbeat Respiratory/Chest Respiratory/Chest: Denies cough, dyspnea or orthopnea Gastrointestinal Gastrointestinal: Denies abdominal pain, diarrhea, nausea or vomiting Genitourinary Genitourinary ED: Denies dysuria, hematuria or urinary frequency Musculoskeletal Musculoskeletal: Reports back pain; Denies arthralgias, myalgias or neck pain Integumentary Denies abscess or rash Neurologic Neurologic: Reports paresthesias; Denies headache(s) or weakness Psychiatric Psychiatric: Denies anxiety, depression, suicidal ideation or suicidal thoughts Endocrine Endocrinology: Denies polydipsia, polyphagia or polyuria Allergic/Immunologic Allergic/Immunologic ED: Denies mouth swelling, tongue swelling or urticaria EXAM Physical Exam Const Vital Signs: 06/26/23 21:46 06/26/23 23:46 06/27/23 00:44 Temperature 98.2 F 98.0 F Temperature Source Temporal Pulse Rate 103 H 90 95 Respiratory Rate 16 16 18 Blood Pressure 168/105 H 141/92 H 141/92 H Blood Pressure Mean 126 108 108 Pulse Ox 97 96 95 Oxygen Delivery Method Room Air Room Air Positive well nourished and well developed General Appearance ED: well developed HEENT Reports normocephalic, head/scalp atraumatic and moist mucous membranes Eyes PERRL and EOMs intact bilaterally Neck no lymphadenopathy, supple and no JVD Resp normal respiratory effort and clear to auscultation bilaterally Cardio regular rate, regular rhythm and no murmurs GI normal to inspection, nondistended, normoactive bowel sounds and non-tender Palpation: soft Back/Spine no CVA tenderness Back/Spine Narrative: Patient has slowly delivered movement. He points to the right lower lumbar paraspinal region as the area that hurts. I do not appreciate any rash or tissue texture changes to suggest an underlying infection. Extremity normal to inspection General Extremety ED: Negative for edema General Extremity: Negative for edema Neuro oriented x3, CN's II-XII intact bilaterally and no sensory deficits noted Sensorium / Orientation: alert Motor Exam: strength 5/5 throughout; Negative for strength abnormal Deep Tendon Reflexes: Rt Patellar (L4): 2+, Lt Patellar (L4): 2+, Rt Ankle (S1): 2+ and Lt Ankle (S1): 2+ Deep Tendon Reflexes Back: Rt Patellar (L4): 2+, Lt Patellar (L4): 2+, Rt Ankle (S1): 2+ and Lt Ankle (S1): 2+ Psych mental status grossly normal Mood & Affect: Negative for depressed or tearful Skin no rashes or lesions noted and no wounds MDM MDM MDM Narrative Medical decision making narrative: Patient is very worried about his heart. His EKG does not show ischemia he is not having chest pain or shortness of breath. I do not suspect pulmonary embolism. I do not suspect aortic emergencies. White count 9.2 hemoglobin 13.8. Platelet count of 278. Electrolytes are within normal limits. Blood glucose 131. Normal LFTs. Urinalysis normal. I independent her potation of the chest x-ray is no acute process. EKG is a normal sinus rhythm with no ischemia. Patient received Dilaudid and Zofran. I did review the patient's MRI results. I am not seeing an electrolyte disturbance anemia or physical exam findings to suggest retroperitoneal hematoma or psoas bleeding. I am not appreciating new neurologic symptoms to indicate need for emergent MRI. I am not seeing any physical exam findings or laboratory findings to make me feel an infectious etiology is present. I think more than likely the patient is having acute on chronic back pain. Very likely related to the fact that he spent the past 2 days at the gym doing exercise he is not used to. He has muscle relaxants at home. I can write for a few days of pain medication. He sees pain management on Friday. Patient is comfortable with this plan. History & Record Review Discussion w/independent historian: Patient and Significant other Additional record(s) reviewed:: Prior inpatient record, Prior ED visit and Prior labs Lab Data Attestation: I reviewed the patient's lab results. Labs: Laboratory Results - last 24 hr 06/26/23 06/26/23 23:10 23:20 WBC 9.2 RBC 5.13 Hgb 13.8 Hct 42.6 MCV 83.0 MCH 26.9 L MCHC 32.4 RDW Std Deviation 39.8 RDW Coeff of [place] 13.2 Plt Count 278 MPV 11.5 Immature Gran % (Auto) 0.900 Neut % (Auto) 60.4 Lymph % (Auto) 25.8 Wright % (Auto) 10.7 H Eos % (Auto) 1.5 Baso % (Auto) 0.7 Absolute Neuts (auto) 5.5 Absolute Lymphs (auto) 2.36 Nucleated RBC % 0 Sodium 140 Potassium 4.3 Chloride 106 Carbon Dioxide 25.0 Anion Gap 9 BUN 20 H Creatinine 1.01 Estim Creat Clear Calc 96.76 Est GFR (MDRD) Af Amer 99 Est GFR (MDRD) Non-Af 82 BUN/Creatinine Ratio 19.8 Glucose 131 H Calcium 9.0 Total Bilirubin 0.40 Direct Bilirubin 0.11 AST 22 ALT 60 Alkaline Phosphatase 89 Total Protein 7.2 Albumin 3.7 Globulin 3.5 Urine Color Yellow Urine Clarity Clear Urine pH 5.0 Ur Specific [place] 1.025 Urine Protein 15 H Urine Glucose (UA) Normal Urine Ketones 5 H Urine Occult Blood Negative Urine Nitrite Negative Urine Bilirubin Negative Urine Urobilinogen Normal Ur Leukocyte Esterase Negative Urine RBC 0 SEEN Urine WBC 0 SEEN Ur Squamous Epith Cells 0 SEEN Urine Bacteria 0 SEEN Urine Mucus 0 SEEN Radiography Diagnostic Testing: Clinical Impression(s) from Imaging Studies Chest X-Ray 06/26/23 22:48 IMPRESSION: No acute pulmonary finding. Electronically Signed: Raji Wagner MD at 0:14 EDT Reading Location ID and State: [address] [place] [address] Tel , Service support , EKG Initial EKG: Attestation: I personally reviewed and interpreted this EKG as follows: Comments: Normal sinus rhythm with a ventricular rate of 93 bpm no concerning features of ACS noted. Discharge Plan Triage Chief Complaint: Back ED Provider: Baljeet Parish Dx/Rx/DC Orders Clinical Impression: Acute exacerbation of chronic low back pain, Atherosclerotic heart disease of [place] coronary artery without angina pectoris Instructions: ED Back Pain (Acute or Chronic) Prescriptions: New oxycodone-acetaminophen [oxycodone-acetaminophen] 5-325 mg tablet 1 tab PO Q6H PRN PRN (Reason: Pain) 3 Days Qty: 12 0RF No Action meloxicam 15 mg tablet 15 mg PO DAILY Patient Comments: Short periods of time (DME) blood pressure test kit-medium Kit See Rx Instructions .Route Qty: 1 0RF Rx Instructions: As directed atorvastatin 80 mg tablet 80 mg PO QHS Qty: 90 3RF lisinopril 5 mg tablet 5 mg PO DAILY Qty: 90 3RF metoprolol tartrate 25 mg tablet 25 mg PO BID Qty: 180 3RF nitroglycerin 0.4 mg tablet, sublingual 0.4 mg sublingual Q5M PRN (Reason: Cardiac/Chest Pain) Qty: 25 3RF Brilinta 90 mg tablet 90 mg PO BID Qty: 180 3RF gabapentin 300 MG capsule 300 mg PO TIDCM Patient Comments: PT STATES HE NORMALLY TAKES TWICE DAILY buspirone 15 MG tablet 15 mg PO BID cyclobenzaprine 10 MG tablet 10 mg PO TID PRN (Reason: muscle pain) fluoxetine 40 mg capsule 40 mg PO DAILY Patient Comments: PT STATES HE TAKES 40MG DAILY, AND 20MG CAPSULE NEEDED. ropinirole 1 mg tablet 1.5 mg PO DAILY aspirin 81 mg Tablet,Delayed Release (Dr/Ec) 81 mg PO DAILY@0800 Qty: 0 0RF Primary Care Provider: Lindsay Zhou Referrals: Lindsay Zhou MD [Primary Care Provider] - Activity Restrictions/Additional Instructions: Please keep your appointments with spine surgery and pain management. Please be mindful of constipation with the pain medication and decreased mobility. You may benefit from a daily stool softener and apple juice/prune juice. Disposition Disposition: Home, Self Care
[2023-06-26 23:15] LABS: Bacteria 0 SEEN /hpf (None Seen); Mucous, Urine 0 SEEN /hpf (<or=2+); Red Blood Cells-Urine 0 SEEN /hpf (0-5); Squamous Epithelial Cells - UA 0 SEEN /hpf (0-5); White Blood Cells 0 SEEN /hpf (0-5)
[2023-06-26 23:17] LABS: Glucose, Dipstick Normal (Normal); Ketone-Dipstick 5 mg/dl (Negative); Leukocyte Esterase-Dipstick Negative /ul (Negative); Nitrite-Dipstick Negative (Negative); Occult Blood-Urine Negative /ul (Negative); Protein-Dipstick 15 mg/dl (Negative); Specific Gravity, Urine 1.025 (1.002-1.030); Urine Bilirubin Dipstick Negative (Negative); Urine Urobilinogen Normal (Normal)
[2023-06-26 23:31] LABS: Color, Urine Yellow (Yellow); Urine Clarity Clear (Clear)
[2023-06-26] MEDS: Ondansetron 4 MG/2 ML Vial IV (23:31)
[2023-06-26] MEDS: HYDROmorphone 1 MG/ML Syringe IV (23:32)
[2023-06-26 23:37] LABS: Absolute Lymphocyte Count 2.36 X10^3/uL (0.83-4.51); Absolute Neutrophil Count 5.5 X10^3/uL (2.0-7.7); Basophil# 0.06 X10^3/uL; Basophil% 0.7 % (0-1); Eosinophil# 0.14 X10^3/uL; Eosinophils% 1.5 % (0-5); Hematocrit 42.6 % (40-54); Hemoglobin 13.8 g/dL (13.0-16.5); Lymphocyte # 2.36 X10^3/ul (0.83-4.51); Lymphocyte % 25.8 % (19-41); Mean Corp Hgb Conc 32.4 g/dL (32-36); Mean Corpuscular Hgb 26.9 pg (27.0-32.0); Mean Platelet Vol. 11.5 fl (6.2-12.0); Monocyte# 0.98 X10^3/uL; Monocyte% 10.7 % (0-10); NRBC Flagged by Analyzer 0 % (0-5); Neutrophil # 5.54 X10^3/uL (2.7-7.7); Neutrophil % 60.4 % (47-70); Platelet Count 278 K/mm3 (150-450); RBC Distribution Width CV 13.2 % (11.6-14.6); RBC Distribution Width SD 39.8 fl (35.1-43.9); Red Blood Count 5.13 M/mm3 (4.6-6.2); White Blood Count 9.2 K/mm3 (4.4-11.0)
[2023-06-26 23:46] VITALS: BP 141/92; PULSE 90; RESP 16; O2SAT 96
[2023-06-26 23:55] LABS: AST(SGOT) 22 U/L (15-37); Alanine Aminotransfer ALT/SGPT 60 U/L (16-61); Albumin, Serum 3.7 g/dL (3.2-5.0); Alkaline Phosphatase 89 U/L (45-117); Anion Gap 9 (5-15); BUN 20 mg/dL (7-18); BUN/Creat Ratio 19.8 RATIO (10-20); Bilirubin, Direct 0.11 mg/dL (0.00-0.30); Chloride 106 mmol/L (98-107); Creatinine, Serum 1.01 mg/dL (0.70-1.30); EST Glomerular Filtration Rate 82 mL/min (>60); Est Glom Filt Rate - Afr Amer 99 mL/min (>60); Estimated Creatinine Clearance 96.76 ml/min; Globulin 3.5 g/dL (2.2-4.2); Glucose 131 mg/dL (74-106); Potassium 4.3 mmol/L (3.5-5.1); Protein, Total 7.2 g/dL (6.4-8.2); Sodium Level 140 mmol/L (136-145)
[2023-06-27 00:44] VITALS: BP 141/92; PULSE 95; RESP 18; TEMP 36.7; O2SAT 95
== END 2023-06-27 00:44 | disposition home or self-care (01) ==
PROVIDERS: Emergency Provider Emergency Medicine; PCP Internal Medicine; Visit Provider Emergency Medicine
DX: M54.50 Low back pain, unspecified (principal); G89.29 Other chronic pain; I25.10 Atherosclerotic heart disease of native coronary artery without angina pectoris; I25.2 Old myocardial infarction; I10 Essential (primary) hypertension; Z95.5 Presence of coronary angioplasty implant and graft; Z79.82 Long term (current) use of aspirin; Z79.899 Other long term (current) drug therapy
CPT/HCPCS: 71045; 80048; 80076; 81001; 85025; 93005; 96374; 96375; 99282; A4216; J2405

== ENCOUNTER 2023-08-04 11:30 | Outpatient (RCR) | payer BC, SELFPAY ==
--- NOTE | 2023-07-25 10:17 | HP.PTEVAL_ITS ---
Patient's Visit Information Visit Information Visit Information: RITU COBOS is a 52 year old M referred to Physical Therapy by Dr. Lindsay Zhou MD with a diagnosis of BACK AND LEG PAIN. Date of Evaluation: 07/25/23 Physical Therapist: Eugenio Gold, PT, Cert MDT, OCS Visit Plan Frequency: 2x /Week Duration: 4 Weeks Plan: PT INTERVENTIONS AQUATIC THERAPY FOR LUMBAR ROM( EXTENSION PERFERENCE) ,LE FLEXABILITY,DLS ,POSTURAL EX'S ,ACTIVITY MODIFICATION AND LE STRENGTHENING Subjective Subjective: This 52 y/o male presents to physical therapy with with lumbar radiculopathy left . Patient has lumbar pain with radicular symptoms many years. Patient had MRI showed Spinal stenosis at L4-5 secondary to disc disease and facet arthropathy more severe on the left exaggerated by synovial cyst Spinal stenosis at L5-S1 also more pronounced on the left secondary to disc disease and bony hypertrophy . Patient has seen DR Johnson with epidural injection . Patient also has had functional capacity evaluation. Medication hydrocodone.Patient has seen orthopedic spine DR for surgery recommended surgery but patient had CO May so had stent [facility]. So unable o have surgery. Pain located lumbar lateral leg to lateral calf sharp pain and burning in feet. Patient aggravating sitting ,bending ,lifting . Alleviating factors rest ,patient uses cane for gait. Coughing/sneezing -. C/O paresthesia/tingling in feet. Bowel/bladder -. Patient pain affects sleeping. Patient unable to return to work. Patient has no prior PT. Patient symptoms affects QOL and function and unable to return to work, Will see surgeon in September. Patient goals to decrease pain. SOCIAL: VOCATION: [employer] Pain Bilateral Back: Pain Intensity (Out of 10): 7 Pain Intensity Range: 10 Left Lower Extremity: Pain Intensity (Out of 10): 7 Pain Intensity Range: 10 Comment: lateral hip Objective Objective: POSTURE: mild forward posture GAIT: reciprocal pattern pattern with mild forward posture 2 point gait with cane NEURO: c/o paresthesia/tingling burning in feet , reflexes L3-4,L4-5,L5-S1 2/3 SYMMETRIES : align PALAPTION: unremarkable FLEXABILITY: hamstrings mod tight MMT: quads/hams 4/5 ,hip flexion 4-/5 ,ankle 4/5 LUMBAR ROM: flexion mod loss pain ,extension min/mod loss ,side glides min loss Special Tests L/S Slump test left side: Positive L/S Slump test right side: Negative L/S Left Straight Leg Raise: Positive L/S Right Straight Leg Raise: Negative Lumbar Standing: Flexion - Mechanical Response: No effect Lumbar Standing: Flexion - Symptoms During Testing: Increases Lumbar Standing: Flexion - Symptoms After Testing: Worse Lumbar Standing: Extension - Mechanical Response: No effect Lumbar Standing: Extension - Symptoms During Testing: Increases Lumbar Standing: Extension - Symptoms After Testing: No worse Lumbar Standing: Right Side Glides - Mechanical Response: No effect Lumbar Standing: Right Side [place] - Symptoms During Testing: No effect Lumbar Standing: Right Side [place] - Symptoms After Testing: No effect Lumbar Standing: Left Side [place] - Mechanical Response: No effect Lumbar Standing: Left Side [place] - Symptoms During Testing: No effect Lumbar Standing: Left Side [place] - Symptoms After Testing: No effect Lumbar Lying: Flexion - Mechanical Response: No effect Lumbar Lying: Flexion - Symptoms During Testing: Increases Lumbar Lying: Flexion - Symptoms After Testing: No worse Lumbar Lying: Extension - Mechanical Response: No effect Lumbar Lying: Extension - Symptoms During Testing: Decreases Lumbar Lying: Extension - Symptoms After Testing: No better Balance/Special Test Scores Oswestry Low Back Score: 26 Goals Goal 1:: Patient to be I with HEP for back and Aquatic therapy Goal Time Frame: 4-6 Weeks Goal 2:: Patient to improve lumbar ROM for function recovery to ties shoes Goal Time Frame: 4-6 Weeks Goal 3:: Patient to improve back oswestry by 3-5 points to improve QOL and f unction. Goal Time Frame: 4-6 Weeks Goal 4:: Patient to improve back oswestry score by 5 points for QOL and function Goal Time Frame: 4-6 Weeks Goal 5:: Patient to demonstrate 40% improvement with less pain and improved function Goal Time Frame: 4-6 Weeks Rehabilitation Potential Physical Therapy Diagnosis: Patient has lumbar radiculopathy with protrusion and stenosis with pain with motion testing and positioning need cane for gait had MRI was to have surgery but had CO and stent thus will need skilled PT Rehabilitation Potential: Good Anticipated Interventions Patient/Client Instruction: Educate patient on: Condition and Plan of Care For the Purpose of:: To decrease pain, To increase ROM, To improve muscle performance and motor function, To improve ability to perform ADL's, To increase tolerance to activity/condition/position, To improve ability of physical actions for home/community/work/leisure, To improve gait and locomotor functions, To improve health of tissue, To decrease soft tissue restriction, To increase flexibility/ROM and To improve endurance Therapeutic Exercise to Include: Strength training, Body mechanics, Postural training, Flexibilty training, In an aquatic setting and Dynamic Lumbar Stabilization For the Purpose of:: To decrease pain, To increase ROM, To improve muscle performance and motor function, To improve ability to perform ADL's, To increase tolerance to activity/condition/position, To improve ability of physical actions for home/community/work/leisure, To improve health of tissue, To decrease soft tissue restriction, To increase flexibility/ROM, To improve endurance, To reduce risk of recurrence and To improve tolerance to ADL's Text: Thank you for the opportunity to evaluate your patient. For Medicare and Medicare HMO plans, please review the plan of care and approve it. It will need to be FAXED BACK to us at [phone] for Medicare purposes. For Medicare only, by signing this I certify the plan of care. Please let me know if there are questions or concerns regarding this plan of care. Physician Signature: Date:
== END 2023-08-04 19:00 | disposition home or self-care (01) ==
LOC: PT 11:30
PROVIDERS: PCP Internal Medicine; Referring Provider Anesthesiology Pain Medicine; Visit Provider Anesthesiology Pain Medicine
DX: M54.9 Dorsalgia, unspecified (principal); M79.606 Pain in leg, unspecified
CPT/HCPCS: 97110; 97113

== ENCOUNTER → 2023-08-06 | Outpatient (CLI) | payer BC, SELFPAY ==
[2023-08-06 11:38] LABS: Amphetamine Urine VISTA NEGATIVE (<1000 ng/mL); Barbiturate Urine VISTA NEGATIVE (< 200 ng/mL); Benzodiazepine Urine VISTA NEGATIVE (< 200 ng/mL); Cocaine Urine VISTA NEGATIVE (< 300 ng/mL); Ecstacy Urine VISTA NEGATIVE (< 500 ng/mL); Methadone Urine VISTA NEGATIVE (< 300 ng/mL); PCP Urine VISTA NEGATIVE (< 25 ng/mL); THC Urine VISTA POSITIVE (< 50 ng/mL); Vista UDS pH Range 5
== END | disposition home or self-care (01) ==
LOC: LAB 09:58
PROVIDERS: PCP Internal Medicine; Referring Provider Anesthesiology Pain Medicine; Visit Provider Anesthesiology Pain Medicine
DX: F11.20 Opioid dependence, uncomplicated (principal)
CPT/HCPCS: 80307

== ENCOUNTER 2023-08-09 10:04 | Emergency (ER) | payer BC, SELFPAY ==
[2023-08-09 10:05] VITALS: BP 140/106; PULSE 112; RESP 16; TEMP 36.7; O2SAT 98; BMI 37.0
--- NOTE | 2023-08-09 10:14 | CT_ITS ---
INDICATION: Abrupt headache with neck pain EXAMINATION: CT BRAIN - CT Head or Brain W/O Contrast Injection TECHNIQUE: Multiple axial images were obtained of the head without intravenous contrast. A radiation dose optimization technique was used for this scan. IV Contrast dosage and agent: None. RADIATION DOSAGE (If Supplied By Facility): CTDIvol = ( 44.99 ) mGy, DLP = ( 812.98 ) mGycm COMPARISON: No relevant prior comparison study available FINDINGS: BRAIN PARENCHYMA: No intra- or extra-axial hemorrhage. No evidence of acute infarct. No intracranial mass or mass effect. There is preservation of the mayers/white matter interface. Posterior fossa structures are unremarkable. CSF SPACES: Appropriate for age. No hydrocephalus. Basal cisterns are patent. CALVARIUM, SKULL BASE, PARANASAL SINUSES AND MASTOID AIR CELLS: Loss of aeration of the right mastoid air cells which could reflect mastoiditis. No discrete lytic or blastic abnormalities. ORBITS: Both globes, extraocular muscles, optic nerves and retrobulbar fat appear unremarkable. ASPECTS Score for Acute Strokes: 10 CT/Brain/Head without Contrast IMPRESSION: 1. No acute intracranial process. 2. Loss of aeration of the right mastoid air cells which could reflect mastoiditis. Electronically Signed: Romario Patton MD at 11:52 EDT ,
--- NOTE | 2023-08-09 10:20 | EDS_ITS ---
HPI History of Present Illness Chief Complaint: Other, Pain/Inj Detail of Chief Complaint: Who arrived by ambulance because of abrupt headache and neck pain that awok Informant: patient and spouse/S.O. Onset/Context/Timing Onset: Today (010) Context: Sudden Onset Timing: Continuous Quality: Pain Location: Head and neck Current Severity: Moderate Maximum Severity: Severe Worsened by: Flexion of his neck Relieved by: Nothing Associated Symptoms Associated Symptoms: Nausea and photophobia Narrative Narrative: Patient is a 52-year-old male with history of hypertension and atherosclerotic heart disease. Patient arrived by ambulance because he was awakened from sleep at 0100 because of abrupt headache and neck pain. He localizes the discomfort to the occipital area. He does endorse nausea. He complains of light sensitivity. He does not know if there is a family history of cerebral aneurysm or subarachnoid hemorrhage. He is not on an anticoagulant. He denies [place] ears or decreased hearing. He denies cardiac or respiratory symptoms. His only GI symptom is nausea. He does report problems with balance. The problems with balance is not an acute issue. Patient reports chronic back pain. He has been imaged in the past. He has had no imaging of his neck. He does endorse fall in the last week. He hit his face against the ground. He denied loss of consciousness. He denies double vision, blurred vision loss of vision. He denied neck pain at that time. Patient states he has had issues with his back. He has had increased back pain over the past week. He denies any ripping discomfort in his chest or back. Prior similar symptoms: No Recent Illness/Hospitalization: No PFSH PFS Medical History Anxiety CAD (coronary artery disease) Hypertension Substance abuse Home Medications gabapentin 300 mg capsule 300 mg PO TIDCM 08/14/15 [History Last Taken 05/08/23] buspirone 15 mg tablet 15 mg PO BID anxiety 08/24/15 [History Last Taken 05/08/23] cyclobenzaprine 10 mg tablet 10 mg PO TID PRN muscle pain 05/08/23 [History Last Taken Unknown] fluoxetine 40 mg capsule 40 mg PO DAILY DEPRESSION 05/08/23 [History Last Taken 05/08/23] ropinirole 1 mg tablet 1.5 mg PO DAILY RESTLESS LEG SYNDROME 05/08/23 [History Last Taken 05/07/23] aspirin 81 mg tablet,delayed release 81 mg PO DAILY@0800 #0 tabs 05/10/23 [Rx Last Taken Unknown] atorvastatin 80 mg tablet 80 mg PO QHS #90 tabs 06/13/23 [Rx Last Taken Unknown] blood pressure test kit-medium #1 ea 06/13/23 [Rx Last Taken Unknown] lisinopril 5 mg tablet 5 mg PO DAILY #90 tabs 06/13/23 [Rx Last Taken Unknown] meloxicam 15 mg tablet 15 mg PO DAILY 06/13/23 [History Last Taken Unknown] metoprolol tartrate 25 mg tablet 25 mg PO BID #180 tabs 06/13/23 [Rx Last Taken Unknown] nitroglycerin 0.4 mg sublingual tablet 0.4 mg sublingual Q5M PRN Cardiac/Chest Pain #25 tabs 06/13/23 [Rx Last Taken Unknown] ticagrelor 90 mg tablet (Brilinta) 90 mg PO BID #180 tabs 06/13/23 [Rx Last Taken Unknown] oxycodone-acetaminophen 5 mg-325 mg tablet 1 tab PO Q6H PRN PRN Pain 3 days #12 TABLETS 06/27/23 [Rx Last Taken Unknown] oxycodone-acetaminophen 5 mg-325 mg tablet 1 tab PO Q6H PRN PRN Pain 3 days #12 TABLETS 08/09/23 [Rx Last Taken Unknown] Allergy/AdvReac Type Severity Reaction Status Date / Time No Known Allergies Allergy Verified 08/09/23 10:05 Surgical History H/O knee surgery H/O wisdom tooth extraction History of knee replacement Hx of appendectomy Hx of cardiac catheterization (~05/09/23) Stented coronary artery (~05/09/23) Social History (Updated 08/09/23 @ 10:[address] Loc Young MD) household members: family and children Smoking Status: Never smoker alcohol intake: current alcohol intake frequency: holidays/special occasions only substance use type: marijuana ROS ROS ED Constitutional Constitutional ED: Denies chills, fever(s), subjective or sweats Eyes Eyes: Denies blurry vision, change in vision or diplopia ENT ENT ED: Denies ear pain, rhinorrhea or sore throat Cardiovascular Cardiovascular: Denies chest pain, palpitations or racing heartbeat Respiratory/Chest Respiratory/Chest: Denies cough, dyspnea or dyspnea on exertion Gastrointestinal Gastrointestinal: Reports nausea; Denies abdominal pain, melena or vomiting Musculoskeletal Musculoskeletal: Reports neck pain; Denies arthralgias, back pain or myalgias Integumentary Denies rash Neurologic Neurologic: Reports headache(s); Denies paresthesias or weakness Endocrine Endocrinology: Denies cold intolerance or heat intolerance Hematologic/Lymphatic Hematologic/Lymphatic: Reports systems reviewed and no addt'l complaints, except as documented EXAM Physical Exam Const Vital Signs: 08/09/23 10:05 08/09/23 10:05 08/09/23 12:05 Temperature 98.1 F Temperature Source Temporal Pulse Rate 112 H 92 Respiratory Rate 16 13 Respiratory Effort Short of Breath Respiratory Pattern Normal Blood Pressure 140/106 H 141/88 H Blood Pressure Mean 117 105 Pulse Ox 98 95 Oxygen Delivery Method Room Air Room Air Positive well nourished, well developed and obese Constitutional Narrative: Patient appears in discomfort. He has pierced lip breathing. General Appearance ED: well developed; Negative for pallor Nutritional Appearance: obese HEENT Reports moist mucous membranes HEENT Narrative: Head is atraumatic normocephalic. There is no rash noted. There is no tenderness over the temporal arteries. Nares patent. Posterior pharynx out erythema or exudate. Eyes PERRL and EOMs intact bilaterally Eyes Narrative: There is no nystagmus. Patient's eyes are small and difficult to perform funduscopic exam. Unable to determine cup-to-disc ratio or if there is papilledema Neck no lymphadenopathy and no JVD Neck Narrative: Passive or active flexion patient grimaces. Chest Wall inspection of chest normal and palpation of chest normal Resp normal respiratory effort and clear to auscultation bilaterally Cardio regular rate, regular rhythm, S1 normal heart sound, S2 normal heart sound and no murmurs GI normal to inspection, nondistended, normoactive bowel sounds, non-tender, non- distended and no masses; Negative for hepatosplenomegaly GI Narrative: There is no palpable pulsatile mass. There is no abdominal bruit Auscultation: hypoactive bowel sounds Back/Spine no CVA tenderness Extremity normal to inspection General Extremety ED: Negative for edema or tenderness General Extremity: Negative for edema Neuro oriented x3, CN's II-XII intact bilaterally and no sensory deficits noted Neuro Narrative: There is no clonus or Babinski sign. DTR at the bicep, brachialis, tricep, patella and ankle 1+. Sensorium / Orientation: alert Motor Exam: strength 5/5 throughout Psych Mood & Affect: anxious Skin no rashes or lesions noted, no wounds and skin turgor normal General Skin Exam: elasticity normal; Negative for jaundice or pallor MDM MDM MDM Narrative Medical decision making narrative: With abrupt headache and neck pain that awoke patient from sleep will obtain CT of the head to evaluate for cerebral bleed i.e. subarachnoid hemorrhage. In light of his age we will obtain ESR since he is complained of other symptoms. He is somewhat confusing regarding pain. His POA who entered the room informed me that he has had neck pain starting today only. The back pain has been present for a week. Patient's vitals are remarkable for slight elevation of blood pressure 140/106 and pulse of 112. Patient was reassessed at 1138. Patient is no longer grimacing or Pantene. His pain has improved markedly with oral morphine. Patient was informed per my review of the CAT scan there is no evidence of hemorrhage. Because he is on Brilinta lumbar puncture is relatively contraindicated because of concern for hemorrhage and paraplegia. Therefore will obtain CTA of the head and neck to lo ok for aneurysm etc. History & Record Review Additional record(s) reviewed:: Prior ED visit and Prior labs Lab Data Labs: Laboratory Results - last 24 hr 08/09/23 10:22 WBC 9.7 RBC 5.16 Hgb 14.4 Hct 42.9 MCV 83.1 MCH 27.9 MCHC 33.6 RDW Std Deviation 39.3 RDW Coeff of [place] 12.9 Plt Count 286 MPV 11.4 Immature Gran % (Auto) 1.500 H Neut % (Auto) 63.8 Lymph % (Auto) 23.6 [place] % (Auto) 8.6 Eos % (Auto) 1.8 Baso % (Auto) 0.7 Absolute Neuts (auto) 6.2 Absolute Lymphs (auto) 2.30 Nucleated RBC % 0 ESR 6 Sodium 138 Potassium 4.0 Chloride 104 Carbon Dioxide 27.0 Anion Gap 7 BUN 20 H Creatinine 1.00 Estim Creat Clear Calc 96.85 Est GFR (MDRD) Af Amer 100 Est GFR (MDRD) Non-Af 83 BUN/Creatinine Ratio 20.0 Glucose 177 H Calcium 10.0 Radiography Diagnostic Testing: Clinical Impression(s) from Imaging Studies Brain CT 08/09/23 10:14 IMPRESSION: 1. No acute intracranial process. 2. Loss of aeration of the right mastoid air cells which could reflect mastoiditis. Electronically Signed: Romario Patton MD at 11:52 EDT , Head/Neck CTA 08/09/23 11:40 IMPRESSION: 1. No intracranial great vessel stenosis. 2. No common carotid or internal carotid artery stenosis. 3. Patent bilateral vertebral arteries without evidence of stenosis. Electronically Signed: Romario Patton MD at 12:46 EDT , Treatment and Re-Evaluation :: Patient was reassessed at 1340. He is smiling. He is able to move his neck freely. He was informed of his CTA results Apparently has seen Dr. Hong at the [facility] and scheduled for surgery in October. He is not able have surgery sooner since he had a recent MRI. Discharge Plan Triage Chief Complaint: Other, Pain/Inj ED Provider: Loc Young Dx/Rx/DC Orders Clinical Impression: Headache, primary thunderclap, Atherosclerotic heart disease of [place] coronary artery without angina pectoris, Hypertension, Acute neck pain Instructions: Understanding Headache Pain, ED Neck Pain Prescriptions: New oxycodone-acetaminophen [oxycodone-acetaminophen] 5-325 mg tablet 1 tab PO Q6H PRN PRN (Reason: Pain) 3 Days Qty: 12 0RF No Action meloxicam 15 mg tablet 15 mg PO DAILY Patient Comments: Short periods of time (DME) blood pressure test kit-medium Kit See Rx Instructions .Route Qty: 1 0RF Rx Instructions: As directed atorvastatin 80 mg tablet 80 mg PO QHS Qty: 90 3RF lisinopril 5 mg tablet 5 mg PO DAILY Qty: 90 3RF metoprolol tartrate 25 mg tablet 25 mg PO BID Qty: 180 3RF nitroglycerin 0.4 mg tablet, sublingual 0.4 mg sublingual Q5M PRN (Reason: Cardiac/Chest Pain) Qty: 25 3RF Brilinta 90 mg tablet 90 mg PO BID Qty: 180 3RF gabapentin 300 MG capsule 300 mg PO TIDCM Patient Comments: PT STATES HE NORMALLY TAKES TWICE DAILY buspirone 15 MG tablet 15 mg PO BID cyclobenzaprine 10 MG tablet 10 mg PO TID PRN (Reason: muscle pain) fluoxetine 40 mg capsule 40 mg PO DAILY Patient Comments: PT STATES HE TAKES 40MG DAILY, AND 20MG CAPSULE NEEDED. ropinirole 1 mg tablet 1.5 mg PO DAILY aspirin 81 mg Tablet,Delayed Release (Dr/Ec) 81 mg PO DAILY@0800 Qty: 0 0RF oxycodone-acetaminophen [oxycodone-acetaminophen] 5-325 mg tablet 1 tab PO Q6H PRN PRN (Reason: Pain) 3 Days Qty: 12 0RF Primary Care Provider: Lindsay Zhou Referrals: Lindsay Zhou MD [Primary Care Provider] - 3-5 Days if not improving Disposition Disposition: Home, Self Care
[2023-08-09] MEDS: 0.9% Normal Saline (1000mL) 1,000 ML 150 ML IV (10:24)
[2023-08-09] MEDS: Ondansetron 4 MG/2 ML Vial IV (10:24)
[2023-08-09] MEDS: Morphine 4 MG/ML Syringe IV ×2 (10:25→12:11)
[2023-08-09 10:40] LABS: Absolute Neutrophil Count 6.2 X10^3/uL (2.0-7.7); Basophil# 0.07 X10^3/uL; Basophil% 0.7 % (0-1); Eosinophil# 0.18 X10^3/uL; Eosinophils% 1.8 % (0-5); Hematocrit 42.9 % (40-54); Hemoglobin 14.4 g/dL (13.0-16.5); Lymphocyte % 23.6 % (19-41); Mean Corp Hgb Conc 33.6 g/dL (32-36); Mean Corpuscular Hgb 27.9 pg (27.0-32.0); Mean Corpuscular Volume 83.1 fL (80-94); Mean Platelet Vol. 11.4 fl (6.2-12.0); Monocyte# 0.84 X10^3/uL; Monocyte% 8.6 % (0-10); NRBC Flagged by Analyzer 0 % (0-5); Neutrophil # 6.19 X10^3/uL (2.7-7.7); Neutrophil % 63.8 % (47-70); Platelet Count 286 K/mm3 (150-450); RBC Distribution Width CV 12.9 % (11.6-14.6); RBC Distribution Width SD 39.3 fl (35.1-43.9); Red Blood Count 5.16 M/mm3 (4.6-6.2); White Blood Count 9.7 K/mm3 (4.4-11.0)
[2023-08-09 10:50] LABS: Anion Gap 7 (5-15); BUN 20 mg/dL (7-18); Chloride 104 mmol/L (98-107); EST Glomerular Filtration Rate 83 mL/min (>60); Est Glom Filt Rate - Afr Amer 100 mL/min (>60); Estimated Creatinine Clearance 96.85 ml/min; Glucose 177 mg/dL (74-106); Sodium Level 138 mmol/L (136-145)
--- NOTE | 2023-08-09 11:40 | CT_ITS ---
INDICATION: Thunderclap headache. Patient on anticoagulant un -- Pain occiput region EXAMINATION: CTA HEAD, AND CTA NECK TECHNIQUE: Noncontrast axial images were obtained of the brain. Subsequently, routine carotid CT angiogram protocol was performed without and with IV contrast. In addition, images were obtained of the [place] of [place]. NASCET criteria using the distal ICAs for comparison were used for evaluation of stenoses. 3D reconstructions were reviewed. A radiation dose optimization technique was used for this scan. IV Contrast dosage and agent: 100 cc of Isovue-370. COMPARISON: No relevant prior comparison study available FINDINGS: --CTA NECK: AORTIC ARCH AND BRANCHES: Normal anatomy, patent. RIGHT CCA: No occlusion, significant stenosis or dissection. RIGHT ICA: No occlusion, significant stenosis or dissection. LEFT CCA: Mild atherosclerotic calcifications in the left bulb region without significant stenosis. LEFT ICA: No occlusion, significant stenosis or dissection. RIGHT VERTEBRAL ARTERY: No occlusion, significant stenosis or dissection. LEFT VERTEBRAL ARTERY: No occlusion, significant stenosis or dissection. NECK SOFT TISSUES: Unremarkable. --CTA HEAD: --Anterior circulation: ICAs: No significant stenosis at the intracranial/visualized segments. ACAs: No significant stenosis at the visualized segments. ACOM: Present. MCAs: No significant stenosis at the visualized segments. --Posterior circulation: PCOMs: Patent right side. Not visualized on the left side. blind hanger: No significant stenosis at the visualized segments. BASILAR ARTERY: No significant stenosis. VERTEBRAL ARTERIES: No significant stenosis at the intradural/visualized segments. No evidence of intracranial aneurysm or vascular malformation. CT/CTA Head AND Neck W/ Contrast IMPRESSION: 1. No intracranial great vessel stenosis. 2. No common carotid or internal carotid artery stenosis. 3. Patent bilateral vertebral arteries without evidence of stenosis. Electronically Signed: Romario Patton MD at 12:46 EDT ,
[2023-08-09 12:05] VITALS: BP 141/88; PULSE 92; RESP 13; O2SAT 95
[2023-08-09 12:19] LABS: Erythrocyte Sedimentation Rate 6 mm/hr (0-20)
[2023-08-09 13:59] VITALS: BP 119/93; PULSE 83; RESP 16; TEMP 36.3; O2SAT 94
== END 2023-08-09 14:01 | disposition home or self-care (01) ==
PROVIDERS: Emergency Provider Emergency Medicine; PCP Internal Medicine; Visit Provider Emergency Medicine
DX: G44.53 Primary thunderclap headache (principal); I25.10 Atherosclerotic heart disease of native coronary artery without angina pectoris; M54.2 Cervicalgia; I10 Essential (primary) hypertension; F12.90 Cannabis use, unspecified, uncomplicated; E66.9 Obesity, unspecified; Z95.5 Presence of coronary angioplasty implant and graft
CPT/HCPCS: 70450; 70496; 70498; 80048; 85025; 85652; 96361; 96374; 96375; 96376; 99284; J7030; Q9967; A4216; J2405

== ENCOUNTER 2023-08-11 22:38 | Emergency (ER) | payer BC, SELFPAY ==
[2023-08-11 22:38] VITALS: BP 149/114; PULSE 143; RESP 30; TEMP 36.3; O2SAT 99
[2023-08-11 22:40] VITALS: BMI 37.8
[2023-08-11 23:10] VITALS: PULSE 120; RESP 19
[2023-08-11 23:15] VITALS: BP 141/100; PULSE 121; PULSE 122; RESP 15; RESP 16; O2SAT 98; O2SAT 99
[2023-08-11 23:16] VITALS: BP 141/100; PULSE 121; RESP 17; O2SAT 99
--- NOTE | 2023-08-11 23:21 | EKG12_ITS ---
Test Reason : CP Blood Pressure : / mmHG Vent. Rate : 127 BPM Atrial Rate : 127 BPM P-R Int : 148 ms QRS Dur : 084 ms QT Int : 314 ms P-R-T Axes : 027 -16 000 degrees QTc Int : 456 ms Sinus tachycardia Nonspecific ST abnormality Abnormal ECG Confirmed by Jostin Nolen ([id number]), research editor CARLOS GHOTRA ([id number]) on 08/12/2023 10:03:43 AM Referred By: CECILIA Confirmed By:Jostin Nolen
--- NOTE | 2023-08-11 23:23 | ED.VIS.CHEST ---
HPI History of Present Illness Chief Complaint: Chest Pain Informant: patient Narrative Narrative: 52-year-old male presents with diffuse chest tightness that started about half hour prior to arrival. He states he feels like he is probably having a panic attack, but he had a heart attack in May wants to make sure he is not having another 1. He states the majority of his stress is due to his low back pain. This has been going on for quite some time but progressively getting worse along with lower extremity neurologic symptoms that are progressing as well, he has been diagnosed with spinal stenosis, but given his heart attack that he had a couple months ago, nobody wants to touch me until 6 months after. He had his last MRI last year. States he has chronic numbness in his feet but has been getting worse. Tonight he had urinary symptoms, feeling like he needed to go but then when he would go he was able to be to small amounts and unclear if he was emptying his bladder or not. He is been constipated but when he needs to have a bowel movement he is able. He has some numbness in his right anterior groin where he had surgery, but denies any perineal anesthesia or perianal anesthesia or numbness/tingling there. States the numbness and tingling is in his feet. He has not been a standing, but it has been more prominent in the last couple weeks. He states he can walk, he has some weird feeling in both of his hips that makes him walk awkward and makes his back hurt a lot more, and after certain distance, he states his legs start to feel weak and he has to rest. That has not changed majorly in the last week. [facility] Medical History Anxiety CAD (coronary artery disease) Hypertension Substance abuse Home Medications gabapentin 300 mg capsule 300 mg PO TIDCM 08/14/15 [History Last Taken 05/08/23] buspirone 15 mg tablet 15 mg PO BID anxiety 08/24/15 [History Last Taken 05/08/23] cyclobenzaprine 10 mg tablet 10 mg PO TID PRN muscle pain 05/08/23 [History Last Taken Unknown] fluoxetine 40 mg capsule 40 mg PO DAILY DEPRESSION 05/08/23 [History Last Taken 05/08/23] ropinirole 1 mg tablet 1.5 mg PO DAILY RESTLESS LEG SYNDROME 05/08/23 [History Last Taken 05/07/23] aspirin 81 mg tablet,delayed release 81 mg PO DAILY@0800 #0 tabs 05/10/23 [Rx Last Taken Unknown] atorvastatin 80 mg tablet 80 mg PO QHS #90 tabs 06/13/23 [Rx Last Taken Unknown] blood pressure test kit-medium #1 ea 06/13/23 [Rx Last Taken Unknown] lisinopril 5 mg tablet 5 mg PO DAILY #90 tabs 06/13/23 [Rx Last Taken Unknown] meloxicam 15 mg tablet 15 mg PO DAILY 06/13/23 [History Last Taken Unknown] metoprolol tartrate 25 mg tablet 25 mg PO BID #180 tabs 06/13/23 [Rx Last Taken Unknown] nitroglycerin 0.4 mg sublingual tablet 0.4 mg sublingual Q5M PRN Cardiac/Chest Pain #25 tabs 06/13/23 [Rx Last Taken Unknown] ticagrelor 90 mg tablet (Brilinta) 90 mg PO BID #180 tabs 06/13/23 [Rx Last Taken Unknown] oxycodone-acetaminophen 5 mg-325 mg tablet 1 tab PO Q6H PRN PRN Pain 3 days #12 TABLETS 06/27/23 [Rx Last Taken Unknown] oxycodone-acetaminophen 5 mg-325 mg tablet 1 tab PO Q6H PRN PRN Pain 3 days #12 TABLETS 08/09/23 [Rx Last Taken Unknown] Allergy/AdvReac Type Severity Reaction Status Date / Time No Known Allergies Allergy Verified 08/11/23 22:40 Surgical History H/O knee surgery H/O wisdom tooth extraction History of knee replacement Hx of appendectomy Hx of cardiac catheterization (~05/09/23) Stented coronary artery (~05/09/23) Social History household members: family and children Smoking Status: Never smoker alcohol intake: current alcohol intake frequency: holidays/special occasions only substance use type: marijuana ROS ROS ED Constitutional Constitutional ED: Denies chills or fever(s) Eyes Eyes: Denies change in vision or diplopia ENT ENT ED: Denies rhinorrhea or sore throat Cardiovascular Cardiovascular: Reports chest pain; Denies palpitations Respiratory/Chest Respiratory/Chest: Reports dyspnea; Denies cough Gastrointestinal Gastrointestinal: Reports constipation; Denies abdominal pain, diarrhea, nausea or vomiting Genitourinary Genitourinary ED: Reports as per HPI; Denies dysuria or hematuria Musculoskeletal Musculoskeletal: Reports back pain; Denies neck pain Integumentary Denies abscess or rash Neurologic Neurologic: Reports paresthesias RLE and LLE; Denies headache(s) or weakness Psychiatric Psychiatric: Reports anxiety; Denies suicidal thoughts EXAM Physical Exam Const Vital Signs: 08/11/23 22:38 08/11/23 23:15 08/11/23 23:16 Temperature 97.4 F L Temperature Source Temporal Pulse Rate 143 H 121 H Respiratory Rate 30 H 16 Respiratory Effort Normal Blood Pressure 149/114 H 141/100 H Blood Pressure Mean 125 113 Pulse Ox 99 99 Oxygen Delivery Method Room Air Room Air 08/11/23 23:21 08/12/23 00:57 08/11/23 23:10 Temperature Temperature Source Pulse Rate 108 H 120 H Respiratory Rate 15 19 H Respiratory Effort Blood Pressure 167/114 H Blood Pressure Mean 131 Pulse Ox 96 Oxygen Delivery Method Room Air Room Air 08/11/23 23:15 08/11/23 23:16 08/11/23 23:30 Temperature Temperature Source Pulse Rate 122 H 121 H Respiratory Rate 15 17 Respiratory Effort Blood Pressure 141/100 H 157/110 H Blood Pressure Mean 114 124 Pulse Ox 98 99 Oxygen Delivery Method 08/11/23 23:30 08/11/23 23:45 08/12/23 00:00 Temperature Temperature Source Pulse Rate 118 H 111 H 111 H Respiratory Rate 12 15 15 Respiratory Effort Blood Pressure 157/110 H 145/94 H 147/101 H Blood Pressure Mean 124 108 115 Pulse Ox 98 98 98 Oxygen Delivery Method Room Air 08/12/23 02:07 Temperature Temperature Source Pulse Rate 99 Respiratory Rate 19 H Respiratory Effort Blood Pressure 134/87 H Blood Pressure Mean 102 Pulse Ox 96 Oxygen Delivery Method Room Air Positive well nourished and well developed General Appearance ED: well developed and NAD HEENT Reports moist mucous membranes normocephalic and atraumatic Eyes PERRL and EOMs intact bilaterally Neck full ROM and supple Chest Wall inspection of chest normal and palpation of chest normal Resp normal respiratory effort and clear to auscultation bilaterally Cardio regular rate, regular rhythm and no murmurs Rate: tachycardic GI non-tender and non-distended Auscultation: normoactive bowel sounds Palpation: soft Narrative: Normal perineum sensation normal anal tone Back/Spine no CVA tenderness General Back: other FROM Extremity normal to inspection General Extremety ED: Negative for edema, pulses abnormal or tenderness General Extremity: Negative for edema or pulses abnormal Neuro oriented x3, CN's II-XII intact bilaterally and no sensory deficits noted Neuro Narrative: Decree sensation in both feet subjectively but sensation is intact. Reflexes normal. No clonus bilaterally. Toes downgoing bilaterally. Sensorium / Orientation: awake and alert Motor Exam: strength 5/5 throughout Psych Mood & Affect: anxious Skin no rashes or lesions noted and no wounds Heart Score History: Slightly/Non-Suspicious ECG: Nonspecific Repolarization Age: >45 - <65 years Risk Factors: >/= 3 Risk Factors or History of CAD Score: 4 MDM MDM MDM Narrative Medical decision making narrative: Patient urinated about 150 cc of urine, bladder scan estimated 120-130 cc left in his bladder. This does not meet criteria for acute urinary retention. He does not have symptoms of acute cauda equina syndrome or conus medullaris syndrome at this time and I do not think he needs any emergent/stat MRI, in reviewing his recent records it seems he just had an MRI of his lumbar spine, contrary to what the patient told me initially. His initial troponin and EKG are normal. Chest x-ray 2 views my interpretation is negative for anything acute. Plan will be to get a repeat troponin 2 hours after the initial measurement, in the meantime he was given pain medication and antinausea medication for his back pain, and then he requested more doses. Subsequently, he was doing much better. His tachycardia resolved, his chest pain resolved, his back is feeling better he is neurologically intact. His repeat troponin came back at 8 for a delta of 0. Patient is reassured, he has an appointment with his PCP tomorrow to discuss [id number] pain medications to get him through a couple of months until he can potentially have surgery. I advised him that prescribing long-term controlled substances out of the ER is an appropriate and there are restrictions on that in [place] and he understands. He states he already saw pain management but it did not work out and he is not going back there. History & Record Review Additional record(s) reviewed:: Prior outpatient record (Last lumbar spine MRI 06/17/2023) and Prior ED visit Lab Data Attestation: I reviewed the patient's lab results. Labs: Laboratory Results - last 24 hr 08/11/23 08/12/23 23:19 01:45 WBC 11.0 RBC 5.35 Hgb 14.7 Hct 43.7 MCV 81.7 MCH 27.5 MCHC 33.6 RDW Std Deviation 37.5 RDW Coeff of [place] 12.6 Plt Count 280 MPV 11.3 Immature Gran % (Auto) 0.700 Neut % (Auto) 58.3 Lymph % (Auto) 27.1 [place] % (Auto) 11.9 H Eos % (Auto) 1.5 Baso % (Auto) 0.5 Absolute Neuts (auto) 6.4 Absolute Lymphs (auto) 2.98 Nucleated RBC % 0 Sodium 139 Potassium 4.1 Chloride 106 Carbon Dioxide 25.0 Anion Gap 8 BUN 20 H Creatinine 1.04 Estim Creat Clear Calc 92.80 Est GFR (MDRD) Af Amer 95 Est GFR (MDRD) Non-Af 79 BUN/Creatinine Ratio 19.2 Glucose 148 H Calcium 9.4 Troponin I High Sens 8 8 Rhythm Strip Rhythm Strip: Sinus Tach Rate: 120 Ectopy: None EKG Initial EKG: Attestation: I personally reviewed and interpreted this EKG as follows: Interpretation: No Acute Injury Pattern, Sinus Tachycardia and Non-Specific ST Changes Discharge Plan Triage Chief Complaint: Chest Pain ED Provider: Jose Marrero Dx/Rx/DC Orders Clinical Impression: Anxiety attack, Lumbosacral spinal stenosis, Severe low back pain, Chest pain, unspecified Instructions: ED Chest Pain, Noncardiac Prescriptions: No Action meloxicam 15 mg tablet 15 mg PO DAILY Patient Comments: Short periods of time (DME) blood pressure test kit-medium Kit See Rx Instructions .Route Qty: 1 0RF Rx Instructions: As directed atorvastatin 80 mg tablet 80 mg PO QHS Qty: 90 3RF lisinopril 5 mg tablet 5 mg PO DAILY Qty: 90 3RF metoprolol tartrate 25 mg tablet 25 mg PO BID Qty: 180 3RF nitroglycerin 0.4 mg tablet, sublingual 0.4 mg sublingual Q5M PRN (Reason: Cardiac/Chest Pain) Qty: 25 3RF Brilinta 90 mg tablet 90 mg PO BID Qty: 180 3RF gabapentin 300 MG capsule 300 mg PO TIDCM Patient Comments: PT STATES HE NORMALLY TAKES TWICE DAILY buspirone 15 MG tablet 15 mg PO BID cyclobenzaprine 10 MG tablet 10 mg PO TID PRN (Reason: muscle pain) fluoxetine 40 mg capsule 40 mg PO DAILY Patient Comments: PT STATES HE TAKES 40MG DAILY, AND 20MG CAPSULE NEEDED. ropinirole 1 mg tablet 1.5 mg PO DAILY aspirin 81 mg Tablet,Delayed Release (Dr/Ec) 81 mg PO DAILY@0800 Qty: 0 0RF oxycodone-acetaminophen [oxycodone-acetaminophen] 5-325 mg tablet 1 tab PO Q6H PRN PRN (Reason: Pain) 3 Days Qty: 12 0RF oxycodone-acetaminophen [oxycodone-acetaminophen] 5-325 mg tablet 1 tab PO Q6H PRN PRN (Reason: Pain) 3 Days Qty: 12 0RF Primary Care Provider: Lindsay Zhou Referrals: Lindsay Zhou MD [Primary Care Provider] - [facility] appointment Disposition Disposition: Home, Self Care
[2023-08-11 23:30] VITALS: BP 157/110; PULSE 118; RESP 12; O2SAT 98
--- NOTE | 2023-08-11 23:30 | RAD_ITS ---
INDICATION: chest pain EXAMINATION/TECHNIQUE: X-RAY - XR Chest 2 Views COMPARISON: No relevant prior comparison study available FINDINGS: LINES/DEVICES: None. LUNGS: No consolidation, edema or effusion. No pneumothorax. MEDIASTINUM AND CARDIOVASCULAR STRUCTURES: Cardiac silhouette not enlarged. Central airways and mediastinal contour are unremarkable. BONES AND SOFT TISSUES: Unremarkable. RAD/Chest PA and Lateral IMPRESSION: No radiographic evidence of acute cardiopulmonary disease. Electronically Signed: Jena George MD at 2:59 EDT ,
[2023-08-11 23:31] LABS: Absolute Lymphocyte Count 2.98 X10^3/uL (0.83-4.51); Absolute Neutrophil Count 6.4 X10^3/uL (2.0-7.7); Basophil# 0.06 X10^3/uL; Basophil% 0.5 % (0-1); Eosinophil# 0.17 X10^3/uL; Eosinophils% 1.5 % (0-5); Hematocrit 43.7 % (40-54); Hemoglobin 14.7 g/dL (13.0-16.5); Lymphocyte # 2.98 X10^3/ul (0.83-4.51); Lymphocyte % 27.1 % (19-41); Mean Corp Hgb Conc 33.6 g/dL (32-36); Mean Corpuscular Hgb 27.5 pg (27.0-32.0); Mean Corpuscular Volume 81.7 fL (80-94); Mean Platelet Vol. 11.3 fl (6.2-12.0); Monocyte# 1.31 X10^3/uL; Monocyte% 11.9 % (0-10); NRBC Flagged by Analyzer 0 % (0-5); Neutrophil # 6.39 X10^3/uL (2.7-7.7); Neutrophil % 58.3 % (47-70); Platelet Count 280 K/mm3 (150-450); RBC Distribution Width CV 12.6 % (11.6-14.6); RBC Distribution Width SD 37.5 fl (35.1-43.9); Red Blood Count 5.35 M/mm3 (4.6-6.2)
[2023-08-11] MEDS: Morphine 4 MG/ML Syringe IV (23:39)
[2023-08-11] MEDS: Aspirin 81 MG TAB.CHEW 162 MG PO (23:40)
[2023-08-11 23:45] VITALS: BP 145/94; PULSE 111; RESP 15; O2SAT 98
[2023-08-11 23:56] LABS: Anion Gap 8 (5-15); BUN 20 mg/dL (7-18); BUN/Creat Ratio 19.2 RATIO (10-20); Calcium,Total 9.4 mg/dL (8.5-10.1); Chloride 106 mmol/L (98-107); Creatinine, Serum 1.04 mg/dL (0.70-1.30); EST Glomerular Filtration Rate 79 mL/min (>60); Est Glom Filt Rate - Afr Amer 95 mL/min (>60); Glucose 148 mg/dL (74-106); Potassium 4.1 mmol/L (3.5-5.1); Sodium Level 139 mmol/L (136-145); Troponin-I HS (w/2H Reflex) 8 pg/mL (3.0-78.0)
[2023-08-12] VITALS: BP 147/101; PULSE 111; RESP 15; O2SAT 98
[2023-08-12] MEDS: Morphine 4 MG/ML Syringe IV (00:52)
[2023-08-12] MEDS: Metoclopramide 10 MG/2 ML Vial 5 MG IV (00:52)
[2023-08-12 00:57] VITALS: BP 167/114; PULSE 108; RESP 15; O2SAT 96
[2023-08-12 01:27] LABS: Reflex Troponin-HS? (from REC) Y
[2023-08-12 02:07] VITALS: BP 134/87; PULSE 99; RESP 19; O2SAT 96
[2023-08-12 02:08] LABS: Troponin-I HS 8 pg/mL (3.0-78.0)
[2023-08-12 02:57] VITALS: BP 142/96; PULSE 95; RESP 16; TEMP 35.8; O2SAT 97
== END 2023-08-12 03:00 | disposition home or self-care (01) ==
PROVIDERS: Emergency Provider Emergency Medicine; PCP Internal Medicine; Visit Provider Emergency Medicine
DX: R07.9 Chest pain, unspecified (principal); M48.07 Spinal stenosis, lumbosacral region; M54.50 Low back pain, unspecified; F41.8 Other specified anxiety disorders; I25.10 Atherosclerotic heart disease of native coronary artery without angina pectoris; I10 Essential (primary) hypertension; Z79.899 Other long term (current) drug therapy; Z96.659 Presence of unspecified artificial knee joint; Z90.49 Acquired absence of other specified parts of digestive tract; Z95.5 Presence of coronary angioplasty implant and graft
CPT/HCPCS: 71046; 80048; 84484; 85025; 93005; 96374; 96375; 99284; A4216

== ENCOUNTER → 2023-09-24 | Outpatient (CLI) | payer BC, MEDICAID, SELFPAY ==
[2023-09-24 15:36] LABS: Absolute Lymphocyte Count 2.87 X10^3/uL (0.83-4.51); Basophil# 0.07 X10^3/uL; Basophil% 0.7 % (0-1); Eosinophil# 0.19 X10^3/uL; Eosinophils% 1.9 % (0-5); Hematocrit 45.4 % (40-54); Hemoglobin 14.6 g/dL (13.0-16.5); Lymphocyte # 2.87 X10^3/ul (0.83-4.51); Lymphocyte % 28.3 % (19-41); Mean Corp Hgb Conc 32.2 g/dL (32-36); Mean Corpuscular Hgb 26.9 pg (27.0-32.0); Mean Corpuscular Volume 83.8 fL (80-94); Mean Platelet Vol. 11.7 fl (6.2-12.0); Monocyte# 0.97 X10^3/uL; Monocyte% 9.6 % (0-10); NRBC Flagged by Analyzer 0 % (0-5); Neutrophil # 5.95 X10^3/uL (2.7-7.7); Neutrophil % 58.6 % (47-70); Platelet Count 362 K/mm3 (150-450); RBC Distribution Width CV 12.6 % (11.6-14.6); Red Blood Count 5.42 M/mm3 (4.6-6.2); White Blood Count 10.1 K/mm3 (4.4-11.0)
[2023-09-24 16:42] LABS: Anion Gap 11 (5-15); BUN 18 mg/dL (7-18); BUN/Creat Ratio 19.7 RATIO (10-20); Calcium,Total 10.1 mg/dL (8.5-10.1); Chloride 102 mmol/L (98-107); Creatinine, Serum 0.91 mg/dL (0.70-1.30); EST Glomerular Filtration Rate 92 mL/min (>60); Est Glom Filt Rate - Afr Amer 111 mL/min (>60); Glucose 156 mg/dL (74-106); Magnesium 2.2 mg/dL (1.6-2.6); Potassium 3.9 mmol/L (3.5-5.1); Sodium Level 137 mmol/L (136-145)
== END | disposition home or self-care (01) ==
PROVIDERS: PCP Family Medicine; Referring Provider Nurse Practitioner Gerontology; Visit Provider Nurse Practitioner Gerontology
DX: R00.0 Tachycardia, unspecified (principal); I25.10 Atherosclerotic heart disease of native coronary artery without angina pectoris; I10 Essential (primary) hypertension; R53.83 Other fatigue
CPT/HCPCS: 36415; 80048; 83735; 84443; 85025

== ENCOUNTER → 2023-10-08 | Outpatient (CLI) | payer BC, MEDICAID, SELFPAY | END | disposition home or self-care (01) | PROVIDERS: PCP Family Medicine; Referring Provider Nurse Practitioner Gerontology; Visit Provider Nurse Practitioner Gerontology | DX: R00.0 Tachycardia, unspecified (principal); I10 Essential (primary) hypertension; I25.10 Atherosclerotic heart disease of native coronary artery without angina pectoris | CPT/HCPCS: 93225; 93226 ==

== ENCOUNTER 2023-10-15 09:38 | Outpatient (RCR) | payer BC, MEDICAID, SELFPAY ==
--- NOTE | 2023-10-15 10:53 | HP.PTEVAL ---
Patient's Visit Information Visit Information Visit Information: RITU COBOS is a 53 year old M referred to Physical Therapy by Jaky Kruse with a diagnosis of LUMBAR SPONDYLOSIS. Date of Evaluation: 10/15/23 Physical Therapist: Eugenio Gold, PT, Cert MDT, OCS Visit Plan Frequency: 2x /Week Duration: 4 Weeks Plan: SCHEDULED FOR SURGERY LUMBAR November PT INTERVENTIONS AQUATIC THERAPY LUMBAR ROM ,LE FLEXABILITY ,DLS ,POSTURAL EX'S , LE STRENGTHENING AND ACTIVITY MODIFICATION Subjective Subjective: This 53 y/o male presents to physical therapy with lumbar spondylosis . Patient has had lumbar pain many years 1980 which symptoms progressively worse in June. Patient had MRI showed Spinal stenosis at L4-5 secondary to disc disease and facet arthropathy more severe on the left exaggerated by synovial cyst Spinal stenosis at L5-S1 also more pronounced on the left secondary to disc disease and bony hypertrophy . Patient has seen DR Johnson with epidural injection in July which did not help. Patient also has had functional capacity evaluation. Medication hydrocodone.Patient has seen orthopedic spine DR for surgery at [facility] but patient had NE May so had stent [facility]. Thus patient is scheduled for surgery Nov 10. Pain located lumbar lateral leg to lateral calf sharp pain and burning in feet. Patient aggravating sitting ,bending ,lifting , walking 10mins ,20min standing . Alleviating factors rest ,patient uses cane for gait. Coughing/sneezing -. C/O paresthesia/tingling in feet. Bowel/bladder -. Patient pain affects sleeping. Patient unable to return to work due to back pain. Patient symptoms affects QOL and function and unable to return to work and scheduled surgery in November ,Patient goals to decrease pain and surgery. SOCIAL: VOCATION: short disability Pain Bilateral Back: Pain Intensity (Out of 10): 5 Pain Intensity Range: 10 Left Lower Extremity: Pain Intensity (Out of 10): 7 Pain Intensity Range: 10 Comment: lower leg Objective Objective: POSTURE: mild forward posture GAIT: mild forward posture with cane 2 point gait slow vi PALPATION: tender LS NEURO:c/o paresthesia/tingling leg left, L3-4 ,L4-5,L5-S1 1/3 FLEXABILITY: hamstrings mod tight MMT: (peak force) quads right left 13.2 ,right 21.9 ,hip flexion right 22.1,left 22.1 , hamstrings right 13.4 left ,right 18.7 ankle 4/5 LUMBAR ROM : flexion mod loss ,extension mod/severe loss ,side glides mod loss Special Tests L/S Slump test left side: Positive L/S Slump test right side: Positive L/S Left Straight Leg Raise: Positive L/S Right Straight Leg Raise: Positive Balance/Special Test Scores Oswestry Low Back Score: 42 Goals Goal 1:: Patient to be I with Aquatic therapy program Goal Time Frame: 4-6 Weeks Goal 2:: Patient to demonstrate 40% improvement with less pain and improved function Goal Time Frame: 4-6 Weeks Goal 3:: Patient to improve lumbar ROM for function of recovery to tie shoes Goal Time Frame: 4-6 Weeks Goal 4:: Patient to improve strength peak force quads/hams/hip to improve QOL and function Goal Time Frame: 4-6 Weeks Goal 5:: Patient to improve back oswestry score by 3-5 points to improve QOL and function Goal Time Frame: 4-6 Weeks Rehabilitation Potential Physical Therapy Diagnosis: This patient has lumbar stenosis with radicular symptoms in legs left > right worse with positioning and motion testing walking/standing bending along with weakness left leg > right thus benefit from Aquatic Therapy Rehabilitation Potential: Good Anticipated Interventions Patient/Client Instruction: Educate patient on: Condition and Plan of Care For the Purpose of:: To decrease pain, To increase ROM, To improve muscle performance and motor function, To improve ability to perform ADL's, To increase tolerance to activity/condition/position, To improve ability of physical actions for home/community/work/leisure, To improve health of tissue, To decrease soft tissue restriction, To increase flexibility/ROM and To improve endurance Therapeutic Exercise to Include: Strength training, Endurance training, Balance training, Postural training, Flexibilty training, In an aquatic setting and Dynamic Lumbar Stabilization For the Purpose of:: To decrease pain, To increase ROM, To improve muscle performance and motor function, To improve ability of physical actions for home/community/work/leisure, To improve health of tissue, To decrease soft tissue restriction, To increase flexibility/ROM and To improve tolerance to ADL's Text: Thank you for the opportunity to evaluate your patient. For Medicare and Medicare HMO plans, please review the plan of care and approve it. It will need to be FAXED BACK to us at [phone] for Medicare purposes. For Medicare only, by signing this I certify the plan of care. Please let me know if there are questions or concerns regarding this plan of care. Physician Signature: Date:
--- NOTE | 2023-12-29 19:50 | HP.PT.NRP ---
Patient Information Patient Information: RITU COBOS was seen in my office for initial evaluation on 10/15/23. The following Plan of Care was established for this patient: POC Established Initial Frequency: 2x /Week Initial Duration: 4 Weeks Anticipated Interventions Patient/Client Instruction: Educate patient on: Condition and Plan of Care For the Purpose of:: To decrease pain, To increase ROM, To improve muscle performance and motor function, To improve ability to perform ADL's, To increase tolerance to activity/condition/position, To improve ability of physical actions for home/community/work/leisure, To improve health of tissue, To decrease soft tissue restriction, To increase flexibility/ROM and To improve endurance Therapeutic Exercise to Include: Strength training, Endurance training, Balance training, Postural training, Flexibilty training, In an aquatic setting and Dynamic Lumbar Stabilization For the Purpose of:: To decrease pain, To increase ROM, To improve muscle performance and motor function, To improve ability of physical actions for home/community/work/leisure, To improve health of tissue, To decrease soft tissue restriction, To increase flexibility/ROM and To improve tolerance to ADL's Last Seen Last Seen: This patient was last seen in our office . Pertinent comments regarding their Physical therapy will appear below: Patient seen to PT for lumbar pain but is scheduled and had have lumbar surgery At this point I will be discontinuing this patient from physical therapy. I would be happy to see this patient again in the future if found appropriate by the physician. Thank you! Eugenio Gold, PT, Cert MDT, OCS Balance/Gait/Functional tests Balance/Special Test Scores Oswestry Low Back Score: 42
== END 2023-10-15 19:00 | disposition home or self-care (01) ==
LOC: PT 09:38
PROVIDERS: PCP Family Medicine
DX: M47.816 Spondylosis without myelopathy or radiculopathy, lumbar region (principal)
CPT/HCPCS: 97162

== ENCOUNTER 2023-10-23 07:11 | Emergency (ER) | payer BC, MEDICAID, SELFPAY ==
[2023-10-23 07:11] VITALS: BP 144/94; PULSE 93; RESP 14; TEMP 36.4; O2SAT 96
--- NOTE | 2023-10-23 07:21 | RAD_ITS ---
STUDY: X-RAY - CERVICAL SPINE REASON FOR EXAM: Male, 53 years old. Neck pain. No known injury. TECHNIQUE: 3 view(s) of the cervical spine were obtained. COMPARISON: None FINDINGS: There are degenerative changes of the anterior atlantoaxial articulation. Normal odontoid process. There is reversal of the normal cervical lordosis. Marked degree of disc space narrowing with spondylosis at the C5-C6 C6-C7 levels. Facet joint osteoarthritis. Normal visualized intervertebral neuroforamina. The soft tissue structures are unremarkable. RAD/Cerv Spine 2 or 3 Views IMPRESSION: Reversal of the normal cervical lordosis. Disc space narrowing and spondylosis at the C5-C6 and C6-C7 levels. Electronically Signed: Angel Garcia MD at 8:16 EDT ,
--- NOTE | 2023-10-23 07:24 | EX.ED.DYSGE1 ---
HPI History of Present Illness Chief Complaint: Other, Pain/Inj Informant: patient Onset/Context/Timing Onset: Today Narrative Narrative: Patient presents secondary to right-sided neck pain. He states he woke this morning around 4 AM with stiffness in the right side of his neck and across the trapezius muscle. He has pain down his arm states he has difficulty using his right arm secondary to pain. He has chronic lumbar back pain and stenosis and is currently in physical therapy. He has also had chronic pain in the right shoulder. He is right-hand dominant. He is on [place] 7.5's twice daily chronically for pain control. He took a dose of that around 3:30 AM. [facility] Medical History CAD (coronary artery disease) Hypertension Substance abuse Anxiety Home Medications ?Medication ?Instructions ?Recorded ?Last Taken ?Type gabapentin 300 mg capsule 300 mg PO TIDCM 08/14/15 05/08/23 History buspirone 15 mg tablet 15 mg PO BID anxiety 08/24/15 05/08/23 History cyclobenzaprine 10 mg tablet 10 mg PO TID PRN muscle pain 05/08/23 Unknown History fluoxetine 40 mg capsule 40 mg PO DAILY DEPRESSION 05/08/23 05/08/23 History ropinirole 1 mg tablet 1.5 mg PO DAILY RESTLESS LEG 05/08/23 05/07/23 History SYNDROME aspirin 81 mg tablet,delayed 81 mg PO DAILY@0800 #0 tabs 05/10/23 Unknown Rx release atorvastatin 80 mg tablet 80 mg PO QHS #90 tabs 06/13/23 Unknown Rx blood pressure test kit-medium #1 ea 06/13/23 Unknown Rx lisinopril 5 mg tablet 5 mg PO DAILY #90 tabs 06/13/23 Unknown Rx nitroglycerin 0.4 mg sublingual 0.4 mg sublingual Q5M PRN 06/13/23 Unknown Rx tablet Cardiac/Chest Pain #25 tabs oxycodone-acetaminophen 5 mg-325 1 tab PO Q6H PRN PRN Pain 3 days 08/09/23 Unknown Rx mg tablet #12 TABLETS ticagrelor 90 mg tablet (Brilinta) 90 mg PO BID #180 tabs 09/22/23 Unknown Rx metoprolol tartrate 50 mg tablet 50 mg PO BID #60 tabs 09/24/23 Unknown Rx cyclobenzaprine 10 mg tablet 10 mg PO TID PRN Muscle Spasm #20 10/23/23 Unknown Rx TABLETS lidocaine 5 % topical patch 1 patch topical DAILY #15 ea 10/23/23 Unknown Rx (Lidoderm) naproxen 500 mg tablet (Naprosyn) 500 mg PO BID PRN pain #10 tabs 10/23/23 Unknown Rx Allergy/AdvReac Type Severity Reaction Status Date / Time No Known Allergies Allergy Verified 09/22/23 15:36 Surgical History Stented coronary artery (~05/09/23) Hx of cardiac catheterization (~05/09/23) Hx of appendectomy History of knee replacement H/O knee surgery H/O wisdom tooth extraction Social History household members: family and children Smoking Status: Never smoker alcohol intake: current alcohol intake frequency: holidays/special occasions only substance use type: marijuana ROS ROS ED Constitutional Constitutional ED: Denies chills or fever(s) Eyes Eyes: Denies discharge from eye(s) ENT ENT ED: Denies discharge from eye(s), rhinorrhea or sore throat Cardiovascular Cardiovascular: Denies chest pain or palpitations Respiratory/Chest Respiratory/Chest: Denies cough or dyspnea Gastrointestinal Gastrointestinal: Denies abdominal pain, nausea or vomiting Musculoskeletal Musculoskeletal: Reports extremity pain and neck pain; Denies back pain Integumentary Denies Abrasions or rash Neurologic Neurologic: Reports weakness; Denies headache(s) or paresthesias Psychiatric Psychiatric: Denies anxiety or depression Allergic/Immunologic Allergic/Immunologic ED: Denies lip swelling or urticaria EXAM Physical Exam Const Vital Signs: 10/23/23 07:11 10/23/23 07:11 Temperature 97.6 F L Temperature Source Temporal Pulse Rate 93 Respiratory Rate 14 Respiratory Effort Normal Non-Labored Respiratory Pattern Normal Blood Pressure 144/94 H Blood Pressure Mean 110 Pulse Ox 96 Oxygen Delivery Method Room Air Positive well nourished and well developed General Appearance ED: well developed HEENT Reports moist mucous membranes Eyes EOMs intact bilaterally Chest Wall inspection of chest normal and palpation of chest normal Resp normal respiratory effort and clear to auscultation bilaterally Cardio regular rate and regular rhythm GI non-tender Palpation: soft Back/Spine Back/Spine Narrative: No midline cervical tenderness. Patient does have reproducible muscular tenderness in the right lateral neck. Extremity Extremity Narrative: Reproducible tenderness of the trapezius muscle of the right shoulder. Decreased range of motion of the right upper extremity secondary to pain. Good distal pulses and strong hand grasp. Neuro oriented x3 and no sensory deficits noted Skin no rashes or lesions noted MDM MDM MDM Narrative Medical decision making narrative: Patient was given IM Dilaudid along with p.o. Flexeril and a Lidoderm patch. X-rays of the cervical spine and right shoulder are obtained to evaluate for any acute bony abnormality. History & Record Review Discussion w/independent historian: Patient Radiography Diagnostic Testing: Clinical Impression(s) from Imaging Studies Cervical Spine X-Ray 10/23/23 07:21 IMPRESSION: Reversal of the normal cervical lordosis. Disc space narrowing and spondylosis at the C5-C6 and C6-C7 levels. Electronically Signed: Angel Garcia MD at 8:16 EDT , Shoulder X-Ray 10/23/23 07:45 IMPRESSION: Mild degree of degenerative changes. Findings suggestive of prior resection of the distal portion of the right clavicle. Electronically Signed: Angel Garcia MD at 8:17 EDT , Treatment and Re-Evaluation :: C-spine x-rays per my interpretation reveal straightening of the normal lordosis consistent with muscle spasm. Chronic arthritic changes noted. Radiology interpretation reviewed and agrees. Right shoulder x-rays per my interpretation reveal no evidence of acute fracture or dislocation. Radiology interpretation reviewed and agrees. Test results discussed with patient and family at bedside. He is already on [place] chronically. I will write him a short course of Naprosyn along with Flexeril and Lidoderm patches. Patient comfortable with the plan. Return instructions given. Discharge Plan Triage Chief Complaint: Other, Pain/Inj ED Provider: Lori Howell Dx/Rx/DC Orders Clinical Impression: Spasm of right trapezius muscle Instructions: ED Neck Spasm, No Trauma Prescriptions: New naproxen [Naprosyn] 500 mg tablet 500 mg PO BID PRN (Reason: pain) Qty: 10 0RF cyclobenzaprine 10 mg tablet 10 mg PO TID PRN (Reason: Muscle Spasm) Qty: 20 0RF lidocaine [Lidoderm] 5 % adhesive patch,medicated 1 patch topical DAILY Qty: 15 0RF Rx Instructions: leave on most painful area for up to 12 hrs No Action (DME) blood pressure test kit-medium Kit See Rx Instructions .Route Qty: 1 0RF Rx Instructions: As directed atorvastatin 80 mg tablet 80 mg PO QHS Qty: 90 3RF lisinopril 5 mg tablet 5 mg PO DAILY Qty: 90 3RF nitroglycerin 0.4 mg tablet, sublingual 0.4 mg sublingual Q5M PRN (Reason: Cardiac/Chest Pain) Qty: 25 3RF Brilinta 90 mg tablet 90 mg PO BID Qty: 180 3RF gabapentin 300 MG capsule 300 mg PO TIDCM Patient Comments: PT STATES HE NORMALLY TAKES TWICE DAILY buspirone 15 MG tablet 15 mg PO BID cyclobenzaprine 10 MG tablet 10 mg PO TID PRN (Reason: muscle pain) fluoxetine 40 mg capsule 40 mg PO DAILY Patient Comments: PT STATES HE TAKES 40MG DAILY, AND 20MG CAPSULE NEEDED. ropinirole 1 mg tablet 1.5 mg PO DAILY aspirin 81 mg Tablet,Delayed Release (Dr/Ec) 81 mg PO DAILY@0800 Qty: 0 0RF oxycodone-acetaminophen [oxycodone-acetaminophen] 5-325 mg tablet 1 tab PO Q6H PRN PRN (Reason: Pain) 3 Days Qty: 12 0RF metoprolol tartrate 50 mg tablet 50 mg PO BID Qty: 60 11RF Primary Care Provider: Anupam Salazar Referrals: Anupam Salazar MD [Primary Care Provider] - 1 Week if not improving Print Language: Montenegrin Disposition Disposition: Home, Self Care
[2023-10-23] MEDS: Lidocaine 5% Patch 1 PATCH TOPICAL (07:28)
[2023-10-23] MEDS: cycloBENZAPRine HCl 10 MG Tablet PO (07:28)
[2023-10-23] MEDS: HYDROmorphone 1 MG/ML Syringe IM (07:29)
--- NOTE | 2023-10-23 07:45 | RAD_ITS ---
STUDY: X-RAY - RIGHT SHOULDER REASON FOR EXAM: Male, 53 years old. Shoulder pain. No known injury. TECHNIQUE: view(s) of the shoulder. COMPARISON: None. FINDINGS: There is mild degenerative arthrosis of the glenohumeral articulation. There has been resection of the distal portion of the right clavicle. Normal acromion. Normal humeral head and visualized proximal humerus. The soft tissue structures are unremarkable. Normal visualized pulmonary apex. RAD/Shoulder min 2 Views IMPRESSION: Mild degree of degenerative changes. Findings suggestive of prior resection of the distal portion of the right clavicle. Electronically Signed: Angel Garcia MD at 8:17 EDT ,
[2023-10-23 08:38] VITALS: BP 136/84; PULSE 91; RESP 16; TEMP 36.6; O2SAT 94
== END 2023-10-23 08:39 | disposition home or self-care (01) ==
PROVIDERS: Emergency Provider Emergency Medicine; PCP Family Medicine; Visit Provider Emergency Medicine
DX: M62.838 Other muscle spasm (principal); G89.29 Other chronic pain; X58.XXXA Exposure to other specified factors, initial encounter; I25.10 Atherosclerotic heart disease of native coronary artery without angina pectoris; I10 Essential (primary) hypertension; Z95.2 Presence of prosthetic heart valve; Z79.82 Long term (current) use of aspirin; Z79.891 Long term (current) use of opiate analgesic; Z79.899 Other long term (current) drug therapy
CPT/HCPCS: 72040; 73030; 96372; 99282

== ENCOUNTER → 2024-01-05 | Outpatient (CLI) | payer MEDICAID, SELFPAY ==
--- NOTE | 2024-01-05 15:25 | RAD_ITS ---
STUDY: X-RAY CHEST REASON FOR EXAM: Male, 53 years old. Dyspnea on exertion. TECHNIQUE: Frontal and lateral views of the chest. COMPARISON: August 11, 2023 FINDINGS: The lungs are clear and expanded. There is no demonstrated pleural abnormality. Normal size heart. Normal mediastinum and waqas. Normal visualized pulmonary arteries. Normal visualized aortic arch and descending thoracic aorta. Normal visualized thoracic spine. Normal visualized ribs, clavicles, and shoulders. No abnormality of the visualized soft tissue structures of the upper abdomen. RAD/Chest PA and Lateral IMPRESSION: No interval change. Normal chest. Electronically Signed: Levi Cho MD at 15:45 EDT ,
[2024-01-05 16:29] LABS: Absolute Lymphocyte Count 2.31 X10^3/uL (0.83-4.51); Absolute Neutrophil Count 5.7 X10^3/uL (2.0-7.7); Basophil# 0.06 X10^3/uL; Basophil% 0.6 % (0-1); Eosinophil# 0.39 X10^3/uL; Eosinophils% 4.1 % (0-5); Hematocrit 39.1 % (40-54); Hemoglobin 12.3 g/dL (13.0-16.5); Lymphocyte # 2.31 X10^3/ul (0.83-4.51); Lymphocyte % 24.5 % (19-41); Mean Corp Hgb Conc 31.5 g/dL (32-36); Mean Corpuscular Hgb 25.2 pg (27.0-32.0); Mean Platelet Vol. 11.9 fl (6.2-12.0); Monocyte# 0.87 X10^3/uL; Monocyte% 9.2 % (0-10); NRBC Flagged by Analyzer 0 % (0-5); Neutrophil # 5.74 X10^3/uL (2.7-7.7); Neutrophil % 60.9 % (47-70); Platelet Count 338 K/mm3 (150-450); RBC Distribution Width SD 37.2 fl (35.1-43.9); Red Blood Count 4.89 M/mm3 (4.6-6.2); White Blood Count 9.4 K/mm3 (4.4-11.0)
[2024-01-05 16:56] LABS: Anion Gap 8 (5-15); BUN 15 mg/dL (7-18); BUN/Creat Ratio 17.6 RATIO (10-20); Chloride 107 mmol/L (98-107); Creatinine, Serum 0.85 mg/dL (0.70-1.30); EST Glomerular Filtration Rate 99 mL/min (>60); Est Glom Filt Rate - Afr Amer 120 mL/min (>60); Glucose 114 mg/dL (74-106); Potassium 4.1 mmol/L (3.5-5.1); Sodium Level 139 mmol/L (136-145)
== END | disposition home or self-care (01) ==
LOC: RAD 15:23
PROVIDERS: PCP Family Medicine; Referring Provider Nurse Practitioner Gerontology; Visit Provider Nurse Practitioner Gerontology
DX: R06.09 Other forms of dyspnea (principal)
CPT/HCPCS: 36415; 71046; 80048; 83880; 85025

== ENCOUNTER 2024-01-13 12:00 | Outpatient (RCR) | payer MEDICAID, SELFPAY | END 2024-01-13 19:00 | disposition home or self-care (01) | LOC: PT 12:00 | PROVIDERS: PCP Family Medicine; Visit Provider Orthopaedic Surgery Orthopaedic Surgery of the Spine | DX: Z98.1 Arthrodesis status (principal) | CPT/HCPCS: 97110; 97162 ==

== ENCOUNTER 2024-05-13 20:35 | Observation (INO) | payer MEDICAID, SELFPAY ==
[2024-05-13] VITALS (19 sets, daily range): BP systolic 120–197; BP diastolic 75–180; PULSE 119–154; RESP 6–18; TEMP 36.4; O2SAT 94–98; BMI 35.6
--- NOTE | 2024-05-13 20:38 | EKG12_ITS ---
Test Reason : CP/PALP Blood Pressure : */* mmHG Vent. Rate : 152 BPM Atrial Rate : 152 BPM P-R Int : 96 ms QRS Dur : 82 ms QT Int : 346 ms P-R-T Axes : * -9 46 degrees QTcB Int : 550 ms Poor data quality, interpretation may be adversely affected Sinus tachycardia with short WI Otherwise normal ECG Confirmed by JAVID LEAVITT, CHRISTINA ([id number]), editorial specialist CHELSEY LEON ([id number]) on 05/15/2024 8:07:48 AM Referred By: ADAM Confirmed By: CHRISTINA HUA MD
[2024-05-13 20:58] LABS: Absolute Lymphocyte Count 2.49 X10^3/uL (0.83-4.51); Absolute Neutrophil Count 6.8 X10^3/uL (2.0-7.7); Basophil# 0.04 X10^3/uL; Basophil% 0.4 % (0-1); Eosinophils% 0.9 % (0-5); Hematocrit 42.6 % (40-54); Lymphocyte # 2.49 X10^3/ul (0.83-4.51); Lymphocyte % 23.4 % (19-41); Mean Corp Hgb Conc 32.9 g/dL (32-36); Mean Corpuscular Hgb 25.7 pg (27.0-32.0); Mean Corpuscular Volume 78.3 fL (80-94); Mean Platelet Vol. 11.2 fl (6.2-12.0); Monocyte# 1.09 X10^3/uL; Monocyte% 10.3 % (0-10); NRBC Flagged by Analyzer 0 % (0-5); Neutrophil # 6.84 X10^3/uL (2.7-7.7); Neutrophil % 64.4 % (47-70); Platelet Count 307 K/mm3 (150-450); RBC Distribution Width CV 14.6 % (11.6-14.6); RBC Distribution Width SD 41.1 fl (35.1-43.9); Red Blood Count 5.44 M/mm3 (4.6-6.2); White Blood Count 10.6 K/mm3 (4.4-11.0)
--- NOTE | 2024-05-13 21:04 | RAD_ITS ---
PROCEDURE: CHEST 1 VIEW (PORTABLE) REASON FOR EXAM: Chest pain TECHNIQUE: Frontal view of the chest. COMPARISON: Chest radiograph dated 01/05/2024 FINDINGS: The heart size is normal. The lungs are clear. The bones are unremarkable. RAD/Chest 1 View (Portable) IMPRESSION: NEGATIVE CHEST. Reading Location: [facility]
[2024-05-13 21:13] LABS: Anion Gap 10 (5-15); BUN 14 mg/dL (7-18); BUN/Creat Ratio 14.4 RATIO (10-20); Calcium,Total 9.4 mg/dL (8.5-10.1); Chloride 104 mmol/L (98-107); Creatinine, Serum 0.97 mg/dL (0.70-1.30); EST Glomerular Filtration Rate 85 mL/min (>60); Est Glom Filt Rate - Afr Amer 103 mL/min (>60); Glucose 231 mg/dL (74-106); Potassium 3.9 mmol/L (3.5-5.1); Sodium Level 137 mmol/L (136-145); Troponin-I HS (w/2H Reflex) 6 pg/mL (3.0-78.0)
--- NOTE | 2024-05-13 21:41 | ED.VIS.CHEST ---
HPI History of Present Illness Chief Complaint: Chest Pain Narrative Narrative: Chief complaint and HPI: Chest pain and flulike symptoms. 53-year-old male with past medical history of CAD status post PCI, chronic back pain, HTN, HLD who presents for evaluation of chest pain and flulike symptoms. Patient states for the past 2 weeks he has had nausea. He states over the past 3 days he has had intermittent headache, bodyaches, and chest pain. When I asked him to describe his chest pain he states I hurt all over. Describes his chest pain as well as his body pain as squeezing. Chest pain does not radiate down the arm, into the jaw, or into the back. He states that he took a nitro with no relief. He denies any fever, shortness of breath, diarrhea. On chart review, patient's last echocardiogram was in May 2013. EF of 60%. His last cardiac catheterization was at this time as well. He had a high-grade lesion involving the mid RCA and drug-eluting stent was placed. Review of systems: See HPI Medications: As listed on the chart Allergies: As listed on the chart PFSH: Per chart Vital signs: As listed on the chart. Reviewed. Physical exam: Gen: A&O x3 Head: Normocephalic, atraumatic Eyes: No sclera icterus, conjunctiva clear, PERRL, EOMI ENT: Dry mucous membranes Neck: Trachea midline, No JVD CV: Tachycardic, regular rhythm, no murmurs, no peripheral edema Resp: Lungs CTA BL, no w/r/c GI: Abd soft, non-distended, non-tender, no r/r/g Musc: Full ROM, no deformity, no midline spinal tenderness, tender to palpation of the entire paraspinal musculature of the back, tender anywhere you touch the patient on his body Skin: Warm, dry Neuro: Alert, oriented, grossly intact, sensation intact Psych: Cooperative, appropriate mood and affect [facility] Medical History (Reviewed 01/05/24 @ 15:11 by Claudia Abdalla FOLDER TAPER OPERATOR, FOLDER TAPER OPERATOR-C) CAD (coronary artery disease) Hypertension Substance abuse Anxiety Home Medications ?Medication ?Instructions ?Recorded ?Last Taken ?Type gabapentin 300 mg capsule 600 mg PO TIDCM 08/14/15 05/08/23 History buspirone 15 mg tablet 15 mg PO BID anxiety 08/24/15 05/08/23 History cyclobenzaprine 10 mg tablet 10 mg PO TID PRN muscle pain 05/08/23 Unknown History fluoxetine 40 mg capsule 40 mg PO DAILY DEPRESSION 05/08/23 05/08/23 History ropinirole 1 mg tablet 2 mg PO DAILY RESTLESS LEG SYNDROME 05/08/23 05/07/23 History aspirin 81 mg tablet,delayed 81 mg PO DAILY@0800 #0 tabs 05/10/23 Unknown Rx release atorvastatin 80 mg tablet 80 mg PO QHS #90 tabs 06/13/23 Unknown Rx blood pressure test kit-medium #1 ea 06/13/23 Unknown Rx nitroglycerin 0.4 mg sublingual 0.4 mg sublingual Q5M PRN 06/13/23 Unknown Rx tablet Cardiac/Chest Pain #25 tabs ticagrelor 90 mg tablet (Brilinta) 90 mg PO BID #180 tabs 09/22/23 Unknown Rx metoprolol tartrate 50 mg tablet 50 mg PO BID #60 tabs 09/24/23 Unknown Rx fluoxetine 20 mg capsule 20 mg PO QHS 05/13/24 Unknown History lisinopril 5 mg tablet 10 mg PO DAILY 05/13/24 Unknown History metformin 1,000 mg tablet 1,000 mg PO BID 05/13/24 Unknown History omeprazole 40 mg capsule,delayed 40 mg PO DAILY 05/13/24 Unknown History release zolpidem 5 mg tablet 5 mg PO QHS sleep disorder 05/13/24 Unknown History Allergy/AdvReac Type Severity Reaction Status Date / Time No Known Allergies Allergy Verified 05/13/24 20:37 Surgical History Stented coronary artery (~05/09/23) Hx of cardiac catheterization (~05/09/23) Hx of appendectomy History of knee replacement H/O knee surgery H/O wisdom tooth extraction Social History household members: family and children Smoking Status: Never smoker alcohol intake: current alcohol intake frequency: holidays/special occasions only substance use type: marijuana EXAM Physical Exam Const Vital Signs: 05/13/24 20:36 05/13/24 20:59 05/13/24 20:59 Temperature 97.6 F L Temperature Source Temporal Pulse Rate 154 H 147 H Respiratory Rate 18 16 Respiratory Effort Blood Pressure 135/90 H 166/98 H Blood Pressure Mean 105 120 Pulse Ox 98 97 97 Oxygen Delivery Method Room Air Room Air Room Air 05/13/24 20:59 05/13/24 21:35 05/13/24 21:49 Temperature Temperature Source Pulse Rate 143 H 140 H Respiratory Rate Respiratory Effort Normal Non-Labored Blood Pressure 178/146 H 197/180 H Blood Pressure Mean 156 185 Pulse Ox 96 Oxygen Delivery Method 05/13/24 22:00 05/13/24 23:00 05/13/24 23:47 Temperature 97.6 F L Temperature Source Pulse Rate 132 H 119 H 123 H Respiratory Rate 17 Respiratory Effort Blood Pressure 149/94 H 120/79 140/85 H Blood Pressure Mean 112 92 103 Pulse Ox 94 96 97 Oxygen Delivery Method MDM MDM MDM Narrative Medical decision making narrative: 53-year-old male with past medical history of CAD status post PCI, chronic back pain, HTN, HLD who presents for evaluation of chest pain and flulike symptoms. When I ask the patient to describe his chest pain he states I hurt all over. He describes it as squeezing. Patient is not having isolated chest pain. On presentation, patient is tachycardic into the 150s. EKG reviewed. Given that the heart rate is over 150, concern is for 2-1 atrial flutter however could be sinus tachycardia. Will give Cardizem bolus. NS bolus, Zofran ordered for symptoms. Patient originally declined pain medication but then accepted. Differential diagnosis includes but is not limited to viral illness, COVID-19 infection, influenza, pneumonia, arrhythmia, anemia, electrolyte abnormality. Suspect less likely ACS. Patient is low risk for PE. Chest x-ray reviewed see below to laboratory workup ordered including chest x-ray. CBC without leukocytosis or anemia. Coagulation panel unremarkable. D-dimer is elevated at 0.54 however this is within normal limits given his age. Patient not endorsing any shortness of breath or cough. He is not hypoxic. BNP unremarkable. Magnesium level unremarkable. No transaminitis. Lactic acid elevated at 3.2. Another NS bolus ordered. BNP unremarkable. Lipase unremarkable. Troponin unremarkable x 2. On reevaluation, patient is in sinus tachycardia with a heart rate of 120s. At this point in time I have no clear etiology for patient's lactic acid as well as tachycardia. He states he has not been vomiting or having diarrhea. States he has been eating and drinking. Will add on UA to assess for UTI as well as urine drug screen as patient does admit to marijuana abuse. Maybe he has polysubstance abuse. Both of these are pending at this time. Patient will warrant admission for continued observation and hydration. Patient updated of all his results and the plan. He confirmed understanding. I spoke with the hospitalist service and patient will be admitted. EKG: Interpreted by me/EM physician: EKG shows sinus tachycardia versus atrial flutter. No acute ischemic changes. Heart rate 152. Repeat EKG shows sinus tachycardia with nonspecific ST abnormalities. Heart rate 143. Diagnostic: Interpreted by me/EM physician: Chest x-ray without pneumonia, effusion, cardiomegaly, pneumothorax Impression: 1. Suspected viral syndrome 2. Sinus tachycardia 3. Lactic acidosis Lab Data Labs: Laboratory Results - last 24 hr 05/13/24 05/13/24 05/13/24 20:50 21:43 22:59 WBC 10.6 RBC 5.44 Hgb 14.0 Hct 42.6 MCV 78.3 L MCH 25.7 L MCHC 32.9 RDW Std Deviation 41.1 RDW Coeff of [place] 14.6 Plt Count 307 MPV 11.2 Immature Gran % (Auto) 0.600 Neut % (Auto) 64.4 Lymph % (Auto) 23.4 [place] % (Auto) 10.3 H Eos % (Auto) 0.9 Baso % (Auto) 0.4 Absolute Neuts (auto) 6.8 Absolute Lymphs (auto) 2.49 Nucleated RBC % 0 PT 13.3 INR 1.0 APTT 27.3 D-Dimer Quant (PE/DVT) 0.54 H* Sodium 137 Potassium 3.9 Chloride 104 Carbon Dioxide 23.0 Anion Gap 10 BUN 14 Creatinine 0.97 Est GFR (MDRD) Af Amer 103 Est GFR (MDRD) Non-Af 85 BUN/Creatinine Ratio 14.4 Glucose 231 H Lactic Acid 3.2 H* Calcium 9.4 Magnesium 2.0 Total Bilirubin 0.30 Direct Bilirubin 0.06 AST 30 ALT 74 H Alkaline Phosphatase 124 H Troponin I High Sens 6 8 B-Natriuretic Peptide 8.9 Total Protein 7.9 Albumin 3.6 Globulin 4.3 H Lipase 42 L Radiography Diagnostic Testing: Clinical Impression(s) from Imaging Studies Chest X-Ray 05/13/24 21:04 IMPRESSION: NEGATIVE CHEST. Reading Location: [facility] Discharge Plan Triage Chief Complaint: Chest Pain ED Provider: Wander Ellison Dx/Rx/DC Orders Prescriptions: No Action (DME) blood pressure test kit-medium Kit See Rx Instructions .Route Qty: 1 0RF Rx Instructions: As directed atorvastatin 80 mg tablet 80 mg PO QHS Qty: 90 3RF nitroglycerin 0.4 mg tablet, sublingual 0.4 mg sublingual Q5M PRN (Reason: Cardiac/Chest Pain) Qty: 25 3RF Brilinta 90 mg tablet 90 mg PO BID Qty: 180 3RF gabapentin 300 MG capsule 600 mg PO TIDCM buspirone 15 MG tablet 15 mg PO BID cyclobenzaprine 10 MG tablet 10 mg PO TID PRN (Reason: muscle pain) fluoxetine 40 mg capsule 40 mg PO DAILY Patient Comments: PT STATES HE TAKES 40MG DAILY, AND 20MG CAPSULE NEEDED. ropinirole 1 mg tablet 2 mg PO DAILY aspirin 81 mg Tablet,Delayed Release (Dr/Ec) 81 mg PO DAILY@0800 Qty: 0 0RF fluoxetine 20 mg capsule 20 mg PO QHS omeprazole 40 mg capsule,delayed release(DR/EC) 40 mg PO DAILY metformin 1,000 mg tablet 1,000 mg PO BID lisinopril 5 mg tablet 10 mg PO DAILY zolpidem 5 mg tablet 5 mg PO QHS metoprolol tartrate 50 mg tablet 50 mg PO BID Qty: 60 11RF Primary Care Provider: Anupam Salazar Referrals: Anupam Salazar MD [Primary Care Provider] - Print Language: Bermudian
--- NOTE | 2024-05-13 21:45 | EKG12_ITS ---
Test Reason : cp repeat Blood Pressure : */* mmHG Vent. Rate : 143 BPM Atrial Rate : 143 BPM P-R Int : 96 ms QRS Dur : 82 ms QT Int : 362 ms P-R-T Axes : * -19 29 degrees QTcB Int : 558 ms Sinus tachycardia with short LA Nonspecific ST abnormality Abnormal ECG Confirmed by JAVID LEAVITT, CHRISTINA ([id number]), book or script editor CHELSEY LEON ([id number]) on 05/15/2024 8:08:03 AM Referred By: Thuy Confirmed By: CHRISTINA HUA MD
[2024-05-13] MEDS: 0.9% Normal Saline (1000mL) 1,000 ML 1000 ML IV (21:47)
[2024-05-13] MEDS: dilTIAZem 25 MG/5 ML Vial 20 MG IV BOLUS (21:48)
[2024-05-13] MEDS: Ondansetron 4 MG/2 ML Vial IV (21:48)
[2024-05-13 22:10] LABS: D-Dimer Quantitative (DVT/PE) 0.54 FEU/ug/m (0.27-0.49)
[2024-05-13 22:11] LABS: AST(SGOT) 30 U/L (15-37); Alanine Aminotransfer ALT/SGPT 74 U/L (16-61); Albumin, Serum 3.6 g/dL (3.2-5.0); Alkaline Phosphatase 124 U/L (45-117); Bilirubin, Direct 0.06 mg/dL (0.00-0.30); Globulin 4.3 g/dL (2.2-4.2); Protein, Total 7.9 g/dL (6.4-8.2)
[2024-05-13 22:16] LABS: Lipase 42 U/L (73-393)
[2024-05-13 22:20] LABS: Partial Thromboplast Time 27.3 Seconds (24.1-36.2); Prothrombin Time (Protime)PT. 13.3 SECONDS (11.7-14.9)
[2024-05-13 22:23] LABS: Lactic Acid 3.2 mmol/L (0.4-1.9)
[2024-05-13] MEDS: Morphine 4 MG/ML Syringe IV (22:30)
[2024-05-13] MEDS: 0.9% Normal Saline (1000mL) 1,000 ML 999 ML IV (22:31)
[2024-05-13 22:32] LABS: BNP,B-Type NATRIURETIC PEPTIDE 8.9 pg/mL (0-100)
[2024-05-13] MEDS: Metoclopramide 10 MG/2 ML Vial 5 MG IV (22:48)
[2024-05-13 22:52] LABS: Reflex Troponin-HS? (from REC) Y
[2024-05-13 23:28] LABS: Troponin-I HS 8 pg/mL (3.0-78.0)
[2024-05-13 23:38] LABS: Bacteria 0 SEEN /hpf (None Seen); Mucous, Urine 0 SEEN /hpf (<or=2+); Red Blood Cells-Urine 0 SEEN /hpf (0-5); Squamous Epithelial Cells - UA 0 SEEN /hpf (0-5); White Blood Cells 0 SEEN /hpf (0-5)
--- NOTE | 2024-05-13 23:46 | PCM.HP.STD ---
HPI - General General Date of Admission: 05/13/24 Date of Service: 05/13/24 Chief Complaint: Chest pain HPI Narrative The patient is a 53-year-old gentleman with past medical history of CAROL ANN on CPAP, CKD stage II per GFR trending, CAD, hypertension, hyperlipidemia, anxiety and depression, polysubstance abuse, GERD, restless leg syndrome, diabetes mellitus type 2 who presents to the [facility] ED on 05/13/2024 with history of pleuritic chest discomfort and recent flulike symptoms with persistent fatigue, malaise, nausea, coughing fits causing bouts of emesis, decreased oral intake, intermittent headaches, body aches, congestion and rhinorrhea with no recent fevers or chills nor any dyspnea or diarrhea but given ongoing prompted ED evaluation to be cautious. Workup in the ED included T97.6, heart rate initially 154, BP 135/90, respiratory rate 18, 98% on room air with most recent repeat vitals heart rate 119, BP 120/79, 96% on room air, CBC with WBC 10.6, hemoglobin 14, platelet 307 without marked shift, unremarkable coags besides D-dimer 0.54 which is normal for age adjustment, CMP with BUN/creatinine 14/0.97, GFR 85, glucose 231, lactic acid 3.2, ALT 74, alk phos 124 otherwise hepatic profile not marked appearing, BNP 8.9, troponin initial 6 with repeat delta 8, chest x-ray with no acute cardiopulmonary findings, SARS COVID/influenza/RSV PCR negative, EKG with sinus tachycardia versus atrial flutter, difficult to assess however following heart rate decreased repeat EKG with sinus tachycardia with nonspecific ST changes with no acute evidence of ischemia. In the ED patient ministered Zofran 4 mg IV x 1, Reglan 5 mg IV x 1, morphine 4 mg IV x 1, diltiazem 20 mg IV bolus x 1 as well as 2 L normal saline. [facility] Medical History CKD (chronic kidney disease), stage II Anxiety and depression CAROL ANN on CPAP HLD (hyperlipidemia) CAD (coronary artery disease) Hypertension Substance abuse Home Medications ?Medication ?Instructions ?Recorded ?Last Taken ?Type gabapentin 300 mg capsule 600 mg PO TIDCM 08/14/15 05/08/23 History buspirone 15 mg tablet 15 mg PO BID anxiety 08/24/15 05/08/23 History cyclobenzaprine 10 mg tablet 10 mg PO TID PRN muscle pain 05/08/23 Unknown History fluoxetine 40 mg capsule 40 mg PO DAILY DEPRESSION 05/08/23 05/08/23 History ropinirole 1 mg tablet 2 mg PO DAILY RESTLESS LEG SYNDROME 05/08/23 05/07/23 History aspirin 81 mg tablet,delayed 81 mg PO DAILY@0800 #0 tabs 05/10/23 Unknown Rx release atorvastatin 80 mg tablet 80 mg PO QHS #90 tabs 06/13/23 Unknown Rx blood pressure test kit-medium #1 ea 06/13/23 Unknown Rx nitroglycerin 0.4 mg sublingual 0.4 mg sublingual Q5M PRN 06/13/23 Unknown Rx tablet Cardiac/Chest Pain #25 tabs ticagrelor 90 mg tablet (Brilinta) 90 mg PO BID #180 tabs 09/22/23 Unknown Rx metoprolol tartrate 50 mg tablet 50 mg PO BID #60 tabs 09/24/23 Unknown Rx fluoxetine 20 mg capsule 20 mg PO QHS 05/13/24 Unknown History lisinopril 5 mg tablet 10 mg PO DAILY 05/13/24 Unknown History metformin 1,000 mg tablet 1,000 mg PO BID 05/13/24 Unknown History omeprazole 40 mg capsule,delayed 40 mg PO DAILY 05/13/24 Unknown History release zolpidem 5 mg tablet 5 mg PO QHS sleep disorder 05/13/24 Unknown History Allergy/AdvReac Type Severity Reaction Status Date / Time No Known Allergies Allergy Verified 05/13/24 20:37 Family History (Updated 05/14/24 @ 00:[address] Tracey Schmitz MD) Mother No problems noted. Father No problems noted. Family History other other (Patient denies any marked maternal or paternal family history including heart disease, diabetes, cancer.) Surgical History Stented coronary artery (~05/09/23) Hx of cardiac catheterization (~05/09/23) Hx of appendectomy History of knee replacement H/O knee surgery H/O wisdom tooth extraction Social History household members: family and children Smoking Status: Never smoker alcohol intake: current alcohol intake frequency: holidays/special occasions only substance use type: marijuana ROS ROS Narrative Admission Review of Systems: CONSTITUTIONAL: No weight loss, fever, chills, + weakness or fatigue. HEENT: + Headache, congestion, rhinorrhea. Eyes: No visual loss, blurred vision, double vision or yellow sclerae. Ears, Nose, Throat: No hearing loss, sneezing. SKIN: No rash or itching, lesions, wounds. CARDIOVASCULAR: + Pleuritic chest discomfort. No palpitations, edema, orthopnea, syncopal events. RESPIRATORY: + Not markedly productive cough. No marked dyspnea, wheezing, hemoptysis. GASTROINTESTINAL: + Decreased appetite/nausea, occasional bouts of emesis with coughing fits. No diarrhea, abdominal pain, melena, BRBPR. GENITOURINARY: No dysuria, frequency, urgency or retention. NEUROLOGICAL: + Headache. No dizziness, syncope, paralysis, ataxia, numbness or tingling in the extremities, focal weakness, change in bowel or bladder control, seizure. MUSCULOSKELETAL: + muscle, back pain, joint pain or stiffness. HEMATOLOGIC: No anemia+ easy bleeding/bruising. LYMPHATICS: No enlarged nodes. No history of splenectomy. PSYCHIATRIC: + History of anxiety and depression. ENDOCRINOLOGIC: + reports of sweating, cold or heat intolerance. No polyuria or polydipsia. ALLERGIES: No history of asthma, hives, eczema or rhinitis. Vital Signs Vital Signs Vital Signs: 05/13/24 20:36 05/13/24 20:59 05/13/24 20:59 Temperature 97.6 F L Temperature Source Temporal Pulse Rate 154 H 147 H Respiratory Rate 18 16 Respiratory Effort Blood Pressure 135/90 H 166/98 H Blood Pressure Mean 105 120 Pulse Ox 98 97 97 Oxygen Delivery Method Room Air Room Air Room Air 05/13/24 20:59 05/13/24 21:35 05/13/24 21:49 Temperature Temperature Source Pulse Rate 143 H 140 H Respiratory Rate Respiratory Effort Normal Non-Labored Blood Pressure 178/146 H 197/180 H Blood Pressure Mean 156 185 Pulse Ox 96 Oxygen Delivery Method 05/13/24 22:00 05/13/24 23:00 Temperature Temperature Source Pulse Rate 132 H 119 H Respiratory Rate Respiratory Effort Blood Pressure 149/94 H 120/79 Blood Pressure Mean 112 92 Pulse Ox 94 96 Oxygen Delivery Method Weight Weight: 227 lb 4.745 oz Body Mass Index (BMI) 35.6 Physical Exam Narrative Physical Examination: General: Awake, alert, oriented x 3 and cooperative, seated upright in ED bed, fatigued, notes feeling somewhat improved with IV fluids, heart rate improved. Skin: Normal color, normal turgor, no icterus, no cyanosis. HEENT: AT/NC, EOMI, PERRLA, dry MM, no carotid bruits or JVD noted. Lungs: Diminished, greater bases, appropriate effort, no rales, ronchi or wheezing. Heart: Improved but still mildly tachycardic with regular rhythm; no gallop, rub audible, reproducible discomfort with palpation of the anterior chest/especially intercostal region. Abdomen: Soft, obese, NTTP, ND, distant normal BS, no appreciated HSM. Extremities: No cyanosis, clubbing, or edema. Neurological: Patient awake, alert, oriented as noted, cognitive function intact; pupils equally reactive to light and accommodation, cranial nerves gross normal, moving all 4 extremities, no focal deficits, strength mildly to moderately globally decreased. Psychiatric: Affect appears fatigued, no acute evidence of depressive or anxiety feelings but does have underlying history. Results Lab / Micro Data 05/13/24 20:50 05/13/24 20:50 Labs: Laboratory Results - last 24 hr 05/13/24 20:50: WBC 10.6, RBC 5.44, Hgb 14.0, Hct 42.6, MCV 78.3 L, MCH 25.7 L, MCHC 32.9, RDW Std Deviation 41.1, RDW Coeff of Zonia 14.6, Plt Count 307, MPV 11.2, Immature Gran % (Auto) 0.600, Neut % (Auto) 64.4, Lymph % (Auto) 23.4, [place] % (Auto) 10.3 H, Eos % (Auto) 0.9, Baso % (Auto) 0.4, Absolute Neuts (auto) 6.8, Absolute Lymphs (auto) 2.49, Nucleated RBC % 0, Sodium 137, Potassium 3.9, Chloride 104, Carbon Dioxide 23.0, Anion Gap 10, BUN 14, Creatinine 0.97, Est GFR (MDRD) Af Amer 103, Est GFR (MDRD) Non-Af 85, BUN/Creatinine Ratio 14.4, Glucose 231 H, Calcium 9.4, Magnesium 2.0, Total Bilirubin 0.30, Direct Bilirubin 0.06, AST 30, ALT 74 H, Alkaline Phosphatase 124 H, Troponin I High Sens 6, B-Natriuretic Peptide 8.9, Total Protein 7.9, Albumin 3.6, Globulin 4.3 H, Lipase 42 L 05/13/24 21:43: PT 13.3, INR 1.0, APTT 27.3, D-Dimer Quant (PE/DVT) 0.54 H*, Lactic Acid 3.2 H* 05/13/24 22:59: Troponin I High Sens 8 Micro: Microbiology 05/13/24 21:43 Mucosa - Nose SARS-CoV-2, Influenza & RSV (PCR) - Final Imaging Radiology Impression Chest X-Ray 05/13/24 21:04 IMPRESSION: NEGATIVE CHEST. [facility] Assessment & Plan Assessment/Plan (1) Sinus tachycardia: PLAN: Plan The patient is a 53-year-old gentleman with past medical history of CAROL ANN on CPAP, CKD stage II per GFR trending, CAD, hypertension, hyperlipidemia, anxiety and depression, polysubstance abuse, GERD, restless leg syndrome, diabetes mellitus type 2 who presents to the [facility] ED on 05/13/2024 with history of pleuritic chest discomfort and recent flulike symptoms with persistent fatigue, malaise, nausea, coughing fits causing bouts of emesis, decreased oral intake, intermittent headaches, body aches, congestion and rhinorrhea with no recent fevers or chills nor any dyspnea or diarrhea but given ongoing prompted ED evaluation to be cautious. #1. Suspected acute viral syndrome with associated tachycardia and pleuritic chest discomfort, lower suspicion for cardiac etiology with recent poor oral intake with suspected dehydration resulting in lactic acidosis: Will admit to PCU to be cautious, not requiring any supplemental oxygen, heart rate improving with IV fluids, will dose patient with his metoprolol this evening and continue judicious IV fluids, will request full respiratory viral panel, procalcitonin, maintain HOB, IS parameters, cautious to maintain on telemetry with continued cycle cardiac enzymes, magnesium per ED normal level and urinalysis unremarkable, UDS pending upon evaluation given history of substance abuse although from record and discussion cannabis only. #2. CAD: Status post PCI 05/2023 with high-grade lesion involving the mid RCA with EF 60% at that time, will continue Brilinta, aspirin, statin, metoprolol and lisinopril home regimen. #3. Hypertension: Continue home regimen including metoprolol, lisinopril with hold parameters as needed, PRN hydralazine. #4. Hyperlipidemia: Continue home statin regimen. AM FLP. #5. Anxiety and depression: We will continue patient home fluoxetine and BuSpar home regimen. #6. Chronic Kidney Disease Stage II per GFR trending: Admission BUN/Cr 14/0.97, GFR 85, baseline renal function primarily 0.7-0.9, repeat BMP in AM. #7. Diabetes mellitus type II with hyperglycemia and chronic polyneuropathy: Hold oral home regimen, will request hemoglobin A1c given elevated blood sugar, ADA diet with n.p.o. status at midnight, accu checks w/ ISS, continue home gabapentin regimen. #8. Obesity: Weight loss and lifestyle changes encouraged. #9. Restless leg syndrome: We will continue patient on Requip regimen. #10. GERD: We will continue patient on PPI. #11. CAROL ANN: Will maintain on CPAP nightly. #12. DVT prophylaxis: Lovenox. Charges/Coding Visit Charges Inpatient E&M: 16642 Init Hosp L2
[2024-05-14] VITALS (15 sets, daily range): BP systolic 127–165; BP diastolic 82–106; PULSE 88–122; RESP 11–17; TEMP 36.6–37.1; O2SAT 86–100; BMI 35.2
[2024-05-14 00:14] LABS: Color, Urine Yellow (Yellow); Glucose, Dipstick Normal (Normal); Ketone-Dipstick Negative (Negative); Leukocyte Esterase-Dipstick Negative /ul (Negative); Nitrite-Dipstick Negative (Negative); Occult Blood-Urine Negative /ul (Negative); Protein-Dipstick 15 mg/dl (Negative); Urine Bilirubin Dipstick Negative (Negative); Urine Clarity Clear (Clear); Urine Urobilinogen Normal (Normal)
[2024-05-14 00:26] LABS: Amphetamine Urine NEGATIVE (<1000 ng/mL); Barbiturate Urine VISTA NEGATIVE (< 200 ng/mL); Benzodiazepine Urine VISTA NEGATIVE (< 200 ng/mL); Cocaine Urine VISTA NEGATIVE (< 300 ng/mL); Ecstacy Urine VISTA NEGATIVE (< 500 ng/mL); Methadone Urine VISTA NEGATIVE (< 300 ng/mL); Opiates Urine NEGATIVE (< 300 ng/mL); PCP Urine NEGATIVE (< 25 ng/mL); THC Urine VISTA POSITIVE (< 50 ng/mL); Vista UDS pH Range 5
[2024-05-14 01:48] LABS: Reflex Lactate? Y
[2024-05-14] MEDS: proCHLORPERazine 10 MG/2 ML Vial 5 MG IV (02:02)
[2024-05-14] MEDS: 0.9% Normal Saline (1000mL) 1,000 ML 100 ML IV (02:03)
[2024-05-14] MEDS: Zolpidem Tartrate 5 MG Tablet PO ×2 (02:08→21:34)
[2024-05-14] MEDS: Metoprolol Tartrate 50 MG Tablet PO ×3 (02:08→21:28)
--- NOTE | 2024-05-14 02:19 | CPS ---
Pt wears Autopap, it was set up here in house the same , full face mask 5-25 cmHoH autopap range.
[2024-05-14 03:07] LABS: Absolute Lymphocyte Count 1.88 X10^3/uL (0.83-4.51); Absolute Neutrophil Count 4.7 X10^3/uL (2.0-7.7); Basophil# 0.02 X10^3/uL; Basophil% 0.3 % (0-1); Eosinophil# 0.14 X10^3/uL; Eosinophils% 1.8 % (0-5); Hematocrit 34.5 % (40-54); Hemoglobin 11.4 g/dL (13.0-16.5); Lymphocyte # 1.88 X10^3/ul (0.83-4.51); Lymphocyte % 24.3 % (19-41); Mean Corpuscular Hgb 26.1 pg (27.0-32.0); Mean Corpuscular Volume 78.9 fL (80-94); Mean Platelet Vol. 11.8 fl (6.2-12.0); Monocyte# 0.96 X10^3/uL; Monocyte% 12.4 % (0-10); NRBC Flagged by Analyzer 0 % (0-5); Neutrophil # 4.71 X10^3/uL (2.7-7.7); Neutrophil % 60.7 % (47-70); Platelet Count 225 K/mm3 (150-450); RBC Distribution Width CV 14.6 % (11.6-14.6); RBC Distribution Width SD 41.6 fl (35.1-43.9); Red Blood Count 4.37 M/mm3 (4.6-6.2); White Blood Count 7.8 K/mm3 (4.4-11.0)
[2024-05-14 03:18] LABS: Troponin-I HS 9 pg/mL (3.0-78.0)
[2024-05-14 03:22] LABS: ALB/GLOB Ratio 0.9 RATIO (0.9-2.4); AST(SGOT) 19 U/L (15-37); Alanine Aminotransfer ALT/SGPT 56 U/L (16-61); Albumin, Serum 3.1 g/dL (3.2-5.0); Alkaline Phosphatase 101 U/L (45-117); Anion Gap 7 (5-15); BUN 14 mg/dL (7-18); BUN/Creat Ratio 18.9 RATIO (10-20); Calcium,Total 8.1 mg/dL (8.5-10.1); Chloride 110 mmol/L (98-107); Creatinine, Serum 0.74 mg/dL (0.70-1.30); EST Glomerular Filtration Rate 116 mL/min (>60); Est Glom Filt Rate - Afr Amer 141 mL/min (>60); Estimated Creatinine Clearance 128.43 ml/min; Globulin 3.5 g/dL (2.2-4.2); Glucose 167 mg/dL (74-106); Potassium 3.8 mmol/L (3.5-5.1); Protein, Total 6.6 g/dL (6.4-8.2); Sodium Level 140 mmol/L (136-145)
[2024-05-14 03:26] LABS: Lactic Acid 2.1 mmol/L (0.4-1.9)
--- NOTE | 2024-05-14 05:30 | NURSING ---
pt continues to pull off telemetry even after multiple redirection that patient needs to keep tele on. Patient has also pulled out 2 IVs after moving around in bed, 1 IV was wrapped with an TIFFANY wrap in attempt to protect IV site. Doctor aware that patient is refusing to wear telemetry
[2024-05-14 05:52] LABS: Bedside Glucose 114 mg/dL (74-106)
[2024-05-14] MEDS: Lisinopril 10 MG Tablet PO (09:04)
[2024-05-14] MEDS: Fluoxetine HCl 40 MG CAPSULE PO (09:04)
[2024-05-14] MEDS: Pantoprazole Sodium 40 MG Tablet PO (09:04)
[2024-05-14] MEDS: Pramipexole Di-HCl 1 MG Tablet PO ×2 (09:04→22:53)
[2024-05-14] MEDS: Aspirin E.C. 81 MG Tablet PO (09:05)
[2024-05-14] MEDS: busPIRone 15 MG TABLET PO ×2 (09:05→21:26)
[2024-05-14] MEDS: TICAGRELOR 90 MG TABLET PO ×2 (09:05→21:28)
[2024-05-14] MEDS: Gabapentin 600 MG Tablet PO ×3 (09:12→17:30)
[2024-05-14] MEDS: Enoxaparin 40 MG/0.4 ML Syringe SC (09:13)
--- NOTE | 2024-05-14 10:53 | PN.HOSP_ITS ---
Reason for Visit Reason for Visit: Diagnoses Tachycardia, unspecified (05/13/24) Objective Data Objective Data Vital Signs: Vital Signs Temp Pulse Resp BP Pulse Ox O2 Del Method 97.8 F 93 16 165/95 H 99 Room Air 05/14/24 01:14 05/14/24 09:04 05/14/24 01:14 05/14/24 02:08 05/14/24 02:19 05/14/24 08:00 Oxygen Delivery Method Room Air Weight: 102.2 kg Body Mass Index (BMI) 35.2 Intake & Output: Intake and Output for Last 24 Hours 05/12/24 05/13/24 05/14/24 23:59 23:59 23:59 Intake Total 1999 295 / 295 Balance 1999 295 / 295 Lab / Micro Data 05/14/24 02:48 05/14/24 02:48 Labs: Laboratory Results - last 24 hr 05/13/24 20:50: WBC 10.6, RBC 5.44, Hgb 14.0, Hct 42.6, MCV 78.3 L, MCH 25.7 L, MCHC 32.9, RDW Std Deviation 41.1, RDW Coeff of Zonia 14.6, Plt Count 307, MPV 11.2, Immature Gran % (Auto) 0.600, Neut % (Auto) 64.4, Lymph % (Auto) 23.4, M eleonora % (Auto) 10.3 H, Eos % (Auto) 0.9, Baso % (Auto) 0.4, Absolute Neuts (auto) 6.8, Absolute Lymphs (auto) 2.49, Nucleated RBC % 0, Sodium 137, Potassium 3.9, Chloride 104, Carbon Dioxide 23.0, Anion Gap 10, BUN 14, Creatinine 0.97, Est GFR (MDRD) Af Amer 103, Est GFR (MDRD) Non-Af 85, BUN/Creatinine Ratio 14.4, G lucose 231 H, Calcium 9.4, Magnesium 2.0, Total Bilirubin 0.30, Direct Bilirubin 0.06, AST 30, ALT 74 H, Alkaline Phosphatase 124 H, Troponin I High Sens 6, B- Natriuretic Peptide 8.9, Total Protein 7.9, Albumin 3.6, Globulin 4.3 H, Lipase 42 L 05/13/24 21:43: PT 13.3, INR 1.0, APTT 27.3, D-Dimer Quant (PE/DVT) 0.54 H*, L actic Acid 3.2 H* 05/13/24 22:59: Magnesium 2.0, Troponin I High Sens 8 05/13/24 23:35: Urine Color Yellow, Urine Clarity Clear, Urine pH 6.0, Ur Specific Ledger 1.020, Urine Protein 15 H, Urine Glucose (UA) Normal, Urine Ketones Negative, Urine Occult Blood Negative, Urine Nitrite Negative, Urine Bilirubin Negative, Urine Urobilinogen Normal, Ur Leukocyte Esterase Negative, Urine RBC 0 SEEN, Urine WBC 0 SEEN, Ur Squamous Epith Cells 0 SEEN, Urine Bacteria 0 SEEN, Urine Mucus 0 SEEN, Urine Opiates Screen NEGATIVE, Urine Methadone Screen NEGATIVE, Ur Barbiturates Screen NEGATIVE, Ur Phencyclidine Scrn NEGATIVE, Ur Amphetamines Screen NEGATIVE, MDMA (Ecstasy) Screen NEGATIVE, U Benzodiazepines Scrn NEGATIVE, Urine Cocaine Screen NEGATIVE, U Cannabinoids Screen POSITIVE H, Ur Drug Screen Comment 05/14/24 00:32: Procalcitonin 0.10 H 05/14/24 02:48: WBC 7.8, RBC 4.37 L, Hgb 11.4 L, Hct 34.5 L, MCV 78.9 L, MCH 26.1 L, MCHC 33.0, RDW Std Deviation 41.6, RDW Coeff of Zonia 14.6, Plt Count 225, MPV 11.8, Immature Gran % (Auto) 0.500, Neut % (Auto) 60.7, Lymph % (Auto) 24.3, [place] % (Auto) 12.4 H, Eos % (Auto) 1.8, Baso % (Auto) 0.3, Absolute Neuts (auto) 4.7, Absolute Lymphs (auto) 1.88, Nucleated RBC % 0, Sodium 140, Potassium 3.8, Chloride 110 H, Carbon Dioxide 22.0, Anion Gap 7, BUN 14, Creatinine 0.74, Estim Creat Clear Calc 128.43, Est GFR (MDRD) Af Amer 141, Est GFR (MDRD) Non-Af 116, BUN/Creatinine Ratio 18.9, Glucose 167 H, Lactic Acid 2.1 H*, Calcium 8.1 L, Total Bilirubin 0.20, AST 19, ALT 56, Alkaline Phosphatase 101, Troponin I High Sens 9, Total Protein 6.6, Albumin 3.1 L, Globulin 3.5, Albumin/Globulin Ratio 0.9 05/14/24 05:34: POC Glucose 114 H Micro: Microbiology 05/14/24 01:35 Mucosa - Nasopharyngeal Respiratory Panel (PCR) - Final 05/13/24 21:43 Mucosa - Nose SARS-CoV-2, Influenza & RSV (PCR) - Final Radiography Diagnostic Testing: Radiology Impression Chest X-Ray 05/13/24 21:04 IMPRESSION: NEGATIVE CHEST. Reading [facility] Physical Exam Narrative Physical Examination: General: Awake, alert, oriented x 3 and cooperative, seated upright in ED bed, fatigued, notes feeling somewhat improved with IV fluids, heart rate improved. Skin: Normal color, normal turgor, no icterus, no cyanosis. HEENT: AT/NC, EOMI, PERRLA, dry MM, no carotid bruits or JVD noted. Lungs: Diminished, greater bases, appropriate effort, no rales, ronchi or wheezing. Heart: Improved but still mildly tachycardic with regular rhythm; no gallop, rub audible, reproducible discomfort with palpation of the anterior chest/especially intercostal region. Abdomen: Soft, obese, NTTP, ND, distant normal BS, no appreciated HSM. Extremities: No cyanosis, clubbing, or edema. Neurological: Patient awake, alert, oriented as noted, cognitive function intact; pupils equally reactive to light and accommodation, cranial nerves gross normal, moving all 4 extremities, no focal deficits, strength mildly to moderately globally decreased. Psychiatric: Affect appears fatigued, no acute evidence of depressive or anxiety feelings but does have underlying history. Assessment & Plan Assessment/Plan (1) Sinus tachycardia: PLAN: Plan The patient is a 53-year-old gentleman with past medical history of CAROL ANN on CPAP, CKD stage II per GFR trending, CAD, hypertension, hyperlipidemia, anxiety and depression, polysubstance abuse, GERD, restless leg syndrome, diabetes mellitus type 2 who presents to the [facility] ED on 05/13/2024 with history of pleuritic chest discomfort and recent flulike symptoms with persistent fatigue, malaise, nausea, coughing fits causing bouts of emesis, decreased oral intake, intermittent headaches, body aches, congestion and rhinorrhea with no recent fevers or chills nor any dyspnea or diarrhea but given ongoing prompted ED evaluation to be cautious. #1. Suspected acute viral syndrome with associated tachycardia and pleuritic chest discomfort, lower suspicion for cardiac etiology with recent poor oral intake with suspected dehydration resulting in lactic acidosis: Will admit to PCU to be cautious, not requiring any supplemental oxygen, heart rate improving with IV fluids, will dose patient with his metoprolol this evening and continue judicious IV fluids, will request full respiratory viral panel, procalcitonin, maintain HOB, IS parameters, cautious to maintain on telemetry with continued cycle cardiac enzymes, magnesium per ED normal level and urinalysis unremarkable, UDS pending upon evaluation given history of substance abuse although from record and discussion cannabis only. #2. CAD: Status post PCI 05/2023 with high-grade lesion involving the mid RCA with EF 60% at that time, will continue Brilinta, aspirin, statin, metoprolol and lisinopril home regimen. #3. Hypertension: Continue home regimen including metoprolol, lisinopril with hold parameters as needed, PRN hydralazine. #4. Hyperlipidemia: Continue home statin regimen. AM FLP. #5. Anxiety and depression: We will continue patient home fluoxetine and BuSpar home regimen. #6. Chronic Kidney Disease Stage II per GFR trending: Admission BUN/Cr 14/0.97, GFR 85, baseline renal function primarily 0.7-0.9, repeat BMP in AM. #7. Diabetes mellitus type II with hyperglycemia and chronic polyneuropathy: Hold oral home regimen, will request hemoglobin A1c given elevated blood sugar, ADA diet with n.p.o. status at midnight, accu checks w/ ISS, continue home gabapentin regimen. #8. Obesity: Weight loss and lifestyle changes encouraged. #9. Restless leg syndrome: We will continue patient on Requip regimen. #10. GERD: We will continue patient on PPI. #11. CAROL ANN: Will maintain on CPAP nightly. #12. DVT prophylaxis: Lovenox.
--- NOTE | 2024-05-14 10:53 | PCM.PN.HOSP ---
Reason for Visit Reason for Visit: Diagnoses Tachycardia, unspecified (05/13/24) Subjective Subjective Patient is a 53-year-old gentleman with history of coronary artery disease with previous PCI who presented to the emergency department with chest pain and shortness of breath Objective Data Objective Data Vital Signs: Vital Signs Temp Pulse Resp BP Pulse Ox O2 Del Method 97.8 F 93 16 165/95 H 99 Room Air 05/14/24 01:14 05/14/24 09:04 05/14/24 01:14 05/14/24 02:08 05/14/24 02:19 05/14/24 08:00 Oxygen Delivery Method Room Air Weight: 102.2 kg Body Mass Index (BMI) 35.2 Intake & Output: Intake and Output for Last 24 Hours 05/12/24 05/13/24 05/14/24 23:59 23:59 23:59 Intake Total 1999 295 / 295 Balance 1999 295 / 295 Lab / Micro Data 05/14/24 02:48 05/14/24 02:48 Labs: Laboratory Results - last 24 hr 05/13/24 20:50: WBC 10.6, RBC 5.44, Hgb 14.0, Hct 42.6, MCV 78.3 L, MCH 25.7 L, MCHC 32.9, RDW Std Deviation 41.1, RDW Coeff of Zonia 14.6, Plt Count 307, MPV 11.2, Immature Gran % (Auto) 0.600, Neut % (Auto) 64.4, Lymph % (Auto) 23.4, Briscoe % (Auto) 10.3 H, Eos % (Auto) 0.9, Baso % (Auto) 0.4, Absolute Neuts (auto) 6.8, Absolute Lymphs (auto) 2.49, Nucleated RBC % 0, Sodium 137, Potassium 3.9, Chloride 104, Carbon Dioxide 23.0, Anion Gap 10, BUN 14, Creatinine 0.97, Est GFR (MDRD) Af Amer 103, Est GFR (MDRD) Non-Af 85, BUN/Creatinine Ratio 14.4, Glucose 231 H, Calcium 9.4, Magnesium 2.0, Total Bilirubin 0.30, Direct Bilirubin 0.06, AST 30, ALT 74 H, Alkaline Phosphatase 124 H, Troponin I High Sens 6, B-Natriuretic Peptide 8.9, Total Protein 7.9, Albumin 3.6, Globulin 4.3 H, Lipase 42 L 05/13/24 21:43: PT 13.3, INR 1.0, APTT 27.3, D-Dimer Quant (PE/DVT) 0.54 H*, Lactic Acid 3.2 H* 05/13/24 22:59: Magnesium 2.0, Troponin I High Sens 8 05/13/24 23:35: Urine Color Yellow, Urine Clarity Clear, Urine pH 6.0, Ur Specific Webster 1.020, Urine Protein 15 H, Urine Glucose (UA) Normal, Urine Ketones Negative, Urine Occult Blood Negative, Urine Nitrite Negative, Urine Bilirubin Negative, Urine Urobilinogen Normal, Ur Leukocyte Esterase Negative, Urine RBC 0 SEEN, Urine WBC 0 SEEN, Ur Squamous Epith Cells 0 SEEN, Urine Bacteria 0 SEEN, Urine Mucus 0 SEEN, Urine Opiates Screen NEGATIVE, Urine Methadone Screen NEGATIVE, Ur Barbiturates Screen NEGATIVE, Ur Phencyclidine Scrn NEGATIVE, Ur Amphetamines Screen NEGATIVE, MDMA (Ecstasy) Screen NEGATIVE, U Benzodiazepines Scrn NEGATIVE, Urine Cocaine Screen NEGATIVE, U Cannabinoids Screen POSITIVE H, Ur Drug Screen Comment 05/14/24 00:32: Procalcitonin 0.10 H 05/14/24 02:48: WBC 7.8, RBC 4.37 L, Hgb 11.4 L, Hct 34.5 L, MCV 78.9 L, MCH 26.1 L, MCHC 33.0, RDW Std Deviation 41.6, RDW Coeff of Zonia 14.6, Plt Count 225, MPV 11.8, Immature Gran % (Auto) 0.500, Neut % (Auto) 60.7, Lymph % (Auto) 24.3, Briscoe % (Auto) 12.4 H, Eos % (Auto) 1.8, Baso % (Auto) 0.3, Absolute Neuts (auto) 4.7, Absolute Lymphs (auto) 1.88, Nucleated RBC % 0, Sodium 140, Potassium 3.8, Chloride 110 H, Carbon Dioxide 22.0, Anion Gap 7, BUN 14, Creatinine 0.74, Estim Creat Clear Calc 128.43, Est GFR (MDRD) Af Amer 141, Est GFR (MDRD) Non-Af 116, BUN/Creatinine Ratio 18.9, Glucose 167 H, Lactic Acid 2.1 H*, Calcium 8.1 L, Total Bilirubin 0.20, AST 19, ALT 56, Alkaline Phosphatase 101, Troponin I High Sens 9, Total Protein 6.6, Albumin 3.1 L, Globulin 3.5, Albumin/Globulin Ratio 0.9 05/14/24 05:34: POC Glucose 114 H Micro: Microbiology 05/14/24 01:35 Mucosa - Nasopharyngeal Respiratory Panel (PCR) - Final 05/13/24 21:43 Mucosa - Nose SARS-CoV-2, Influenza & RSV (PCR) - Final Radiography Diagnostic Testing: Radiology Impression Chest X-Ray 05/13/24 21:04 IMPRESSION: NEGATIVE CHEST. [facility] Physical Exam Narrative GENERAL: cooperative HEENT: Atraumatic; normocephalic EYES; Anicteric, Normal Conjunctiva NECK; supple, normal thyroid, RESPIRATORY: Diminished to auscultation CARDIOVASCULAR: Regular S1 S2, GI: soft, normoactive bowel sounds, : No Renal angle tenderness; EXTREMITIES: No edema, no clubbing, MUSCULOSKELETAL: no muscle wasting NEURO: Awake; no lateralizing signs. SKIN: No Rash PSYCH; Flat affect Assessment & Plan Assessment/Plan (1) Sinus tachycardia: PLAN: Plan Patient is a 53-year-old gentleman with history of coronary artery disease with previous PCI who presented to the emergency department with chest pain and shortness of breath 1. Chest Pain In the patient with previous UT with subsequent PCI. Placed on a monitored bed; rule out for Myocardial infarction with serial cardiac enzymes and EKGs. If negative, rule out Myocardial Ischemia with nuclear medicine stress test. 2. Coronary artery disease with previous UT ? Patient underwent PCI on 224 2 high-grade RCA lesion. Patient remains on guideline directed medical therapy 3. Hypertension ? Blood pressure controlled, home medications continued with dose adjustment as needed 4. Dyslipidemia ?Patient is on statin therapy, continued at home dose 5. Depression with anxiety ? Patient is on fluoxetine did contain 6. Class II obesity with BMI of 35.3 ? Complicating care weight loss advised 7. Diabetes mellitus type II -patient's oral hypoglycemics held. Placed on long acting insulin, Accu-Cheks a.c. and at bedtime and covered with sliding scale insulin 8. GERD ? On PPI 9. Diabetic polyneuropathy ? Patient is on gabapentin 10. Restless leg syndrome ? Patient is on ropinirole did continue 11. Obstructive sleep apnea ? Consistent use of PAP therapy encouraged 12. DVT prophylaxis ? On enoxaparin Time spent in the patient's overall evaluation,decision-making process, review of diagnostic data, adjustment of management, discussion with other providers, nursing nursing and ancillary staff involved in patient's care documentation, 50 Minutes Charges/Coding Visit Charges Inpatient E&M: 55973 [facility] Hosp L3
--- NOTE | 2024-05-14 11:04 | ECHOD_ITS ---
Reason For Study: Dyspnea/SOB Procedure This was a 2D Doppler, Color Flow transthoracic echocardiogram. Exam performed portable in patient room. Left Ventricle Normal LV size. Left ventricular systolic function is normal. The left ventricular ejection fraction is 60 %. Stage 1 diastolic dysfunction. No regional wall motion abnormalities noted. Right Ventricle Normal RV size. Normal systolic function. Atria Normal left atrium. Normal right atrium. Mitral Valve Normal mitral valve. Trivial eccentric mitral valve insufficiency. Tricuspid Valve Normal tricuspid valve. Aortic Valve Trisinus/trileaflet aortic valve. Mild focal aortic valve calcification. Trivial aortic valve insufficiency. Pulmonic Valve Normal pulmonic valve. Great Vessels Normal aortic root. The pulmonary artery is normal size. Normal inferior vena cava. Pericardium/Pleural No pericardial effusion. MMode/2D Measurements & Calculations LVIDd: 4.0 cm IVSd: 1.1 cm asc Aorta Diam: 3.0 cm LVIDs: 2.5 cm LVPWd: 1.2 cm RVDd: 2.8 cm FS: 38.5 % _ LAV(MOD-bp): 28.2 ml LVAd ap4: 26.1 cm2 SV(MOD-sp4): 40.1 ml LAV(MOD-bp) Indexed: 13.3 ml/m2 LVLd ap4: 8.3 cm SI(MOD-sp4): 18.9 ml/m2 LAV(MOD-sp2): 29.7 ml EDV(MOD-sp4): 69.0 ml LAV(MOD-sp4): 27.0 ml EDV(sp4-el): 70.1 ml LVAs ap4: 15.8 cm2 LVLs ap4: 7.4 cm ESV(MOD-sp4): 28.9 ml ESV(sp4-el): 28.7 ml EF(MOD-sp4): 58.2 % EF(sp4-el): 59.0 % _ SV(sp4-el): 41.4 ml LA A4 area: 11.9 cm2 LA dimension(2D): 3.4 cm _ RA A4 area: 7.6 cm2 TAPSE: 2.0 cm Time Measurements MV dec time: 0.18 sec Doppler Measurements & Calculations MV E max dl: 64.0 cm/sec Lat Peak E' Dl: 9.1 cm/sec Med Peak E' Dl: 6.3 cm/sec MV A max dl: 77.9 cm/sec E/E' lat: 7.0 E/E' med: 10.2 MV E/A: 0.82 _ Ao V2 max: 113.7 cm/sec LV V1 max: 88.2 cm/sec MV dec slope: 364.4 cm/sec2 Ao max P.2 mmHg LV V1 max P.1 mmHg Ao V2 mean: 91.1 cm/sec Ao mean P.5 mmHg Ao V2 VTI: 21.2 cm _ PA V2 max: 70.3 cm/sec ECHO/Echo Complete Interpretation Summary Normal LV size. Left ventricular systolic function is normal. The left ventricular ejection fraction is 60 %. Stage 1 diastolic dysfunction. Trisinus/trileaflet aortic valve. Mild focal aortic valve calcification. Ordering Physician: Tuan Rosario Referring Physician: Anupam Salazar Performed By: Emma Chand RDCS, RVT
[2024-05-14 13:45] LABS: Bedside Glucose 121 mg/dL (74-106)
[2024-05-14 17:49] LABS: Bedside Glucose 120 mg/dL (74-106)
[2024-05-14] MEDS: hydrALAZINE 20 MG/ML Vial 10 MG IV (18:46)
--- NOTE | 2024-05-14 19:14 | EKG12_ITS ---
Test Reason : CP Blood Pressure : */* mmHG Vent. Rate : 94 BPM Atrial Rate : 94 BPM P-R Int : 148 ms QRS Dur : 86 ms QT Int : 412 ms P-R-T Axes : 39 -13 -8 degrees QTcB Int : 515 ms Normal sinus rhythm Nonspecific ST and T wave abnormality Abnormal ECG When compared with ECG of 13-May-2024 21:37, MANUAL COMPARISON REQUIRED DATA IS UNCONFIRMED Confirmed by JAVID LEAVITT, CHRISTINA ([id number]), editorial director CHELSEY LEON ([id number]) on 05/17/2024 10:24:38 AM Referred By: JN Confirmed By: CHRISTINA HUA MD
[2024-05-14] MEDS: FLUoxetine 20 MG Capsule PO (21:27)
[2024-05-14] MEDS: Atorvastatin Calcium 80 MG Tablet PO (21:28)
[2024-05-14] MEDS: Acetaminophen 325 MG Tablet 650 MG PO (21:34)
[2024-05-14 21:55] LABS: Bedside Glucose 122 mg/dL (74-106)
[2024-05-14] MEDS: cycloBENZAPRine HCl 10 MG Tablet PO (22:53)
--- NOTE | 2024-05-15 00:15 | EKG12_ITS ---
Test Reason : AM EKG Blood Pressure : */* mmHG Vent. Rate : 88 BPM Atrial Rate : 88 BPM P-R Int : 148 ms QRS Dur : 86 ms QT Int : 414 ms P-R-T Axes : 38 -21 2 degrees QTcB Int : 500 ms Normal sinus rhythm Prolonged QT Abnormal ECG When compared with ECG of 14-May-2024 19:14, MANUAL COMPARISON REQUIRED DATA IS UNCONFIRMED Confirmed by JAVID LEAVITT, CHRISTINA ([id number]), film and video editor CARLOS GHOTRA ([id number]) on 05/17/2024 7:29:45 AM Referred By: JN Confirmed By: CHRISTINA HUA MD
[2024-05-15 04:49] VITALS: BMI 33.6
[2024-05-15 05:36] VITALS: BP 144/94; PULSE 88; RESP 18; TEMP 36.8; O2SAT 99
[2024-05-15] MEDS: Lisinopril 10 MG Tablet PO (05:39)
[2024-05-15] MEDS: TICAGRELOR 90 MG TABLET PO (05:39)
[2024-05-15] MEDS: Aspirin E.C. 81 MG Tablet PO (05:39)
[2024-05-15 06:02] LABS: Absolute Neutrophil Count 3.2 X10^3/uL (2.0-7.7); Basophil# 0.05 X10^3/uL; Basophil% 0.7 % (0-1); Eosinophil# 0.28 X10^3/uL; Eosinophils% 4.2 % (0-5); Hemoglobin 13.8 g/dL (13.0-16.5); Lymphocyte % 35.6 % (19-41); Mean Corp Hgb Conc 32.9 g/dL (32-36); Mean Corpuscular Hgb 25.9 pg (27.0-32.0); Mean Corpuscular Volume 78.9 fL (80-94); Mean Platelet Vol. 11.4 fl (6.2-12.0); Monocyte# 0.72 X10^3/uL; Monocyte% 10.7 % (0-10); NRBC Flagged by Analyzer 0 % (0-5); Neutrophil # 3.24 X10^3/uL (2.7-7.7); Neutrophil % 48.1 % (47-70); Platelet Count 284 K/mm3 (150-450); RBC Distribution Width SD 42.5 fl (35.1-43.9); Red Blood Count 5.32 M/mm3 (4.6-6.2); White Blood Count 6.7 K/mm3 (4.4-11.0)
[2024-05-15 07:07] LABS: Anion Gap 9 (5-15); BUN 11 mg/dL (7-18); BUN/Creat Ratio 12.9 RATIO (10-20); Calcium,Total 9.3 mg/dL (8.5-10.1); Chloride 105 mmol/L (98-107); Creatinine, Serum 0.85 mg/dL (0.70-1.30); EST Glomerular Filtration Rate 99 mL/min (>60); Est Glom Filt Rate - Afr Amer 119 mL/min (>60); Estimated Creatinine Clearance 109.19 ml/min; Glucose 131 mg/dL (74-106); Magnesium 2.3 mg/dL (1.6-2.6); Phosphorus 4.4 mg/dL (2.5-4.9); Sodium Level 138 mmol/L (136-145)
[2024-05-15 07:22] VITALS: O2SAT 96
[2024-05-15 09:00] VITALS: BP 159/99; PULSE 94; RESP 18; TEMP 36.9; O2SAT 95
[2024-05-15] MEDS: Gabapentin 600 MG Tablet PO ×2 (09:10→11:47)
[2024-05-15 09:24] LABS: Bedside Glucose 137 mg/dL (74-106)
--- NOTE | 2024-05-15 09:24 | STRESSREP ---
Stress Test Report Pharmacologic myocardial perfusion stress test. 53-year-old man with a history of chest pain Resting EKG demonstrates sinus rhythm with a rate of 94 bpm. Resting blood pressure is 138/90 mmHg. 0.4 mg of regadenoson was infused per usual protocol followed by rapid intravenous saline flush injection. Continuous EKG monitoring was performed. The maximum heart rate was 130 bpm which was 78% of max impacted heart rate the maximum workload was 1 metabolic equivalent. At rest there were no ST or T wave changes noted to suggest ischemia and at peak infusion nonspecific ST changes were noted which did not meet the criteria for ischemia. No clinical angina is noted. The final blood pressure was 130/94 mmHg. Myocardial perfusion protocol. 13.9 mCi of technetium 99m sestamibi was injected at rest. 0.4 mg of regadenoson was infused per usual protocol. At peak infusion 43 mCi of technetium 99m sestamibi was injected stress images were obtained stress and rest images were reconstructed and compared in the short axis vertical long and horizontal long axis. Gated images were also obtained. Perfusion SPECT analysis: Review of the stress images demonstrate normal uptake of tracer noted in all areas of the myocardium. The resting images similar demonstrated normal uptake of tracer noted in all areas of the myocardium. No areas of reversibility are noted to suggest ischemia and no previous infarct is noted. Gated SPECT analysis: The gated ejection fraction is 56%. Conclusion: Normal pharmacologic myocardial perfusion stress test. Preserved ejection fraction.
[2024-05-15] MEDS: Enoxaparin 40 MG/0.4 ML Syringe SC (10:19)
[2024-05-15] MEDS: busPIRone 15 MG TABLET PO (10:20)
[2024-05-15] MEDS: Fluoxetine HCl 40 MG CAPSULE PO (10:21)
[2024-05-15] MEDS: Pantoprazole Sodium 40 MG Tablet PO (10:21)
[2024-05-15 10:22] VITALS: PULSE 94
[2024-05-15] MEDS: Metoprolol Tartrate 50 MG Tablet PO (10:22)
--- NOTE | 2024-05-15 10:54 | DS.PCM_ITS ---
Providers Date of Admission: 05/13/24 Date of Discharge: 05/15/24 Primary Care Physician: Dr. Anupam Salazar MD Reason For Visit: SUSPECTED ACUTE VIRAL SYNDROME LACTIC ACIDOSIS Diagnosis Discharge Diagnosis (1) Sinus tachycardia: Status: Acute Code(s): R00.0 - Tachycardia, unspecified Plan Patient is a 53-year-old gentleman with history of coronary artery disease with previous PCI who presented to the emergency department with chest pain and shortness of breath 1. Chest Pain In the patient with previous TN with subsequent PCI. Placed on a monitored bed; rule out for Myocardial infarction with serial cardiac enzymes and EKGs. If negative, rule out Myocardial Ischemia with nuclear medicine stress test. ? Patient underwent nuclear stress test which was negative for stress-induced ischemia 2. Coronary artery disease with previous TN ? Patient underwent PCI on 224 2 high-grade RCA lesion. Patient remains on guideline directed medical therapy 3. Hypertension ? Blood pressure controlled, home medications continued with dose adjustment as needed ? Adjusted patient antihypertensives on the 4. Dyslipidemia ?Patient is on statin therapy, continued at home dose 5. Depression with anxiety ? Patient is on fluoxetine did contain 6. Class II obesity with BMI of 35.3 ? Complicating care weight loss advised 7. Diabetes mellitus type II -patient's oral hypoglycemics held. Placed on long acting insulin, Accu-Cheks a.c. and at bedtime and covered with sliding scale insulin 8. GERD ? On PPI 9. Diabetic polyneuropathy ? Patient is on gabapentin 10. Restless leg syndrome ? Patient is on ropinirole did continue 11. Obstructive sleep apnea ? Consistent use of PAP therapy encouraged 12. DVT prophylaxis ? On enoxaparin Time spent in the patient's overall evaluation,decision-making process, review of diagnostic data, adjustment of management, discussion with other providers, nursing nursing and ancillary staff involved in patient's care documentation, 35 Minutes Medications at Discharge Home Medications gabapentin 300 mg capsule 600 mg PO TIDCM 08/14/15 buspirone 15 mg tablet 15 mg PO BID anxiety 08/24/15 cyclobenzaprine 10 mg tablet 10 mg PO TID PRN muscle pain 05/08/23 fluoxetine 40 mg capsule 40 mg PO DAILY DEPRESSION 05/08/23 ropinirole 1 mg tablet 2 mg PO DAILY RESTLESS LEG SYNDROME 05/08/23 aspirin 81 mg tablet,delayed release 81 mg PO DAILY@0800 #0 tabs 05/10/23 atorvastatin 80 mg tablet 80 mg PO QHS #90 tabs 06/13/23 blood pressure test kit-medium #1 ea 06/13/23 nitroglycerin 0.4 mg sublingual tablet 0.4 mg sublingual Q5M PRN Cardiac/Chest Pain #25 tabs 06/13/23 ticagrelor 90 mg tablet (Brilinta) 90 mg PO BID #180 tabs 09/22/23 metoprolol tartrate 50 mg tablet 50 mg PO BID #60 tabs 09/24/23 fluoxetine 20 mg capsule 20 mg PO QHS 05/13/24 metformin 1,000 mg tablet 1,000 mg PO BID 05/13/24 omeprazole 40 mg capsule,delayed release 40 mg PO DAILY 05/13/24 zolpidem 5 mg tablet 5 mg PO QHS sleep disorder 05/13/24 amlodipine 10 mg tablet 10 mg PO DAILY #60 tabs 05/15/24 lisinopril 10 mg tablet 10 mg PO BIDCM #120 tabs 05/15/24 Physical Exam Narrative GENERAL: cooperative HEENT: Atraumatic; normocephalic EYES; Anicteric, Normal Conjunctiva NECK; supple, normal thyroid, RESPIRATORY: Diminished to auscultation CARDIOVASCULAR: Regular S1 S2, GI: soft, normoactive bowel sounds, : No Renal angle tenderness; EXTREMITIES: No edema, no clubbing, MUSCULOSKELETAL: no muscle wasting NEURO: Awake; no lateralizing signs. SKIN: No Rash PSYCH; Flat affect Weight / BMI Weight Weight: 97.4 kg Body Mass Index (BMI) 33.6 ABG / Lab / Microbiology Data 05/15/24 05:48 05/15/24 05:48 Laboratory: Laboratory Results - last 24 hr 05/14/24 13:07: POC Glucose 121 H 05/14/24 17:23: POC Glucose 120 H 05/14/24 21:25: POC Glucose 122 H 05/15/24 05:41: POC Glucose 137 H 05/15/24 05:48: WBC 6.7, RBC 5.32, Hgb 13.8, Hct 42.0, MCV 78.9 L, MCH 25.9 L, MCHC 32.9, RDW Std Deviation 42.5, RDW Coeff of Zonia 15.0 H, Plt Count 284, MPV 11.4, Immature Gran % (Auto) 0.700, Neut % (Auto) 48.1, Lymph % (Auto) 35.6, M eleonora % (Auto) 10.7 H, Eos % (Auto) 4.2, Baso % (Auto) 0.7, Absolute Neuts (auto) 3.2, Absolute Lymphs (auto) 2.40, Nucleated RBC % 0, Sodium 138, Potassium 4.0, Chloride 105, Carbon Dioxide 25.0, Anion Gap 9, BUN 11, Creatinine 0.85, Estim Creat Clear Calc 109.19, Est GFR (MDRD) Af Amer 119, Est GFR (MDRD) Non-Af 99, BUN/Creatinine Ratio 12.9, Glucose 131 H, Calcium 9.3, Phosphorus 4.4, Magnesium 2.3 Microbiology: Microbiology 05/14/24 01:35 Mucosa - Nasopharyngeal Respiratory Panel (PCR) - Final 05/13/24 21:43 Mucosa - Nose SARS-CoV-2, Influenza & RSV (PCR) - Final Radiography Diagnostic Testing: Radiology Impression Echocardiogram 05/14/24 11:04 Interpretation Summary Normal LV size. Left ventricular systolic function is normal. The left ventricular ejection fraction is 60 %. Stage 1 diastolic dysfunction. Trisinus/trileaflet aortic valve. Mild focal aortic valve calcification. Ordering Physician: Tuan Rosario Referring Physician: Anupam Salazar Performed By: Emma Chand, MAKENNA, RVT D/C Instructions Discharge Diet: Low fat / Low cholesterol Discharge Activity: Return to Normal Activity Call your doctor if you observe: Fever of 101 or Higher, Shortness of breath, Fainting spells and Chest pain DC O2, CPAP, BIPAP Needs PSN CPAP & BiPAP: BiPAP & CPAP Settings per PSN Mode CPAP 05/14/24 23:48 Bipap Delivery Device Face Mask 05/14/24 23:48 Fraction of Inspired Oxygen ( 21 05/14/24 23:48 FIO2) Home O2 Discharge instructions: No DC home with Oxygen: No Meaningful Use Info Meaningful Use Meaningful Use Diagnoses (Choose all that apply): None applicable Ischemic Stroke Statin Dosing Therapy Reference: STATIN DOSE THERAPY REFERENCE: * Patients > 75 years receive moderate or high dose statin therapy. * Patients 75 years or YOUNGER should receive HIGH intensity statin dose unless contraindicated. You will be required to document reason for non-treatment if statin daily dose does not meet guidelines. HIGH DOSE STATIN THERAPY DAILY Atorvastatin > than or = to 40 mg Rosuvastatin > than or = to 20 mg Amlodipine + Atorvastatin > than or = to 2.5/40 mg Ezetimibe + Simvastatin 10/80 mg Simvastatin 80mg Discharge Plan Admission Admit Date/Time: 05/13/24 23:54 Attending Provider: Tuan Rosario Primary Care Provider: Anupam Salazar Consulting Providers: Tracey Schmitz Discharge Orders/Prescriptions Prescriptions: New lisinopril 10 mg Tablet 10 mg PO BIDCM Qty: 120 0RF amlodipine 10 mg tablet 10 mg PO DAILY Qty: 60 0RF Continued (DME) blood pressure test kit-medium Kit See Rx Instructions .Route Qty: 1 0RF Rx Instructions: As directed atorvastatin 80 mg tablet 80 mg PO QHS Qty: 90 3RF nitroglycerin 0.4 mg tablet, sublingual 0.4 mg sublingual Q5M PRN (Reason: Cardiac/Chest Pain) Qty: 25 3RF Brilinta 90 mg tablet 90 mg PO BID Qty: 180 3RF gabapentin 300 MG capsule 600 mg PO TIDCM buspirone 15 MG tablet 15 mg PO BID cyclobenzaprine 10 MG tablet 10 mg PO TID PRN (Reason: muscle pain) fluoxetine 40 mg capsule 40 mg PO DAILY Patient Comments: PT STATES HE TAKES 40MG DAILY, AND 20MG CAPSULE NEEDED. ropinirole 1 mg tablet 2 mg PO DAILY aspirin 81 mg Tablet,Delayed Release (Dr/Ec) 81 mg PO DAILY@0800 Qty: 0 0RF fluoxetine 20 mg capsule 20 mg PO QHS omeprazole 40 mg capsule,delayed release(DR/EC) 40 mg PO DAILY metformin 1,000 mg tablet 1,000 mg PO BID zolpidem 5 mg tablet 5 mg PO QHS metoprolol tartrate 50 mg tablet 50 mg PO BID Qty: 60 11RF Discontinued lisinopril 5 mg tablet 10 mg PO DAILY Referrals / Follow Up: Anupam Salazar MD [Primary Care Provider] - Within 1 Week Disposition Disposition (needs filled in before D/C Order can be placed): Home, Self Care Charges/Coding Visit Charges Inpatient E&M: 31290 Disch Hosp >30min
[2024-05-15 12:10] LABS: Bedside Glucose 131 mg/dL (74-106)
[2024-05-16 16:29] LABS: Hemoglobin A1c 6.5 % (3.8-5.6)
== END 2024-05-15 12:52 | disposition home or self-care (01) ==
LOC: ED 21:45 → PCU 05-14 00:10
PROVIDERS: Admitting Provider Family Medicine; Emergency Provider Surgery; PCP Family Medicine; Visit Provider Internal Medicine
DX: R07.89 Other chest pain (principal); E11.22 Type 2 diabetes mellitus with diabetic chronic kidney disease; E11.42 Type 2 diabetes mellitus with diabetic polyneuropathy; E11.65 Type 2 diabetes mellitus with hyperglycemia; I25.10 Atherosclerotic heart disease of native coronary artery without angina pectoris; E78.5 Hyperlipidemia, unspecified; G25.81 Restless legs syndrome; I12.9 Hypertensive chronic kidney disease with stage 1 through stage 4 chronic kidney disease, or unspecified chronic kidney disease; K21.9 Gastro-esophageal reflux disease without esophagitis; N18.2 Chronic kidney disease, stage 2 (mild); G89.29 Other chronic pain; I25.2 Old myocardial infarction; Z79.899 Other long term (current) drug therapy; Z79.82 Long term (current) use of aspirin; Z79.84 Long term (current) use of oral hypoglycemic drugs; G47.33 Obstructive sleep apnea (adult) (pediatric); F41.8 Other specified anxiety disorders; E66.812 Obesity, class 2; Z68.35 Body mass index [BMI] 35.0-35.9, adult; R00.0 Tachycardia, unspecified
CPT/HCPCS: Q9957; 36415; 71045; 78452; 80048; 80053; 80076; 80307; 81001; 82962; 83036; 83605; 83690; 83735; 83880; 84100; 84145; 84484; 85025; 85379; 85610; 85730; 87631; 87633; 93005; 93017; 93306; 94660; 96361; 96372; 96374; 96375; 99221; 99285; A9500; A4216; G0378; J2405; J2785